=== PATIENT | male | born 1985 | race Caucasian/White ===

== ENCOUNTER 2019-05-27 08:58 | Outpatient (RCR) | payer OTHER, SELFPAY ==
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
--- NOTE | 2019-07-12 10:01 | PCPTNOTE ---
07/12 Patient called and cancelled JF
--- NOTE | 2019-07-19 07:10 | PCPTNOTE ---
07/19/19-pt did not show for appointment yesterday 07/18/19, vm was left for pt to call back and reschedule.-KASHIF.
--- NOTE | 2019-07-23 15:54 | PCPTNOTE ---
07/23/19 - patient called and cancelled his appointment this date. MERCED
--- NOTE | 2019-08-19 11:22 | PCPTNOTE ---
Pt. has not returned to the clinic since 08/02/19. He has failed to contact the clinic regarding his status. Pt. demonstrated poor consistency with attendance through the duration of his rehab. He will be discharged from our care at this time. Refer to last daily note for pt. discharge status. Marc Hernandez, MPT
== END 2019-08-02 09:26 | disposition home or self-care (01) ==
LOC: CHSPT 08:58
PROVIDERS: Visit Provider Family Medicine
DX: M54.2 Cervicalgia (principal); M54.5 Low back pain
CPT/HCPCS: 97014; 97110; 97161; G0283

== ENCOUNTER 2020-11-23 23:24 | Emergency (ER) | payer OTHER, SELFPAY ==
--- NOTE | ~2020-11-23 | XR_ITS ---
EXAMINATION: XR chest 1V portable DATE: 11/23/2020 23:45 INDICATION: Left chest pain. TECHNIQUE: A single frontal view of the chest was obtained. COMPARISON: None. FINDINGS: Sensitivity is decreased by obesity. The chest demonstrates clear lungs without pneumonia, pleural effusion, or pneumothorax. The heart size is normal. IMPRESSION: 1. No acute cardiopulmonary disease. Reviewed, dictated and finalized at location A.
[2020-11-23 23:25] VITALS: BP 170/74; PULSE 95; RESP 20; TEMP 36.3; O2SAT 97
--- NOTE | 2020-11-23 23:35 | ECG_ITS ---
Measurements Intervals [place] Rate: 90 P: 24 TN: 133 QRS: 12 QRSD: 100 T: 54 QT: 357 QTc: 438 Interpretive Statements SINUS RHYTHM LOW QRS VOLTAGE IN PRECORDIAL LEADS BASELINE ARTIFACT- I, II, III, AVR, AVF, V1-V3 BORDERLINE ECG Electronically Signed On 11-24-2020 10:41:02 CDT by Wing Tran D.O.
[2020-11-23 23:45] LABS: Basophils Absolute Auto 0.04 K/mm3 (0.00-0.10); Basophils Percent Auto 0.3 % (0.0-1.0); Eosinophils Absolute Auto 0.18 K/mm3 (0.02-0.50); Eosinophils Percent Auto 1.4 % (1.0-6.0); Hemoglobin 14.6 g/dL (14.0-18.0); Immature Granulocyte Absolute 0.06 K/mm3 (0.00-0.00); Immature Granulocyte Percent A 0.5 % (0.0-0.0); Lymphocytes Absolute Auto 4.77 K/mm3 (1.10-4.50); Lymphocytes Percent Auto 37.5 % (18.0-42.0); Mean Corpuscular HGB Conc 31.7 g/dL (32.0-36.0); Mean Corpuscular Hemoglobin 25.8 pg (27.0-31.0); Mean Corpuscular Volume 81.3 fL (78.0-102.0); Mean Platelet Volume 9.8 fl (8.7-11.0); Monocytes Absolute Auto 0.66 K/mm3 (0.10-0.90); Monocytes Percent Auto 5.2 % (2.0-11.0); Neutrophils Percent Auto 55.1 % (50.0-70.0); Platelet Count Result 346 K/mm3 (150-420); Red Blood Count 5.66 M/mm3 (4.70-6.10); Red Cell Distribution Width 15.4 % (11.6-14.4); White Blood Count 12.7 K/mm3 (4.8-10.8)
[2020-11-23 23:58] LABS: INR 0.9; Partial Thromboplastin Time 23.6 SEC (23.90-30.70); Prothrombin Time 9.8 Seconds (9.50-12.10)
[2020-11-24 00:05] LABS: Alanine Aminotransferase 43 U/L (16-63); Albumin Level 3.3 g/dL (3.4-5.0); Alkaline Phosphatase 136 U/L (46-116); Anion Gap 14 mmol/L (8-16); Aspartate Amino Transferase 11 U/L (15-37); Bilirubin,Total 0.2 mg/dL (0.00-1.00); Blood Urea Nitrogen 19 mg/dL (7-18); Calcium 8.9 mg/dL (8.5-10.1); Carbon Dioxide 25 mmol/L (21-32); Chloride 98 mmol/L (98-108); Estimated CRCL calculation 198 ml/min; Estimated Glomerular Filt Rate > 60; Glucose 237 mg/dL (70-99); Lipase 73 U/L (73-393); NT Pro B Type Natriuretic Pept < 11 pg/mL (0-125); Osmolality Calculated 294 mOsm/kg (285-295); Potassium 4.3 mmol/L (3.5-5.1); Sodium 137 mmol/L (136-145); Total Protein 7.8 g/dL (6.4-8.2)
[2020-11-24 00:06] LABS: Troponin I < 4.0 ng/L (0.00-60.4)
--- NOTE | 2020-11-24 00:18 | ED.CHESTPAIN ---
HPI - Chest Pain General Chief Complaint: Chest Pain Stated Complaint: Chest pain Source: patient Mode of arrival: ambulatory Limitations: no limitations History of Present Illness HPI narrative: this is 35-year-old gentleman morbidly obese with a history of diabetes and hypertension presents with a chief complaint of chest tightness has a history of anxiety there is no family history of heart disease nonsmoker, there is no radiation of his pain, rates his pain at about a 3/10 nonsmoker he has been having this some chest discomfort since Monday and persisted while he was playing video games and presented to the ER. Currently there is no cough no shortness of breath no fever chills no nausea vomiting. patient had a recent injection of of steroid in his lower back. MD complaint: chest pain Onset (ago): day(s) Timing of current episode: episodic Prior episodes: No Onset: during rest Pain location: parasternal Pain radiation: none Severity: mild Pain scale (0-10): 3 Quality: tightness Relieving factors: nothing Exacerbating factors: nothing Related Data Home Medications Medication Instructions Recorded Confirmed amlodipine 5 mg PO DAILY 11/23/20 11/23/20 atorvastatin 40 mg PO DAILY 11/23/20 11/23/20 escitalopram oxalate 20 mg PO DAILY 11/23/20 11/23/20 glimepiride 8 mg PO DAILY 11/23/20 11/23/20 insulin lispro 80 unit SUBCUT BID 11/23/20 11/23/20 omeprazole 20 mg PO DAILY 11/23/20 11/23/20 sitagliptin [Januvia] 100 mg PO DAILY 11/23/20 11/23/20 Allergies Allergy/AdvReac Type Severity Reaction Status Date / Time No Known Allergies Allergy Mild Verified 08/01/11 08:36 Review of Systems Review of Systems: All systems reviewed & are unremarkable except as noted in HPI and below PMFSH Past Medical History Medical History Diabetes mellitus Exam Const: General: cooperative, healthy appearing, comfortable and no acute distress HENMT: Head: normal to inspection Ears: hearing grossly normal bilaterally General nose exam: Normal external nose present Face and sinus: normal facial exam and face symmetric Mouth: Yes Normal oral and palatal mucosa present Eyes: General: appearance normal, both eyes and all related structures Periorbital: periorbital findings normal Eyelids: eyelids normal Conjunctivae: conjunctivae normal EOM: EOMs intact bilaterally Neck: Neck: normal visual inspection, full ROM, no lymphadenopathy and no meningeal signs Chest: Chest palpation & inspection: normal inspection of the chest and normal palpation of entire chest wall Resp: Effort & Inspection: normal respiratory effort Cardio: Jugular venous distension: no JVD Palpation: normal PMI Rate: regular rate Rhythm: regular rhythm Heart sounds: S1 normal heart sound present and S2 normal heart sound present GI: Inspection: normal to inspection Percussion: Yes normal to percussion Back/Spine/Pelvis: Back: no CVA tenderness Skin: General skin exam: normal color and no rashes or lesions noted Course Course Emergency Course: Patient has reproducible chest pain midsternum 1 with palpation has a history of anxiety and received Xanax prior to discharge. Labs and EKG were reviewed with patient a negative troponin and normal sinus rhythm. Vital Signs Vital signs: Vital Signs Temperature 36.3 C L 11/23/20 23:25 Pulse Rate 95 11/23/20 23:25 Respiratory Rate 20 11/23/20 23:25 Blood Pressure 170/74 H 11/23/20 23:25 Pulse Oximetry 97 11/23/20 23:25 Temperature 36.3 C L 11/23/20 23:25 Pulse Rate 95 11/23/20 23:25 Respiratory Rate 20 11/23/20 23:25 Blood Pressure 170/74 H 11/23/20 23:25 Pulse Oximetry 97 11/23/20 23:25 MDM - Chest Pain Lab Data Result diagrams: 11/23/20 23:40 11/23/20 23:40 Labs: Lab Results 11/23/20 11/23/20 11/23/20 Range/Units 23:40 23:40 23:40 WBC 12.7 H (4.8-10.8) K/mm3 RBC 5.66
[2020-11-24] MEDS: ALPRAZolam (*CRX) 0.5 MG TABLET PO (00:24)
[2020-11-24 00:31] VITALS: BP 150/77; PULSE 90; RESP 20; TEMP 36.6; O2SAT 97
== END 2020-11-24 00:32 | disposition home or self-care (01) ==
PROVIDERS: Emergency Provider Emergency Medicine; PCP Family Medicine
DX: R07.89 Other chest pain (principal); M94.0 Chondrocostal junction syndrome [Tietze]; F41.9 Anxiety disorder, unspecified
CPT/HCPCS: 36415; 71045; 80053; 83690; 83880; 84484; 85025; 85610; 85730; 93005; 99283; 99284; A9270

== ENCOUNTER 2021-05-13 08:47 | Outpatient (CLI) | payer OTHER, SELFPAY ==
--- NOTE | ~2021-05-13 | XR_ITS ---
EXAMINATION: XR chest 2V 05/13/2021 09:29 INDICATION: Diabetes PROCEDURE: 2 view chest COMPARISON: 11/23/2020 FINDINGS: The lungs are clear. The cardiomediastinal silhouette is within normal limits. There are no pleural effusions. There is no pneumothorax suspected. IMPRESSION: 1: NO ACUTE CARDIOPULMONARY DISEASE. Reviewed, dictated and finalized at location A. 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
--- NOTE | 2021-05-13 09:15 | ECG_ITS ---
Measurements Intervals [place] Rate: 80 P: [place]: 0 QRS: 64 QRSD: 106 T: 37 QT: 357 QTc: 414 Interpretive Statements SINUS OR ECTOPIC ATRIAL RHYTHM LOW QRS VOLTAGE IN PRECORDIAL LEADS BORDERLINE R WAVE PROGRESSION, ANTERIOR LEADS BASELINE ARTIFACT- I, II, III BORDERLINE ECG Electronically Signed On 05-13-2021 17:04:26 [address] ENGINEER FREIGHT by Wing Tran D.O.
[2021-05-13 09:56] LABS: Hemoglobin A1C 9.3 % (<5.7)
[2021-05-13 11:02] LABS: Thyroid Stimulating Hormone Reflex 1.63 u/IU/mL (0.36-3.74)
[2021-05-17 04:11] LABS: Vitamin D 25 Hydroxy 32 ng/mL (30-100)
[2021-05-17 12:41] LABS: Prealbumin 27 mg/dL (21-43)
[2021-05-17 16:02] LABS: C-Peptide 3.21 ng/mL (0.80-3.85)
== END 2021-05-13 08:48 | disposition home or self-care (01) ==
PROVIDERS: PCP Family Medicine
DX: E11.9 Type 2 diabetes mellitus without complications (principal); K76.0 Fatty (change of) liver, not elsewhere classified; E78.5 Hyperlipidemia, unspecified; E66.01 Morbid (severe) obesity due to excess calories
CPT/HCPCS: 36415; 71046; 82306; 83036; 84134; 84443; 84681; 93005

== ENCOUNTER 2021-11-08 07:12 | Outpatient (CLI) | payer OTHER, SELFPAY ==
[2021-11-08 10:23] LABS: SARS-CoV-2 RNA PCR Negative (Negative)
== END 2021-11-08 07:13 | disposition home or self-care (01) ==
LOC: CHSLAB 07:14
PROVIDERS: PCP Family Medicine; Visit Provider Family Medicine
DX: Z01.818 Encounter for other preprocedural examination (principal); Z20.822 Contact with and (suspected) exposure to COVID-19
CPT/HCPCS: C9803; U0003; U0005

== ENCOUNTER 2022-11-29 07:35 | Outpatient (CLI) | payer OTHER, SELFPAY ==
[2022-11-29 07:49] LABS: Basophils Absolute Auto 0.05 K/mm3 (0.00-0.10); Basophils Percent Auto 0.4 % (0.0-1.0); Eosinophils Absolute Auto 0.26 K/mm3 (0.02-0.50); Eosinophils Percent Auto 2.1 % (1.0-6.0); Hemoglobin 16.8 g/dL (14.0-18.0); Immature Granulocyte Absolute 0.06 K/mm3 (0.00-0.00); Immature Granulocyte Percent A 0.5 % (0.0-0.0); Lymphocytes Absolute Auto 4.28 K/mm3 (1.10-4.50); Lymphocytes Percent Auto 35.2 % (18.0-42.0); Mean Corpuscular HGB Conc 31.7 g/dL (32.0-36.0); Mean Platelet Volume 9.1 fl (8.7-11.0); Monocytes Absolute Auto 0.86 K/mm3 (0.10-0.90); Monocytes Percent Auto 7.1 % (2.0-11.0); Neutrophils Absolute Auto 6.6 K/mm3 (1.7-7.2); Neutrophils Percent Auto 54.7 % (50.0-70.0); Platelet Count Result 322 K/mm3 (150-420); Red Blood Count 6.46 M/mm3 (4.70-6.10); Red Cell Distribution Width 17.1 % (11.6-14.4); White Blood Count 12.2 K/mm3 (4.8-10.8)
== END 2022-11-29 07:36 | disposition home or self-care (01) ==
LOC: CHSLAB 07:39
PROVIDERS: PCP Physician Assistant; Visit Provider Physician Assistant
DX: D72.829 Elevated white blood cell count, unspecified (principal)
CPT/HCPCS: 36415; 85025

== ENCOUNTER 2022-12-06 14:56 | Outpatient (CLI) | payer OTHER, SELFPAY ==
[2022-12-06 16:00] LABS: Ferritin 91 ng/mL (26-388); Iron 49 ug/dL (65-175); Percent Iron Saturation 14 % (12-57)
== END 2022-12-06 14:57 | disposition home or self-care (01) ==
LOC: CHSLAB 14:59
PROVIDERS: PCP Family Medicine; Visit Provider Physician Assistant
DX: E61.1 Iron deficiency (principal)
CPT/HCPCS: 36415; 82728; 83540; 83550

== ENCOUNTER 2023-03-22 08:48 | Outpatient (CLI) | payer OTHER, SELFPAY ==
[2023-03-22 09:11] LABS: Basophils Absolute Auto 0.07 K/mm3 (0.00-0.10); Basophils Percent Auto 0.6 % (0.0-1.0); Eosinophils Absolute Auto 0.36 K/mm3 (0.02-0.50); Eosinophils Percent Auto 3.2 % (1.0-6.0); Hematocrit 54.3 % (40.0-54.0); Hemoglobin 17.3 g/dL (14.0-18.0); Immature Granulocyte Absolute 0.07 K/mm3 (0.00-0.00); Immature Granulocyte Percent A 0.6 % (0.0-0.0); Lymphocytes Absolute Auto 3.27 K/mm3 (1.10-4.50); Lymphocytes Percent Auto 29.5 % (18.0-42.0); Mean Corpuscular HGB Conc 31.9 g/dL (32.0-36.0); Mean Corpuscular Hemoglobin 26.4 pg (27.0-31.0); Mean Corpuscular Volume 82.8 fL (78.0-102.0); Mean Platelet Volume 9.1 fl (8.7-11.0); Monocytes Absolute Auto 0.76 K/mm3 (0.10-0.90); Monocytes Percent Auto 6.9 % (2.0-11.0); Neutrophils Absolute Auto 6.6 K/mm3 (1.7-7.2); Neutrophils Percent Auto 59.2 % (50.0-70.0); Platelet Count Result 336 K/mm3 (150-420); Red Blood Count 6.56 M/mm3 (4.70-6.10); Red Cell Distribution Width 16.3 % (11.6-14.4); White Blood Count 11.1 K/mm3 (4.8-10.8)
[2023-03-22 09:29] LABS: Hemoglobin A1C 7.3 % (<5.7)
[2023-03-22 09:54] LABS: Alanine Aminotransferase 70 U/L (16-63); Albumin Level 3.5 g/dL (3.4-5.0); Alkaline Phosphatase 82 U/L (46-116); Anion Gap 10 mmol/L (8-16); Aspartate Amino Transferase 29 U/L (15-37); Bilirubin,Total 0.5 mg/dL (0.00-1.00); Blood Urea Nitrogen 11 mg/dL (7-18); Calcium 9.7 mg/dL (8.5-10.1); Carbon Dioxide 30 mmol/L (21-32); Chloride 98 mmol/L (98-108); Cholesterol 187 mg/dL (0-200); Estimated Glomerular Filt Rate > 60; Ferritin 134 ng/mL (26-388); Glucose 105 mg/dL (70-99); HDL Direct 39 mg/dL (40-60); Iron 64 ug/dL (65-175); LDL Cholesterol Calculated 123 mg/dL (<130); Osmolality Calculated 285 mOsm/kg (285-295); Percent Iron Saturation 18 % (12-57); Potassium 4.6 mmol/L (3.5-5.1); Sodium 138 mmol/L (136-145); Total Protein 7.7 g/dL (6.4-8.2); Triglycerides 123 mg/dL (0-150)
[2023-03-25 16:51] LABS: Testosterone Free 510.3 pg/mL (35.0-155.0); Testosterone Total 1816 ng/dL (250-1100)
[2023-03-28 23:42] LABS: Estradiol, Ultrasensitive 58 pg/mL (< OR = 29)
== END 2023-03-22 08:49 | disposition home or self-care (01) ==
PROVIDERS: PCP Family Medicine; Visit Provider Physician Assistant
DX: E61.1 Iron deficiency (principal); D72.829 Elevated white blood cell count, unspecified
CPT/HCPCS: 36415; 80053; 80061; 82670; 82728; 83036; 83540; 83550; 84402; 84403; 85025

== ENCOUNTER 2023-09-19 10:36 | Outpatient (CLI) | payer OTHER, SELFPAY ==
--- NOTE | 2023-09-19 10:49 | ECG_ITS ---
SEE SCANNED COPY FOR CONFIRMED REPORT. MTDD
--- NOTE | 2023-09-19 16:29 | WPDPFTINT ---
PFT Procedure Performed PFT Procedure Performed Spirometry with Pre/Post Bronchodilator Plethysmography (Lung Vol) Diffusing Cap (DLCO) PFT Interpretation DOS: 09/19/2023 REQUESTING: Angel Peralta MD REASON FOR TESTING: pre-operative testing PULMONARY FUNCTION TESTS The patient exhibited good effort during testing, used several mouthpieces to complete the maneuvers. Spirometry: The pre-bronchodilator FEV1 is 3.24 L, 84%. The pre-bronchodilator FVC is 3.89 L, 81%. The FEV1/FVC ratio is 83%. After bronchodilator, the FEV1 is 3.29 L, 85%, +1%. After bronchodilator, the FVC is 4.04 L, 84%, +4%. The FEV1/FVC ratio is 81%. Lung volumes: The total lung capacity is 5.06L, 75%, decreased. The residual volume is 1.17 L, 60%. The RV/TLC is 23%. normal airway resistance. Diffusion: DLCO is 33.1, 80%. The DLCO/VA is 6.16, 142%. Flow volume loop: The flow volume loop is difficult to reproduce. There was one normal inspiratory loop, Trial 4. There were several normal expiratory loops. IMPRESSION: Normal spirometry without obstruction, mild restriction, normal diffusion, without response to bronchodilator. No prior studies for comparison. The restriction may be attributable to body mass index. Abbey Mota MD
== END 2023-09-19 10:37 | disposition home or self-care (01) ==
LOC: CHSCARD 10:41
PROVIDERS: PCP Family Medicine
DX: Z01.818 Encounter for other preprocedural examination (principal)
CPT/HCPCS: 93005; 94060; 94726; 94729

== ENCOUNTER 2024-02-01 09:05 | Outpatient (CLI) | payer OTHER, SELFPAY ==
[2024-02-01 09:29] LABS: Basophils Absolute Auto 0.04 K/mm3 (0.00-0.10); Basophils Percent Auto 0.5 % (0.0-1.0); Eosinophils Absolute Auto 0.27 K/mm3 (0.02-0.50); Eosinophils Percent Auto 3.4 % (1.0-6.0); Hematocrit 45.4 % (40.0-54.0); Hemoglobin 14.9 g/dL (14.0-18.0); Immature Granulocyte Absolute 0.02 K/mm3 (0.00-0.00); Immature Granulocyte Percent A 0.2 % (0.0-0.0); Lymphocytes Absolute Auto 1.94 K/mm3 (1.10-4.50); Lymphocytes Percent Auto 24.2 % (18.0-42.0); Mean Corpuscular HGB Conc 32.8 g/dL (32-36); Mean Corpuscular Hemoglobin 26.6 pg (27.0-31.0); Mean Corpuscular Volume 81.1 fL (78.0-102.0); Mean Platelet Volume 10.1 fl (8.7-11.0); Monocytes Absolute Auto 0.54 K/mm3 (0.10-0.90); Monocytes Percent Auto 6.7 % (2.0-11.0); Platelet Count Result 277 K/mm3 (150-420); Red Cell Distribution Width 15.4 % (11.6-14.4)
[2024-02-01 17:27] LABS: Anion Gap 9 mmol/L (4-12); Blood Urea Nitrogen 18 mg/dL (7-18); Calcium 9.1 mg/dL (8.5-10.1); Carbon Dioxide 29 mmol/L (21-32); Chloride 102 mmol/L (98-108); Estimated Glomerular Filt Rate > 60; Ferritin 503 ng/mL (26-388); Glucose 166 mg/dL (70-99); Iron 112 ug/dL (65-175); Osmolality Calculated 295 mOsm/kg (285-295); Percent Iron Saturation 42 % (12-57); Potassium 4.3 mmol/L (3.5-5.1); Sodium 140 mmol/L (136-145)
[2024-02-07 12:13] LABS: Vitamin B1 8 nmol/L (8-30)
== END 2024-02-01 09:06 | disposition home or self-care (01) ==
LOC: CHSLAB 09:09
PROVIDERS: PCP Family Medicine
DX: Z00.00 Encounter for general adult medical examination without abnormal findings (principal); E11.9 Type 2 diabetes mellitus without complications; Z98.84 Bariatric surgery status; E78.5 Hyperlipidemia, unspecified; G47.33 Obstructive sleep apnea (adult) (pediatric)
CPT/HCPCS: 36415; 80048; 82728; 83540; 83550; 84425; 85025

== ENCOUNTER 2024-05-17 03:19 | Emergency (ER) | payer OTHER, SELFPAY ==
[2024-05-17 03:22] VITALS: BP 153/90; PULSE 77; RESP 18; TEMP 36.4; O2SAT 98
[2024-05-17] MEDS: LIDOCAINE, EPINEPHRINE, TETRACAINE VISCOUS SOLN 3 ML TOPICAL (04:37)
[2024-05-17] MEDS: PHENYLEPHRINE 1,000 MCG/10 ML SYRINGE 100 MCG IV PUSH (04:45)
[2024-05-17] MEDS: LIDOCAINE 1% LOCAL INJ 10 ML VIAL INFILTRATE (04:48)
--- NOTE | 2024-05-17 05:14 | ED_ITS ---
HPI - Male Genitourinary General Chief complaint: Urogenital-Male Stated complaint: urogenital male Time Seen by Provider: 05/17/24 03:42 Source: patient Mode of arrival: ambulatory Limitations: no limitations History of Present Illness HPI Narrative: this is a 38-year-old male presents with some penile erection/priapism patient has been taking a daily Cialis and has a sustained erection for the last 10hours. There is some pain elicited at the penile shaft patient has tried cold compress to affected area. MD Complaint: other ( Penile erection) Onset (ago): hour(s) Duration: constant Location: penis Related Data Home Medications ?Medication ?Instructions ?Recorded ?Confirmed ?Last Taken ?Type atorvastatin 40 mg tablet 40 mg PO DAILY 11/23/20 05/17/24 05/16/24 History escitalopram oxalate 20 mg tablet 20 mg PO DAILY 11/23/20 05/17/24 05/16/24 History glimepiride 4 mg tablet 8 mg PO DAILY 11/23/20 05/17/24 05/16/24 History insulin lispro 100 unit/mL 80 unit subcut BID 11/23/20 05/17/24 05/16/24 History subcutaneous pen omeprazole 20 mg capsule,delayed 20 mg PO DAILY 11/23/20 05/17/24 05/16/24 History release sitagliptin phosphate 100 mg 100 mg PO DAILY 11/23/20 05/17/24 05/16/24 History tablet (Januvia) amlodipine 10 mg tablet 10 mg PO DAILY 05/17/24 05/17/24 05/16/24 History anastrozole 1 mg tablet 1 mg PO .COMPLEX 05/17/24 05/17/24 Unknown History blood sugar diagnostic (OneTouch 05/17/24 05/17/24 Unknown History Ultra Test strips) blood-glucose meter (OneTouch 05/17/24 05/17/24 Unknown History Ultra2 Meter) fluticasone propionate 50 2 spray intranasal .PRN 05/17/24 05/17/24 05/16/24 History mcg/actuation nasal spray,suspension lisinopril 2.5 mg tablet 2.5 mg PO .Daily 05/17/24 05/17/24 05/16/24 History pen needle, diabetic 29 gauge x 05/17/24 05/17/24 Unknown History 1/2 (TRUEplus Pen Needle) tadalafil 5 mg tablet (Cialis) 5 mg PO DAILY 05/17/24 05/17/24 05/16/24 History testosterone cypionate 200 mg/mL 100 mg subcut WEEKLY 05/17/24 05/17/24 Unknown History intramuscular oil trazodone 100 mg tablet 100 mg PO HS 05/17/24 05/17/24 05/16/24 History Allergies Allergy/AdvReac Type Severity Reaction Status Date / Time No Known Allergies Allergy Mild Verified 05/17/24 03:21 Review of Systems Review of Systems: All systems reviewed & are unremarkable except as noted in HPI and below [facility] Past Medical History Medical History Diabetes mellitus Exam Const: General: cooperative, healthy appearing, comfortable, no acute distress and well developed Resp: Effort & Inspection: normal respiratory effort and able to speak in complete sentences Auscultation: clear to auscultation bilaterally Cardio: Jugular venous distension: no JVD Palpation: normal PMI Rate: regular rate Rhythm: regular rhythm Heart sounds: S1 normal heart sound present and S2 normal heart sound present : Other: Penile erection Skin: General skin exam: normal color and no rashes or lesions noted Neuro: General: oriented to person, oriented to place, oriented to time and pa tient oriented x3 Course Course Emergency Course: patient with sustained penile erection, had LE T applied to the base of the penis and 1% lidocaine used at the base penis [id number] for nerve block. Subsequently dilute Phenylephrine with normal saline instilled in the corpus cavernosum bilaterally at the 2:00 a.m. and the 10 o'clock position. Subsequently with an 18gauge needle and 30cc syringe drainage of penile blood was performed and drained from bilateral corpus cavernosum approximately 80cc of blood. Procedure was tender and mildly painful, but patient did tolerate procedure well and erection had significantly in improved to a more flaccid penis. Betadine was applied to the penis prior to injection and evacuation blood. Vital Signs Vital signs: Vital Signs Temperature 36.4 C L 05/17/24 03:22 Pulse Rate 77 05/17/24 03:22 Respiratory Rate 18 05/17/24 03:22 Blood Pressure 153/90 H 05/17/24 03:22 Pulse Oximetry 98 05/17/24 03:22 Oxygen Delivery Room Air 05/17/24 03:22 Temperature 36.4 C L 05/17/24 03:22 Pulse Rate 77 05/17/24 03:22 Respiratory Rate 18 05/17/24 03:22 Blood Pressure 153/90 H 05/17/24 03:22 Pulse Oximetry 98 05/17/24 03:22 Oxygen Delivery Room Air 05/17/24 03:22 Critical Care Time Critical Care Time Critical Care Time: No Discharge Plan Discharge Clinical Impression: Priapism Patient Disposition: Home, Self-Care Condition: Stable Instructions: Antibiotic Form, Priapism (ED) Additional Instructions: advised to discontinue Cialis, and follow with primary care physician as soon as possible for possible referral to Urology. Patient Language: [place] Prescriptions: No Action anastrozole 1 mg tablet 1 mg PO .COMPLEX Rx Instructions: 1 mg orally 1/2 tab PO 2 times per week; (DME) blood-glucose meter [OneTouch Ultra2 Meter] Misc MISCELLANEOUS (DME) OneTouch Ultra Test Strip MISCELLANEOUS trazodone 100 mg tablet 100 mg PO HS amlodipine 10 mg tablet 10 mg PO DAILY testosterone cypionate 200 mg/mL oil 100 mg subcut WEEKLY fluticasone propionate 50 mcg/actuation spray,suspension 2 spray INTRANASAL .PRN lisinopril 2.5 mg tablet 2.5 mg PO .Daily (DME) pen needle, diabetic [TRUEplus Pen Needle] 29 gauge x 1/2 needle MISCELLANEOUS tadalafil [Cialis] 5 mg tablet 5 mg PO DAILY atorvastatin 40 mg tablet 40 mg PO DAILY glimepiride 4 mg tablet 8 mg PO DAILY omeprazole 20 mg capsule,delayed release(DR/EC) 20 mg PO DAILY insulin lispro 100 unit/mL insulin pen 80 unit SUBCUT BID escitalopram oxalate 20 mg tablet 20 mg PO DAILY Januvia 100 mg tablet 100 mg PO DAILY Follow-up/Referrals: Kathryn,MD Angel [Primary Care Provider] - Time of Disposition: 05:20
[2024-05-17 05:29] VITALS: BP 134/78; PULSE 78; RESP 18; O2SAT 99
--- OUTSIDE RECORDS SUMMARY | 2024-05-24 06:10 | XMS_ITS | Encounter Summary ---
Author Organization [facility] Address [address] [place] [address]. 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 Name Role Phone Unavailable Primary Care Provider Unavailabl e Encounter Details Date Type Department Care Team (Latest Contact Info) Description 02/06/2012 Abstract [facility] Social History Tobacco Use Types Packs/Day Years Used Date Smoking Tobacco: Never Assessed Sex and Gender Information Value Date Recorded Sex Assigned at Not on file Legal Sex Male 8:30 PM CDT Gender Identity Not on file Sexual Orientation Not on file documented as of this encounter Plan of Treatment Not on file documented as of this encounter Visit Diagnoses Not on filedocumented in this encounter
--- OUTSIDE RECORDS SUMMARY | 2024-05-24 06:10 | XMS_ITS | Patient Health Summary ---
Author Organization [facility] Address [address] [place] [address] Care Team Providers Care Manufacturing Operations Manager Name Role Phone Isra Mahmood MD Primary Care Provider [phone] Note from [facility],non-owned Affiliates and Associated Physician Practices is amultiple site organization consisting of ambulatory clinics and hospital sitesin [place], [place], [place] and [place]. This disclosure is being madepursuant to the Care Everywhere program and may not contain all information available regarding this patient. Last updated 18.[facility] Allergies * Metformin(Other) -High Criticality Medications * Be aware that medications may not be up to date on this document. Alwaysverify current medications with the patient. * atorvastatin (LIPITOR) 40 MG tablet Take 40 mg by mouth at bedtime * SITagliptin (JANUVIA) 100 MG tablet Take 100 mg by mouth once daily * glimepiride (AMARYL) 4 MG tablet Take 4 mg by mouth daily with breakfast * raNITIdine (ZANTAC) 300 MG tablet Take 300 mg by mouth once daily * traMADol (ULTRAM) 50 MG tablet Take 50 mg by mouth every 6 hours as needed for Pain Active Problems No known active problems Social History Tobacco Use Types Packs/Day Years Used Date Smoking Tobacco: Former Smokeless Tobacco: Never Sex and Gender Information Value Date Recorded Sex Assigned at Not on file Gender Identity Not on file Sexual Orientation Not on file Last Filed Vital Signs Vital Sign Reading Time Taken Comments Blood Pressure - - Pulse - - Temperature - - Respiratory Rate - - Oxygen Saturation - - Inhaled Oxygen Concentration - - Weight 150.9 kg (332 lb 11.2 oz) 03/15/2018 8:23 AM CDT Height 175.3 cm (5' 9 ) 03/15/2018 8:23 AM CDT Body Mass Index 49.13 03/15/2018 8:23 AM CDT Procedures * XR LUMBAR SPINE 2 OR 3VW(Performed 03/15/2018) Performed for Low back pain, unspecified back pain laterality, unspecified chronicity, with sciatica presence unspecified Results * XR LUMBAR SPINE 2 OR 3VW (03/15/2018 8:20 AM CDT) Anatomical Region Laterality Modality Spine Radiographic Shellie ging 03/15/2018 8:55 AM CDT Impressions 03/15/2018 8:56 AM CDT IMPRESSION: Normal. This report was electronically signed by OWEN RODRIGUEZ MD ??on 03/15/2018 8:56 AM . Narrative 03/15/2018 8:56 AM CDT Exam: ??XR LUMBAR SPINE 2 view History: ??back pain Comparison: None. Findings: The lumbar lordosis is normal. No fracture or subluxation is seen. The intervertebral disc spaces and facet joints are normal. Right upper quadrant clips are present. Procedure Note Owen Rodriguez MD - 03/15/2018 Exam: XR LUMBAR SPINE 2 view History: back pain Comparison: None. Findings: The lumbar lordosis is normal. No fracture or subluxation is seen. The intervertebral disc spaces and facet joints are normal. Right upper quadrant clips are present. IMPRESSION: Normal. This report was electronically signed by OWEN RODRIGUEZ MD on 03/15/2018 8:56 AM . Kemi Olmos PA-C DIAGNOSTIC IMAG ING ORDERABLES Care Teams Manufacturing Operations Manager Relationship Specialty Start Date End Date Isra Mahmood MD [address] [place] [phone] PCP - General 02/16/18
--- OUTSIDE RECORDS SUMMARY | 2024-05-24 06:10 | XMS_ITS | Encounter Summary ---
Author Organization [facility] Address [address] [place] [address]. [place] [address] [place] [address] Care Team Providers Care Chief Embalmer Name Role Phone Unavailable Primary Care Provider Unavailabl e Encounter Details Date Type Department Care Team (Late st Contact Info) Description 09/14/2023 Transcribe Orders [facility] Pre Access Team [address] [place] [address] Pedro Pablo Garcia MD [address] [place] [address] Social History Tobacco Use Types Packs/Day Years Used Date Smoking Tobacco: Never Assessed Sex and Gender Information Value Date Recorded Sex Assigned at Not on file Legal Sex Male 8:30 PM CDT Gender Identity Not on file Sexual Orientation Not on file documented as of this encounter Plan of Treatment Not on file documented as of this encounter Visit Diagnoses Diagnosis Pre-op evaluation- Primary Preoperative examination, unspecified documented in this encounter
--- OUTSIDE RECORDS SUMMARY | 2024-05-24 06:10 | XMS_ITS | Encounter Summary ---
Author Organization [facility] Address [address] [place] [address]. [place] [address] [place] [address] Care Team Providers Care Appliance Tester Name Role Phone Unavailable Primary Care Provider Unavailabl e Encounter Details Date Type Department Care Team (Late st Contact Info) Description 10/30/2016 Abstract [facility] [address] [place] [address] Ana Duran MD [address] [place] [address] Social History Tobacco Use Types Packs/Day Years Used Date Smoking Tobacco: Never Assessed Sex and Gender Information Value Date Recorded Sex Assigned at Not on file Legal Sex Male 8:30 PM CDT Gender Identity Not on file Sexual Orientation Not on file documented as of this encounter Plan of Treatment Not on file documented as of this encounter Procedures Procedure Name Priority Date/Time Associated Diagnosis Comments COMPREHENSIVE METABOLIC PANEL STAT 10/30/2016 8:00 AM CDT LACTIC ACID STAT 10/30/2016 8:00 AM CDT CBC W/DIFF AUTOMATED STAT 10/30/2016 8:00 AM CDT LIPASE STAT 10/30/2016 8:00 AM CDT URINALYSIS STAT 10/30/2016 6:45 AM CDT POCT GLUCOSE - VARGAS DOCKED DEVICE Routine 10/30/2016 6:41 AM CDT documented in this encounter Results * LIPASE (10/30/2016 8:00 AM CDT) LIPASE 9 8 - 78 UNITS/L 10/30/2016 8:33 AM CDT [facility] SERUM OR PLASMA SPECIMEN / Unknown 10/30/2016 8:00 AM CDT 10/30/2016 8:06 AM CDT us Generic Conversion Md [facility] Final R esult Performing Organization Address [facility] Co de Phone Number [facility] [address] [place] [address], * (ABNORMAL) LACTIC ACID (10/30/2016 8:00 AM CDT) LACTIC ACID VENOUS 3.2(H) 0.5 - 2.2 MMOL/L 10/30/2016 8:26 AM CDT [facility] Comment: AN ORDER FOR A REPEAT LACTIC ACID TEST IS REQUIRED WITHIN 6 HOURS OF DIAGNOSIS ON A PATIENT WITH SEVERE SEPSIS. IN A PATIENT WITHOUT SEPSIS, A LACTIC ACID VALUE UP TO 2.2 MMOL/L MAY BE NORMAL. PLASMA SPECIMEN / Unknown 10/30/2016 8:00 AM CDT 10/30/2016 8:06 AM CDT us Generic Conversion Md [facility] Final R esult Performing Organization Address [facility] Co de Phone Number [facility] [address] [place] [address], [place] [phone] * (ABNORMAL) COMPREHENSIVE METABOLIC PANEL (10/30/2016 8:00 AM CDT) GLUCOSE 192(H) 70 - 99 MG/DL 10/30/2016 8:33 AM CDT [facility] BUN 11 9 - 21 MG/DL 10/30/2016 8:33 AM CDT [facility] CREATININE S/P/B 0.72 0.72 - 1.25 MG/DL 10/30/2016 8:33 AM CDT [facility] SODIUM S/P/B 135(L) 136 - 145 MMOL/L 10/30/2016 8:33 AM T [facility] POTASSIUM S/P/B 4.0 3.5 - 5.1 MMOL/L 10/30/2016 8:33 AM T [facility] CHLORIDE S/P/B 99 98 - 107 MMOL/L 10/30/2016 8:33 AM T [facility] CO2 24.0 22.0 - 29.0 MMOL/L 10/30/2016 8:33 AM T [facility] CALCIUM S/P/B 10.1 8.4 - 10.2 MG/DL 10/30/2016 8:33 AM T [facility] BILIRUBIN TOTAL S/P/B 0.6 0.2 - 1.2 MG/DL 10/30/2016 8:33 AM [facility] TOTAL PROTEIN S/P/B 8.0 6.0 - 8.3 G/DL 10/30/2016 8:33 AM T [facility] ALBUMIN S/P/B 4.5 3.5 - 5.2 G/DL 10/30/2016 8:33 AM [facility] AST 19 5 - 34 U/L 10/30/2016 8:33 AM [facility] ALT 34 0 - 55 U/L 10/30/2016 8:33 AM [facility] ALKALINE PHOSPHATASE S/P/B 84 50 - 136 U/L 10/30/2016 8:33 AM [facility] OSMOLALITY (CALC) 275 275 - 300 MOSM/KG 10/30/2016 8:33 AM [facility] A/G RATIO 1.3 1.0 - 1.6 RATIO 10/30/2016 8:33 AM T [facility] BUN CREATININE RATIO 15.3 12 - 20 10/30/2016 8:33 AM [facility] ANION GAP 12.0 7 - 16 MMOL/L 10/30/2016 8:33 AM [facility] EGFR NON-AFR. AMER. >60 >60 ML/MIN/1.7 3 M2 10/30/2016 8:33 AM CDT [facility] EGFR AFR. AMER. >60 >60 ML/MIN/1.7 3 M2 10/30/2016 8:33 AM CDT [facility] 10/30/2016 8:00 AM CDT 10/30/2016 8:06 AM CDT us Generic Conversion Md [facility] Final R esult [facility] [address] [employer] [place] [id number], * (ABNORMAL) CBC W/DIFF AUTOMATED (10/30/2016 8:00 AM CDT) WBC 11.8(H) 4.5 - 10.8 x10'3/uL 10/30/2016 8:09 AM CDT [facility] RBC 5.53 4.50 - 6.10 x10'6/uL 10/30/2016 8:09 AM CDT [facility] HGB 14.9 13.0 - 18.0 G/DL 10/30/2016 8:09 AM CDT [facility] HCT 44.0 37.0 - 52.0 % 10/30/2016 8:09 AM CDT [facility] MCV 79.6 78.0 - 100.0 FL 10/30/2016 8:09 AM CDT [facility] MCH 26.9(L) 27.0 - 31.0 PG 10/30/2016 8:09 AM CDT [facility] MCHC 33.9 33.0 - 36.0 G/DL 10/30/2016 8:09 AM CDT [facility] RDW 14.0 11.5 - 14.5 % 10/30/2016 8:09 AM CDT [facility] PLT 319 150 - 350 x10'3/uL 10/30/2016 8:09 AM CDT [facility] MPV 9.5 7.4 - 10.4 FL 10/30/2016 8:09 AM CDT [facility] SEG NEUTROPHILS 61.3 % 7 8:09 AM CDT [facility] LYMPHOCYTES 32.0 % 10/30/2016 8:09 AM CDT [facility] MONOCYTES 4.9 % 10/30/2016 8:09 AM CDT [facility] EOSINOPHILS 0.9 % 10/30/2016 8:09 AM CDT [facility] BASOPHILS 0.5 % 10/30/2016 8:09 AM CDT [facility] IMMATURE GRANS % 0.4 % 10/31/19 17 8:09 AM CDT [facility] NRBC 0.0 % 10/30/2016 8:09 AM CDT [facility] ABS. NEUTROPHILS 7.25 1.60 - 8.30 x10'3/uL 10/30/2016 8:09 AM CDT [facility] ABS. LYMPHOCYTES 3.79 0.80 - 4.70 x10'3/uL 10/30/2016 8:09 AM CDT [facility] ABS. MONOCYTES 0.58 0.00 - 1.50 x10'3/uL 10/30/2016 8:09 AM CDT [facility] ABS. EOSINOPHILS 0.11 0.00 - 0.40 x10'3/uL 10/30/2016 8:09 AM CDT [facility] ABS. BASOPHILS 0.06 0.00 - 0.20 x10'3/uL 10/30/2016 8:09 AM CDT [facility] ABS. IMMATURE GRANULOCYTES 0.05(H) 0.00 - 0.03 x10'3/uL 10/30/2016 8:09 AM CDT [facility] ABS. NUCLEATED RBC'S 0.00 0.00 x10'3/uL 10/30/2016 8:09 AM CDT [facility] OTHER (type in comments) 10/30/2016 8:00 AM CDT 10/30/2016 8:06 AM CDT Comment:WHOLE BLOOD SAMPLE us Generic Conversion Md [facility] Final R esult [facility] [address] [place] [address], * (ABNORMAL) URINALYSIS (10/30/2016 6:45 AM CDT) COLOR (U) STRAW 10/30/2016 7:30 AM CDT [facility] TRANSPARENCY CLEAR 10/30/2016 7:30 AM CDT [facility] SPECIFIC GRAVITY (U) 1.005 1.000 - 1.025 10/30/2016 7:30 AM CDT [facility] Comment:LESS THAN OR EQUAL T O U PH 5.5 5.0 - 8.0 10/30/2016 7:30 AM CDT [facility] LEUKOCYTES (U) 1+(A) NEGATIVE 10/30/2016 7:30 AM CDT [facility] NITRITES NEGATIVE NEGATIVE 10/30/2016 7:30 AM CDT [facility] PROTEIN (U) NEGATIVE NEGATIVE 10/30/2016 7:30 AM CDT [facility] URINE GLUCOSE NEGATIVE NEGATIVE 10/30/2016 7:30 AM CDT [facility] KETONES MG/DL (U) NEGATIVE NEGATIVE 10/30/2016 7:30 AM CDT [facility] UROBILINOGEN 0.2 <1.0 EU/DL 10/30/2016 7:30 AM CDT [facility] BILIRUBIN (U) NEGATIVE NEGATIVE 10/30/2016 7:30 AM CDT [facility] BLOOD (U) NEGATIVE NEGATIVE 10/30/2016 7:30 AM CDT [facility] WBC/HPF 0-5 0 - 5 /HPF 10/30/2016 7:30 AM CDT [facility] 10/30/2016 6:45 AM CDT 10/30/2016 7:21 AM CDT us Generic Conversion Md GÓMEZ URINE ORDERABLES Final Result [facility] [address] [place] [address], * (ABNORMAL) POCT glucose (10/30/2016 6:41 AM CDT) [facility] GLUCOSE POC 197(H) 70 - 99 MG/DL 10/30/2016 7:05 AM CDT [facility] INTERFACE Comment:Value Noted, No Shira tment Given 10/30/2016 6:41 AM CDT 10/30/2016 7:05 AM CDT us Generic Conversion Md GÓME[facility] POCT ORDERABLES - DEVIC E Final Result [facility] ORDERS INTERFACE US documented in this encounter Visit Diagnoses Diagnosis Noninfective gastroenteritis and colitis Other and unspecified noninfectious gastroenteritis and colitis documented in this encounter
--- OUTSIDE RECORDS SUMMARY | 2024-05-24 06:10 | XMS_ITS | Encounter Summary ---
Author Organization [facility] Address [address] [place] [address]. [place], [place] [id number] [place] [address] Care Team Providers Care Cartographic Designer Name Role Phone Unavailable Primary Care Provider Unavailabl e Encounter Details Date Type Department Care Team (Late st Contact Info) Description 02/07/[address] [facility] [address] [place] [address] Isra Mahmood MD [address] [place] [phone] Social History Tobacco Use Types Packs/Day Years Used Date Smoking Tobacco: Never Assessed Sex and Gender Information Value Date Recorded Sex Assigned at Not on file Legal Sex Male 8:30 PM CDT Gender Identity Not on file Sexual Orientation Not on file documented as of this encounter Plan of Treatment Not on file documented as of this encounter Visit Diagnoses Diagnosis Abdominal pain Abdominal pain, unspecified site documented in this encounter
--- OUTSIDE RECORDS SUMMARY | 2024-05-24 06:10 | XMS_ITS | Encounter Summary ---
Author Organization [facility] Address [address] [place] [address]. [place], [place] [address] [place] [address] Care Team Providers Care Geosciences Associate Professor Name Role Phone Unavailable Primary Care Provider Unavailabl e Encounter Details Date Type Department Care Team (Latest Contact Info) Description 02/17/2012 Abstract [facility] Social History Tobacco Use [...]
--- OUTSIDE RECORDS SUMMARY | 2024-05-24 06:10 | XMS_ITS | Encounter Summary ---
Author Organization [facility] Address [address] [place] [address]. [place], [place] [address] [place] [address] Care Team Providers Care Automated Logistics Specialist Name Role Phone Unavailable Primary Care Provider Unavailabl e Encounter Details Date Type Department Care Team (Latest Contact Info) Description 02/09/2012 Abstract [facility] Social History Tobacco Use [...]
--- OUTSIDE RECORDS SUMMARY | 2024-05-24 06:10 | XMS_ITS | Encounter Summary ---
Author Organization [facility] Address [address] [place] [address]. [place] [address] [place] [address] Care Team Providers Care Hedis Analyst Name Role Phone Unavailable Primary Care Provider Unavailabl e Encounter Details Date Type Department Care Team (Late st Contact Info) Description 02/09/[address] [facility] [address] [place] [address] Dany Ruiz MD [address] [place] [address] Social History Tobacco Use Types Packs/Day Years Used Date Smoking Tobacco: Never Assessed Sex and Gender Information Value Date Recorded Sex Assigned at Not on file Legal Sex Male 8:30 PM CDT Gender Identity Not on file Sexual Orientation Not on file documented as of this encounter Plan of Treatment Not on file documented as of this encounter Visit Diagnoses Diagnosis Examination Unspecified examination documented in this encounter
--- OUTSIDE RECORDS SUMMARY | 2024-05-24 06:10 | XMS_ITS | Encounter Summary ---
Author Organization [facility] Address [address] [place] [address]. [place] [address] [place] [address] Care Team Providers Care Molder Name Role Phone Unavailable Primary Care Provider Unavailabl e Encounter Details Date Type Department Care Team (Late st Contact Info) Description 12/16/[address] [place] [address] Cam Cohn MD [address] [facility] [address] [place] [address] Social History Tobacco Use Types Packs/Day Years Used Date Smoking Tobacco: Never Assessed Sex and Gender Information Value Date Recorded Sex Assigned at Not on file Legal Sex Male 8:30 PM CDT Gender Identity Not on file Sexual Orientation Not on file documented as of this encounter Plan of Treatment Not on file documented as of this encounter Visit Diagnoses Diagnosis Chronic ethmoidal sinusitis documented in this encounter
--- OUTSIDE RECORDS SUMMARY | 2024-05-24 06:10 | XMS_ITS | Encounter Summary ---
Author Organization [facility] Address [address] [place] [address]. [place], [place] [phone] [place] [address] Care Team Providers Care Design Chief Name Role Phone Unavailable Primary Care Provider Unavailabl e Encounter Details Date Type Department Care Team (Latest Contact Info) Description 02/18/2012 Abstract [facility] Social History Tobacco Use [...]
--- OUTSIDE RECORDS SUMMARY | 2024-05-24 06:10 | XMS_ITS | Encounter Summary ---
Author Organization [facility] Address [address] [place] [address]. [place], [place] [phone] [place] [address] Care Team Providers Care Play Writer Name Role Phone Unavailable Primary Care Provider Unavailabl e Encounter Details Date Type Department Care Team (Latest Contact Info) Description 02/08/2012 Abstract [facility] Social History Tobacco Use [...]
--- OUTSIDE RECORDS SUMMARY | 2024-05-24 06:10 | XMS_ITS | Encounter Summary ---
Author Organization [facility] Address [address] [place] [address]. [place] [address] [place] [address] Care Team Providers Care Water Treatment Specialist Name Role Phone Unavailable Primary Care Provider Unavailabl e Encounter Details Date Type Department Care Team (Late st Contact Info) Description 09/01/2018 Abstract [facility] [address] [place] [place] [address] Isra Mahmood MD [address] [place] [phone] Social History Tobacco Use Types Packs/Day [...] Date/Time Associated Diagnosis Comments COMPREHENSIVE METABOLIC PANEL Routine 09/01/2018 12:03 PM CDT CBC W/DIFF AUTOMATED Routine 09/01/2018 12:03 PM CDT INFLUENZA A & B Routine 09/01/2018 12:00 PM CDT documented in this encounter Results * (ABNORMAL) COMPREHENSIVE METABOLIC PANEL (09/01/2018 12:03 PM CDT) SODIUM S/P/B 135(L) 136 - 145 MMOL/L 09/01/2018 12:28 PM CDT [facility] POTASSIUM S/P/B 3.8 3.5 - 5.1 MMOL/L 09/01/2018 12:28 PM T [facility] CHLORIDE S/P/B 99 98 - 107 MMOL/L 09/01/2018 12:28 PM [facility] CO2 21.9 21.0 - 32.0 MMOL/L 09/01/2018 12:28 PM [facility] GLUCOSE 324(H) 70 - 140 MG/DL 09/01/2018 12:28 PM T [facility] BUN 9 6 - 24 MG/DL 09/01/2018 12:28 PM [facility] CREATININE S/P/B 0.91 0.70 - 1.30 MG/DL 09/01/2018 12:28 PM [facility] CALCIUM S/P/B 8.7 8.4 - 10.5 MG/DL 09/01/2018 12:28 PM [facility] BILIRUBIN TOTAL S/P/B 0.3 0.2 - 1.0 MG/DL 09/01/2018 12:28 PM T [facility] ALKALINE PHOSPHATASE S/P/B 97 45 - 115 U/L 09/01/2018 12:28 PM [facility] AST 75(H) 15 - 37 U/L 09/01/2018 12:28 PM [facility] ALT 104(H) 16 - 63 U/L 09/01/2018 12:28 PM [facility] TOTAL PROTEIN S/P/B 8.0 6.4 - 8.2 G/DL 09/01/2018 12:28 PM [facility] ALBUMIN S/P/B 3.5 3.4 - 5.0 G/DL 09/01/2018 12:28 PM [facility] ANION GAP 14.1 MMOL/L 09/01/2018 12:28 PM [facility] Comment:REFERENCE RANGE NOT ESTABLISHED OSMOLALITY (CALC) 291 MOSM/KG 09/01/2018 12:28 PM T [facility] Comment:REFERENCE RANGE NOT ESTABLISHED EGFR NON-AFR. AMER. >90 >89 ML/MIN/1 .73 M2 09/01/2018 12:28 PM CDT [facility] EGFR AFR. AMER. >90 >89 ML/MIN/1 .73 M2 09/01/2018 12:28 PM CDT [facility] GFR NOTES THE ESTIMATED GFR IS CALCULATED USING THE 2009 CKD-EPI EQUATION. THE FOLLOWING CATEGORIES FOR GRADING RENAL FUNCTION ARE RECOMMENDED BY THE INTERNATIONAL SOCIETY OF NEPHROLOGY (KDIGO 2012 CLINICAL PRACTICE GUIDELINE). 09/01/2018 12:28 PM CDT [facility] Comment: G1,NORMAL OR HIGH: >89 ml/min/1.73 m2G2,MILDLY DECREASED: 60-89 ml/min/1.73 m2G3A,MILDLY TO MODERATELY DECREASED: 45-59 ml/min/1.73 m2G3B,MODERATELY TO SEVERELY DECREASED: 30-44 ml/min/1.73 m2G4,SEVERELY DECREASED: 15-29 ml/min/1.73 m2G5,KIDNEY FAILURE: <15 ml/min/1.73 m2 PLASMA SPECIMEN / Unknown 09/01/2018 12:03 PM CDT 09/01/2018 12:05 PM CDT us Generic Conversion Md [facility] Final R esult [facility] [employer] [place] [id number], * (ABNORMAL) CBC W/DIFF AUTOMATED (09/01/2018 12:03 PM CDT) WBC 6.6 4.5 - 10.8 x10'3/uL 09/01/2018 12:08 PM CDT [facility] RBC 5.39 4.50 - 6.10 x10'6/uL 09/01/2018 12:08 PM CDT [facility] HGB 14.1 13.0 - 18.0 G/DL 09/01/2018 12:08 PM CDT [facility] HCT 44.0 37.0 - 52.0 % 09/01/2018 12:08 PM CDT [facility] MCV 81.6 78.0 - 100.0 FL 09/01/2018 12:08 PM CDT [facility] MCH 26.2(L) 27.0 - 31.0 PG 09/01/2018 12:08 PM CDT [facility] MCHC 32.0(L) 33.0 - 36.0 G/DL 09/01/2018 12:08 PM CDT [facility] RDW 14.6(H) 11.5 - 14.5 % 09/01/2018 12:08 PM CDT [facility] PLT 261 150 - 350 x10'3/uL 09/01/2018 12:08 PM CDT [facility] MPV 9.9 7.4 - 10.4 FL 09/01/2018 12:08 PM CDT [facility] DIFFERENTIAL COMMENT NORMAL REFERENCE RANGE NOT ESTABLISHED FOR THE PROPORTIONAL LEUKOCYTE DIFFERENTIAL. 09/01/2018 12:08 PM CDT [facility] SEG NEUTROPHILS 61.0 % 9 12:08 PM CDT [facility] LYMPHOCYTES 26.1 % 09/01/2018 12:08 PM CDT [facility] MONOCYTES 10.7 % 09/01/2018 12:08 PM CDT [facility] EOSINOPHILS 1.1 % 09/01/2018 12:08 PM CDT [facility] BASOPHILS 0.5 % 09/01/2018 12:08 PM CDT [facility] IMMATURE GRANS % 0.6 % 09/02/19 19 12:08 PM CDT [facility] NRBC 0.0 % 09/01/2018 12:08 PM CDT [facility] ABS. NEUTROPHILS 4.01 1.60 - 8.30 x10'3/uL 09/01/2018 12:08 PM CDT [facility] ABS. LYMPHOCYTES 1.71 0.80 - 4.70 x10'3/uL 09/01/2018 12:08 PM CDT [facility] ABS. MONOCYTES 0.70 0.00 - 1.50 x10'3/uL 09/01/2018 12:08 PM CDT [facility] ABS. EOSINOPHILS 0.07 0.00 - 0.40 x10'3/uL 09/01/2018 12:08 PM CDT [facility] ABS. BASOPHILS 0.03 0.00 - 0.20 x10'3/uL 09/01/2018 12:08 PM CDT [facility] ABS. IMMATURE GRANULOCYTES 0.04(H) 0.00 - 0.03 x10'3/uL 09/01/2018 12:08 PM CDT [facility] ABS. NUCLEATED RBC'S 0.00 0.00 x10'3/uL 09/01/2018 12:08 PM CDT [facility] OTHER (type in comments) 09/01/2018 12:03 PM CDT 09/01/2018 12:05 PM CDT Comment:WHOLE BLOOD SAMPLE us Generic Conversion Md [facility] Final R esult Performing Organization Address City/[facility]/ZIP Co de Phone Number [facility] [address] [place] [address], [place] [phone] * INFLUENZA A & B (09/01/2018 12:00 PM CDT) SPEC DESCRIPTION NASOPHARYNGEAL SWAB 09/01/2018 12:57 PM CDT [facility] SPECIAL REQUESTS NO SPECIAL REQUEST 09/01/2018 12:57 PM CDT [facility] RESULT POSITIVE FOR INFLUENZA A VIRUS ANTIGEN 09/01/2018 1:10 PM CDT [facility] RESULT CALLED TO PEPPER AT 1310 RVER 09/01/2018 1:10 PM CDT [facility] NASOPHARYNGEAL SWAB / Unknown 09/01/2018 12:00 PM CDT 09/01/2018 12:58 PM CDT us Generic Conversion Md GÓMEZ MICROBIOLOGY - GENERAL ORDERABLES Final Result [facility] [address] [place] [address], [place] [phone] documented in this encounter Visit Diagnoses Diagnosis Shortness of breath documented in this encounter
--- OUTSIDE RECORDS SUMMARY | 2024-05-24 06:10 | XMS_ITS | Encounter Summary ---
Author Organization [facility] Address [address] [place] [address]. [place], [place] [address] [place] [address] Care Team Providers Care Drafter Name Role Phone Unavailable Primary Care Provider Unavailabl e Encounter Details Date Type Department Care Team (Late st Contact Info) Description 03/08/[address] [facility] [address] [place] [address] Angel Peralta MD [address] [place] [phone] Social History Tobacco Use Types Packs/Day Years Used Date Smoking Tobacco: Never Assessed Sex and Gender Information Value Date Recorded Sex Assigned at Not on file Legal Sex Male 8:30 PM CDT Gender Identity Not on file Sexual Orientation Not on file documented as of this encounter Plan of Treatment Not on file documented as of this encounter Visit Diagnoses Diagnosis Nonspecific reaction to tuberculin skin test Nonspecific reaction to tuberculin 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
--- OUTSIDE RECORDS SUMMARY | 2024-05-24 06:10 | XMS_ITS | Encounter Summary ---
Author Organization [facility] Address [address] [place] [address]. [place] [address] [place] [address] Care Team Providers Care Oral Communication Instructor Name Role Phone Unavailable Primary Care Provider Unavailabl e Encounter Details Date Type Department Care Team (Late st Contact Info) Description 08/18/2006 Abstract [facility] [address] [place] [address] Zane Castañeda MD Social History Tobacco Use Types Packs/Day Years [...]
--- OUTSIDE RECORDS SUMMARY | 2024-05-24 06:10 | XMS_ITS | Encounter Summary ---
Author Organization [facility] Address [address] [place] [address] Care Team Providers Care Horticulture/Floriculture Teacher Name Role Phone Isra Mahmood MD Primary Care Provider [phone] Encounter Details Date Type Department Care Team (Late st Contact Info) Description 03/14/2018 Orders Only [facility] [address] [place] [address] [place] [address] Paige Aparicio RN Low back pain, unspecified back pain laterality, unspecified chronicity, with sciatica presence unspecified Social History Tobacco Use Types Packs/Day Years Used Date Smoking Tobacco: Never Assessed Sex and Gender Information Value Date Recorded Sex Assigned at Not on file Gender Identity Not on file Sexual Orientation Not on file documented as of this encounter Plan of Treatment Not on file documented as of this encounter Results * XR LUMBAR SPINE 2 OR [...] Kemi Olmos PA-C DIAGNOSTIC IMAG ING ORDERABLES documented in this encounter Visit Diagnoses Diagnosis Low back pain, unspecified back pain laterality, unspecified chronicity, with sciatica presence unspecified- Primary documented in this encounter Care Teams Horticulture/Floriculture Teacher Relationship Specialty Start Date End Date Isra Mahmood MD [address] [place] [phone] PCP - General 02/16/18 documented as of this encounter
--- OUTSIDE RECORDS SUMMARY | 2024-05-24 06:10 | XMS_ITS | Encounter Summary ---
Author Organization [facility] Address [address] [place] [address]. [place], [place] [address] [place] [address] Care Team Providers Care Xray Tech Name Role Phone Unavailable Primary Care Provider Unavailabl e Encounter Details Date Type Department Care Team (Late st Contact Info) Description 04/19/[address] [facility] [address] [address] Isra Mahmood MD [address] [place] [phone] Social History Tobacco Use Types Packs/Day Years Used Date Smoking Tobacco: Never Assessed Sex and Gender Information Value Date Recorded Sex Assigned at Not on file Legal Sex Male 8:30 PM CDT Gender Identity Not on file Sexual Orientation Not on file documented as of this encounter Plan of Treatment Not on file documented as of this encounter Visit Diagnoses Diagnosis Hypersomnia Hypersomnia, unspecified documented in this encounter
--- OUTSIDE RECORDS SUMMARY | 2024-05-24 06:10 | XMS_ITS | Encounter Summary ---
Author Organization [facility] Address [address] [place] [address]. [place], [place] [address] [place] [address] Care Team Providers Care Hole Filler Name Role Phone Unavailable Primary Care Provider Unavailabl e Encounter Details Date Type Department Care Team (Latest Contact Info) Description 02/10/2012 Abstract [facility] Medical Group Social History Tobacco Use Types [...]
--- OUTSIDE RECORDS SUMMARY | 2024-05-24 06:10 | XMS_ITS | Encounter Summary ---
Author Organization [facility] Address [address] [place] [address]. [place] [address] [place] [address] Care Team Providers Care Presser Hand Name Role Phone Unavailable Primary Care Provider Unavailabl e Encounter Details Date Type Department Care Team (Late st Contact Info) Description 05/06/2018 Abstract [facility] [address] [place] [address] Bill Morales MD [address], [place] [phone] Social History Tobacco Use Types Packs/Day Years Used Date Smoking Tobacco: Never Assessed Sex and Gender Information Value Date Recorded Sex Assigned at Not on file Legal Sex Male 8:30 PM CDT Gender Identity Not on file Sexual Orientation Not on file documented as of this encounter Plan of Treatment Not on file documented as of this encounter Visit Diagnoses Diagnosis Left upper quadrant pain Abdominal pain, left upper quadrant documented in this encounter
--- OUTSIDE RECORDS SUMMARY | 2024-05-24 06:10 | XMS_ITS | Clinical Summary ---
Author Organization [facility] Address [address] [place] [address] Care Team Providers Care Child Protective Services Specialist Name Role Phone Isra Mahmood MD Primary Care Provider [phone] Source Comments [facility] [employer],non-owned Affiliates and Associated Physician Practices is amultiple site organization consisting of ambulatory clinics and hospital sitesin [place], [place], [place] and [place]. This disclosure is being madepursuant to the Care Everywhere program and may not contain all information available regarding this patient. Last updated 18.[facility] [employer] Allergies Active Allergy Reactions Criticality Noted Date Comments Metformin Other High 03/15/2018 dehydration Medications * Be aware that medications may not be up to date on this document. Alwaysverify current medications with the patient. Medication Sig Dispensed Refills Start Date End Date Status atorvastatin (LIPITOR) 40 MG tablet Take 40 mg by mouth at bedtime Active SITagliptin (JANUVIA) 100 MG tablet Take 100 mg by mouth once daily Active glimepiride (AMARYL) 4 MG tablet Take 4 mg by mouth daily with breakfast Active raNITIdine (ZANTAC) 300 MG tablet Take 300 mg by mouth once daily Active traMADol (ULTRAM) 50 MG tablet Take 50 mg by mouth every 6 hours as needed for Pain Active Active Problems No known active problems Social [...] Mass Index 49.13 03/15/2018 8:23 AM CDT Plan of Treatment Health Maintenance Due Date Last Done Comments HIV SCREENING 2000 HEPATITIS C SCREENING 09/11/2003 DTAP/TDAP/TD VACCINES (1 - Tdap) 2004 HEPATITIS B VACCINE (1 of 3 - 19+ 3-dose series) 2004 DEPRESSION SCREENING 05/22/2023 COVID-19 VACCINE ( - 2023-2 5 season) 2024 INFLUENZA VACCINE (#1) 2024 ZOSTER VACCINE (1 of 2) 09/16/2035 HIB VACCINE Aged Out No longer eligi ble based on patient's age to complete this topic HPV VACCINE Aged Out No longer eligi ble based on patient's age to complete this topic MENINGOCOCCAL VACCINE Aged Out No kt dmitri eligible based on patient's age to complete this topic PNEUMOCOCCAL VACCINE Aged Out No long er eligible based on patient's age to complete this topic Care Teams Child Protective Services Specialist Relationship Specialty Start Date End Date Isra Mahmood MD [address] [place] [phone] PCP - General 02/16/18
--- OUTSIDE RECORDS SUMMARY | 2024-05-24 06:10 | XMS_ITS | Encounter Summary ---
Author Organization [facility] Address [address] [place] [address]. [place], [place] [address] [place] [address] Care Team Providers Care Precision Thread Grinder Operator Name Role Phone Unavailable Primary Care Provider Unavailabl e Encounter Details Date Type Department Care Team (Late st Contact Info) Description 02/06/2012 [facility] Emergency Room [address] [place] [address] Social History Tobacco Use Types Packs/Day Years Used Date Smoking Tobacco: Never Assessed Sex and Gender Information Value Date Recorded Sex Assigned at Not on file Legal Sex Male 8:30 PM CDT Gender Identity Not on file Sexual Orientation Not on file documented as of this encounter Plan of Treatment Not on file documented as of this encounter Visit Diagnoses Diagnosis Abdominal pain, right upper quadrant documented in this encounter
--- OUTSIDE RECORDS SUMMARY | 2024-05-24 06:10 | XMS_ITS | Referral Summary ---
Author Organization [facility] Address [address] [place] [address] Care Team Providers Care Tube And Rod Straightener Name Role Phone Isra Mahmood MD Primary Care Provider [phone] Source Comments [facility],non-owned Affiliates and Associated Physician Practices is amultiple site organization consisting of ambulatory clinics and hospital sitesin [place], [place], [place] and [place]. This disclosure is being madepursuant to the Care Everywhere program and may not contain all information available regarding this patient. Last updated 18.[facility] Allergies Active Allergy Reactions Criticality Noted Date [...] 03/15/2018 8:23 AM CDT Plan of Treatment Not on file Care Teams Tube And Rod Straightener Relationship Specialty Start Date End Date Isra Mahmood MD [address] [place] [phone] PCP - General 02/16/18
--- OUTSIDE RECORDS SUMMARY | 2024-05-24 06:10 | XMS_ITS | Encounter Summary ---
Author Organization [facility] Address [address] [place] [address]. [place], [place] [address] [place] [address] Care Team Providers Care Client Professional Name Role Phone Unavailable Primary Care Provider Unavailabl e Encounter Details Date Type Department Care Team (Late st Contact Info) Description 09/30/2010 Abstract [facility] [address] [place] [address] Michael Black MD [address] [address] Social History Tobacco Use Types Packs/Day Years Used Date Smoking Tobacco: Never Assessed Sex and Gender Information Value Date Recorded Sex Assigned at Not on file Legal Sex Male 8:30 PM CDT Gender Identity Not on file Sexual Orientation Not on file documented as of this encounter Plan of Treatment Not on file documented as of this encounter Visit Diagnoses Diagnosis Acute pharyngitis documented in this encounter
--- OUTSIDE RECORDS SUMMARY | 2024-05-24 06:10 | XMS_ITS | Encounter Summary ---
Author Organization [facility] Address [facility] [facility] [place] [address] [place] [address] Care Team Providers Care Telegraph Lineman Name Role Phone Unavailable Primary Care Provider Unavailabl e Reason for Referral * Procedure (Routine) - Authorized Specialty Diagnoses / Procedures Referred By Contac t Referred To Contact Diagnoses Pre-op evaluation Procedures Complete PFT (pre/post [place], Lung Vol, Diff Capacity) (85808, 38792, 59492, 00759) Complete PFT (pre/post [place], Lung Vol, Diff Capacity) (798[address], [address], [address]2265, 55141) Pedro Pablo Garcia MD [address] [place] [address] Phone: tel: fax: [address] [address] Phone: tel: Referral ID Status Reason Start Date Expiration Date V isits Requested Visits Authorized [id number] Authorized 09/14/2023 10/14/2024 1 1 Encounter Details Date Type Department Care Team (Late st Contact Info) Description 09/14/2023 Transcribe Orders [facility] Pre Access Team [address] [place] [address] Pedro Pablo Garcia MD [address] [place] [address] Social History Tobacco Use Types Packs/Day Years Used Date Smoking Tobacco: Never Assessed Sex and Gender Information Value Date Recorded Sex Assigned at Not on file Legal Sex Male 8:30 PM CDT Gender Identity Not on file Sexual Orientation Not on file documented as of this encounter Plan of Treatment Scheduled Orders Name Type Priority Associated Diagnoses Orde r Schedule Complete PFT (pre/post [place], Lung Vol, Diff Capacity) (79556, 40494, 92560, 43318) PFT Routine Pre-op evaluation Expected: 09/14/2023, Expires: 09/13/2024 documented as of this encounter Visit Diagnoses Diagnosis Pre-op evaluation Preoperative examination, unspecified documented in this encounter
--- OUTSIDE RECORDS SUMMARY | 2024-05-24 06:10 | XMS_ITS | Encounter Summary ---
Author Organization [facility] Address [address] [place] [address]. [place] [address] [place] [address] Care Team Providers Care Senior Property Accountant Name Role Phone Unavailable Primary Care Provider Unavailabl e Encounter Details Date Type Department Care Team (Late st Contact Info) Description 05/04/2018 Abstract [facility] [address] [place] [address] Rufus Paulson MD [address] [place] [address] Social History Tobacco Use Types Packs/Day Years [...] Associated Diagnosis Comments COMPREHENSIVE METABOLIC PANEL STAT 05/04/2018 3:51 PM DEVELOPMENT REPRESENTATIVE CBC W/DIFF AUTOMATED STAT 05/04/2018 3:51 PM DEVELOPMENT REPRESENTATIVE LIPASE STAT 05/04/2018 3:51 PM DEVELOPMENT REPRESENTATIVE documented in this encounter Results * LIPASE (05/04/2018 3:51 PM DEVELOPMENT REPRESENTATIVE) LIPASE 130 73 - 393 UNITS/L 05/04/2018 5:25 PM DEVELOPMENT REPRESENTATIVE [facility] SERUM OR PLASMA SPECIMEN / Unknown 05/04/2018 3:51 PM DEVELOPMENT REPRESENTATIVE 05/04/2018 4:55 PM DEVELOPMENT REPRESENTATIVE us Generic Conversion Md [facility] Final R esult [facility] [address] [place] [address], * (ABNORMAL) COMPREHENSIVE METABOLIC PANEL (05/04/2018 3:51 PM DEVELOPMENT REPRESENTATIVE) SODIUM S/P/B 137 136 - 145 MMOL/L 05/04/2018 5:25 PM DEVELOPMENT REPRESENTATIVE [facility] POTASSIUM S/P/B 4.2 3.5 - 5.1 MMOL/L 05/04/2018 5:25 PM [facility] Comment:SLIGHT HEMOLYSIS, RE SULT MAY BE AFFECTED. CHLORIDE S/P/B 102 98 - 107 MMOL/L 05/04/2018 5:25 PM [facility] CO2 25.3 21.0 - 32.0 MMOL/L 05/04/2018 5:25 PM [facility] GLUCOSE 212(H) 70 - 140 MG/DL 05/04/2018 5:25 PM [facility] BUN 13 6 - 24 MG/DL 05/04/2018 5:25 PM [facility] CREATININE S/P/B 0.74 0.70 - 1.30 MG/DL 05/04/2018 5:25 PM [facility] CALCIUM S/P/B 9.4 8.4 - 10.5 MG/DL 05/04/2018 5:25 PM [facility] BILIRUBIN TOTAL S/P/B 0.2 0.2 - 1.0 MG/DL 05/04/2018 5:25 PM [facility] ALKALINE PHOSPHATASE S/P/B 120(H) 45 - 115 U/L 05/04/2018 5:25 PM [facility] AST 22 15 - 37 U/L 05/04/2018 5:25 PM [facility] ALT 50 16 - 63 U/L 05/04/2018 5:25 PM [facility] TOTAL PROTEIN S/P/B 8.1 6.4 - 8.2 G/DL 05/04/2018 5:25 PM DEVELOPMENT REPRESENTATIVE [facility] ALBUMIN S/P/B 3.7 3.4 - 5.0 G/DL 05/04/2018 5:25 PM [facility] ANION GAP 9.7 MMOL/L 05/04/2018 5:25 PM DEVELOPMENT REPRESENTATIVE [facility] Comment:REFERENCE RANGE NOT ESTABLISHED OSMOLALITY (CALC) 290 MOSM/KG 05/04/2018 5:25 PM DEVELOPMENT REPRESENTATIVE [facility] Comment:REFERENCE RANGE NOT ESTABLISHED EGFR NON-AFR. AMER. >90 >89 ML/MIN/1 .73 M2 05/04/2018 5:25 PM DEVELOPMENT REPRESENTATIVE [facility] EGFR AFR. AMER. >90 >89 ML/MIN/1 .73 M2 05/04/2018 5:25 PM [facility] GFR NOTES THE ESTIMATED GFR IS CALCULATED USING THE 2009 CKD-EPI EQUATION. THE FOLLOWING CATEGORIES FOR GRADING RENAL FUNCTION ARE RECOMMENDED BY THE INTERNATIONAL SOCIETY OF NEPHROLOGY (KDIGO 2012 CLINICAL PRACTICE GUIDELINE). 05/04/2018 5:25 PM DEVELOPMENT REPRESENTATIVE [facility] Comment: G1,NORMAL OR HIGH: >89 ml/min/1.73 m2G2,MILDLY DECREASED: 60-89 ml/min/1.73 m2G3A,MILDLY TO MODERATELY DECREASED: 45-59 ml/min/1.73 m2G3B,MODERATELY TO SEVERELY DECREASED: 30-44 ml/min/1.73 m2G4,SEVERELY DECREASED: 15-29 ml/min/1.73 m2G5,KIDNEY FAILURE: <15 ml/min/1.73 m2 PLASMA SPECIMEN / Unknown 05/04/2018 3:51 PM DEVELOPMENT REPRESENTATIVE 05/04/2018 4:55 PM DEVELOPMENT REPRESENTATIVE us Generic Conversion Md [facility] Final R esult [facility] [address] [place] [address], * (ABNORMAL) CBC W/DIFF AUTOMATED (05/04/2018 3:51 PM DEVELOPMENT REPRESENTATIVE) WBC 9.3 4.5 - 10.8 x10'3/uL 05/04/2018 4:59 PM [facility] RBC 5.66 4.50 - 6.10 x10'6/uL 05/04/2018 4:59 PM [facility] HGB 14.9 13.0 - 18.0 G/DL 05/04/2018 4:59 PM [facility] HCT 46.5 37.0 - 52.0 % 05/04/2018 4:59 PM [facility] MCV 82.2 78.0 - 100.0 FL 05/04/2018 4:59 PM [facility] MCH 26.3(L) 27.0 - 31.0 PG 05/04/2018 4:59 PM [facility] MCHC 32.0(L) 33.0 - 36.0 G/DL 05/04/2018 4:59 PM [facility] RDW 14.9(H) 11.5 - 14.5 % 05/04/2018 4:59 PM [facility] PLT 327 150 - 350 x10'3/uL 05/04/2018 4:59 PM [facility] MPV 9.8 7.4 - 10.4 FL 05/04/2018 4:59 PM [facility] SEG NEUTROPHILS 57.3 % 8 4:59 PM [facility] LYMPHOCYTES 34.7 % 05/04/2018 4:59 PM [facility] MONOCYTES 5.8 % 05/04/2018 4:59 PM [facility] EOSINOPHILS 1.2 % 05/04/2018 4:59 PM [facility] BASOPHILS 0.4 % 05/04/2018 4:59 PM [facility] IMMATURE GRANS % 0.6 % 05/04/20 18 4:59 PM [facility] NRBC 0.0 % 05/04/2018 4:59 PM [facility] ABS. NEUTROPHILS 5.30 1.60 - 8.30 x10'3/uL 05/04/2018 4:59 PM [facility] ABS. LYMPHOCYTES 3.21 0.80 - 4.70 x10'3/uL 05/04/2018 4:59 PM DEVELOPMENT REPRESENTATIVE [facility] ABS. MONOCYTES 0.54 0.00 - 1.50 x10'3/uL 05/04/2018 4:59 PM DEVELOPMENT REPRESENTATIVE [facility] ABS. EOSINOPHILS 0.11 0.00 - 0.40 x10'3/uL 05/04/2018 4:59 PM DEVELOPMENT REPRESENTATIVE [facility] ABS. BASOPHILS 0.04 0.00 - 0.20 x10'3/uL 05/04/2018 4:59 PM DEVELOPMENT REPRESENTATIVE [facility] ABS. IMMATURE GRANULOCYTES 0.06(H) 0.00 - 0.03 x10'3/uL 05/04/2018 4:59 PM DEVELOPMENT REPRESENTATIVE [facility] ABS. NUCLEATED RBC'S 0.00 0.00 x10'3/uL 05/04/2018 4:59 PM DEVELOPMENT REPRESENTATIVE [facility] OTHER (type in comments) 05/04/2018 3:51 PM DEVELOPMENT REPRESENTATIVE 05/04/2018 4:55 PM DEVELOPMENT REPRESENTATIVE Comment:WHOLE BLOOD SAMPLE us Generic Conversion Md [facility] Final R esult [facility] [address] [place] [address], documented in this encounter Visit Diagnoses Diagnosis Abdominal pain Abdominal pain, unspecified site documented in this encounter
--- OUTSIDE RECORDS SUMMARY | 2024-05-24 06:10 | XMS_ITS | Encounter Summary ---
Author Organization [facility] Address [address] [place] [address]. [place] [address] [place] [address] Care Team Providers Care Supervisor Slate Splitting Name Role Phone Unavailable Primary Care Provider Unavailabl e Encounter Details Date Type Department Care Team (Late st Contact Info) Description 07/25/[address] [facility] [address] [place] [address] Isra Mahmood MD [address] [place] [phone] Social History Tobacco Use Types Packs/Day Years Used Date Smoking Tobacco: Never Assessed Sex and Gender Information Value Date Recorded Sex Assigned at Not on file Legal Sex Male 8:30 PM CDT Gender Identity Not on file Sexual Orientation Not on file documented as of this encounter Plan of Treatment Not on file documented as of this encounter Visit Diagnoses Diagnosis Sprain of calcaneofibular ligament of left ankle Sprain of calcaneofibular (ligament) of ankle documented in this encounter
--- OUTSIDE RECORDS SUMMARY | 2024-05-24 06:10 | XMS_ITS | Encounter Summary ---
Author Organization [facility] Address [address] [place] [address]. [place] [address] [place] [address] Care Team Providers Care Video Coordinator Name Role Phone Unavailable Primary Care Provider Unavailabl e Encounter Details Date Type Department Care Team (Late st Contact Info) Description 07/30/[address] [facility] [address] [place] [address] Isra Mahmood MD [address] [place] [phone] Social History Tobacco Use Types Packs/Day Years Used Date Smoking Tobacco: Never Assessed Sex and Gender Information Value Date Recorded Sex Assigned at Not on file Legal Sex Male 8:30 PM CDT Gender Identity Not on file Sexual Orientation Not on file documented as of this encounter Plan of Treatment Not on file documented as of this encounter Visit Diagnoses Diagnosis Chronic sinusitis Unspecified sinusitis (chronic) documented in this encounter
--- OUTSIDE RECORDS SUMMARY | 2024-05-24 06:10 | XMS_ITS | Encounter Summary ---
Author Organization [facility] Address [address] [place] [address]. [place], [place] [address] [place] [address] Care Team Providers Care Storehouse Clerk Name Role Phone Unavailable Primary Care Provider Unavailabl e Encounter Details Date Type Department Care Team (Latest Contact Info) Description 02/07/2012 Abstract [facility] Social History Tobacco Use Types [...]
--- OUTSIDE RECORDS SUMMARY | 2024-05-24 06:10 | XMS_ITS | Encounter Summary ---
Author Organization [facility] Address [address] [place] [address]. [place] [address] [place] [address] Care Team Providers Care Assessment Coordinator Name Role Phone Unavailable Primary Care Provider Unavailabl e Encounter Details Date Type Department Care Team (Late st Contact Info) Description 02/09/[address] [facility] [place] [place] [address] Dany Ruiz MD [address] [place] [address] Social History Tobacco Use Types Packs/Day Years Used Date Smoking Tobacco: Never Assessed Sex and Gender Information Value Date Recorded Sex Assigned at Not on file Legal Sex Male 8:30 PM CDT Gender Identity Not on file Sexual Orientation Not on file documented as of this encounter Plan of Treatment Not on file documented as of this encounter Visit Diagnoses Diagnosis Calculus of gallbladder with other cholecystitis documented in this encounter
--- OUTSIDE RECORDS SUMMARY | 2024-05-24 06:10 | XMS_ITS | Encounter Summary ---
Author Organization [facility] Address [address] [place] [address]. [place] [address] [place] [address] Care Team Providers Care Medical Insurance Biller Name Role Phone Unavailable Primary Care Provider Unavailabl e Encounter Details Date Type Department Care Team (Late st Contact Info) Description 09/29/2006 Abstract [facility] [address] [place] [address] Zane Castañeda MD Social History Tobacco Use [...]
--- OUTSIDE RECORDS SUMMARY | 2024-05-24 06:10 | XMS_ITS | Encounter Summary ---
Author Organization [facility] Address [address] [facility] [place] [address] Care Team Providers Care Power Tool Repairer Name Role Phone Isra Mahmood MD Primary Care Provider [phone] Reason for Visit * Reason Comments Pain Back Encounter Details Date Type Department Care Team (Late st Contact Info) Description 03/15/2018 8:30 AM CDT Office Visit [facility] - Orthopedics [address] [facility], [place] [address] Kemi Olmos PA-C [address] [place] [address] Chronic midline low back pain with bilateral sciatica (Primary Dx) Social History Tobacco Use Types Packs/Day Years Used Date Smoking Tobacco: Former Smokeless Tobacco: Never Sex and Gender Information Value Date Recorded Sex Assigned at Not on file Gender Identity Not on file Sexual Orientation Not on file documented as of this encounter Last Filed Vital Signs Vital Sign Reading Time Taken Comments Blood Pressure - - Pulse - - Temperature - - Respiratory Rate - - Oxygen Saturation - - Inhaled Oxygen Concentration - - Weight 150.9 kg (332 lb 11.2 oz) 03/15/2018 8:23 AM CDT Height 175.3 cm (5' 9 ) 03/15/2018 8:23 AM CDT Body Mass Index 49.13 03/15/2018 8:23 AM CDT documented in this encounter Patient Instructions * Patient Instructions* Kemi Olmos PA-C - 03/15/2018 9:10 AM CDT [facility] Department of Orthopaedic Surgery Orthopaedic Clinic Discharge Form Bolivar Us 03/15/2018 Thank you for coming in to see us today for your diagnosis of: Chronic midline low back pain with bilateral sciatica - Plan: AMB Ref Physical Therapy - [facility] PT Activity Restrictions: as tolerated Medications Prescribed: none Special Studies/Labs to be completed: none We recommend that you try the following for your injury: physical therapy exercises, anti-inflammatory medications, tylenol, activity modification, weight loss and icing 20 minutes at a time 3 to 5 times daily Recommend 2000 units Vitamin D daily for bone health May try 1500 to 2000 mg Glucosamine/chondriotin/MSM daily for joint pain Medications over the counter: - Acetaminophen (Tylenol) 500mg 1-2 tablets every 6 hours as needed for pain, not exceeding daily total of 3000mg. Please note that narcotic medications can consist of same ingredient. - Ibuprofen (Advil) 200mg 1-3 tablets every 8 hours as needed for pain, not exceeding daily total of 2400mg OR Naproxen (Aleve) 220mg 1-2 tablets every 12 hours as needed for pain. Take with food or milk to prevent stomach upset. Do not take any other NSAIDs while taking this medication. Follow up: 8 weeks Bolivar Us had a clinic appointment on 03/15/2018. Please contact our office to make an appointment if your symptoms are not improving, or if something about your condition significantly changes. [facility] Orthopaedic office contact information: [facility] ; select option 4 to leave voicemail with [place] [address] [place] [address], [address], [place] [address] documented in this encounter Progress Notes * Kemi Olmos PA-C - 03/15/2018 8:51 AM CDT [facility] [address] [facility] [address] Dept: [phone] Dept Today we had the pleasure of seeing Bolivar Us in our [facility] Spine Surgery Clinic for Chief Complaint Patient presents with ??? Pain Back Bolivar Us is a 32 y.o. male who has back pain. Pain is located to the lumbar spine. The patient first noted symptoms several months ago. It was related to NKI. Associated with pain are symptoms of pain in the posterior calves to the soles of the feet. He denies numbness or tingling. Symptoms of back pain are exacerbated by bending or after increased activity. Leg pain is noted rarely after increased activity Factors which relieve the pain include rest. he is taking tramadol for pain.Treatment efforts have included TENs unit. he ambulates with none. he has not done physical therapy. he has not done steroid injection. There are not symptoms of bowel or bladder dysfunction. No past medical history on file. No past surgical history on file. No family history on file. History Smoking Status ??? Former Smoker Smokeless Tobacco ??? Never Used Focused ROS includes: Enodcrine Diabetes Mellitus: Non-Insulin Thyroid disorders: no Pulmonary COPD: no Asthma: no Other: negative Cardiac History of CHF: no History of AK: no Previous PCI / PTCA: no Previous Cardiac Surgery: no Hypertension requires meds: no Vascular Known peripheral vascular disease: no Central Nervous System History of TIA's: no CVA: No History of Cancer of any kind: no Bleeding disorders: no Other significant health issues are: negative Physical Examination Vitals: 03/15/18 0823 Weight: (!) 332 lb 11.2 oz (150.9 kg) Height: 5' 9 (1.753 m) Estimated body mass index is 49.13 kg/(m^2) as calculated from the following: Height as of this encounter: 5' 9 (1.753 m). Weight as of this encounter: 332 lb 11.2 oz (150.9 kg). The patient is able to ambulate with none. The patient stands with increased lordosis. The lumbar spine is not tender to palpation. There is not clonus. Hip rotation is normal. Muscle strength testing for the hip flexors are 5, hip abductors are 5, hip adductors are 5, quadriceps are 5,hamstrings are 5, dorsiflexors are 5, EHL is 5 and gastosoleus is 5. Sensation is Normal.SLR on the right is Negative and on the left is Negative. Patellar reflexes are 1/4, Achilles reflexes are 1/4. Gaspar's is negative . Romberg testing is negative. Gait is Normal, toe walk is normal and heel walk is normal. Tandem gait testing is negative Radiographs were reviewed by me in office: plain films lumbar spine: no fracture or subluxation. Disc heights maintained. Impression: Chronic back pain with bilateral sciatica Plan: The patient was counseled as to his diagnosis and demonstrated understanding. 1. Restrictions: none 2. Begin physical therapy. Discussed importance of developing a home exercise program. 3. Medication prescribed: none. Continue otc NSAIDs or tylenol as needed for pain. 4. Patient was counseled as to the following conservative interventions: - Recommend 2000 units Vitamin D daily for bone health - May try 1500 to 2000 mg Glucosamine/chondriotin/MSM daily for joint pain. - The patient was counseled as to the benefits of weight loss. - he was informed about the use of ambulatory assistive devices. 5. F/U after PT Kemi Olmos PA-C documented in this encounter Plan of Treatment Not on file documented as of this encounter Visit Diagnoses Diagnosis Chronic midline low back pain with bilateral sciatica- Primary documented in this encounter Care Teams Power Tool Repairer Relationship Specialty Start Date End Date Isra Mahmood MD [address] [place] [address] PCP - General 02/16/18 documented as of this encounter
--- OUTSIDE RECORDS SUMMARY | 2024-05-24 06:10 | XMS_ITS | Encounter Summary ---
Author Organization [facility] Address [address] [place] [address]. [place], [place] [address] [place] [address] Care Team Providers Care Bilingual School Psychologist Name Role Phone Unavailable Primary Care Provider Unavailabl e Encounter Details Date Type Department Care Team (Late st Contact Info) Description 02/14/[address] [facility] [address] [facility] [place] [address] Isra Mahmood MD [address] [place] [phone] Social History Tobacco Use Types Packs/Day Years Used Date Smoking Tobacco: Never Assessed Sex and Gender Information Value Date Recorded Sex Assigned at Not on file Legal Sex Male 8:30 PM CDT Gender Identity Not on file Sexual Orientation Not on file documented as of this encounter Plan of Treatment Not on file documented as of this encounter Visit Diagnoses Diagnosis Low back pain Lumbago documented in this encounter
--- OUTSIDE RECORDS SUMMARY | 2024-05-24 06:10 | XMS_ITS | Clinical Summary ---
Author Organization [facility] Address [address] [place] [address]. [place], [place] [address] [place] [address] Care Team Providers Care Center Machine Set Up Operator Name Role Phone Unavailable Primary Care Provider Unavailabl e Social History Tobacco Use Types Packs/Day Years Used Date Smoking Tobacco: Never Assessed Sex and Gender Information Value Date Recorded Sex Assigned at Not on file Legal Sex Male 8:30 PM CDT Gender Identity Not on file Sexual Orientation Not on file Plan of Treatment Health Maintenance Due Date Last Done Comments Annual Physical 1988 Hepatitis C 09/16/2003 DTaP, Tdap and Td Vaccines ( 1 - Tdap) 2004 Hepatitis B Vaccines (1 of 3 - 19+ 3-dose series) 2004 COVID-19 Vaccine (2023-2 5 season) 2024 Influenza Adult (#1) 2024 HPV Vaccines Aged Out No longer eligi ble based on patient's age to complete this topic Meningococcal Vaccine Aged Out No kt dmitri eligible based on patient's age to complete this topic Pneumococcal Vaccine: Pediat rics (0 to 5 Years) and At-Risk Patients (6 to 64 Years) Aged Out No longer eligible b ased on patient's age to complete this topic RSV Immunizations Under 20 Months Aged Out No longer eligible based on patient's age to complete this topic Insurance [place]
--- OUTSIDE RECORDS SUMMARY | 2024-05-24 06:10 | XMS_ITS | Encounter Summary ---
Author Organization [facility] Address [address] [place] [address]. [place] [address] [place] [address] Care Team Providers Care Warranty Clerk Name Role Phone Unavailable Primary Care Provider Unavailabl e Encounter Details Date Type Department Care Team (Late st Contact Info) Description 10/27/2018 Abstract [facility] [address] [place] [address] , Generic Conversion, Social History Tobacco Use Types Packs/Day Years [...]
--- OUTSIDE RECORDS SUMMARY | 2024-05-24 06:10 | XMS_ITS | Encounter Summary ---
Author Organization [facility] Address [address] [place] [address]. [place], [place] [address] [place] [address] Care Team Providers Care Ship Laborer Name Role Phone Unavailable Primary Care Provider Unavailabl e Encounter Details Date Type Department Care Team (Late st Contact Info) Description 08/12/2017 Abstract [facility] [address] [facility] [place] [address] Jc Guallpa MD [address] [place] [address] Social History Tobacco Use Types Packs/Day Years Used Date Smoking Tobacco: Never Assessed Sex and Gender Information Value Date Recorded Sex Assigned at Not on file Legal Sex Male 8:30 PM CDT Gender Identity Not on file Sexual Orientation Not on file documented as of this encounter Plan of Treatment Not on file documented as of this encounter Visit Diagnoses Diagnosis Cutaneous abscess of buttock Cellulitis and abscess of buttock documented in this encounter
--- OUTSIDE RECORDS SUMMARY | 2024-05-24 06:11 | XMS_ITS | Encounter Summary ---
Author Organization [facility] Address [address] [place] [address]. [place], [place] [address] [place] [address] Care Team Providers Care Pug Machine Operator Name Role Phone Unavailable Primary Care Provider Unavailabl e Encounter Details Date Type Department Care Team (Late st Contact Info) Description 09/29/1994 [place] [address] , Generic Conversion, Social History Tobacco Use [...]
--- OUTSIDE RECORDS SUMMARY | 2024-05-24 06:11 | XMS_ITS | Encounter Summary ---
Author Organization [facility] Address [address] [place] [address]. [place], [place] [phone] [place] [address] Care Team Providers Care Nurse Ldr Name Role Phone Unavailable Primary Care Provider Unavailabl e Encounter Details Date Type Department Care Team (Late st Contact Info) Description 04/29/1999 Abstract [facility] CONVERSION [address] [place] [address] , Generic Conversion, Social History Tobacco Use [...]
--- OUTSIDE RECORDS SUMMARY | 2024-05-24 06:11 | XMS_ITS | Encounter Summary ---
Author Organization [facility] Address [address] [place] [address]. [place], [place] [address] [place] [address] Care Team Providers Care Actuarial Consultant Name Role Phone Unavailable Primary Care Provider Unavailabl e Encounter Details Date Type Department Care Team (Late st Contact Info) Description 08/03/[address] [facility] [address] [facility] [place] [address] Isra Mahmood MD [address] [place] [phone] Social History Tobacco Use Types Packs/Day [...]
--- OUTSIDE RECORDS SUMMARY | 2024-05-24 06:11 | XMS_ITS | Encounter Summary ---
Author Organization [facility] Address [address] [place] [address]. [place], [place] [address] [place] [address] Care Team Providers Care Director Of Assessing Name Role Phone Unavailable Primary Care Provider Unavailabl e Encounter Details Date Type Department Care Team (Late st Contact Info) Description 04/14/2006 Abstract [facility] [address] [place] [address] Isra Mahmood MD [address] [place] [phone] Social History Tobacco Use Types Packs/Day [...]
--- OUTSIDE RECORDS SUMMARY | 2024-05-24 06:11 | XMS_ITS | Encounter Summary ---
Author Organization [facility] Address [address] [place] [address]. [place], [place] [address] [place] [address] Care Team Providers Care Director Biomedical Engineering Name Role Phone Unavailable Primary Care Provider Unavailabl e Encounter Details Date Type Department Care Team (Late st Contact Info) Description 11/10/1994 [place] [address] , Generic Conversion, Social History Tobacco Use [...]
--- OUTSIDE RECORDS SUMMARY | 2024-05-24 06:15 | XMS_ITS | Clinical Summary ---
Author Organization [facility] Address [address] [place] [address] Care Team Providers Care Php Magento Developer Name Role Phone Angel Peralta MD Primary Care Provider Allergies Active Allergy Reactions Criticality Noted Date Comments Metformin Other (See comments) Low 03/30/2018 Lactic acidosis Medications SITagliptin (JANUVIA) 25 mg tabletIndication s:type 2 diabetes mellitus Take 100 mg by mouth daily Active ranitidine (ZANTAC) 150 mg capsuleIndicatio ns:gastroesophag eal reflux disease Take 300 mg by mouth every evening Active amLODIPine (NORVASC) 5 mg tabletIndication s:hypertension 5 mg daily 3 9 Active glimepiride (AMARYL) 4 mg tabletIndication s:diabetes Take 8 mg by mouth daily before breakfast 0 9 Active FLUoxetine (PROzac) 40 mg capsuleIndicatio ns:depression Take 40 mg by mouth daily Active atorvastatin (LIPITOR) 40 mg tabletIndication s:arteriosclerot ic vascular disease Take 40 mg by mouth daily Active omeprazole (PriLOSEC) 20 mg capsuleIndicatio ns:Stress Ulcer Prophylaxis Take 20 mg by mouth daily Active famotidine (PEPCID) 20 mg tablet Take 1 tablet (20 mg total) by mouth 2 (two) times a day for 6 days 12 tablet 9 Active insulin glargine (LANTUS,BASAGLAR ) 100 unit/mL (3 mL) insulin penIndications:D iabetes Mellitus Inject 45 Units under the skin 2 (two) times a day 27 mL 1 9 Active insulin glulisine U-100 (APIDRA) 100 unit/mL inj syringe Inject 0.14 mL (14 Units total) under the skin 3 (three) times a day with meals 12.6 mL 11 9 Active predniSONE (DELTASONE) 10 mg tablet Take 4 tabs q daily x 3 days, then 2 tabs q daily 3 days, then 1 tab q daily x 3 days 21 tablet 9 Active ibuprofen (ADVIL,MOTRIN) 600 mg tabletIndication s:Pain Take 1 tablet (600 mg total) by mouth 4 (four) times a day as needed for pain Take with food. 30 tablet 9 Active Active Problems Problem Noted Date Diagnosed Date Ceballos's palsy Mastoiditis of right side H/O influenza Uncontrolled type 1 diabetes mellitus with hyper glycemia Encounters Date Type Department Care Team Description 04/08/2024 8:59 PM SPICE BLENDER - 04/09/2024 12:11 AM [facility] Emergency Department [address] [place], [place] [id number] Jc Ramirez MD Dehydration after exertion (Primary Dx); Diabetes mellitus with ketosis (HCC) Discharge Disposition: Discharge to home or self care from Last 3 Months Surgical History Surgery Date Site/Laterality Comments CHOLECYSTECTOMY 05/22/2010 - 05/21/2011 NASAL SINUS SURGERY 05/22/2016 - 05/21/2017 removed polyps bilaterally Medical History Medical History Date Comments Diabetes (HCC) Hypertension Sleep apnea Social History Tobacco Use Types Packs/Day Years Used Date Smoking Tobacco: Former Cigarettes 0.3 13 0 09/20/2003 - 09/18/2016 Smokeless Tobacco: Never Alcohol Use Standard Drinks/Week Comments No 0 (1 standard drink = 0.6 oz pur e alcohol) PHQ-2 Answer Date Recorded PHQ-2 Score 0 01/10/2019 Personal Safety Answer Date Recorded Have you ever been in or are you currently in a harmful physical or emotional relationship or is someone making you feel afraid or unsafe? Denies 04/08/2024 Sex and Gender Information Value Date Recorded Sex Assigned at Not on file Legal Sex Male 8:57 AM SPICE BLENDER Gender Identity Not on file Sexual Orientation Not on file Obstetrics History Last Filed Vital Signs Vital Sign Reading Time Taken Comments Blood Pressure 120/72 04/08/2024 10:00 PM SPICE BLENDER Pulse 81 04/08/2024 10:00 PM SPICE BLENDER Temperature 36.7 ??C (98.1 ??F) 04/08/2024 9:08 PM CS T Respiratory Rate 20 04/08/2024 10:00 PM SPICE BLENDER Oxygen Saturation 94% 04/08/2024 10:00 PM SPICE BLENDER Inhaled Oxygen Concentration - - Weight 144.2 kg (318 lb) 04/08/2024 9:04 PM SPICE BLENDER Height 174 cm (5' 8.5 ) 04/08/2024 9:04 PM SPICE BLENDER Body Mass Index 47.65 04/08/2024 9:04 PM SPICE BLENDER Plan of Treatment Health Maintenance Due Date Last Done Comments Albumin Creatinine Ratio, Urine 1985 Foot Exam 1985 Hepatitis C Screening 1985 Pneumococcal vaccine <65 (1 of 2 - PCV) 09/16/1991 Dilated Eye Exam 09/16/1995 DTaP/Tdap/Td Vaccine (5 - Tdap) 1996 10/25/1989, 06/05/1987, 04/07/1986, Additional history exists Varicella Vaccines (1 of 2 - 13+ 2-dose series) 1998 Hepatitis B Screening 09/16/2003 Regular Well Visit/Exam 18-64 09/16/2003 Hemoglobin A1C 03/25/2019 09/22/2018 TSH Level 03/30/2019 03/30/2018 Depression Screening 09/23/2019 09/22/2018 Lipid Panel 09/25/2019 09/24/2018 Influenza Vaccine (#1) 2024 04/25/2017, 2012 eGFR 04/08/2025 04/08/2024, 05/0 01/2019, 09/26/2018, Additional history exists HPV Vaccines Aged Out No longer eligi ble based on patient's age to complete this topic Procedures Procedure Name Priority Date/Time Associated Diagnosis Comments URINALYSIS, MICROSCOPIC ONLY Routine 04/08/2024 10:31 PM SPICE BLENDER URINALYSIS AND REFLEX TO MICROSCOPIC AND CULTURE Routine 04/08/2024 10:31 PM SPICE BLENDER XR CHEST 1 VIEW ED 04/08/2024 9:36 PM SPICE BLENDER ECG 12-LEAD Routine 04/08/2024 9:12 PM SPICE BLENDER EGFR STAT 04/08/2024 9:12 PM SPICE BLENDER MAGNESIUM Add-On 04/08/2024 9:12 PM SPICE BLENDER DIFFERENTIAL AUTO STAT 04/08/2024 9:1 2 PM SPICE BLENDER TROPONIN T HIGH-SENSITIVITY SERIES (BASELINE, 2HR, 4HR, 6HR) STAT 04/08/2024 9:12 PM SPICE BLENDER PRO B-TYPE NATRIURETIC PEPTIDE STAT 04/08/2024 9:12 PM SPICE BLENDER COMPREHENSIVE METABOLIC PANEL STAT 04/08/2024 9:12 PM SPICE BLENDER CBC WITH AUTO DIFFERENTIAL STAT 04/08/2024 9:12 PM SPICE BLENDER LIPID PANEL Routine 09/24/2018 3:30 AM CDT HEMOGLOBIN A1C Routine 09/22/2018 6:04 PM CDT TSH STAT 03/30/2018 11:11 PM SPICE BLENDER from Last 3 Months or Most Recently Relevant to Health Maintenance Results * (ABNORMAL) Urinalysis reflex to microscopic and culture Urine, clean voided (04/08/2024 10:31 PM SPICE BLENDER) Color, ur Yellow Yellow Clarity, ur Clear Clear [facility] ([place]) Specific gravity, ur 1.030 1.003 - 1.030 [facility] ([place]) pH, urine 6.0 [facility] ([place]) Comment: Interpretive Data ? Urine pH is affected by diet, medications, systemic acid-base disturbances, and renal tubular function. ??pH may affect urinary stone formation. ??For example, urine pH below 6.0 may help reduce the tendency for calcium phosphate stones and pH greater than 6.0 may reduce the tendency for uric acid stone formation. Source: [place] Current Interpretive Data was last revised on 2017 Protein, ur ql 1+(A) Negative [facility] ([place]) Glucose, ur ql Trace(A) Negative [facility] ([place]) Ketones, ur 2+(A) Negative [facility] ([place]) Bilirubin, ur Negative Negative [facility] ([place]) Blood, ur Negative Negative [facility] ([place]) Urobilinogen, ur <2.0 <2.0 mg/dL [facility] ([place]) Nitrite, ur Negative Negative [facility] ([place]) Leukocyte esterase, ur Negative Negative [facility] ([place]) UA reflex comment Reflex to microscopic UA will be performed. [facility] ([place]) Urine, clean voided 04/08/2024 10:31 PM SPICE BLENDER 04/08/2024 10:35 PM SPICE BLENDER Jc Ramirez MD LAB MICROBIOLOGY - GENERAL ORDERABLES Final Result Performing Organization Address [facility] Co de Phone Number [facility] ([place]) [address] [facility] [id number] [place] [address] * (ABNORMAL) Urinalysis, microscopic only (04/08/2024 10:31 PM SPICE BLENDER) WBC, ur 6-10(A) 0 - 5 /HPF RBC, ur 0-2 0 - 2 /HPF [facility] ([place]) Epithelial cells, squamous, ur 1-5 0 - 5 /HPF [facility] ([place]) Mucous, ur Present(A) [facility] ([place]) Hyaline casts, ur 11-20(A) 0 - 10 /LPF [facility] ([place]) Culture Reflex Comment Reflex conditions for urine culture (WBC >10) not met. [facility] ([place]) Urine, clean voided 04/08/2024 10:31 PM SPICE BLENDER 04/08/2024 10:35 PM SPICE BLENDER Jc Ramirez MD LAB URINE ORDERABLES Final Result Performing Organization Address City/[facility]/ZIP Co de Phone Number [facility] [place] ([place]) 1 [facility] [email or web address] [place] [address] * XR Chest 1 Vw Portable (04/08/2024 9:36 PM SPICE BLENDER) Anatomical Region Laterality Modality Body, Chest N/A Computed Radiogr aphy 04/08/2024 10:1 0 PM SPICE BLENDER Narrative 04/08/2024 10:11 PM SPICE BLENDER EXAM DESCRIPTION: XR CHEST 1 VIEW REASON FOR STUDY: Syncope ?? Near syncope episode tonight. Dizziness and weakness. Hx of HTN. Former smoker ?? TECHNIQUE: Single ??radiographic view(s) of the chest. COMPARISON: 09/23/2018 FINDINGS: LUNGS: ??Allowing for overlying soft tissues, the lungs appear grossly clear. ?? No consolidation or effusion is seen. ?? HEART/MEDIASTINUM: ??Cardiac silhouette normal in size. Mediastinal and hilar contours appear normal. LINES/TUBES: ??None. BONES: ??No acute osseous abnormality. IMPRESSION: No acute cardiopulmonary abnormality. THIS IS AN ELECTRONICALLY VERIFIED FINAL REPORT 04/08/2024 10:11 PM - Electronically signed by ??Christopher BOLANOS: CICI D: ??04/08/2024 10:11 PM T: ??04/08/2024 10:11 PM Report ID: [id number] Reading Location: ??[id number] Procedure Note Christopher Ernandez MD - 04/08/2024 EXAM DESCRIPTION: XR CHEST 1 VIEW REASON FOR STUDY: Syncope Near syncope episode tonight. Dizziness and weakness. Hx of HTN. Formersmoker TECHNIQUE: Single radiographic view(s) of the chest. COMPARISON: 09/23/2018 FINDINGS: LUNGS: Allowing for overlying soft tissues, the lungs appear grosslyclear. No consolidation or effusion is seen. HEART/MEDIASTINUM: Cardiac silhouette normal in size. Mediastinal andhilar contours appear normal. LINES/TUBES: None. BONES: No acute osseous abnormality. IMPRESSION: No acute cardiopulmonary abnormality. THIS IS AN ELECTRONICALLY VERIFIED FINAL REPORT 04/08/2024 10:11 PM - Electronically signed by Christopher BOLANOS: CICI Report ID: [id number] Reading Location: [place] [address] Jc Ramirez MD IMG XR PROCEDURES Final Res ult * ECG 12 lead (04/08/2024 9:12 PM SPICE BLENDER) 04/08/2024 9:12 PM SPICE BLENDER Narrative [facility] - 04/09/2024 9:00 AM SPICE BLENDER Vent Rate: 83 bpm RR Interval: 719 msec VT Interval: 147 msec QRS Duration: 114 msec QT Interval: 354 msec QTC Interval: 394 msec P-R-T [place]: 9 - -19 - 13 degrees IMPRESSION: SINUS RHYTHM POSSIBLE ANTERIOR MYOCARDIAL INFARCTION , OF INDETERMINATE AGE [30 ms Q WAVE IN V3/V4, OR R < 0.2 mV IN V4] ABNORMAL ECG Electronically Signed By: Jerome Johnson MD Jc Ramirez MD ECG ORDERABLES Final Resul t [facility] * Troponin T high-sensitivity series (baseline, 2hr, 4hr, 6hr) (04/08/2024 9:12 PM SPICE BLENDER) Pathologist [facility] Trop T hs <6 <=22 ng/L Comment: Interpretive Data For further hscTnT resources including the diagnostic algorithm and an aid in interpretation, copy and paste this link: [email or web address].testcatalog.org/show/[email or web address] Current Interpretive Data last revised 2020. Blood 04/08/2024 9:12 PM SPICE BLENDER 04/08/2024 9:19 PM SPICE BLENDER Jc Ramirez MD LAB BLOOD ORDERABLES Final Result [facility] ([place]) 1 [facility] Department of Laboratories [place], [place] [id number] * eGFR (04/08/2024 9:12 PM SPICE BLENDER) Pathologist [facility] eGFR >90 >=60 mL/min/1. 73 m2 Comment: Interpretive Data Reference Interval Normal ?>/= 90 mL/min/1.73m2 Mildly decreased* ? 60 - 89 mL/min/1.73m2 Mildly to moderately decreased ?45 - 59 mL/min/1.73m2 Moderately to severely decreased ??30 - 44 mL/min/1.73m2 Severely decreased ?15 - 29 mL/min/1.73m2 Kidney Failure ?< 15 ??mL/min/1.73m2 *Relative to young adult level Estimated glomerular filtration rate is determined by the 2020 CKD-EPI equation recommended by the National Kidney Foundation (A Unifying Approach to GFR Estimation: Recommendations of the NKF-ASK Task Force on Reassessing the Inclusion of Race in Diagnosing Kidney Disease, JASN 2020). The CKD-EPI equation should not be used for patients with unstable renal function and has not been validated in children and those over 70. Current interpretive data was last reviewed 2021. Blood 04/08/2024 9:12 PM SPICE BLENDER 04/08/2024 9:19 PM SPICE BLENDER us Jc Ramirez MD LAB BLOOD ORDERABLES Final Result [facility] ([place]) 1 [facility] Department [place] [address] * Differential, auto (04/08/2024 9:12 PM SPICE BLENDER) Neutrophil abs 5.9 1.5 - 6.5 K/cumm Imm gran abs 0.0 0.0 - 0.1 K/cumm [facility] ([place]) Lymphocyte abs 2.4 0.8 - 3.3 K/cumm [facility] ([place]) Monocyte abs 0.7 0.2 - 0.8 K/cumm [facility] ([place]) Eosinophil abs 0.2 0.0 - 0.5 K/cumm [facility] ([place]) Basophil abs 0.0 0.0 - 0.1 K/cumm [facility] ([place]) Neutrophil pct 64.2 % [facility] ([place]) Comment: Interpretive Data Percent cell count reference ranges are not reported, since discordance with absolute values may lead to misinterpretation of CBC data. Current Interpretive Data was last revised on 2017. Imm gran pct 0.2 % [facility] ([place]) Comment: Interpretive Data Percent cell count reference ranges are not reported, since discordance with absolute values may lead to misinterpretation of CBC data. Current Interpretive Data was last revised on 2017. Lymphocyte pct 26.1 % [facility] ([place]) Comment: Interpretive Data Percent cell count reference ranges are not reported, since discordance with absolute values may lead to misinterpretation of CBC data. Current Interpretive Data was last revised on 2017. Monocyte pct 7.3 % [facility] ([place]) Comment: Interpretive Data Percent cell count reference ranges are not reported, since discordance with absolute values may lead to misinterpretation of CBC data. Current Interpretive Data was last revised on 2017. Eosinophil pct 1.9 % [facility] ([place]) Comment: Interpretive Data Percent cell count reference ranges are not reported, since discordance with absolute values may lead to misinterpretation of CBC data. Current Interpretive Data was last revised on 2017. Basophil pct 0.3 % [facility] ([place]) Comment: Interpretive Data Percent cell count reference ranges are not reported, since discordance with absolute values may lead to misinterpretation of CBC data. Current Interpretive Data was last revised on 2017. Blood 04/08/2024 9:12 PM SPICE BLENDER 04/08/2024 9:19 PM SPICE BLENDER us Jc Ramirez MD LAB BLOOD ORDERABLES Final Result [facility] ([place]) 1 [facility] Department [place] [address] * Pro B-type natriuretic peptide (04/08/2024 9:12 PM SPICE BLENDER) NT-proBNP <36 <=300 pg/mL Comment: Interpretive Comments: A. Dyspnea in Acute Care Setting All Ages: ?< 300 pg/ml, acute heart failure unlikely. < 50 yrs: ?300 - 450 pg/ml, further investigation warranted. ? > 450 pg/ml, acute heart failure likely. 50 - 74 yrs: ? 300 - 900 pg/ml, further investigation warranted. ? > 900 pg/ml, acute heart failure likely . > or = 75 yrs: ? 450 - 1800 pg/ml, further investigation warranted. ? > 1800 pg/ml, acute heart failure likely. B. Non-acute Setting < 75 yrs ? < 125 pg/ml, rules out heart failure. ? > or = 125 pg/ml, further investigation warranted. > or = 75 yrs ?< 450 pg/ml, rules out heart failure. ? > or = 450 pg/ml, further investigation warranted. - Knowledge of each individual patient's NT-proBNP range may be more useful than using similar cut-points for every patient. Please note that marked elevations in NT-proBNP levels may be observed in state other than Left Ventricular Congestive Failure, including: acute coronary syndromes, right heart strain/failure (including pulmonary embolism and cor pulmonale), critical illness, renal failure, as well as advanced age. - References: 1. Kay ROGERS et.al. Eur Heart J. 2006:27:330-337. 2. Simona MILLER, Eusebio DENIS. J. AM Cara Cardiol: Cardiovasc Imag. 2009;2: 216- 225. Interpretive Data Last Revised Date: 2018. Blood 04/08/2024 9:12 PM SPICE BLENDER 04/08/2024 9:19 PM SPICE BLENDER Jc Ramirez MD LAB BLOOD ORDERABLES Final Result [facility] ([place]) 1 [facility] [email or web address] [place] [address] * (ABNORMAL) CBC with auto differential (04/08/2024 9:12 PM SPICE BLENDER) WBC 9.2 3.8 - 9.9 K/cumm Hgb 15.4 13.0 - 17.5 g/dL [facility] ([place]) Hct 48.0 38.9 - 50.3 % [facility] ([place]) Plt 306 150 - 400 K/cumm [facility] ([place]) MPV 9.8 9.1 - 12.3 fL [facility] ([place]) RBC 5.74 4.30 - 5.80 M/cumm [facility] ([place]) MCV 83.6 81.3 - 96.4 fL [facility] ([place]) MCH 26.8(L) 27.1 - 33.3 pg [facility] ([place]) MCHC 32.1(L) 32.3 - 35.7 g/dL [facility] ([place]) RDW CV 17.1(H) 11.1 - 14.9 % [facility] ([place]) RDW SD 51.8(H) 35.7 - 48.1 fL [facility] ([place]) NRBC abs 0.00 0.00 - 0.01 K/cumm [facility] ([place]) Blood 04/08/2024 9:12 PM SPICE BLENDER 04/08/2024 9:19 PM SPICE BLENDER Jc Ramirez MD LAB BLOOD ORDERABLES Final Result [facility] ([place]) 1 [facility] [email or web address] [place] [address] * Magnesium (04/08/2024 9:12 PM SPICE BLENDER) Magnesium 1.9 1.4 - 2.5 mg/dL Blood 04/08/2024 9:12 PM SPICE BLENDER 04/08/2024 9:57 PM SPICE BLENDER us Jc Ramirez MD LAB BLOOD ORDERABLES Final Result [facility] ([place]) 1 [facility] Department [place] [address] * (ABNORMAL) Comprehensive metabolic panel (04/08/2024 9:12 PM SPICE BLENDER) Sodium 136 135 - 145 mmol/L Potassium, pl 3.5 3.3 - 4.9 mmol/L [facility] ([place]) Chloride 99 97 - 110 mmol/L [facility] ([place]) CO2 24 22 - 32 mmol/L [facility] ([place]) Anion gap 13 2 - 15 mmol/L [facility] ([place]) BUN 12 6 - 25 mg/dL [facility] ([place]) Creatinine 0.60(L) 0.80 - 1.30 mg/dL [facility] ([place]) Glucose 186 70 - 199 mg/dL [facility] ([place]) Comment: Interpretive Data Fasting glucose >/= 126 mg/dl is diagnostic for diabetes. ?? Fasting is defined as no caloric intake for at least 8 hours. Fasting glucose between 100 mg/dl to 125 mg/dl is diagnostic of prediabetes. In a patient with classic symptoms of hyperglycemia or hyperglycemic crisis, a random glucose >/= 200 mg/dl is diagnostic for diabetes. In the absence of unequivocal hyperglycemia, results should be confirmed by repeat testing. The classification and Diagnosis of Diabetes Diabetes Care 202; 46: S19-S40. Current interpretive data was last revised 2022. Calcium 9.6 8.5 - 10.3 mg/dL [facility] ([place]) Bilirubin, total 0.7 0.1 - 1.2 mg/dL [facility] ([place]) Protein, pl 7.8 6.5 - 8.5 g/dL [facility] ([place]) Albumin 4.5 3.5 - 5.0 g/dL [facility] ([place]) Alk phos 109 40 - 130 Units/L [facility] ([place]) ALT 24 7 - 55 Units/L [facility] ([place]) AST 21 10 - 50 Units/L [facility] ([place]) Comment:Slightly Hemolyzed S pecimen Blood 04/08/2024 9:12 PM SPICE BLENDER 04/08/2024 9:19 PM SPICE BLENDER us Jc Ramirez MD LAB BLOOD ORDERABLES Final Result [facility] ([place]) 1 [facility] Department [place] [address] * (ABNORMAL) Lipid panel (09/24/2018 3:30 AM CDT) Cholesterol 239(H) 30 - 199 mg/dL [facility] ([place]) Comment: Interpretive Data Ages < or = 19 years ??Acceptable: ? <170 mg/dL ??Borderline high: ??170-199 mg/dL ??High: ? >or= 200 mg/dL Ages > or = 20 years ??Desirable: ?<200 mg/dL ??Borderline high: ??200-239 mg/dL ??High: ? >or= 240 mg/dL Literature References: 1. Expert Panel on Integrated Guidelines for Cardiovascular Health and Risk Reduction in Children and Adolescents. Pediatrics 2011;128:S213 2. NCEP Expert Panel. Circulation 2004;110:227 Current Interpretive Data was last revised on 2018. Triglycerides 186(H) <=149 mg/dL [facility] ([place]) Comment: Interpretive Data Ages < or = 9 years ??Acceptable: ? <75 mg/dL ??Borderline high: ??75-99 mg/dL ??High: ? >or= 100 mg/dL Ages 10 to 20 years ??Acceptable: ? <90 mg/dL ??Borderline high: ??90-129 mg/dL ??High: ? >or= 130 mg/dL Ages > or = 20 years ??Desirable: ?<150 mg/dL ??Borderline high: ??150-199 mg/dL ??High: ? 200-499 mg/dL ?Very high: ?? >or= 499 mg/dL Literature References: 1. Expert Panel on Integrated Guidelines for Cardiovascular Health and Risk Reduction in Children and Adolescents. Pediatrics 2011;128:S213 2. NCEP Expert Panel. Circulation 2004;110:227 Current Interpretive Data was last revised on 2018. HDL 45 >=40 mg/dL [facility] ([place]) Comment: Interpretive Data Ages < or = 19 years ??Acceptable: ? >45 mg/dL ??Borderline low: ?? 40-45 mg/dL ??Low: ? <40 mg/dL Ages > or = 20 years ??Desirable: ?>or= 60 mg/dL ??Low: ? <40 mg/dL Literature References: 1. Expert Panel on Integrated Guidelines for Cardiovascular Health and Risk Reduction in Children and Adolescents. Pediatrics 2011;128:S213 2. NCEP Expert Panel. Circulation 2004;110:227 Current Interpretive Data was last revised on 2018. LDL, calculated 157(H) <=129 mg/dL [facility] ([place]) Comment: Interpretive Data Ages < or = 19 years ??Acceptable: ? <110 mg/dL ??Borderline high: ??110-129 mg/dL ??High: ?>or= 130 mg/dL Ages > or = 20 years ??Optimal: ? <100 mg/dL ??Near optimal: ?100-129 mg/dL ??Borderline high: ?? 130-159 mg/dL ??High: ?>160 mg/dL Literature References: 1. Expert Panel on Integrated Guidelines for Cardiovascular Health and Risk Reduction in Children and Adolescents. Pediatrics 2011;128:S213 2. NCEP Expert Panel. Circulation 2004;110:227 Current Interpretive Data was last revised on 2018. Non-HDL Cholesterol 194 mg/dL [facility] ([place]) Comment: Interpretive Data Ages < or = 19 years ??Acceptable: ?<120 mg/dL ??Borderline high: ??120-144 mg/dL ??High: ?>145 mg/dL Ages > or = 20 years ??When triglycerides are >200 mg/dL, Non-HDL cholesterol is a secondary target of ? therapy with treatment goals that are 30 mg/dL greater than the LDL cholesterol target. ? Literature References: 1. Expert Panel on Integrated Guidelines for Cardiovascular Health and Risk Reduction in Children and Adolescents. Pediatrics 2011;128:S213 2. NCEP Expert Panel. Circulation 2004;110:227 Current Interpretive Data was last revised on 2018. Chol/HDL ratio 5 [facility] ([place]) Blood specimen (specimen) 09/24/2018 3:30 AM CDT 09/24/2018 3:49 AM CDT Narrative [facility] ([place]) - 09/24/2018 4:36 AM CDT us Oly Mir MD LAB BLOOD ORDERABLES Fin al Result [facility] ([place]) 1 [facility] Department [place] [address] * (ABNORMAL) Hemoglobin A1c (09/22/2018 6:04 PM CDT) Hgb A1C 11.1(H) 4.0 - 5.6 % [facility] ([place]) Estimated Average Glucose 272 mg/dL [facility] ([place]) Comment: The ADA recommends reporting an estimated Average Glucose (eAG) with all Hemoglobin A1c results using the equation derived from a study of 507 normal and diabetic adults. ??Minority populations were underrepresented and children were not included. ?? (Diabetes Care 31:7739-0317, 2008). ??The eAG is not equivalent to a fasting glucose. Blood specimen (specimen) 09/22/2018 6:04 PM CDT 09/22/2018 6:07 PM CDT Narrative [facility] ([place]) - 09/22/2018 6:29 PM CDT Jc Ramirez MD LAB BLOOD ORDERABLES Final Result [facility] ([place]) 1 [facility] [place] [address] * TSH (03/30/2018 11:11 PM SPICE BLENDER) Thyroid Stimulating Hormone 1.54 0.30 - 4.20 mcIUnit/mL [facility] ([place]) Blood specimen (specimen) 03/30/2018 11:11 PM SPICE BLENDER 03/30/2018 11:19 PM SPICE BLENDER Narrative [facility] ([place]) - 03/30/2018 11:46 PM SPICE BLENDER Jc Ramirez MD LAB BLOOD ORDERABLES Final Result Performing Organization Address City/[facility] Co de Phone Number [facility] ([place]) [address] [place] [address] from Last 3 Months or Most Recently Relevant to Health Maintenance Insurance [facility] Advance Directives For more information, please contact: [phone] * Full Code (Latest Code Status on File) Date Activated Date Inactivated Comments 09/22/2018 8:53 PM 09/27/2018 3:31 PM Care Teams Php [employer] Developer Relationship Specialty Start Date End Date Angel Peralta MD [address] [place] [id number] PCP - General Family Medicine 04/08/24
--- OUTSIDE RECORDS SUMMARY | 2024-05-24 06:15 | XMS_ITS | Encounter Summary ---
Author Organization [facility] Healthcare Address [address] [place] [address] Care Team Providers Care Industrial Welder Name Role Phone Angel Peralta MD Primary Care Provider Reason for Visit * Reason Comments Weakness - Generalized Dizziness Encounter Details Date Type Department Care Team ([facility] st Contact Info) Description 04/08/2024 8:59 PM MACHINE DESIGNER - 04/09/2024 12:11 AM [facility] Emergency [facility] Emergency Department [address] [place] [id number] Jc Ramirez MD [address] [place] [address] Dehydration after exertion (Primary Dx); Diabetes mellitus with ketosis (HCC) Discharge Disposition: Discharge to home or self care Social History Tobacco Use Types Packs/Day Years [...] on file Legal Sex Male 8:57 AM MACHINE DESIGNER Gender Identity Not on file Sexual Orientation Not on file documented as of this encounter Last Filed Vital Signs Vital Sign Reading Time Taken Comments Blood Pressure 120/72 04/08/2024 10:00 PM MACHINE DESIGNER Pulse 81 04/08/2024 10:00 PM MACHINE DESIGNER Temperature 36.7 ??C (98.1 ??F) 04/08/2024 9:08 PM CS T Respiratory Rate 20 04/08/2024 10:00 PM MACHINE DESIGNER Oxygen Saturation 94% 04/08/2024 10:00 PM MACHINE DESIGNER Inhaled Oxygen Concentration - - Weight 144.2 kg (318 lb) 04/08/2024 9:04 PM MACHINE DESIGNER Height 174 cm (5' 8.5 ) 04/08/2024 9:04 PM MACHINE DESIGNER Body Mass Index 47.65 04/08/2024 9:04 PM MACHINE DESIGNER documented in this encounter Discharge Instructions * Attachments The following attachments cannot be sent through Care Everywhere. * Dehydration (Adult) (Romanian) * Diabetes, General Information (Romanian) documented in this encounter Medications at Time of Discharge amLODIPine (NORVASC) 5 mg tabletIndications :hypertension 5 mg daily 3 08/24/2018 atorvastatin (LIPITOR) 40 mg tabletIndications :arteriosclerotic vascular disease Take 40 mg by mouth daily FLUoxetine (PROzac) 40 mg capsuleIndication s:depression Take 40 mg by mouth daily glimepiride (AMARYL) 4 mg tabletIndications :diabetes Take 8 mg by mouth daily before breakfast 0 08/24/2018 ibuprofen (ADVIL,MOTRIN) 600 mg tabletIndications :Pain Take 1 tablet (600 mg total) by mouth 4 (four) times a day as needed for pain Take with food. 30 tablet 03/12/2019 omeprazole (PriLOSEC) 20 mg capsuleIndication s:Stress Ulcer Prophylaxis Take 20 mg by mouth daily predniSONE (DELTASONE) 10 mg tablet Take 4 tabs q daily x 3 days, then 2 tabs q daily 3 days, then 1 tab q daily x 3 days 21 tablet 09/27/2018 ranitidine (ZANTAC) 150 mg capsuleIndication s:gastroesophagea l reflux disease Take 300 mg by mouth every evening SITagliptin (JANUVIA) 25 mg tabletIndications :type 2 diabetes mellitus Take 100 mg by mouth daily documented as of this encounter Discharge Disposition Disposition Code Departure Means Destination Comment s Discharge to home or self care documented in this encounter ED Notes * Jc Ramirez MD - 04/08/2024 9:05 PM CST Chief Complaint Patient presents with ??? Weakness - Generalized ??? Dizziness HPI 04/08/2024 9:05 PM Bolivar Us is a 38 y.o. male former smoker with a h/o DM and HTN who presents to the ED via EMS with complaint of generalized weakness and dizziness earlier today. 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 The patient began unloading the packages from the truck when he reports suddenly experiencing weakness, light-headedness, dizziness, and blurred vision. He affirms a history of similar symptoms. He states not eating or urinating since this morning. He denies nausea. He also denies any leg problems or cramping. No other complaints at this time. Past Medical History: Diagnosis Date ??? Diabetes (CMS/HCC) ??? Hypertension ??? Sleep apnea Past Surgical History: Procedure Laterality Date ??? CHOLECYSTECTOMY 2010 ??? NASAL SINUS SURGERY 2016 removed polyps bilaterally No family history on file. Social History Tobacco Use ??? Smoking status: Former Current packs/day: 0.00 Average packs/day: 0.3 packs/day for 13.0 years (3.2 ttl pk-yrs) Types: Cigarettes Start date: 09/20/2003 Quit date: 09/18/2016 Years since quittin.5 ??? Smokeless tobacco: Never Substance and Sexual Activity ??? Drug use: Not Currently ??? Sexual activity: Yes Partners: Female control/protection: Other Comment: on pill Alcohol Use: Not on file Review of Systems Review of Systems Constitutional: Negative for chills and fever. HENT: Negative for ear pain and sore throat. Eyes: Negative for pain. Respiratory: Negative for cough and shortness of breath. Cardiovascular: Negative for chest pain and palpitations. Gastrointestinal: Negative for abdominal pain, nausea and vomiting. Genitourinary: Negative for dysuria and hematuria. Musculoskeletal: Negative for arthralgias and back pain. Skin: Negative for color change and rash. Neurological: Positive for dizziness, weakness and light-headedness. Negative for seizures. All other systems reviewed and are negative. Physical Exam ED Triage Vitals Temp Pulse Resp BP SpO2 -- -- -- -- -- Temp src Heart Rate Source Patient Position BP Location FiO2 (%) -- -- -- -- -- Height Height Method Weight Weight Method -- -- -- -- Physical Exam Vitals and nursing note reviewed. HENT: Head: Normocephalic and atraumatic. Comments: Face symmetrical. Mouth/Throat: Mouth: Mucous membranes are moist. Comments: Speech clear and fluent. Eyes: Extraocular Movements: Extraocular movements intact. Conjunctiva/sclera: Conjunctivae normal. Cardiovascular: Rate and Rhythm: Normal rate and regular rhythm. Pulses: Normal pulses. Heart sounds: Normal heart sounds. Pulmonary: Effort: Pulmonary effort is normal. No respiratory distress. Breath sounds: Normal breath sounds. Abdominal: Palpations: Abdomen is soft. Tenderness: There is no abdominal tenderness. There is no guarding or rebound. Musculoskeletal: Cervical back: Normal range of motion and neck supple. Skin: General: Skin is warm and dry. Capillary Refill: Capillary refill takes more than 3 seconds. Comments: Delayed capillary refill of about 5 seconds. Neurological: General: No focal deficit present. Mental Status: He is alert and oriented to person, place, and time. Procedures Labs Reviewed URINALYSIS AND REFLEX TO MICROSCOPIC AND CULTURE CBC WITH AUTO DIFFERENTIAL COMPREHENSIVE METABOLIC PANEL PRO B-TYPE NATRIURETIC PEPTIDE TROPONIN T HIGH-SENSITIVITY SERIES (BASELINE, 2HR, 4HR, 6HR) XR Chest 1 Vw Portable (Results Pending) There were no vitals taken for this visit. Medical Decision Making Final diagnoses: None This note is prepared by Zane Early, acting as a scribe for Jc Ramirez MD. I electronically signed this note at 9:05 PM on 04/08/2024. I, Jc Ramirez MD, have personally performed the services described in the documentation, reviewed and edited the documentation which was dictated to the scribe in my presence, and it accurately records my words and actions. Zane Early 04/08/[id number] Zane Early 04/08/24 0415 Jc Ramirez MD 04/09/24 0007 INE DESIGNER * Eligio Henderson RN - 04/08/2024 9:00 PM CST Pt to ED01 via [facility]. Pt states his delivery truck was stuck, when he was feeling unwell. States he got dizzy and stomach was queasy. Hx DM2, anxiety, gastric sleeve. VSS INE DESIGNER * Tj Benedict. - 04/08/2024 8:59 PM CST Bed: ED01 Expected date: Expected time: Means of arrival: Comments: Survival Flight Tj Benedict. 04/08/242058 INE DESIGNER documented in this encounter Plan of Treatment Not on file documented as of this encounter Procedures Procedure Name Priority Date/Time Associated Diagnosis Comments URINALYSIS AND REFLEX TO MICROSCOPIC AND CULTURE Routine 04/08/2024 10:31 PM MACHINE DESIGNER URINALYSIS, MICROSCOPIC ONLY Routine 04/08/2024 10:31 PM MACHINE DESIGNER XR CHEST 1 VIEW ED 04/08/2024 9:36 PM MACHINE DESIGNER ECG 12-LEAD Routine 04/08/2024 9:12 PM MACHINE DESIGNER TROPONIN T HIGH-SENSITIVITY SERIES (BASELINE, 2HR, 4HR, 6HR) STAT 04/08/2024 9:12 PM MACHINE DESIGNER EGFR STAT 04/08/2024 9:12 PM MACHINE DESIGNER DIFFERENTIAL AUTO STAT 04/08/2024 9:1 2 PM MACHINE DESIGNER PRO B-TYPE NATRIURETIC PEPTIDE STAT 04/08/2024 9:12 PM MACHINE DESIGNER CBC WITH AUTO DIFFERENTIAL STAT 04/08/2024 9:12 PM MACHINE DESIGNER MAGNESIUM Add-On 04/08/2024 9:12 PM MACHINE DESIGNER COMPREHENSIVE METABOLIC PANEL STAT 04/08/2024 9:12 PM MACHINE DESIGNER documented in this encounter Results * (ABNORMAL) Urinalysis, microscopic only (04/08/2024 10:31 PM MACHINE DESIGNER) WBC, ur 6-10(A) 0 - 5 /HPF RBC, ur 0-2 0 - 2 /HPF [facility] ([place]) Epithelial cells, squamous, ur 1-5 0 - 5 /HPF [facility] ([place]) Mucous, ur Present(A) [facility] ([place]) Hyaline casts, ur 11-20(A) 0 - 10 /LPF [facility] ([place]) Culture Reflex Comment Reflex conditions for urine culture (WBC >10) not met. [facility] ([place]) Urine, clean voided 04/08/2024 10:31 PM MACHINE DESIGNER 04/08/2024 10:35 PM MACHINE DESIGNER us Jc Ramirez MD LAB URINE ORDERABLES Final Result [facility] ([place]) 1 [facility] Department [place] [address] * (ABNORMAL) Urinalysis reflex to microscopic and culture Urine, clean voided (04/08/2024 10:31 PM MACHINE DESIGNER) Color, ur Yellow Yellow Clarity, ur Clear Clear [facility] ([place]) Specific gravity, ur 1.030 1.003 - 1.030 [facility] ([place]) pH, urine 6.0 [facility] ([place]) Comment: Interpretive Data ? Urine pH is affected by diet, medications, systemic acid-base disturbances, and renal tubular function. ??pH may affect urinary stone formation. ??For example, urine pH below 6.0 may help reduce the tendency for calcium phosphate stones and pH greater than 6.0 may reduce the tendency for uric acid stone formation. Source: [facility] [place] Current Interpretive Data was last revised on 2017 Protein, ur ql 1+(A) Negative [facility] ([place]) Glucose, ur ql Trace(A) Negative [facility] ([place]) Ketones, ur 2+(A) Negative [facility] ([place]) Bilirubin, ur Negative Negative [facility] ([place]) Blood, ur Negative Negative [facility] ([place]) Urobilinogen, ur <2.0 <2.0 mg/dL [facility] ([place]) Nitrite, ur Negative Negative [facility] ([place]) Leukocyte esterase, ur Negative Negative [facility] ([place]) UA reflex comment Reflex to microscopic UA will be performed. [facility] ([place]) Urine, clean voided 04/08/2024 10:31 PM MACHINE DESIGNER 04/08/2024 10:35 PM MACHINE DESIGNER us Jc Ramirez MD LAB MICROBIOLOGY - GENERAL ORDERABLES Final Result [facility] ([place]) 1 [facility] Department [place] [address] * XR Chest 1 Vw Portable (04/08/2024 9:36 PM MACHINE DESIGNER) Anatomical Region Laterality Modality Body, Chest N/A Computed Radiogr aphy 04/08/2024 10:1 0 PM MACHINE DESIGNER Narrative 04/08/2024 10:11 PM MACHINE DESIGNER EXAM DESCRIPTION: XR CHEST 1 VIEW REASON [...] 10:11 PM - Electronically signed by ??Christopher Ernandez M.D. KH: CICI D: ??04/08/2024 10:11 PM T: ??04/08/2024 10:11 PM Report ID: [id number] Reading Location: ??[id number] Procedure Note Christopher Ernandez MD - 04/08/2024 [...] 10:11 PM - Electronically signed by Christopher Ernandez M.D. KH: CICI Report ID: [id number] Reading Location: [place] [address] [place] Jc Ramirez MD IMG XR PROCEDURES Final Res ult * ECG 12 lead (04/08/2024 9:12 PM MACHINE DESIGNER) 04/08/2024 9:12 PM MACHINE DESIGNER Narrative [facility] - 04/09/2024 9:00 AM MACHINE DESIGNER Vent Rate: 83 bpm RR Interval: 719 msec DE Interval: 147 msec QRS Duration: 114 msec QT Interval: 354 msec QTC Interval: 394 msec P-R-T [place]: 9 - -19 - 13 degrees IMPRESSION: SINUS RHYTHM POSSIBLE ANTERIOR MYOCARDIAL INFARCTION , OF INDETERMINATE AGE [30 ms Q WAVE IN V3/V4, OR R < 0.2 mV IN V4] ABNORMAL ECG Electronically Signed By: Jerome Johnson MD Jc Ramirez MD ECG ORDERABLES Final Resul t [facility] * eGFR (04/08/2024 9:12 PM MACHINE DESIGNER) eGFR >90 >=60 mL/min/1. 73 m2 Comment: [...] last reviewed 2021. Blood 04/08/2024 9:12 PM MACHINE DESIGNER 04/08/2024 9:19 PM MACHINE DESIGNER Jc Ramirez MD LAB BLOOD ORDERABLES Final Result Performing Organization Address City/[facility]/ZIP Co de Phone Number [facility] ([place]) 1 [facility] [place] [place] [address] * Magnesium (04/08/2024 9:12 PM MACHINE DESIGNER) Magnesium 1.9 1.4 - 2.5 mg/dL Blood 04/08/2024 9:12 PM MACHINE DESIGNER 04/08/2024 9:57 PM MACHINE DESIGNER Jc Ramirez MD LAB BLOOD ORDERABLES Final Result [facility] 1 [facility] [place] [address] * Differential, auto (04/08/2024 9:12 PM MACHINE DESIGNER) Neutrophil abs 5.9 1.5 - 6.5 K/cumm Imm gran abs 0.0 0.0 - 0.1 K/cumm [facility] ([place]) Lymphocyte abs 2.4 0.8 - 3.3 K/cumm [facility] ([place]) Monocyte abs 0.7 0.2 - 0.8 K/cumm [facility] ([place]) Eosinophil abs 0.2 0.0 - 0.5 K/cumm [...] revised on 2017. Blood 04/08/2024 9:12 PM MACHINE DESIGNER 04/08/2024 9:19 PM MACHINE DESIGNER Jc Ramirez MD LAB BLOOD ORDERABLES Final Result Performing Organization Address [facility] Co de Phone Number [facility] 1 [facility] [place] [address] * Troponin T high-sensitivity series (baseline, 2hr, 4hr, 6hr) (04/08/2024 9:12 PM MACHINE DESIGNER) Trop T hs <6 <=22 ng/L Comment: Interpretive Data For further hscTnT resources including the diagnostic algorithm and an aid in interpretation, copy and paste this link: https://nrl.testcatalog.org/show/hsTrop Current Interpretive Data last revised 2020. Blood 04/08/2024 9:12 PM MACHINE DESIGNER 04/08/2024 9:19 PM MACHINE DESIGNER Jc Ramirez MD LAB BLOOD ORDERABLES Final Result Performing Organization Address [facility] de Phone Number [facility] [place] [address] * Pro B-type natriuretic peptide (04/08/2024 9:12 PM MACHINE DESIGNER) NT-proBNP <36 <=300 pg/mL Comment: Interpretive Comments: [...] et.al. Eur Heart J. 2006:27:330-337. 2. Simona RW, Eusebio AM. J. AM Cara Cardiol: Cardiovasc Imag. 2009;2: 216- 225. Interpretive Data Last Revised Date: 2018. Blood 04/08/2024 9:1 2 PM MACHINE DESIGNER 04/08/2024 9:19 PM MACHINE DESIGNER us Jc Ramirez MD LAB BLOOD ORDERABLES Final Result [facility] 1 [facility] Department of Laboratories [place], [place] [id number] * (ABNORMAL) Comprehensive metabolic panel (04/08/2024 9:12 PM MACHINE DESIGNER) Sodium 136 135 - 145 mmol/L Potassium, pl 3.5 3.3 - 4.9 mmol/L [facility] ([place]) Chloride 99 97 - 110 mmol/L [facility] ([place]) CO2 24 22 - 32 [...] classification and Diagnosis of Diabetes Diabetes Care 2021; 46: S19-S40. Current interpretive data was last [...] ([place]) AST 21 10 - 50 Units/L [facility] ([place]) Comment:Slightly Hemolyzed S pecimen Blood 04/08/2024 9:12 PM MACHINE DESIGNER 04/08/2024 9:19 PM MACHINE DESIGNER us Jc Ramirez MD LAB BLOOD ORDERABLES Final Result [facility] ([place]) 1 [facility] Department [place] [address] * (ABNORMAL) CBC with auto differential (04/08/2024 9:12 PM MACHINE DESIGNER) WBC 9.2 3.8 - 9.9 K/cumm Hgb 15.4 13.0 - 17.5 g/dL [facility] ([place]) Hct 48.0 38.9 - 50.3 [...] RDW SD 51.8(H) 35.7 - 48.1 fL [facility] ([place]) NRBC abs 0.00 0.00 - 0.01 K/cumm [facility] ([place]) Blood 04/08/2024 9:12 PM MACHINE DESIGNER 04/08/2024 9:19 PM MACHINE DESIGNER Jc Ramirez MD LAB BLOOD ORDERABLES Final Result [facility] ([place]) 1 [facility] Department [place] [address] documented in this encounter Visit Diagnoses Diagnosis Dehydration after exertion- Primary Diabetes mellitus with ketosis (HCC) documented in this encounter Administered Medications Inactive Administered Medications - up to 3 most recent administrations Medication Order MAR Action Action Date Dose Rate Site dextrose 5% and sodium chloride 0.9% infusion (premix) 1,000 mL/hr, intravenous, Continuous, Starting on Mon04/08/24 at 2254 New Bag 04/08/2024 10:59 PM MACHINE DESIGNER 1,000 mL/hr 1000 mL/hr sodium chloride 0.9% bolus 1,000 mL 1,000 mL, intravenous, Once, On Mon04/08/24 at 2105, For 1 dose New Bag 04/08/2024 9:13 PM MACHINE DESIGNER 1,000 mL documented in this encounter Active and Recently Administered Medications Times are shown in MACHINE DESIGNER. Scheduled Medication Order 04/07/2024 04/08/2024 04/09/2024 sodium chloride 0.9% bolus 1,000 mL (COMPLETED) 1,000 mL, intravenous, Once, On Mon04/08/24 at 2105, For 1 dose 2113 (New Bag - Provider: Sa delores Panda, JANAK)2250 (Stopped - Provider: Citlali Panda, RN) Continuous Medication Order 04/07/2024 04/08/2024 04/09/2024 dextrose 5% and sodium chloride 0.9% infusion (premix) 1,000 mL/hr, intravenous, Continuous, Starting on Mon04/08/24 at 2254 2259 (New Bag - Provider: Citlali Panda, JANAK) 0010 (Stopped - Provider: Citlali Panda, JANAK) documented in this encounter Orders Medications Ordered That Joe ht Not Have Been Administered Count Last Ordered Date First Ordered Date sodium chloride 0.9% bolus 1,000 mL 1 04/08 sodium chloride 0.9% infusion 1 04/08/2024 documented in this encounter Care Teams Industrial Welder Relationship Specialty Start Date End Date Angel Peralta MD [address] [place] [id number] PCP - General Family Medicine 04/08/24 documented as of this encounter
--- OUTSIDE RECORDS SUMMARY | 2024-05-24 06:15 | XMS_ITS | Data Portability ---
Author Organization [facility], [address] [place] [address] ([place]) Address [address] [place] [address] Care Team Providers Care Still Operator Gin Name Role Phone WATSON FUNMILAYO Primary Care Provider [phone] [facility] Referring Provider Assessment Encounter Date Assessment Date Assessment LastModified by Organization Details LastModified Time 12/06/2023 12/06/2023 Assessment and plan: 38-year-old male patient with significant comorbidities and a bariatric risk score of a 4 who presents for bariatric surgery evaluation. Patient has been team approved to undergo a laparoscopic sleeve gastrectomy as part of a stage procedure in order to reduce his overall risk. The patient is here today to undergo a discussion concerning their upcoming surgery that is planned on December 25. A laparoscopic sleeve gastrectomy and upper GI endoscopy will be performed. The patient has been extensively evaluated by the multidisciplinary bariatric surgery team and has been deemed an acceptable operative candidate for a laparoscopic sleeve gastrectomy. Today, we have engaged in a prolonged discussion for approximately 90 minutes of which 60 minutes were spent face to face coordinating care for upcoming surgery. A full explanation of the surgical procedure was undertaken including diagrams and drawings on the white board. I have explained every step of the operative intervention as well as potential risks and complications of this procedure. The patient was given the opportunity to ask any further questions about the procedure. Discussion of the typical hospital course and postoperative experience was also undertaken. This patient seems to be well educated and fully understands this process. A written examination was administered in the office today. The patient has taken the test and successfully answered the questions. The patient seems to be fully understanding of the surgical procedure, risks, benefits, alternatives and the expectations of care. The patient understands the expected weight loss average is 50-60% excess weight loss at 3-5 years or 20-30% total weight loss. BMI reduction is on average 12. The patient recognizes the risks of the surgery include, but are not limited to, bleeding, surgical site infection, suture line leaks, suture line bleeding, strictures or narrowing along the lesser curvature of the stomach, gastroparesis, deep venous thrombosis with pulmonary embolic events, cardiac and pulmonary complications. The patient understands there is a potential for the development of new onset GERD (22% potentially) or worsening of GERD. If the GERD is persistent despite maximal medical treatment, there is a risk of needing revisional operative intervention to help resolve the GERD. She recognizes that the sleeve gastrectomy can be revised or converted to multiple other operations including Tosha-en-Y gastric bypass, traditional Tosha-en-Y duodenal switch, TOSHA-EN-Y DUODENALJEJUNALBYPA SS-SLEEVE, and KAL. In other words he can be performed as a stand-alone operation or as a staged operation in order to improve comorbidities, decrease weight, improve safety and outcomes in the treatment of obesity as a chronic disease. Short-term risk of the operation as well as long-term risk of the operation were discussed with the patient. Long-term risk of gastroesophageal reflux disease and weight regain were discussed with the patient. Importance of lifestyle interventions including diet exercise and weight loss medication were also discussed with the patient. Patient was very well educated in the process of choosing this operation prior to undergoing bariatric surgery. Today, during the office visit, I re-emphasized the major potential risks and complications that occur with this operative intervention in the first 30 days. These include but are not limited to, suture line breakdown leading to a leak, bleeding, deep venous thrombosis, pulmonary embolus, and obstruction of the stomach. The patient recognizes that if any of these complications should occur, the patient may need a prolonged hospital stay. Complication rates related to this operation include a leak rate of 0.2%,Obstruction rate of 0.2%, Bleeding/transfusio n 1.2%, DVT PE rate of 0.4%, mortality rate of 0.1%, C. diff 0%* ED visit 3.9% Readmission 2-4% Reoperation 1-2% Intervention 0.4%* *7 year data The patient understands that they may be involved in a research program. The patient will get additional specific information to be able to reasonably decide to participate. This information would describe the goal of the program and clearly discuss the risks and benefits of participation. Most of the projects involve using a small portion of the tissues that are normally removed at the time of the bariatric operation. This patient appears to have realistic expectations. They appear to be compliant and understand the severity of the potential nutritional deficiencies if they do not follow appropriate instructions. At the end of the visit, I believe this patient has a full understanding. The patient has given informed consent to proceed with operative intervention. If the patient has any further questions or concerns, I will be happy to answer those questions the day of surgery. requiring potentially multiple re-interventions including either upper GI endoscopy, surgery, placement of drain, and antibiotic therapy. In rare instances, these complications can be fatal. Patient has given verbal consent to proceed. Patient recognizes that due to the fact that he is a male patient with a BMI over 60 on insulin due to his type 2 diabetes and significant metabolic disease and comorbidities he is at extremely high risk for surgery including risk of bleeding, blood clots, leaks and respiratory problems. Due to that patient will be kept overnight for observation. Patient has been in the program for over 2 years and is ready to proceed and has given verbal consent to proceed. Not available 12/06/2023 15:58:32 01/18/2024 01/18/2024 Assessment and plan: 38-year-old male patient status post laparoscopic sleeve gastrectomy. Patient has lost 48 pounds since his preoperative visit. He is drinking 64 to 80 ounces of fluid per day. I told the patient that once he is able to consistently get 800 missael/day or more he can increase his level of physical activity to walking 30 minutes/day. He will continue taking his multivitamins. He will continue to be on a PPI for 90 days. He will follow-up with the weight loss and wellness center team for his 3-month postoperative appointment. If he has any problems questions or concerns I will be happy to see the patient anytime in the future. Not available 01/18/2024 12:37:27 Plan of Treatment Reminders Order Date Submit Date Provider Last Modified By Organization Details Last Modified Time Details Appointments None record ed. Lab None record ed. Referral None record ed. Procedures None record ed. Surgeries None record ed. Imaging None record ed. Medication Orders None record ed. Patient TargetsNo targets recorded. Patient InstructionsNo instructions recorded. Reason for Referral None Reported. Results Created Date Observation Date Name Description Value Unit Range Abnormal Flag Note LastModifiedBy Organization Detail LastModifiedTime 12/12/19 24 12/17/2023 COTIN RIO nicotine, serum <5 NG/mL INTER PRETI VE INFOR MATIO N: Nicot ine and Metab olite s, Serum or Plasm a, Quant itati ve Metho dolog y: Quant itati ve Liqui d Chrom atogr aphy- Tande m Mass Spect romet ry Posit delilah cutof f: 5 ng/mL For medic al purpo ses only; not valid for foren sic use. This test is desig jackie to evalu ate recen t use of nicot ine-c ontai milton produ cts. Passi ve and activ e expos ure canno t be discr imina jacqueline defin itive ly, altho ugh a cutof f of 10 ng/mL cotin ine is frequ ently used for surge ry quali ficat ion purpo ses. For smoki ng cessa tion progr ams or compl iance testi ng, the absen ce of expec jacqueline drug( s) and/o r drug metab olite (s) may indic ate non-c ompli ance, inapp ropri ate timin g of speci men colle ction relat delilah to drug admin istra tion, poor drug absor ption , or limit ation s of testi ng. This test canno t disti nguis h betwe en use of tobac co and purif ied nicot ine produ cts. The corby ntrat ion value must be great er than or equal to the cutof f to be repor jacqueline as posit delilah. This test was devel oped and its perfo rmanc e valente cteri stics deter mined by Zocerereyna pina. It has not been clear ed or appro roxanne by the [place] Food and Drug Admin istra tion. This test was perfo rmed in a CLIA certi fied labor atory and is inten ded for clini missael purpo ses. Perfo rmed By: SATINDER pina [address] [place] [address] Labor atory Direc tor: Julio torre MD, PhD MARCELA Bermudez r: [id number] Not Available [facility] - [address], [address], 12/17/2023 02:23:26 12/12/19 24 12/17/2023 COTIN RIO cotinine, serum <5 NG/mL Not Available [facility] - [address], [address], 12/17/2023 02:23:26 12/12/19 24 12/12/2023 RTUA color Yellow Not Available [facility] - [address], [address], 12/12/2023 21:18:40 12/12/19 24 12/12/2023 RTUA appearance Clear Not Avail able [facility] - [address], [address], 12/12/2023 21:18:40 12/12/19 24 12/12/2023 RTUA specific gravity 1.014 1.003- 1.030 Not Available [facility] - [address], [address], 12/12/2023 21:18:40 12/12/19 24 12/12/2023 RTUA pH urine 6.0 4.5-7. 5 Not Available [facility] - [address], [address], 12/12/2023 21:18:40 12/12/19 24 12/12/2023 RTUA protein 30 abnormal Not Availa ble [facility] Only - [address], [address], 12/12/2023 21:18:40 12/12/19 24 12/12/2023 RTUA urine glucose Negati ve Not Available [facility] - [address], [address], 12/12/2023 21:18:40 12/12/19 24 12/12/2023 RTUA ketones Negati ve Not Available [facility] - [facility] [address] [place] [address], [address], 12/12/2023 21:18:40 12/12/19 24 12/12/2023 RTUA urine bilirubin Negati ve Not Available [facility] - [facility] [address] [place] [address], [address], 12/12/2023 21:18:40 12/12/19 24 12/12/2023 RTUA urine HGB Negati ve Not Available [facility] - [facility] [address] [place] [address], [address], 12/12/2023 21:18:40 12/12/19 24 12/12/2023 RTUA nitrite Negati ve Not Available [facility] - [facility] [address] [place] [address], [address], 12/12/2023 21:18:40 12/12/19 24 12/12/2023 RTUA leukocyte esterase Trace abnormal Not Available [facility] [address] [place] [address], [address], 12/12/2023 21:18:40 12/12/19 24 12/12/2023 RTUA urobilinogen Normal Not Stacie ilable [facility] - [facility] [address] [place] [address], [address], 12/12/2023 21:18:40 12/12/19 24 12/12/2023 RTUA urine WBCs 0 /hpf 0-4 Not Avail able [facility] - [facility] [address] [place] [address], [address], 12/12/2023 21:18:40 12/12/19 24 12/12/2023 RTUA urine RBCs <1 /hpf 0-2 Not Avail able [facility] - [facility] [address] [place] [address], [address], 12/12/2023 21:18:40 12/12/19 24 12/12/2023 RTUA squamous epithelial cells <1 /hpf 0-5 Not Available [facility] - [facility] [address] [place] [address], [address], 12/12/2023 21:18:40 12/12/19 24 12/12/2023 RTUA color Yellow Not Available [facility] - [facility] [address] [place] [address], [address], 12/12/2023 21:18:38 12/12/19 24 12/12/2023 RTUA appearance Clear Not Avail able [facility] - [facility] [address] [place] [address], [address], 12/12/2023 21:18:38 12/12/19 24 12/12/2023 RTUA specific gravity 1.014 1.003- 1.030 Not Available [facility] - [facility] [address] [place] [address], [address], 12/12/2023 21:18:38 12/12/19 24 12/12/2023 RTUA pH urine 6.0 4.5-7. 5 Not Available [facility] [address] [place] [address], [address], 12/12/2023 21:18:38 12/12/19 24 12/12/2023 RTUA protein 30 abnormal Not Availa ble [facility] - [facility] [address] [place] [address], [address], 12/12/2023 21:18:38 12/12/19 24 12/12/2023 RTUA urine glucose Negati ve Not Available [facility] - [facility] [address] [place] [address], [address], 12/12/2023 21:18:38 12/12/19 24 12/12/2023 RTUA ketones Negati ve Not Available [facility] - [facility] [address] [place] [address], [address], 12/12/2023 21:18:38 12/12/19 24 12/12/2023 RTUA urine bilirubin Negati ve Not Available [facility] - [facility] [address] [place] [address], [address], 12/12/2023 21:18:38 12/12/19 24 12/12/2023 RTUA urine HGB Negati ve Not Available [facility] [address] [place] [address], [address], 12/12/2023 21:18:38 12/12/19 24 12/12/2023 RTUA nitrite Negati ve Not Available [facility] [address] [place] [address], [address], 12/12/2023 21:18:38 12/12/19 24 12/12/2023 RTUA leukocyte esterase Trace abnormal Not Available [facility] [address] [place] [address], [address], 12/12/2023 21:18:38 12/12/19 24 12/12/2023 RTUA urobilinogen Normal Not Stacie ilable [facility] [address] [place] [address], [address], 12/12/2023 21:18:38 12/12/19 24 12/12/2023 RTUA urine RBCs <1 /hpf 0-2 Not Avail able [facility] [address] [place] [address], [address], 12/12/2023 21:18:38 12/12/19 24 12/12/2023 RTUA squamous epithelial cells <1 /hpf 0-5 Not Available [facility] [address] [place] [address], 95[address], 12/12/2023 21:18:38 12/12/19 24 12/12/2023 HBA1C hemoglobin A1C 8.1 %A1C 4.2-5. 6 high Refer ence range for HbA1c is as daphnie ws: Manjinder stanley Diagn osis HbA1c resul t(%) ----- ----- ----- ----- ----- ----- ----- ----- --- Diabe tic > or equal to 6.5 Predi abete s 5.7 - 6.4 Marcela l <5.7 Refer ence: Rosalina can [facility]. Class ifica tion and Diagn osis of [facility]. [facility] 2017; 40 (Supp lemen t 1): S11-S 24. Not Available [facility] - [facility] [address] [place] [address], [address], 12/12/2023 20:03:15 12/12/19 24 12/12/2023 HBA1C estimated average glucose 186 mg/dL Not Available [facility] [address] [place] [address], [address], 12/12/2023 20:03:15 12/12/19 24 12/12/2023 EGFR eGFR 121 mL/mi n/1.7 3m? This eGFR is calcu lated using the 2020 CKD-E PI Creat inine equat ion witho ut race modif ier. In most healt hy peopl e, the marcela l GFR is 90 mL/mi n/1.7 3 m2 or highe r. A resul t of 60 - 89 mL/mi n/1.7 3 m2 witho ut kidne y damag e may be marcela l in some peopl e (such as the elder ly, infan ts). A resul t of 60 - 89 mL/mi n/1.7 3 m2 for three month s or more, along with kidne y damag e (such as persi stent prote in in the urine ), means the perso n has early kidne y disea se. When GFR is <60 for three month s or more, chron ic kidne y disea se(CK D) is prese nt. Not Available [facility] [address] [place] [address], [address], 12/12/2023 19:53:50 12/12/19 24 12/12/2023 CMP sodium 135 mmol/ L 136-14 5 low Not Available [facility] [address] [place] [address], [address], 12/12/2023 19:53:49 12/12/19 24 12/12/2023 CMP potassium 4.4 mmol/ L 3.5-5. 1 Not Available [facility] [address] [place] [address], [address], 12/12/2023 19:53:49 12/12/19 24 12/12/2023 CMP chloride 104 mmol/ L 98-107 Not Available [facility] [address] [place] [address], [address], 12/12/2023 19:53:49 12/12/19 24 12/12/2023 CMP CO2 27 mmol/ L 21-31 Not Available [facility] [address] [place] [address], [address], 12/12/2023 19:53:49 12/12/19 24 12/12/2023 CMP BUN 9 mg/dL 7-25 Not Available [facility] [address] [place] [address], [address], 12/12/2023 19:53:49 12/12/19 24 12/12/2023 CMP creatinine 0.7 mg/dL 0.6-1. 3 Not Available [facility] [address] [place] [address], [address], 12/12/2023 19:53:49 12/12/19 24 12/12/2023 CMP glucose 93 mg/dL 70-105 Not Availabl e [facility] - [facility] [address] [place] [address], 80[address], 12/12/2023 19:53:49 12/12/19 24 12/12/2023 CMP calcium 9.8 mg/dL 8.6-10 .3 Not Available [facility] [address] [place] [address], [address], 12/12/2023 19:53:49 12/12/19 24 12/12/2023 CMP total protein 7.8 gm/dL 6.0-8. 3 Not Available [facility] - [facility] [address], [address], 12/12/2023 19:53:49 12/12/19 24 12/12/2023 CMP albumin 4.5 gm/dL 3.5-5. 7 Not Available [facility] - [facility] [address] [place] [address], [address], 12/12/2023 19:53:49 12/12/19 24 12/12/2023 CMP bilirubin (total) 0.6 mg/dL 0.3-1. 0 Not Available [facility] [address] [place] [address], [address], 12/12/2023 19:53:49 12/12/19 24 12/12/2023 CMP AST 22 IU/L 13-39 Not Available [facility] - [facility] [address] [place] [address], [address], 12/12/2023 19:53:49 12/12/19 24 12/12/2023 CMP alk phos 78 IU/L 34-104 Not Availab le [facility] - [facility] [address] [place] [address], [address], 12/12/2023 19:53:49 12/12/19 24 12/12/2023 CMP ALT 35 IU/L 7-52 Not Available [facility] [address] [place] [address], [address], 12/12/2023 19:53:49 12/12/19 24 12/12/2023 CMP anion gap 4 8-16 low Anion gap calcu lated using formu la: Na - (Cl + CO2) Measu red total CO2 is used in place of HCO3 Not Available [facility] [address] [place] [address], [address], 12/12/2023 19:53:49 12/12/19 24 12/12/2023 DIFF neutrophils 63 % 47-67 Not Avai lable [facility] - [facility] [address] [place] [address], [address], 12/12/2023 19:38:15 12/12/19 24 12/12/2023 DIFF lymphocytes 26 % 25-45 Not Avai lable [facility] - [facility] [address] [place] [address], [address], 12/12/2023 19:38:15 12/12/19 24 12/12/2023 DIFF monocytes 7 % 1-9 Not Availa ble [facility] - [facility] [address] [place] [address], 15[address], 12/12/2023 19:38:15 12/12/19 24 12/12/2023 DIFF eosinophils 3 % 0-6 Not Avai lable [facility] - [facility] [address] [place] [address], [address], 12/12/2023 19:38:15 12/12/19 24 12/12/2023 DIFF basophils 1 % 0-2 Not Availa ble [facility] - [facility] [address] [place] [address], [address], 12/12/2023 19:38:15 12/12/19 24 12/12/2023 DIFF absolute neutrophils 6.6 K/cum m 1.8-6. 5 high Not Available [facility] - [facility] [address] [place] [address], [address], 12/12/2023 19:38:15 12/12/19 24 12/12/2023 DIFF absolute lymphocytes 2.7 K/cum m 0.9-3. 0 Not Available [facility] - [facility] [address] [place] [address], [address], 12/12/2023 19:38:15 12/12/19 24 12/12/2023 DIFF absolute monocytes 0.8 K/cum m 0.2-0. 8 Not Available [facility] - [facility] [address] [place] [address], [address], 12/12/2023 19:38:15 12/12/19 24 12/12/2023 DIFF absolute eosinophils 0.3 K/cum m 0.0-0. 4 Not Available [facility] - [facility] [address] [place] [address], [address]47, 12/12/2023 19:38:15 12/12/19 24 12/12/2023 DIFF absolute basophils 0.1 K/cum m 0.0-0. 2 Not Available [facility] - [address], [address], 12/12/2023 19:38:15 12/12/19 24 12/12/2023 CBC W/ AUTO DIFF WBC 10.4 K/cum m 3.4-9. 4 high Not Available [facility] - [address], [address], 12/12/2023 19:38:13 12/12/19 24 12/12/2023 CBC W/ AUTO DIFF RBC 5.72 M/cum m 4.70-6 .10 Not Available [facility] - [address], [address], 12/12/2023 19:38:13 12/12/19 24 12/12/2023 CBC W/ AUTO DIFF hemoglobin 15.3 gm/dL 14.0-1 8.0 Not Available [facility] - [address], [address], 12/12/2023 19:38:13 12/12/19 24 12/12/2023 CBC W/ AUTO DIFF hematocrit 48 % 42-52 Not Available [facility] [address] [place] [address], [address]61, 12/12/2023 19:38:13 12/12/19 24 12/12/2023 CBC W/ AUTO DIFF MCV 83 81-94 Not Available [facility] [address] [place] [address], [address], 12/12/2023 19:38:13 12/12/19 24 12/12/2023 CBC W/ AUTO DIFF MCH 26.8 pg 27.5-3 3.2 low Not Available [facility] [address] [place] [address], [address], 12/12/2023 19:38:13 12/12/19 24 12/12/2023 CBC W/ AUTO DIFF MCHC 32.3 g/dL 31.0-3 6.0 Not Available [facility] [address] [place] [address], [address], 12/12/2023 19:38:13 12/12/19 24 12/12/2023 CBC W/ AUTO DIFF RDW 16.8 % 11.7-1 5.5 high Not Available [facility] [address] [place] [address], 59[address], 12/12/2023 19:38:13 12/12/19 24 12/12/2023 CBC W/ AUTO DIFF platelets 332 K/cum m 140-41 0 Not Available [facility] [address] [place] [address], 14970, 12/12/2023 19:38:13 12/12/19 24 12/12/2023 CBC W/ AUTO DIFF MPV 7.9 mL Not Available [facility] [address] [place] [address], 80250, 12/12/2023 19:38:13 12/26/19 24 12/26/2023 SURGI MISSAEL PATHO LOGY spf Perfo rmed at[facility] Order ing Provi philip: Icaza , Gurpreet do Patie nt Name: DANIS ZAMORA #: [id number] /A ge/Ge nder: 1985 (Age: 38) / M Santo dure Date: 024 SP ECIME N(S) RECEI ROXANNE * A:Sto mach, porti on, sleev e gastr ectom y FI NAL PATHO LOGIC DIAGN OSIS* A. Stoma ch, porti on, sleev e gastr ectom y: - Gastr ic tissu e with no signi fican t patho logic mcnair es EL ECTRO NICAL LY VERIF IED BY LUCILLE LOPEZ MD 2023 16:42 CL INICA L HISTO RY Morbi d obesi ty GR OSS DESCR IPTIO N The speci men conta iner( s) and requi sitio n have the same patie nt name. Recei roxanne fresh label ed A, porti on of stoma ch is a 25.5 x 6.0 x 2.4 cm wedge -shap ed porti on of stoma ch with a stapl e line along the long edge. The seros a is unifo rmly pearl-g ray and glist ening and upon openi ng, the mucos a is pearl and glist ening with a marcela l foldi ng patte rn and at least 15 dark brown pigme nted spots that are 0.2 cm in great est dimen ramos. Other ring, the mucos a is gross ly unrem arkab le and the wall is of marcela l thick ness. Repre senta tive secti ons are submi tted in A1-A2 inclu ding pigme nted spots . The tissu e is proce ssed as forma ivania-f ixed paraf fin-e mbedd ed secti ons. mr/ 4 END OF REPOR T Not Available [facility] [address] [place] [address], [address], 12/30/2023 17:42:28 12/12/19 24 12/12/2023 XR, chest , [address] [facility] [address] [place] [address] [phone] Name: PANDA TESHA Monzon 5 Age: 38 : 1985 Exam Date: 2023 ACCESS ION: [id number] ORDERReyna LOYA MD: KAASH GUTIERREZ EXAMIN ATION: Chest radiog raph, 2 views. INDICA TION: Patien t states this is preop exam for bariat nel surger y. He denies any chest sympto ms and is exsmok er for 8 years. COMPAR LES: None availa ble. TECHNI QUE: PA and latera l views of the chest. FINDIN GS: The cardio medias tinal silhou ette and pulmon alexa vascul ature are within normal limits . No pulmon alexa consol idatio n, pleura l effusi on, or pneumo thorax . No acute osseou s abnorm ality. IMPRES RAMOS: No radiog raphic eviden ce of acute chest diseas e. The unders igned radiol ogist has review ed the images and agrees with the reside nt's interp retati on. Final Report Dictat ed: 14:09 Laury barron MD RES, Dayne Signed : 14:09 Dallas monae DO, Rm pena INTERFACE [facility] - [facility] [address] [place] [address], [address], 01/25/2024 22:05:09 03/19/20 24 09/19/2023 imagi ng/di agnos tic resul t No observ ation record ed. [email or web address] Not Available 04:32:57 Result Notes None recorded. Problems Name Problem SNOMED Code Status Onset Date Resolution Date Notes Provider Name and Address Organization Details Recorded Time Postoperati ve pain 131750268 Active [address] [facility] 4 15:14:47 Body mass index 40+ - severely obese [id number] Active 2023 Cirilo Gutierrez MD [address] [place] [address], [phone], [facility] 4 15:51:48 Diabetes mellitus 37609638 Active 2023 Cirilo Gutierrez MD [address] [place] [address], [phone], [facility] 4 15:52:07 Essential hypertensio n 97107467 Active 2023 Cirilo Gutierrez MD [address] [place] [address], [phone], [facility] 4 15:52:44 Obstructive sleep apnea of adult 7561731602749 Active 2023 Cirilo Gutierrez MD [address] [place] [address], [phone], [facility] 4 15:53:01 Hypercholes terolemia 28041083 Active 2023 Cirilo Gutierrez MD [address] [place] [address], [phone], [facility] 4 15:53:11 Problem Notes None recorded. Procedures Surgical History Date Name Laterality Status Provider Name and Address Organization Details Recorded Time 12/26/19 24 bariatric operative procedure completed Citlali Gorge [facility] 01/17/2024 11:52:44 Removal of gallbladder completed Not Available Health Note 11/29/2023 16:35:53 Imaging Results Imaging Date Name Status LastModified by Organiz ation Details LastModified Time 12/12/2023 XR, chest, 2 view completed INTERFACE [facility] [address] [place] [address], [id number], 01/25/2024 22:05:09 09/19/2023 imaging/diag nostic result completed [email or web address] Information not available 03/19/2024 04:32:57 Procedure Notes None recorded. Medical Equipment None Reported. Allergies Allergen ID Allergen Name Allergen Category Reaction Reaction Severity Criticality Documentation Date Start Date Code Code System Note Provider Name and Address Organization Details Recorded Time [id number] metformin medicatio n Not available Not available Not available 06/19/20232019 6809 RxNorm Not Available Not Available Not Available Medications Name Sig Start Date Stop Date Status Note LastModified by Organization Details LastModified Time celecoxib 200 mg capsule TAKE 1 CAPSULE BY MOUTH TWICE DAILY 01/17 completed Not Available Not Available Not Available cyclobenzap rine 10 mg tablet TAKE 1 TABLET BY MOUTH THREE TIMES DAILY NEEDED FOR MODERATE PAIN 01/17 completed Not Available Not Available Not Available atorvastati n 40 mg tablet TAKE 1 TABLET BY MOUTH DAILY active Not Available Not Available No t Available anastrozole 1 mg tablet TAKE 1/2 TABLET BY MOUTH 2 TIMES A WEEK active Not Available Not Available No t Available azithromyci n 250 mg tablet TAKE 2 TABLETS BY MOUTH FOR 1 DAY THEN TAKE 1 TABLET BY MOUTH DAILY FOR 4 DAYS DIRECTED 11/28 completed Not Available Not Available Not Available meloxicam 15 mg tablet TAKE 1 TABLET BY MOUTH DAILY NEEDED 11/28 completed Not Available Not Available Not Available ondansetron HCl 4 mg tablet TAKE 1 TABLET BY MOUTH EVERY 6 HOURS NEEDED FOR NAUSEA OR VOMITING 01/17 completed Not Available Not Available Not Available famotidine 40 mg tablet TAKE 1 TABLET BY MOUTH DAILY 01/17 completed Not Available Not Available Not Available phentermine 37.5 mg tablet 01/17 completed Not Available Not Available Not Available trazodone 100 mg tablet TAKE 1 TABLET BY MOUTH AT BEDTIME NEEDED active Not Available Not Available No t Available amlodipine 10 mg tablet active Not Available Not Available Not Available Humulin R Regular U-100 Insulin 100 unit/mL injection solution INJECT EVERY 6 HOURS DIRECTED PER INSULIN SLIDING SCALE active Not Available Not Available No t Available erythromyci n 5 mg/gram (0.5 %) eye ointment APPLY SMALL AMOUNT TO THE EYELID THREE TIMES DAILY AFTER SURGERY FOR 10 DAYS 11/28 completed Not Available Not Available Not Available glimepiride 4 mg tablet TAKE 2 TABLETS BY MOUTH DAILY 01/17 completed Not Available Not Available Not Available testosteron e cypionate 200 mg/mL intramuscul ar oil INJECT 1 ML IN THE MUSCLE ONCE A WEEK active Not Available Not Available No t Available fluticasone propionate 50 mcg/actuati on nasal spray,suspe nsion SHAKE LIQUID AND USE 1 TO 2 SPRAYS IN EACH NOSTRIL EVERY DAY 11/28 completed Not Available Not Available Not Available lisinopril 2.5 mg tablet TAKE 1 TABLET BY MOUTH DAILY active Not Available Not Available No t Available enoxaparin 40 mg/0.4 mL subcutaneou s syringe INJECT 0.4ML UNDER THE SKIN EVERY 12 HOURS FOR 30 DAYS DIRECTED active Not Available Not Available No t Available iron active Not Available Not Availa ble Not Available tadalafil 5 mg daily active Not Available Not Available No t Available Januvia 100 mg tablet TAKE 1 TABLET BY MOUTH DAILY 01/17 completed Not Available Not Available Not Available FeroSul 325 mg (65 mg iron) tablet TAKE 1 TABLET BY MOUTH DAILY 11/28 completed Not Available Not Available Not Available omeprazole 20 mg tablet,hayde yed release TAKE 1 TABLET BY MOUTH EVERY DAY active Not Available Not Available No t Available OneTouch Verio test strips TEST ONCE DAILY active Not Available Not Available No t Available TRUEplus Insulin 0.3 mL 31 gauge x 5/16 syringe USE FOR INSULIN INJECTION S EVERY 6 HOURS active Not Available Not Available No t Available Trulicity 0.75 mg/0.5 mL subcutaneou s pen injector 11/28 completed Not Available Not Available Not Available Basaglar KwikPen U-100 Insulin 100 unit/mL (3 mL) subcutaneou s INJECT 80 UNITS SUBCUTANE OUSLY TWICE DAILY 01/17 completed Not Available Not Available Not Available TRUEplus Pen Needle 29 gauge x 1/2 01/17 completed Not Available Not Available Not Available Admelog SoloStar U-100 Insulin lispro 100 unit/mL subcutaneou s pen INJECT 45 UNITS UNDER THE SKIN BEFORE EVERY MEAL. MAX DAILY DOSE OF 150 UNITS 01/17 completed Not Available Not Available Not Available OneTouch Ultra2 Meter USE DIRECTED active Not Available Not Available No t Available Trulicity 3 mg/0.5 mL subcutaneou s pen injector ADMINISTE R 3 MG UNDER THE SKIN WEEKLY 12/05 completed Not Available Not Available Not Available Vitals Date Recorded Body height Body mass index (BMI) Body weight Systolic blood pressure Diastolic blood pressure Provider Name and Address Organization Details Last Updated DateTime 12/06/2023 175.26 cm 60 kg/m2 549179.6 6 g 142 mm[Hg] 72 mm[Hg] Citlali Penning[place] [facility] 4 15:23:47 Date Recorded Body height Body mass index (BMI) Body weight Systolic blood pressure Diastolic blood pressure Provider Name and Address Organization Details Last Updated DateTime 01/18/2024 175.26 cm 53 kg/m2 956466.3 8 g 152 mm[Hg] 68 mm[Hg] Alejandra Rees [facility] 12:24:51 Social History Question Answer Notes LastModified by Organizat ion Details LastModified Time Do You Have An Advance Directive? No [email or web address] Information not available 11/29/2023 What Is Your Level Of Alcohol Consumption? None [email or web address] Information not available 11/29/2023 What Is Your Level Of Caffeine Consumption? Moderate [email or web address] Information not available 11/29/2023 Are You Currently Employed? No [email or web address] Information not available 11/29/2023 What Is Your Occupation? N/a [email or web address] Information not available 11/29/2023 How Many Times Per Week Do You Exercise? 1-2 Times Per Week [email or web address] Information not available 11/29/2023 When Did You Quit Smoking? 2017 [email or web address] Information not available 11/29/2023 Do You Have A Medical Power Of Cell Builder? No [email or web address] Information not available 11/29/2023 What Was The Date Of Your Most Recent Tobacco Screening? 12/06/2023 [email or web address] Information not available 11/29/2023 What Is Your Relationship Status? [email or web address] Information not available 11/29/2023 Do You Use Any Illicit Or Recreational Drugs? No [email or web address] Information not available 11/29/2023 Sex: Unknown Functional Status Question Answer Note LastModified by Organization D etails LastModified Time What is your exercise level? None [email or web address] Information not available 11/29/2023 Mental Status None recorded. Family History Relationship Description Onset Age of this Age Resolved Age Notes LastModified by Organization Details LastModified Time Unspecified Relation Attention deficit hyperactivit y disorder [email or web address] Not available 11/28 16:35:52 Mother Hypertensive disorder [email or web address] Not available 2023 16:35:52 Paternal Grandfather Hypertensive disorder [email or web address] Not available 2023 16:35:52 Father Hypercholest erolemia [email or web address] Not available 2023 16:35:52 Medical History Condition Response Diabetes Y Anxiety Disorder N Bleeding Disorder N Attention-deficit Hyperactivity Disorder Y High Blood Pressure Y Arthritis N Hyperlipidemia N Cancer N Stroke N Thyroid Problems N Asthma N Depression N COPD N Anemia N Seizures N Heart Disease N Fibromyalgia N Osteoporosis N Kidney Disease N Past Encounters Encounter ID Performer Location Encounter Start Date Encounter Closed Date Diagnosis/Indication Diagnosis SNOMED-CT Code Diagnosis ICD10 Code Diagnosis Note [id number] Cirilo Gutierrez MD [facility] [facility] [place] [address] [place] [phone] 12/06/2023 15:16:35 12/06/2023 15:49:41 Diabetes mellitus 39204186 E11.9 Body mass index 40+ - severely obese 593721434 Z68.44 Essential hypertension 26194741 I10 Obstructiv e sleep apnea of adult 0897568967 103 G47.33 Hypercholesterolemia 136 61978 E78.00 [id number] Cirilo Gutierrez MD [facility] [place] [facility] [place] [place] [address] [place] [phone] 01/18/2024 12:14:38 01/18/2024 12:42:54 Obstructive sleep apnea of adult 2721844736 103 G47.33 Diabetes mellitus 044716 09 E11.9 Body mass index 40+ - severely obese 460137022 Z68.44 Postoperative visit 1836 70721 Z48.89 Health Concerns Section Related Observation LastModified by Organization Detai ls LastModified Time None Recorded Concern Status LastModified by Organization Details LastModified Time None Recorded Advance Directives Directive N: Payers Encounter Date Sequence Insurance Name Policy Number Policy Ayers Covered Member ID Ayers Member ID Guarantor Name 12/06/2023 1 [facility] ON OR AFTER 11/19/20 (MEDICAID REPLACEMENT - HMO) [employer] [employer] [id number] [employer] 01/18/2024 1 [facility] ON OR AFTER 11/19/20 (MEDICAID REPLACEMENT - HMO) [employer] [id number] [employer] Notes Date Note Type Note Provider Name and Address Organization Details Recorded Time 12/06/2023 text/html Patient is here for a presurgical evaluation. Patient is scheduled to undergo a sleeve gastrectomy at [facility] on December 25. This is part of a two-stage procedure as is risk reduction strategy. Patient has a BMI of 60. Currently he is 406 pounds. Patient has significant comorbidities including insulin-dependent type 2 diabetes, hypertension, hypercholesterolemia, obstructive sleep apnea. Patient currently takes insulin for his type 2 diabetes. Patient also has history of fatty liver and gastroesophageal reflux disease. Patient takes testosterone and anastrozole for hypogonadism. Patient underwent an EGD which essentially did not show any evidence of hiatal hernias. He has had a previous laparoscopic cholecystectomy as he is only surgery. His initial weight was 428 pounds and he is down to 406 pounds. Today patient denies any significant GI symptoms or complaints. Patient denies any drug use or alcohol use. He is a former smoker. Cirilo Gutierrez MD [address] [place] [address], [phone], [facility] 12/06/2023 15:58:56 01/18/2024 text/html Patient is here for a 1 month postop check. Patient underwent a laparoscopic sleeve gastrectomy. His preoperative weight was 407 pounds and he is down to 359 pounds. He was on a lot of insulin prior to surgery and he is only needed insulin a few times. He is walking okay denies nausea vomiting fever or chills. He is currently getting 600 to 800 missael/day. Cirilo Gutierrez MD [address] [place] [address], [phone], [facility] 01/18/2024 12:37:59
--- OUTSIDE RECORDS SUMMARY | 2024-05-24 06:15 | XMS_ITS | Encounter Summary ---
Author Organization [facility] Facility Care Team Providers Care Contract Management Specialist Name Role Phone Isra Mahmood MD Primary Care Provider [phone] Encounter Details Date Type Department Care Team (Latest Contact Info) Description 03/12/2019 Travel Social History Tobacco Use Types Packs/Day Years Used Date Smoking Tobacco: Former Cigarettes 0.3 13 0 09/20/2003 - 09/18/2016 Smokeless Tobacco: Never Alcohol Use Standard Drinks/Week Comments No 0 (1 standard drink = 0.6 oz pur e alcohol) PHQ-2 Answer Date Recorded PHQ-2 Score 0 01/10/2019 Sex and Gender Information Value Date Recorded Sex Assigned at Not on file Legal Sex Male 8:57 AM [employer]PER Gender Identity Not on file Sexual Orientation Not on file documented as of this encounter Plan of Treatment Not on file documented as of this encounter Visit Diagnoses Not on filedocumented in this encounter Care Teams Contract Management Specialist Relationship Specialty Start Date End Date Isra Mahmood MD [address] [place] [address] PCP - General 03/30/18 04/07/24 documented as of this encounter
--- OUTSIDE RECORDS SUMMARY | 2024-05-24 06:15 | XMS_ITS | Referral Summary ---
Author Organization [facility] Address [address] [place] [address] Care Team Providers Care Family Life Counselor Name Role Phone Angel Peralta MD Primary Care Provider Encounters Date Type Department Care Team Description 04/08/2024 8:59 PM SIGNAL OPERATOR - 04/09/2024 12:11 AM SIGNAL OPERATOR Emergency [facility] Emergency Department [address] [place] [address] Jc Ramirez MD Dehydration after exertion (Primary Dx); Diabetes mellitus with ketosis (HCC) Discharge Disposition: Discharge to home or self care from Last 3 Months Allergies Active Allergy Reactions Criticality Noted Date [...] type 1 diabetes mellitus with hyper glycemia Social History Tobacco Use Types Packs/Day Years [...] on file Legal Sex Male 8:57 AM SIGNAL OPERATOR Gender Identity Not on file Sexual Orientation Not on file Last Filed Vital Signs Vital Sign Reading Time Taken Comments Blood Pressure 120/72 04/08/2024 10:00 PM SIGNAL OPERATOR Pulse 81 04/08/2024 10:00 PM SIGNAL OPERATOR Temperature 36.7 ??C (98.1 ??F) 04/08/2024 9:08 PM CS T Respiratory Rate 20 04/08/2024 10:00 PM SIGNAL OPERATOR Oxygen Saturation 94% 04/08/2024 10:00 PM SIGNAL OPERATOR Inhaled Oxygen Concentration - - Weight 144.2 kg (318 lb) 04/08/2024 9:04 PM SIGNAL OPERATOR Height 174 cm (5' 8.5 ) 04/08/2024 9:04 PM SIGNAL OPERATOR Body Mass Index 47.65 04/08/2024 9:04 PM SIGNAL OPERATOR Plan of Treatment Not on file Procedures Procedure Name Priority Date/Time Associated Diagnosis Comments URINALYSIS, MICROSCOPIC ONLY Routine 04/08/2024 10:31 PM SIGNAL OPERATOR URINALYSIS AND REFLEX TO MICROSCOPIC AND CULTURE Routine 04/08/2024 10:31 PM SIGNAL OPERATOR XR CHEST 1 VIEW ED 04/08/2024 9:36 PM SIGNAL OPERATOR ECG 12-LEAD Routine 04/08/2024 9:12 PM SIGNAL OPERATOR EGFR STAT 04/08/2024 9:12 PM SIGNAL OPERATOR MAGNESIUM Add-On 04/08/2024 9:12 PM SIGNAL OPERATOR DIFFERENTIAL AUTO STAT 04/08/2024 9:1 2 PM SIGNAL OPERATOR TROPONIN T HIGH-SENSITIVITY SERIES (BASELINE, 2HR, 4HR, 6HR) STAT 04/08/2024 9:12 PM SIGNAL OPERATOR PRO B-TYPE NATRIURETIC PEPTIDE STAT 04/08/2024 9:12 PM SIGNAL OPERATOR COMPREHENSIVE METABOLIC PANEL STAT 04/08/2024 9:12 PM SIGNAL OPERATOR CBC WITH AUTO DIFFERENTIAL STAT 04/08/2024 9:12 PM SIGNAL OPERATOR LIPID PANEL Routine 09/24/2018 3:30 AM CDT HEMOGLOBIN A1C Routine 09/22/2018 6:04 PM CDT TSH STAT 03/30/2018 11:11 PM SIGNAL OPERATOR from Last 3 Months or Most Recently Relevant to Health Maintenance Results * (ABNORMAL) Urinalysis reflex to microscopic and culture Urine, clean voided (04/08/2024 10:31 PM SIGNAL OPERATOR) Color, ur Yellow Yellow Clarity, ur Clear Clear [facility] ([place]) Specific gravity, ur 1.030 1.003 - 1.030 [facility] ([place]) pH, urine 6.0 [facility] ([place]) Comment: Interpretive Data ? Urine pH is affected by diet, medications, systemic acid-base disturbances, and renal tubular function. ??pH may affect urinary stone formation. ??For example, urine pH below 6.0 may help reduce the tendency for calcium phosphate stones and pH greater than 6.0 may reduce the tendency for uric acid stone formation. Source: [facility] Current Interpretive Data was last revised on [...] Reflex to microscopic UA will be performed. [facility] ([place]) Urine, clean voided 04/08/2024 10:31 PM SIGNAL OPERATOR 04/08/2024 10:35 PM SIGNAL OPERATOR us Jc Ramirez MD LAB MICROBIOLOGY - GENERAL ORDERABLES Final Result [facility] ([place]) 1 [facility] [place] [address] * (ABNORMAL) Urinalysis, microscopic only (04/08/2024 10:31 PM SIGNAL OPERATOR) WBC, ur 6-10(A) 0 - 5 /HPF RBC, ur 0-2 0 - 2 /HPF [facility] ([place]) Epithelial cells, squamous, ur 1-5 0 - 5 /HPF [facility] ([place]) Mucous, ur Present(A) [facility] ([place]) Hyaline casts, ur 11-20(A) 0 - 10 /LPF [facility] ([place]) Culture Reflex Comment Reflex conditions for urine culture (WBC >10) not met. [facility] ([place]) Urine, clean voided 04/08/2024 10:31 PM SIGNAL OPERATOR 04/08/2024 10:35 PM SIGNAL OPERATOR us Jc Ramirez MD LAB URINE ORDERABLES Final Result [facility] ([place]) 1 [facility] [place] [address] * XR Chest 1 Vw Portable (04/08/2024 9:36 PM SIGNAL OPERATOR) Anatomical Region Laterality Modality Body, Chest N/A Computed Radiogr aphy 04/08/2024 10:1 0 PM SIGNAL OPERATOR Narrative 04/08/2024 10:11 PM SIGNAL OPERATOR EXAM DESCRIPTION: XR CHEST 1 VIEW REASON [...] 04/08/2024 10:11 PM - Electronically signed by ??Chirstopher Ernandez M.D. KH: CICI D: ??04/08/2024 10:11 PM T: ??04/08/2024 10:11 PM Report ID: [id number] Reading Location: ??[id number] Procedure Note Christopher Ernandez MD - 04/08/2024 [...] Christopher Ernandez M.D. KH: CICI Report ID: [id number] Reading Location: [place] [address] Jc Ramirez MD IMG XR PROCEDURES Final Res ult * ECG 12 lead (04/08/2024 9:12 PM SIGNAL OPERATOR) 04/08/2024 9:12 PM SIGNAL OPERATOR Narrative [facility] - 04/09/2024 9:00 AM SIGNAL OPERATOR Vent Rate: 83 bpm RR Interval: 719 msec FL Interval: 147 msec QRS Duration: 114 msec QT Interval: 354 msec QTC Interval: 394 msec P-R-T [place]: 9 - -19 - 13 degrees IMPRESSION: SINUS RHYTHM POSSIBLE ANTERIOR MYOCARDIAL INFARCTION , OF INDETERMINATE AGE [30 ms Q WAVE IN V3/V4, OR R < 0.2 mV IN V4] ABNORMAL ECG Electronically Signed By: Jerome Johnson MD Jc Ramirez MD ECG ORDERABLES Final Resul t [facility] * Troponin T high-sensitivity series (baseline, 2hr, 4hr, 6hr) (04/08/2024 9:12 PM SIGNAL OPERATOR) Trop T hs <6 <=22 ng/L Comment: Interpretive Data For further hscTnT resources including the diagnostic algorithm and an aid in interpretation, copy and paste this link: https://nrl.testcatalog.org/show/hsTrop Current Interpretive Data last revised 2020. Blood 04/08/2024 9:12 PM SIGNAL OPERATOR 04/08/2024 9:19 PM SIGNAL OPERATOR us Jc Ramirez MD LAB BLOOD ORDERABLES Final Result [facility] ([place]) 1 [facility] [place] [address] * eGFR (04/08/2024 9:12 PM SIGNAL OPERATOR) eGFR >90 >=60 mL/min/1. 73 m2 Comment: [...] of Race in Diagnosing Kidney Disease, JASN 202). The CKD-EPI equation should not be used for patients with unstable renal function and has not been validated in children and those over 70. Current interpretive data was last reviewed 2021. Blood 04/08/2024 9:12 PM SIGNAL OPERATOR 04/08/2024 9:19 PM SIGNAL OPERATOR us Jc Ramirez MD LAB BLOOD ORDERABLES Final Result [facility] ([place]) 1 [facility] [place] [address] * Differential, auto (04/08/2024 9:12 PM SIGNAL OPERATOR) Neutrophil abs 5.9 1.5 - 6.5 K/cumm Imm gran abs 0.0 0.0 - 0.1 K/cumm [facility] ([place]) Lymphocyte abs 2.4 0.8 - 3.3 K/cumm [facility] ([place]) Monocyte abs 0.7 0.2 - 0.8 K/cumm [facility] ([place]) Eosinophil abs 0.2 0.0 - 0.5 K/cumm [facility] ([place]) Basophil abs 0.0 0.0 - 0.1 K/cumm [facility] ([place]) Neutrophil pct 64.2 % [facility] ([place]) Comment: Interpretive Data Percent cell count reference [...] revised on 2017. Basophil pct 0.3 % [facility] ([place]) Comment: Interpretive Data Percent cell count reference ranges are not reported, since discordance with absolute values may lead to misinterpretation of CBC data. Current Interpretive Data was last revised on 2017. Blood 04/08/2024 9:12 PM SIGNAL OPERATOR 04/08/2024 9:19 PM SIGNAL OPERATOR us Jc Ramirez MD LAB BLOOD ORDERABLES Final Result [facility] ([place]) 1 [facility] Department of Laboratories [place], [place] [id number] * Pro B-type natriuretic peptide (04/08/2024 9:12 PM SIGNAL OPERATOR) NT-proBNP <36 <=300 pg/mL Comment: Interpretive Comments: [...] Revised Date: 2018. Blood 04/08/2024 9:12 PM SIGNAL OPERATOR 04/08/2024 9:19 PM SIGNAL OPERATOR us Jc Ramirez MD LAB BLOOD ORDERABLES Final Result [facility] ([place]) 1 [facility] [place] [address] * (ABNORMAL) CBC with auto differential (04/08/2024 9:12 PM SIGNAL OPERATOR) WBC 9.2 3.8 - 9.9 K/cumm Hgb [...] RDW SD 51.8(H) 35.7 - 48.1 fL [facility] ([place]) NRBC abs 0.00 0.00 - 0.01 K/cumm [facility] ([place]) Blood 04/08/2024 9:12 PM SIGNAL OPERATOR 04/08/2024 9:19 PM SIGNAL OPERATOR Jc Ramirez MD LAB BLOOD ORDERABLES Final Result Performing Organization Address City/[facility]/ZIP Co de Phone Number [facility] ([place] 1 [facility] [place] [address] * Magnesium (04/08/2024 9:12 PM SIGNAL OPERATOR) Pathologist [facility] Magnesium 1.9 1.4 - 2.5 mg/dL Blood 04/08/2024 9:12 PM SIGNAL OPERATOR 04/08/2024 9:57 PM SIGNAL OPERATOR Jc Ramirez MD LAB BLOOD ORDERABLES Final Result Performing Organization Address [facility] de Phone Number [facility] ([place]) 1 [facility] [place] [address] * (ABNORMAL) Comprehensive metabolic panel (04/08/2024 9:12 PM SIGNAL OPERATOR) Sodium 136 135 - 145 mmol/L Potassium, pl 3.5 3.3 - 4.9 mmol/L [facility] ([place]) Chloride 99 97 - 110 mmol/L [facility] ([place]) CO2 24 22 - 32 mmol/L [facility] ([place]) Anion gap 13 2 - 15 mmol/L [facility] ([place]) BUN 12 6 - 25 mg/dL [facility] ([place]) Creatinine 0.60(L) 0.80 - 1.30 mg/dL [facility] ([place]) Glucose 186 70 - 199 mg/dL [facility] ([place]) Comment: Interpretive Data Fasting glucose >/= [...] Hemolyzed S pecimen Blood 04/08/2024 9:12 PM SIGNAL OPERATOR 04/08/2024 9:19 PM SIGNAL OPERATOR us Jc Ramirez MD LAB BLOOD ORDERABLES Final Result [facility] 1 [facility] [place] [address] * (ABNORMAL) Lipid panel (09/24/2018 3:30 AM CDT) Cholesterol 239(H) 30 - 199 mg/dL [facility] ([place]) Comment: Interpretive Data Ages < or [...] on 2018. Triglycerides 186(H) <=149 mg/dL [facility] ([place]) Comment: Interpretive Data Ages < or [...] on 2018. HDL 45 >=40 mg/dL [facility] ([place]) Comment: Interpretive Data Ages < or [...] 2018. Non-HDL Cholesterol 194 mg/dL [facility] ([place]) Comment: Interpretive Data [...] on 2018. Chol/HDL ratio 5 [facility] ([place]) Blood specimen (specimen) 09/24/2018 3:30 AM CDT 09/24/2018 3:49 AM CDT Narrative [facility] ([place]) - 09/24/2018 4:36 AM CDT us Oly Mir MD LAB BLOOD ORDERABLES Fin al Result [facility] ([place]) [address] [place] [address] * (ABNORMAL) Hemoglobin A1c (09/22/2018 6:04 PM CDT) Hgb A1C 11.1(H) 4.0 - 5.6 % [facility] ([place]) Estimated Average Glucose 272 mg/dL [facility] ([place]) Comment: The ADA recommends reporting an estimated Average Glucose (eAG) with all Hemoglobin A1c results using the equation derived from a study of 507 normal and diabetic adults. ??Minority populations were underrepresented and children were not included. ?? (Diabetes Care 31:3423-2024, 2008). ??The eAG is not equivalent to a fasting glucose. Blood specimen (specimen) 09/22/2018 6:04 PM CDT 09/22/2018 6:07 PM CDT Narrative [facility] ([place]) - 09/22/2018 6:29 PM CDT Jc Ramirez MD LAB BLOOD ORDERABLES Final Result [facility] ([place]) [address] [place] [address] * TSH (03/30/2018 11:11 PM SIGNAL OPERATOR) Pathologist [facility] Thyroid Stimulating Hormone 1.54 0.30 - 4.20 mcIUnit/mL [facility] ([place]) Blood specimen (specimen) 03/30/2018 11:11 PM SIGNAL OPERATOR 03/30/2018 11:19 PM SIGNAL OPERATOR Narrative [facility] ([place]) - 03/30/2018 11:46 PM SIGNAL OPERATOR Jc Ramirez MD LAB BLOOD ORDERABLES Final Result [facility] ([place]) [address] [place] [address] from Last 3 Months or Most Recently Relevant to Health Maintenance Insurance [facility] Advance Directives For more information, please contact: [phone] * Full Code (Latest Code Status on File) Date Activated Date Inactivated Comments 09/22/2018 8:53 PM 09/27/2018 3:31 PM Care Teams Family Life Counselor Relationship Specialty Start Date End Date Angel Peralta MD [address] [place] [id number] PCP - General Family Medicine 04/08/24
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
--- OUTSIDE RECORDS SUMMARY | 2024-05-24 06:16 | XMS_ITS | Encounter Summary ---
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 - 07/14/2018 8:09 AM SECOND GRADE TEACHER Emergency [facility] Emergency Department [address] [place] [address] Dao Nguyen MD [address] [place] [address] # [place] [address] Sprain of left ankle, unspecified ligament, initial encounter (Primary Dx) Discharge Disposition: Discharge to home or self care Social History Tobacco Use Types Packs/Day Years Used Date Smoking Tobacco: Never Smokeless Tobacco: Never Alcohol Use Standard Drinks/Week Comments No 0 (1 standard drink = 0.6 oz pur e alcohol) Sex and Gender Information Value Date Recorded Sex Assigned at Not on file 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 Gender Identity Not on file Sexual Orientation Not on file documented as of this encounter Last Filed Vital Signs Vital Sign Reading Time Taken Comments Blood Pressure 169/79 07/14/2018 7:30 AM SECOND GRADE TEACHER Pulse 98 07/14/2018 8:00 AM SECOND GRADE TEACHER Temperature 36.5 ??C (97.7 ??F) 07/14/2018 6:50 AM CS T Respiratory Rate 18 07/14/2018 6:50 AM SECOND GRADE TEACHER Oxygen Saturation 97% 07/14/2018 8:00 AM SECOND GRADE TEACHER Inhaled Oxygen Concentration - - Weight - - Height - - Body Mass Index - - documented in this encounter Discharge Instructions * Attachments The following attachments cannot be sent through Care Everywhere. * Sprain, Ankle (Adult) (Scottish) * DERRICK Wrap (Scottish) documented in this encounter Medications at Time of Discharge ranitidine (ZANTAC) 150 mg capsuleIndication s:gastroesophagea l reflux disease Take 300 mg by mouth every evening SITagliptin (JANUVIA) 25 mg tabletIndications :type 2 diabetes mellitus Take 100 mg by mouth daily atorvastatin (LIPITOR) 10 mg tablet Take 10 mg by mouth daily. 09/22/2018 ibuprofen (ADVIL,MOTRIN) 600 mg tablet Take 1 tablet (600 mg total) by mouth 3 (three) times a day. Take with food. 30 tablet 03/31/2018 03/12/2019 documented as of this encounter Discharge Disposition Disposition Code Departure Means Destination Discharge to home or self care documented in this encounter ED Notes * Earlene Subramanian RN - 07/14/2018 6:45 AM CST Pt was at work last night when he was walking out of a room and tripped over a pair of slippers around 0500 am. Pt states he stumbled and landed on his ankle with his ankle against the floor and his body falling on it. Pt rates pain as a 7 out of 10. Ice applied and leg elevated at this time. Pt has sensation mobility and circulation where the foot is pink and blanches. Ankle appears swollen and tender to touch. ND GRADE TEACHER * Dao Nguyen MD - 07/14/2018 6:40 AM CST HPI Chief Complaint Patient presents with ??? Ankle Injury Patient is a 32-year-old male who presents emergency room after he slipped and fell, twisting his left ankle. Patient complains of pain and swelling to the lateral aspect of his left ankle. Patient denies any other injury. No head injury or loss of consciousness. Pain is worse with ambulation. No numbness or tingling. There is no previous ankle injuries. There is no other aggravating or alleviating factors. There is no other complaints of further review of symptoms negative Patient History There are no active problems to display for this patient. Past Medical History: Diagnosis Date ??? Diabetes (CMS/HCC) No past surgical history on file. No family history on file. Social History Substance Use Topics ??? Smoking status: Never Smoker ??? Smokeless tobacco: Never Used ??? Alcohol use No Social History Social History Narrative ??? No narrative on file Review of Systems Review of Systems All other systems reviewed and are negative. Physical Exam ED Triage Vitals [07/14/18 0650] Temp Pulse Resp BP SpO2 36.5 ??C (97.7 ??F) 103 18 150/87 98 % Temp src Heart Rate Source Patient Position BP Location FiO2 (%) Temporal -- -- -- -- Physical Exam Constitutional: He appears well-developed and well-nourished. No distress. HENT: Head: Normocephalic and atraumatic. Eyes: Conjunctivae are normal. Neck: Normal range of motion. Cardiovascular: Normal rate, regular rhythm, normal heart sounds and intact distal pulses. Pulmonary/Chest: Effort normal and breath sounds normal. No respiratory distress. Musculoskeletal: Left ankle-minimal edema and tenderness laterally with no obvious deformity, no bruising, distally neurovascularly intact Neurological: He is alert. Skin: Skin is warm and dry. Capillary refill takes less than 2 seconds. Psychiatric: He has a normal mood and affect. Nursing note and vitals reviewed. [facility] ED Course as of Jul 14 753 Time: 07/14 752 Comment: Patient lying examination room in no acute distress, requesting time off work By: Dao Nguyen MD No diagnosis found. Dao Nguyen MD 07/14/18753 ND GRADE TEACHER documented in this encounter Plan of Treatment Not on file documented as of this encounter Procedures Procedure Name Priority Date/Time Associated Diagnosis Comments XR ANKLE LEFT 3 OR MORE VIEWS ED 07/14/2018 7:12 AM SECOND GRADE TEACHER documented in this encounter Results * XR Ankle Left 3+ views (07/14/2018 7:12 AM SECOND GRADE TEACHER) Anatomical Region Laterality Modality Lower Extremities, Ankle Left Compute d Radiography 07/14/2018 7:20 AM SECOND GRADE TEACHER Impressions 07/14/2018 7:20 AM SECOND GRADE TEACHER 1. No acute fractures or dislocation. Electronically signed by: Cameron Bahena M.D. Narrative 07/14/2018 7:20 AM SECOND GRADE TEACHER EXAM: XR ANKLE LEFT 3 OR MORE VIEWS AP, lateral, and oblique HISTORY: Pain after fall. COMPARISON: None FINDINGS: No fracture, dislocation, or other osseous abnormalities are present. The bone texture and density are normal. The articular surfaces are smooth. ??The ankle mortise is maintained. ??No lytic or blastic lesions are demonstrated. ??Mild lateral soft tissue swelling is noted. Procedure Note Cameron Bahena MD - 07/14/2018 EXAM: XR ANKLE LEFT 3 OR MORE VIEWS AP, lateral, and oblique HISTORY: Pain after fall. COMPARISON: None FINDINGS: No fracture, dislocation, or other osseous abnormalities are present. The bone texture and density are normal. The articular surfaces are smooth. The ankle mortise is maintained. No lytic or blastic lesions are demonstrated. Mild lateral soft tissue swelling is noted. IMPRESSION: 1. No acute fractures or dislocation. Electronically signed by: Cameron Bahena M.D. Dao Nguyen MD IMG XR PROCEDURES Final Resul t documented in this encounter Visit Diagnoses Diagnosis Sprain of left ankle, unspecified ligament, initial encounter- Primary documented in this encounter Administered Medications Inactive Administered Medications - up to 3 most recent administrations Medication Order MAR Action Action Date Dose Rate Site ibuprofen (ADVIL,MOTRIN) tablet 600 mg 600 mg, oral, Once, On 07/14/18 at 0753, For 1 dose Given 07/14/2018 7:58 AM SECOND GRADE TEACHER 600 mg documented in this encounter Active and Recently Administered Medications Times are shown in SECOND GRADE TEACHER. Scheduled Medication Order 07/12/2018 07/13/2018 07/14/2018 ibuprofen (ADVIL,MOTRIN) tablet 600 mg (COMPLETED) 600 mg, oral, Once, On 07/14/18 at 0753, For 1 dose 0758 (Given - Provid er: Earlene Subramanian RN) documented in this encounter Orders Medications Ordered That Joe ht Not Have Been Administered Count Last Ordered Date First Ordered Date ibuprofen (ADVIL,MOTRIN) tablet 600 mg 1 documented in this encounter Care Teams Medical Office Professional Instructor Relationship Specialty Start Date End Date Isra Mahmood MD [address] [place] [id number] PCP - General 03/30/18 04/07/24 documented as of this encounter
--- OUTSIDE RECORDS SUMMARY | 2024-05-24 06:16 | XMS_ITS | Encounter Summary ---
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 Role Phone Isra Mahmood MD Primary Care Provider [phone] Reason for Visit * Reason Comments Facial Droop Encounter Details Date Type Department Care Team (Late st Contact Info) Description 09/22/2018 5:33 PM CDT - 09/27/2018 11:15 AM CDT Hospital Encounter [facility] [address] [place] [address] Jc Ramirez MD [address] [address] Clarisse Alex MD [address] [place] [address] [place] [address] Oly Mir MD [address] [place] [address] [place] [address] Khoi Vang MD [address] [place] [address] [place] [id number] [address] Ceballos's palsy (Primary Dx); Mastoiditis of right side; Uncontrolled type 1 diabetes mellitus with hyperglycemia ([facility]/HCC); H/O influenza Discharge Disposition: Discharge to home or self [...] on file 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 Gender Identity Not on file Sexual Orientation Not on file documented as of this encounter Last Filed Vital Signs Vital Sign Reading Time Taken Comments Blood Pressure 127/78 09/27/2018 7:42 AM CDT Pulse 75 09/27/2018 7:42 AM CDT Temperature 36.3 ??C (97.4 ??F) 09/27/2018 7:42 AM CD T Respiratory Rate 20 09/27/2018 7:42 AM CDT Oxygen Saturation 98% 09/27/2018 7:42 AM CDT Inhaled Oxygen Concentration - - Weight 156.2 kg (344 lb 5.7 oz) 09/22/2018 9:00 PM CDT Height 175.3 cm (5' 9.02 ) 09/23/2018 1 1:39 AM CDT Body Mass Index 50.83 09/22/2018 9:00 PM CDT documented in this encounter Discharge Summaries * Filiberto Urbano MD - 09/27/2018 9:58 AM CDT Inpatient Discharge Summary BRIEF OVERVIEW Admitting Provider: Clarisse Alex MD Discharge Provider: Filiberto Urbano MD Primary Care Physician at Discharge: Isra Mahmood MD [phone] Admission Date: 09/22/2018 Discharge Date: 09/27/2018 Primary Discharge Diagnosis: Active Problems: Ceballos's palsy Mastoiditis of right side Secondary Discharge Diagnosis: Ceballos's palsy Mastoiditis of right side * No resolved hospital problems. * DETAILS OF HOSPITAL STAY Presenting Problem/History of Present Illness: No Principal Problem: There is no principal problem currently on the Problem List. Please update the Problem List and refresh. 33-year-old male with past medical history as mentioned came into emergency room for right-sided facial droop that he noticed 2-3 days ago prior to presentation. Patient also reports right facial numbness and right lower jaw pain. Patient states he is not able to completely close his right eye. Patient states he had flu about 1 month ago for that he took Tamiflu. Patient reports about 2 weeksago he developed right ear infection so his PCP prescribed him amoxicillin for 10 days. Patient finished amoxicillin therapy few days ago. Patient denies any other weakness, numbness, tingling. Hospital Course: This is a 33-year-old male who came to the hospital with complaint of right facial nerve paralysis.Patient reported right facial nerve weakness which developed over the past several days prior to come the hospital. Patient states that he was unable to close his right eye. This is associated with right cheek pain and right ear and facial fullness. ENT was consulted. CT of the head was negative. MRI of the brain shows bilateral maxillary and right mastoid sinus disease. Ultrasound of the soft tissue of the head and neck showed mildly enlarged right parotid gland with no evidence of mass or cystic structure. Both Neurology an ENT have been following. Patient's symptoms are consistent with right-sided facial nerve paresis secondary to right parotitis. Patient has been on oral prednisone and acyclovir for Ceballos's palsy. Patient has also been on IV Unasyn. At this time patient will be discharged to home on a prednisone taper and complete acyclovir for additional 4 more days. Patient was also this which O2 Augmentin for additional 10 more days. Patient will follow up with ENT on outpatientbasis. Test Results Pending at Discharge: Order Current Status Blood culture Blood Antecubital, left Preliminary result Blood culture Blood Antecubital, right Preliminary result Operative Procedures Performed: Other Procedures: none Pertinent Test Results: none Discharge Details Physical Exam at Discharge: Discharge Condition: good Pulse: 75 Resp: 20 BP: 127/78 Temp: 36.3 ??C (97.4 ??F) Weight: (!) 156.2 kg (344 lb 5.7 oz) BP 127/78 (BP Location: Right arm, Patient Position: Lying) Pulse 75 Temp 36.3 ??C (97.4 ??F) (Temporal) Resp 20 Ht 175.3 cm (5' 9.02 ) Wt (!) 156.2 kg (344 lb 5.7 oz) SpO2 98% BMI 50.83 kg/m?? Pertinent Exam Findings at Discharge: GEN: Alert. NAD HENT: Normocephalic. Atraumatic. CVS: RRR CHEST: Clear bilaterally ABD: soft. ND EXT: no edema Labs at discharge: Recent Results (from the past 24 hour(s)) POCT glucose Collection Time: 09/26/18 11:49 AM Result Value Ref Range Glucose, POC, bld 213 (H) 71 - 98 mg/dL POCT glucose Collection Time: 09/26/18 4:58 PM Result Value Ref Range Glucose, POC, bld 240 (H) 71 - 98 mg/dL POCT glucose Collection Time: 09/26/18 9:20 PM Result Value Ref Range Glucose, POC, bld 205 (H) 71 - 98 mg/dL POCT glucose Collection Time: 09/27/18 2:34 AM Result Value Ref Range Glucose, POC, bld 208 (H) 71 - 98 mg/dL CBC with auto differential Collection Time: 09/27/18 3:36 AM Result Value Ref Range WBC 15.5 (H) 3.8 - 9.9 K/cumm Hgb 13.9 13.0 - 17.5 g/dL Hct 43.2 38.9 - 50.3 % Plt 322 150 - 400 K/cumm MPV 9.9 9.1 - 12.3 fL RBC 5.28 4.30 - 5.80 M/cumm MCV 81.8 81.3 - 96.4 fL MCH 26.3 (L) 27.1 - 33.3 pg MCHC 32.2 (L) 32.3 - 35.7 g/dL RDW CV 14.7 11.1 - 14.9 % RDW SD 43.8 35.7 - 48.1 fL NRBC Abs 0.00 0.00 - 0.01 K/cumm Renal function panel Collection Time: 09/27/18 3:36 AM Result Value Ref Range Sodium 138 135 - 145 mmol/L Potassium, pl 3.7 3.3 - 4.9 mmol/L Chloride 101 97 - 110 mmol/L CO2 22 22 - 32 mmol/L Anion Gap 15 2 - 15 mmol/L BUN 18 8 - 25 mg/dL Creatinine 0.54 (L) 0.80 - 1.30 mg/dL Glucose 227 (H) 70 - 199 mg/dL Calcium 9.3 8.5 - 10.3 mg/dL Phosphorus, pl 4.1 2.3 - 4.5 mg/dL Albumin 3.8 3.5 - 5.0 g/dL Magnesium Collection Time: 09/27/18 3:36 AM Result Value Ref Range Magnesium 2.0 1.6 - 2.4 mg/dL Differential, auto Collection Time: 09/27/18 3:36 AM Result Value Ref Range Neutrophil absolute 7.7 (H) 1.7 - 6.5 K/cumm Immature granulocyte absolute 0.2 (H) 0.0 - 0.1 K/cumm Lymphocytes absolute 6.4 (H) 0.8 - 3.3 K/cumm Monocyte absolute 1.1 (H) 0.2 - 0.8 K/cumm Eosinophils absolute 0.1 0.0 - 0.5 K/cumm Basophils, abs 0.0 0.0 - 0.1 K/cumm Neutrophils 49.5 % Immature granulocytes 1.0 % Lymphocytes 41.3 % Monocytes 7.3 % Eosinophils 0.6 % Basophils 0.3 % eGFR Collection Time: 09/27/18 3:36 AM Result Value Ref Range GFR 138 mL/min/1.73 m2 POCT glucose Collection Time: 09/27/18 7:44 AM Result Value Ref Range Glucose, POC, bld 196 (H) 71 - 98 mg/dL Discharge Disposition: Discharge to home or self care Full Code Discharge Instructions: Discharge Medications: Your medication list START taking these medications acyclovir 400 mg tablet Commonly known as: ZOVIRAX Take 1 tablet (400 mg total) by mouth 5 (five) times a day for 4 days amoxicillin-clavulanate 875-125 mg per tablet Commonly known as: AUGMENTIN Take 1 tablet by mouth 2 (two) times a day for 10 days Bifidobacterium infantis 4 mg capsule Commonly known as: ALIGN Take 1 capsule (4 mg total) by mouth nightly famotidine 20 mg tablet Commonly known as: PEPCID Take 1 tablet (20 mg total) by mouth 2 (two) times a day for 6 days insulin glargine 100 unit/mL (3 mL) insulin pen Commonly known as: LANTUS,BASAGLAR Inject 45 Units under the skin 2 (two) times a day insulin glulisine U-100 100 unit/mL inj syringe Commonly known as: APIDRA Inject 0.14 mL (14 Units total) under the skin 3 (three) times a day with meals loratadine 10 mg tablet Commonly known as: CLARITIN Take 1 tablet (10 mg total) by mouth daily Start taking on: 09/28/2018 predniSONE 20 mg tablet Commonly known as: DELTASONE Take 3 tablets (60 mg) by mouth daily for 4 days Start taking on: 09/28/2018 CHANGE how you take these medications ibuprofen 600 mg tablet Commonly known as: ADVIL,MOTRIN Take 1 tablet (600 mg total) by mouth 3 (three) times a day. Take with food. What changed: when to take this reasons to take this additional instructions CONTINUE taking these medications amLODIPine 5 mg tablet Commonly known as: NORVASC atorvastatin 40 mg tablet Commonly known as: LIPITOR FLUoxetine 40 mg capsule Commonly known as: PROzac glimepiride 4 mg tablet Commonly known as: AMARYL omeprazole 20 mg capsule Commonly known as: PriLOSEC ranitidine 150 mg capsule Commonly known as: ZANTAC SITagliptin 25 mg tablet Commonly known as: JANUVIA Outpatient Follow-Up: No future appointments. Susana Camarena DO [address] [place] [facility] [address] Schedule an appointment as soon as possible for a visit in 1 week(s) Time Spent on Discharge: Greater than 35 minutes Code status. Full code. Voice recognition software [employer] was used dictate and transcribe this document. Educational Technology Coordinator variances may occur. Despite proofreading, typographical errors may occur. Filiberto Urbano MD 09/27/2018 9:58 AM documented in this encounter Discharge Instructions * Discharge Instr - Other Orders* Devorah Edmondson RN - 09/27/2018 10:07 AM CDT If you have any questions or concerns following discharge, please call [facility] at [phone]. documented in this encounter Medications at Time of Discharge amLODIPine (NORVASC) 5 mg tabletIndications :hypertension 5 mg daily 3 08/24/2018 atorvastatin (LIPITOR) 40 mg tabletIndications :arteriosclerotic vascular disease Take 40 mg by mouth daily famotidine (PEPCID) 20 mg tablet Take 1 tablet (20 mg total) by mouth 2 (two) times a day for 6 days 12 tablet 09/27/2018 FLUoxetine (PROzac) 40 mg capsuleIndication s:depression Take 40 mg by mouth daily glimepiride (AMARYL) 4 mg tabletIndications :diabetes Take 8 mg by mouth daily before breakfast 0 08/24/2018 insulin glargine (LANTUS,BASAGLAR) 100 unit/mL (3 mL) insulin penIndications:Di abetes Mellitus Inject 45 Units under the skin 2 (two) times a day 27 mL 1 09/27/2018 insulin glulisine U-100 (APIDRA) 100 unit/mL inj [...] mellitus Take 100 mg by mouth daily acyclovir (ZOVIRAX) 400 mg tabletIndications :Ceballos's Palsy Take 1 tablet (400 mg total) by mouth 5 (five) times a day for 4 days 20 tablet 09/27/2018 9 amoxicillin-clavu lanate (AUGMENTIN) 875-125 mg per tablet Take 1 tablet by mouth 2 (two) times a day for 10 days 20 tablet 09/27/2018 9 Bifidobacterium infantis (ALIGN) 4 mg capsule Take 1 capsule (4 mg total) by mouth nightly 30 capsule 09/27/2018 0 loratadine (CLARITIN) 10 mg tablet Take 1 tablet (10 mg total) by mouth daily 30 tablet 11 09/28/2018 0 ibuprofen (ADVIL,MOTRIN) 600 mg tablet Take 1 tablet (600 mg total) by mouth 3 (three) times a day. Take with food. 30 tablet 03/31/2018 9 documented as of this encounter Ordered Prescriptions Prescription Sig Dispense Quantity Refills Last Filled Start Date End Date predniSONE (DELTASONE) 10 mg tablet Take 4 tabs q daily x 3 days, then 2 tabs q daily 3 days, then 1 tab q daily x 3 days 21 tablet 09/27/2018 insulin glulisine U-100 (APIDRA) 100 unit/mL inj syringe Inject 0.14 mL (14 Units total) under the skin 3 (three) times a day with meals 12.6 mL 11 09/27/2018 insulin glargine (LANTUS,BASAGLAR) 100 unit/mL (3 mL) insulin penIndications:Jeanette betes Mellitus Inject 45 Units under the skin 2 (two) times a day 27 mL 1 09/27/2018 famotidine (PEPCID) 20 mg tablet Take 1 tablet (20 mg total) by mouth 2 (two) times a day for 6 days 12 tablet 09/27/2018 loratadine (CLARITIN) 10 mg tablet Take 1 tablet (10 mg total) by mouth daily 30 tablet 11 09/28/2018 0 insulin lispro (HumaLOG) 100 unit/mL insulin penIndications:Jeanette betes Mellitus Inject 14 Units under the skin 3 (three) times a day with meals 12.6 mL 11 09/27/2018 9 amoxicillin-clavul anate (AUGMENTIN) 875-125 mg per tablet Take 1 tablet by mouth 2 (two) times a day for 10 days 20 tablet 09/27/2018 9 Bifidobacterium infantis (ALIGN) 4 mg capsule Take 1 capsule (4 mg total) by mouth nightly 30 capsule 11 09/27/2018 0 acyclovir (ZOVIRAX) 400 mg tabletIndications: Ceballos's Palsy Take 1 tablet (400 mg total) by mouth 5 (five) times a day for 4 days 20 tablet 09/27/2018 9 predniSONE (DELTASONE) 20 mg tablet Take 3 tablets (60 mg) by mouth daily for 4 days 12 tablet 09/28/2018 9 documented in this encounter Discharge Disposition Disposition Code Departure Means Destination Discharge to home or self [facility] documented in this encounter Progress Notes * Susana Camarena, DO - 09/26/2018 5:15 PM CDT ENT Daily Progress SUBJECTIVE: Interval History: Sandeep Us reported some irritation and pressure intermittently to rightside of face. Current Facility-Administered Medications: ??? acetaminophen (TYLENOL) tablet 650 mg, 650 mg, oral, Q6H PRN, Oly Mir MD, 650 mg at 09/23/18 1632 ??? acyclovir (ZOVIRAX) capsule 400 mg, 400 mg, oral, 5x Daily, Oly Mir MD, 400 mg at09/26/18 1420 ??? amLODIPine (NORVASC) tablet 5 mg, 5 mg, oral, Nightly, Oly Mir MD, 5 mg at 09/25/182040 ??? ampicillin-sulbactam (UNASYN) 3 g in sodium chloride 0.9% 100 mL IVPB, 3 g, intravenous, Q6H ZENOBIA, Susana Camarena, DO, Last Rate: 240 mL/hr at 09/26/18 1201, 3 g at 09/26/18 1201 ??? atorvastatin (LIPITOR) tablet 80 mg, 80 mg, oral, Nightly, Oly Mir MD, 80 mg at 09/25/182039 ??? Bifidobacterium infantis (ALIGN) capsule 4 mg, 4 mg, oral, Nightly, Oly Mir MD, 4mg at 09/25/182039 ??? bisacodyl EC (DULCOLAX EC) tablet 10 mg, 10 mg, oral, Daily PRN, Oly Mir MD ??? dextrose gel in packet 15 g, 15 g, oral, Q15 Min PRN OR dextrose (D10W) 10% bolus 250 mL, 250 mL, intravenous, Q15 Min PRN, Oly Mir MD ??? enoxaparin (LOVENOX) syringe 40 mg, 40 mg, subcutaneous, Q12H ZENOBIA, Oly Mir MD ??? famotidine (PEPCID) tablet 20 mg, 20 mg, oral, BID, Oly Mir MD, 20 mg at ??? FLUoxetine (PROzac) capsule 40 mg, 40 mg, oral, Nightly, Oly Mir MD, 40 mg at 09/25/18 204 ??? fluticasone propionate (FLONASE) 50 mcg/actuation nasal spray 2 spray, 2 spray, each nostril, BID, Oly Mir MD, 2 spray at 09/26/18 0816 ??? glucagon injection 1 mg, 1 mg, intramuscular, Q30 Min PRN, Oly Mir MD ??? insulin glargine (LANTUS,BASAGLAR) pen injection 45 Units, 45 Units, subcutaneous, BID, MD Yamini ??? insulin lispro (HumaLOG) pen injection 1-4 Units, 1-4 Units, subcutaneous, Nightly, DigantkumarJ. Clarke MD, 1 Units at 09/25/18 2203 ??? insulin lispro (HumaLOG) pen injection 1-4 Units, 1-4 Units, subcutaneous, Q24H, Oly Mar MD, 2 Units at 09/25/18 0249 ??? insulin lispro (HumaLOG) pen injection 1-7 Units, 1-7 Units, subcutaneous, TID with meals, Oly Mir MD, 5 Units at 09/26/18 1203 ??? insulin lispro (HumaLOG) pen injection 14 Units, 14 Units, subcutaneous, TID with meals, Oly Mir MD, 14 Units at 09/26/18 1657 ??? insulin NPH (HumuLIN N, NovoLIN N) injection 37 Units, 37 Units, subcutaneous, Daily, Oly Mir MD, 37 Units at 09/26/18 0817 ??? loratadine (CLARITIN) tablet 10 mg, 10 mg, oral, Daily, Oly Mir MD, 10 mg at 09/26/18 0816 ??? magnesium hydroxide (MILK OF MAGNESIA) 80 mg/mL (33.3 mg/mL as elemental magnesium) oral suspension 30 mL, 30 mL, oral, Daily PRN, Oly Mir MD ??? mineral oil (FLEET MINERAL OIL) enema 1 enema, 1 enema, rectal, Daily PRN, Oly Mir MD ??? ondansetron (ZOFRAN) injection 4 mg, 4 mg, intravenous, Q4H PRN, Oly Mir MD ??? predniSONE (DELTASONE) tablet 60 mg, 60 mg, oral, Daily, Oly Mir MD, 60 mg at 09/26/18 0816 ??? sodium chloride 0.9% flush 0.5-20 mL, 0.5-20 mL, intra-catheter, Q8H, Oly Mir MD,10 mL at 09/26/18 1420 ??? sodium chloride 0.9% flush 0.5-20 mL, 0.5-20 mL, intra-catheter, PRN, Oly Mir MD OBJECTIVE: Vitals: Temp (24hrs), Av.6 ??C (97.8 ??F), Min:36.5 ??C (97.7 ??F), Max:36.6 ??C (97.8 ??F) Vitals: 09/25/18 2041 09/25/18 2343 09/26/18 0744 09/26/18 1540 BP: 140/82 150/65 150/87 152/91 BP Location: Right arm Right arm Left arm Patient Position: Sitting Lying;Sitting Pulse: 80 96 79 87 Resp: 16 20 16 Temp: 36.6 ??C (97.8 ??F) 36.6 ??C (97.8 ??F) 36.5 ??C (97.7 ??F) TempSrc: Temporal Temporal Temporal SpO2: 95% 98% 96% Weight: Height: I/O last 2 completed shifts: In: 930 [P.O.:810; I.V.:20; IV Piggyback:100] Out: - I/O this shift: In: 680 [P.O.:680] Out: - Physical Exam: Physical Exam HENT: Head: Normocephalic and atraumatic. Right Ear: Hearing normal. Left Ear: Hearing normal. Nose: Nose normal. Mouth/Throat: Oropharynx is clear and moist. Right Parotid less induration some tenderness along anterior margin, thick secretions from parotid duct Neurological: Slight improvement in right facial nerve motion Lab/Radiology/Diagnostic Review: Recent Results (from the past 24 hour(s)) POCT glucose Collection Time: 09/25/18 9:20 PM Result Value Ref Range Glucose, POC, bld 171 (H) 71 - 98 mg/dL POCT glucose Collection Time: 09/26/18 2:15 AM Result Value Ref Range Glucose, POC, bld 366 (Critical) 71 - 98 mg/dL CBC with auto differential Collection Time: 09/26/18 4:02 AM Result Value Ref Range WBC 14.8 (H) 3.8 - 9.9 K/cumm Hgb 13.7 13.0 - 17.5 g/dL Hct 42.4 38.9 - 50.3 % Plt 293 150 - 400 K/cumm MPV 9.9 9.1 - 12.3 fL RBC 5.20 4.30 - 5.80 M/cumm MCV 81.5 81.3 - 96.4 fL MCH 26.3 (L) 27.1 - 33.3 pg MCHC 32.3 32.3 - 35.7 g/dL RDW CV 14.6 11.1 - 14.9 % RDW SD 43.2 35.7 - 48.1 fL NRBC Abs 0.00 0.00 - 0.01 K/cumm Renal function panel Collection Time: 09/26/18 4:02 AM Result Value Ref Range Sodium 136 135 - 145 mmol/L Potassium, pl 3.6 3.3 - 4.9 mmol/L Chloride 99 97 - 110 mmol/L CO2 22 22 - 32 mmol/L Anion Gap 15 2 - 15 mmol/L BUN 19 8 - 25 mg/dL Creatinine 0.59 (L) 0.80 - 1.30 mg/dL Glucose 225 (H) 70 - 199 mg/dL Calcium 9.3 8.5 - 10.3 mg/dL Phosphorus, pl 4.3 2.3 - 4.5 mg/dL Albumin 3.8 3.5 - 5.0 g/dL Magnesium Collection Time: 09/26/18 4:02 AM Result Value Ref Range Magnesium 2.1 1.6 - 2.4 mg/dL Differential, auto Collection Time: 09/26/18 4:02 AM Result Value Ref Range Neutrophil absolute 7.5 (H) 1.7 - 6.5 K/cumm Immature granulocyte absolute 0.1 0.0 - 0.1 K/cumm Lymphocytes absolute 5.9 (H) 0.8 - 3.3 K/cumm Monocyte absolute 1.2 (H) 0.2 - 0.8 K/cumm Eosinophils absolute 0.1 0.0 - 0.5 K/cumm Basophils, abs 0.0 0.0 - 0.1 K/cumm Neutrophils 50.3 % Immature granulocytes 0.9 % Lymphocytes 39.9 % Monocytes 7.7 % Eosinophils 0.9 % Basophils 0.3 % eGFR Collection Time: 09/26/18 4:02 AM Result Value Ref Range GFR 133 mL/min/1.73 m2 POCT glucose Collection Time: 09/26/18 7:45 AM Result Value Ref Range Glucose, POC, bld 195 (H) 71 - 98 mg/dL POCT glucose Collection Time: 09/26/18 11:49 AM Result Value Ref Range Glucose, POC, bld 213 (H) 71 - 98 mg/dL POCT glucose Collection Time: 09/26/18 4:58 PM Result Value Ref Range Glucose, POC, bld 240 (H) 71 - 98 mg/dL Xr Chest Pa Lateral 2 Views Result Date: 09/23/2018 Narrative: XR CHEST PA LATERAL 2 VIEWS HISTORY: r/o pneumonia. Congestion. TECHNIQUE: PA and lateral projections. COMPARISON: None available. FINDINGS: Heart size is normal. No infiltrate or effusionidentified. Mild elevation/eventration right hemidiaphragm. Impression: NO ACUTE PULMONARY DISEASE. Electronically signed by: Benny Reyes M.D Ct Head Wo Contrast Result Date: 09/22/2018 Narrative: PROCEDURE: CT HEAD WO CONTRAST HISTORY: Headache,, normal neuro exam. Right-sided facialdroop. Jaw pain. COMPARISON: 04/21/2018. TECHNIQUE: Helical CT scan of the head obtained noncontrast. FINDINGS: No acute intracranial hemorrhage identified. No midline shift is noted. Brainstem cisterns are intact. Ventricles are normal in size. Nodular focus subcutaneous soft tissue the scalp leftoccipital region, present on the prior study of 04/21/2018 at 03/30/2018. Focal opacities in the right and left maxillary sinuses have a nodular appearance suggesting mucous retention cysts or polyps. Minimal opacity right mastoids. Impression: 1. NO ACUTE INTRACRANIAL FINDING. 2. EVIDENCE OF SOME RIGHT MASTOIDITIS. 3. PARANASAL SINUS DISEASE DESCRIBED. Electronically signed by: Benny Reyes M.D Mri Brain W Wo Contrast Result Date: 09/25/2018 Narrative: MRI BRAIN W WO CONTRAST HISTORY: facial weakness, right. Right facial droop and numbness. TECHNIQUE: Axial and sagittal FLAIR, axial T2 and diffusion-weighted, pre and postcontrast axial T1 inversion recovery, postcontrast triplanar 3-D T1 uelp-ce-ypkiso sequences. 20 milliliters Dotarem administered intravenously. COMPARISON: CT 09/22/2018 FINDINGS: The argueta and white matter demonstrate normal morphology and signal characteristics. There is no evidence of acute intracranial hemorrhage, mass or infarction. Diffusion- weighted signal is normal throughout the cortical structures. There is no evidence of abnormal contrast enhancement. The ventricles, gyri and sulci demonstrate normalsize and configuration. Midline is normal. Mild fluid is present within the inferior right mastoid air cells. Mild dependent fluid is present within the maxillary sinuses bilaterally. The extra-axialstructures are otherwise unremarkable. Impression: 1. BILATERAL MAXILLARY AND RIGHT MASTOID SINUS DISEASE. 2. NO EVIDENCE OF ACUTE INTRACRANIAL EVENT. Electronically signed by: Kwabena Hagen M.D. Us Head Neck Soft Tissue Result Date: 09/25/2018 Narrative: US SOFT TISSUE HEAD NECK HISTORY: parotitis Right Parotitis. Right facial tenderness. COMPARISON: None available. FINDINGS: The right parotid gland is mildly enlarged measuring 3.5 x 2.5 x1.0 cm. An adjacent subcentimeter lymph node is present. There is no evidence of mass or cyst. Impression: MILDLY ENLARGED RIGHT PAROTID GLAND WITH NO EVIDENCE OF SONOGRAPHICALLY VISIBLE MASS ORCYSTIC STRUCTURE. Electronically signed by: Kwabena Hagen M.D. ASSESSMENT/PLAN: 1. Right sided facial nerve paresis secondary to Right Parotitis - Discharge per Hospitalist on Augmentin for 10 days and follow up in one week in the office with ENT, consider decreasing steroids 2. Chronic Maxillary sinusitis - continue Flonase 3. Mastoid fluid - minimal continue on oral antibiotics upon discharge Susana Camarena DO * Filiberto Urbano MD - 09/26/2018 5:03 PM CDT General Medicine Progress Note Interval Events: No new issues noted overnight Subjective: Chief complaint: Right facial palsy Patient reports that he still feels weak on the right side of his face Objective: Vitals: 24hr Min/Max: Temp Min: 36.3 ??C (97.3 ??F) Max: 36.6 ??C (97.8 ??F) Pulse Min: 79 Max: 96 BP Min: 140/82 Max: 150/87 Resp Min: 16 Max: 20 SpO2 Min: 95 % Max: 98 % Most Recent: Vitals: 09/25/18 1520 09/25/18 2041 09/25/18 2343 09/26/18 0744 BP: 144/78 140/82 150/65 150/87 BP Location: Right arm Right arm Right arm Patient Position: Sitting Sitting Lying;Sitting Pulse: 84 80 96 79 Resp: 20 16 20 Temp: 36.3 ??C (97.3 ??F) 36.6 ??C (97.8 ??F) 36.6 ??C (97.8 ??F) TempSrc: Temporal Temporal Temporal SpO2: 95% 95% 98% Weight: Height: Intake/Output Summary (Last 24 hours) at 09/26/2018 1226 Last data filed at 09/26/2018 0955 Gross per 24 hour Intake 1210 ml Output -- Net 1210 ml Physical Exam: Physical Exam GEN: Alert. NAD HENT: Normocephalic. Atraumatic. Right facial asymmetry noted. CVS: RRR CHEST: Clear bilaterally ABD: soft. ND EXT: no edema Lab/Radiology/Diagnostic Review: Reviewed. Recent Results (from the past 24 hour(s)) POCT glucose Collection Time: 09/25/18 4:45 PM Result Value Ref Range Glucose, POC, bld 242 (H) 71 - 98 mg/dL POCT glucose Collection Time: 09/25/18 9:20 PM Result Value Ref Range Glucose, POC, bld 171 (H) 71 - 98 mg/dL POCT glucose Collection Time: 09/26/18 2:15 AM Result Value Ref Range Glucose, POC, bld 366 (Critical) 71 - 98 mg/dL CBC with auto differential Collection Time: 09/26/18 4:02 AM Result Value Ref Range WBC 14.8 (H) 3.8 - 9.9 K/cumm Hgb 13.7 13.0 - 17.5 g/dL Hct 42.4 38.9 - 50.3 % Plt 293 150 - 400 K/cumm MPV 9.9 9.1 - 12.3 fL RBC 5.20 4.30 - 5.80 M/cumm MCV 81.5 81.3 - 96.4 fL MCH 26.3 (L) 27.1 - 33.3 pg MCHC 32.3 32.3 - 35.7 g/dL RDW CV 14.6 11.1 - 14.9 % RDW SD 43.2 35.7 - 48.1 fL NRBC Abs 0.00 0.00 - 0.01 K/cumm Renal function panel Collection Time: 09/26/18 4:02 AM Result Value Ref Range Sodium 136 135 - 145 mmol/L Potassium, pl 3.6 3.3 - 4.9 mmol/L Chloride 99 97 - 110 mmol/L CO2 22 22 - 32 mmol/L Anion Gap 15 2 - 15 mmol/L BUN 19 8 - 25 mg/dL Creatinine 0.59 (L) 0.80 - 1.30 mg/dL Glucose 225 (H) 70 - 199 mg/dL Calcium 9.3 8.5 - 10.3 mg/dL Phosphorus, pl 4.3 2.3 - 4.5 mg/dL Albumin 3.8 3.5 - 5.0 g/dL Magnesium Collection Time: 09/26/18 4:02 AM Result Value Ref Range Magnesium 2.1 1.6 - 2.4 mg/dL Differential, auto Collection Time: 09/26/18 4:02 AM Result Value Ref Range Neutrophil absolute 7.5 (H) 1.7 - 6.5 K/cumm Immature granulocyte absolute 0.1 0.0 - 0.1 K/cumm Lymphocytes absolute 5.9 (H) 0.8 - 3.3 K/cumm Monocyte absolute 1.2 (H) 0.2 - 0.8 K/cumm Eosinophils absolute 0.1 0.0 - 0.5 K/cumm Basophils, abs 0.0 0.0 - 0.1 K/cumm Neutrophils 50.3 % Immature granulocytes 0.9 % Lymphocytes 39.9 % Monocytes 7.7 % Eosinophils 0.9 % Basophils 0.3 % eGFR Collection Time: 09/26/18 4:02 AM Result Value Ref Range GFR 133 mL/min/1.73 m2 POCT glucose Collection Time: 09/26/18 7:45 AM Result Value Ref Range Glucose, POC, bld 195 (H) 71 - 98 mg/dL POCT glucose Collection Time: 09/26/18 11:49 AM Result Value Ref Range Glucose, POC, bld 213 (H) 71 - 98 mg/dL Assessment and Plan: Active Problems: Ceballos's palsy Mastoiditis of right side 1. 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 Ultrasound shows mildly enlarged right parotid gland. No evidence of mass or cystic structure. MRI of the brain shows no acute findings. 2. Right-sided parotitis/mastoiditis/paranasal sinusitis. ENT is following and recommends continue IV Unasyn. Patient is also noted to be on oral prednisone. 3. Pyuria. Urine cultures negative. 4. Uncontrolled type 2 diabetes. Blood glucose is uncontrolled. Hemoglobin A1c is elevated. Will increase Lantus to 45 units b.i.d.. Will add his prandial insulin with Humalog 14 units t.i.d.. 5. Hyperlipidemia. Continue Lipitor 80 mg q.h.s.. 6. Essential hypertension. Continue amlodipine 5 mg q.h.s.. Filiberto Urbano MD Hospitalist [phone] 09/26/201812:26 PM * Rona Pierda, [facility] - 09/26/2018 11:36 AM CDT Continue 37 units of NPH insulin every 24 hours per insulin with steroid dosing protocol based on patient weight of 156 kg and steroid dose of prednisone 60 mg daily. Results for SANDEEP US ( ) as of 09/26/2018 11:36 Ref. Range 09/25/2018 16:45 09/25/2018 21:20 09/26/2018 02:15 09/26/2018 04:02 09/26/2018 07:45 Glucose, POC, bld Latest Ref Range: 71 - 98 mg/dL 242 (H) 171 (H) 366 (Critical) 195 (H) * Swati Mcnair, [place] - 09/26/2018 9:48 AM CDT [facility] Nutrition Assessment NAME:Sandeep Us :1985 AGE:33 y.o. SEX: male ADMISSION DATE:09/22/2018, CURRENT LOS is 4 days. ENCOUNTER DATE: 09/26/18 9:48 AM REASON for ASSESSMENT: Follow Up and Diet Education DX: CEBALLOS'S PALSY (PRIMARY ENCOUNTER DIAGNOSIS) MASTOIDITIS OF RIGHT SIDE UNCONTROLLED TYPE 1 DIABETES MELLITUS WITH HYPERGLYCEMIA ([facility]) H/O INFLUENZA Nutrition Screen Have You Recently Lost Weight Without Trying?: No Poor Oral Intake for Four or More Days Prior to Admission: No Current diet order: Adult Diet Restricted; Consistent Carbohydrate Pt intake is adequate. PO intakes: 100% of meals ALLERGIES: Metformin ASPEN Malnutrition Assessment: Nutrition Focused Physical Exam Notes: Nutrition Needs Calculations: Calculated Energy Needs Using Equations Weight Used for Equation Calculations (RD Determined): 156.2 kg (344 lb 5.7 oz) Weight: (!) 156.2 kg (344 lb 5.7 oz) Height: 175.3 cm (5' 9.02 ) Billy Butt Equation (Overweight or Obese Patients): 2498 Equation Chosen to Use by RD: Kushal Armenta Activity Factor: 1.1 Total Energy Needs: 2747.8 kcal Temp: 36.6 ??C (97.8 ??F) Total Energy Needs + Fever Factor: 2747.8 Estimated Protein Needs Type of Weight Used for Estimated Protein : Current Protein Needs Based on g/k.8 Total Protein Estimated Needs (gm): 124.96 Kcal/kg Type of Weight Used for Estimated Kcals: Current Kcal/k Total Kcal/kg Estimated Needs : 2811.6 Estimated Fluid Needs Type of Weight Used for Estimated Fluid Needs: Current Fluid Needs Based on : 25 ml/kg Total Fluid Estimated Needs: 3905 Estimated Carbohydrate Needs Type of Weight Used for Estimated Carbohydrate Needs: Current Recommended Carbohydrates for Breakfast (gm) : 75 Recommended Carbohydrates for Lunch (gm) : 75 Recommended Carbohydrates for Dinner (gm) : 75 Recommended Carbohydrates for HS Snack (gm) : 45 Total Daily Carbohydrates Recommended (gm): 270 Estimated needs: ?? Total Kcal/kg Estimated Needs : 2811.6 based on Kcal/k. Type of Weight Used for Estimated Kcals: Current ?? MSJ Total Energy Needs: 2747.8 kcal using ?? [place] Total Energy Needs + Fever Factor: 2747.8 ?? Total Protein Estimated Needs (gm): 124.96 Protein Needs Based on g/k.8 Type of Weight Used for Estimated Protein : Current. ?? Total Fluid Estimated Needs: 3905 Fluid Needs Based on : 25 ml/kg. Objective Anthropometrics Weight: (!) 156.2 kg (344 lb 5.7 oz) Admission Weight : 156.2 kg Weight Change: 6.51 kg (14.35 lbs) IBW/kg (Calculated) : 72.6 kg Height: 175.3 cm (5' 9.02 ) Weight in (lb) to have BMI = 25: 169 BMI (Calculated): 50.8 3 Day I/O Summary 09/24 1899 - 09/26 0659 In: 1430 [P.O.:1310; I.V.:20] Out: - Temp: 36.6 ??C (97.8 ??F) [place] body weight: 70.7 kg (155 lb 15.1 oz) Adjusted ideal body weight: 104.9 kg (231 lb 5 oz) Past Medical History: Diagnosis Date ??? Diabetes (CMS/HCC) ??? Hypertension ??? Sleep apnea Medications and Lab Review: Scheduled Meds: acyclovir 400 mg oral 5x Daily amLODIPine 5 mg oral Nightly ampicillin-sulbactam 3 g intravenous Q6H ZENOBIA atorvastatin 80 mg oral Nightly Bifidobacterium infantis 4 mg oral Nightly enoxaparin 40 mg subcutaneous Q12H ZENOBIA famotidine 20 mg oral BID FLUoxetine 40 mg oral Nightly fluticasone propionate 2 spray each nostril BID insulin glargine 40 Units subcutaneous BID insulin lispro 1-4 Units subcutaneous Nightly insulin lispro 1-4 Units subcutaneous Q24H insulin lispro 1-7 Units subcutaneous TID with meals insulin lispro 14 Units subcutaneous TID with meals insulin NPH 37 Units subcutaneous Daily loratadine 10 mg oral Daily predniSONE 60 mg oral Daily sodium chloride 0.9% 0.5-20 mL intra-catheter Q8H Continuous Infusions: Sodium Date Value Ref Range Status 09/26/2018 136 135 - 145 mmol/L Final Potassium, pl Date Value Ref Range Status 09/26/2018 3.6 3.3 - 4.9 mmol/L Final BUN Date Value Ref Range Status 09/26/2018 19 8 - 25 mg/dL Final Creatinine Date Value Ref Range Status 09/26/2018 0.59 (L) 0.80 - 1.30 mg/dL Final Phosphorus, pl Date Value Ref Range Status 09/26/2018 4.3 2.3 - 4.5 mg/dL Final Albumin Date Value Ref Range Status 09/26/2018 3.8 3.5 - 5.0 g/dL Final Magnesium Date Value Ref Range Status 09/26/2018 2.1 1.6 - 2.4 mg/dL Final Calcium Date Value Ref Range Status 09/26/2018 9.3 8.5 - 10.3 mg/dL Final HDL Date Value Ref Range Status 09/24/2018 45 >=40 mg/dL Final Comment: Interpretive Data Ages < or = 19 years Acceptable: >45 mg/dL Borderline low: 40-45 mg/dL Low: <40 mg/dL Ages > or = 20 years Desirable: >or= 60 mg/dL Low: <40 mg/dL Literature References: 1. Expert Panel on Integrated Guidelines for Cardiovascular Health and Risk Reduction in Children and Adolescents. Pediatrics 2011;128:S213 2. NCEP Expert Panel. Circulation 2004;110:227 Current Interpretive Data was last revised on 2018. Lab Results Component Value Date HGBA1C 11.1 (H) 09/22/2018 POC Glucose: 195(5/8) Nursing Assessment: Last BM Date: 09/24/18 Cal Scale Score: 21 Nutrition Follow-Up : 10/02/18 Nutrition Diagnosis 1: Overweight/Obesity Related to: Food choices, Lack of activity Evidenced by: BMI 40 or more, Lab abnormality ?? Interventions: Education, nutrition ?? Monitoring and Evaluation: Labs, PO intake ?? Goals: Patient/caregiver able to teach back understanding of role of diet in disease process prior to discharge, Adequate nutrition to meet estimated needs by next assessment ? Nutritional Risk: medium Follow up date: 10/02/18 Spoke with patient and about basic ada diet. Reviewed and left information on Plate Method of Meal Planning. 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 Encouraged 3 meals/awake hours. Encouraged spacing Meals out while patient is awake. Left name and number for ? Swati Mcnair RD,MANNY * Khoi Vang MD - 09/25/2018 7:16 PM CDT General Medicine Daily Progress SUBJECTIVE Originally presented with Chief complaint of right facial droop Interval History: BS still volatile. Right facial droop is improving. OBJECTIVE Vitals: 24hr Min/Max: Temp Min: 36.1 ??C (97 ??F) Max: 36.3 ??C (97.3 ??F) Pulse Min: 74 Max: 90 BP Min: 123/70 Max: 144/78 Resp Min: 20 Max: 20 SpO2 Min: 95 % Max: 97 % Most Recent : Vitals: 09/25/18 1520 BP: 144/78 Pulse: 84 Resp: 20 Temp: 36.3 ??C (97.3 ??F) SpO2: 95% I/O last 2 completed shifts: In: 1100 [P.O.:1100] Out: - No intake/output data recorded. Physical Exam: Patient seen and examined Not in acute distress HEENT: AT/NC, Neck supple, positive tenderness in right parotid region Heart: S1, S2, RRR Lung: CTA bilateral Abdomen: S, NT, obese, BS+ Neuro: Positive for right facial droop. Positive for right facial numbness. Patient is not able to completely close his right eye Ext: No gross lower extremity edema. No calf tenderness Lab/Radiology/Diagnostic Review: Recent Results (from the past 24 hour(s)) POCT glucose Collection Time: 09/24/18 9:29 PM Result Value Ref Range Glucose, POC, bld 202 (H) 71 - 98 mg/dL POCT glucose Collection Time: 09/25/18 2:40 AM Result Value Ref Range Glucose, POC, bld 191 (H) 71 - 98 mg/dL CBC with auto differential Collection Time: 09/25/18 3:40 AM Result Value Ref Range WBC 15.8 (H) 3.8 - 9.9 K/cumm Hgb 14.3 13.0 - 17.5 g/dL Hct 43.9 38.9 - 50.3 % Plt 326 150 - 400 K/cumm MPV 10.1 9.1 - 12.3 fL RBC 5.43 4.30 - 5.80 M/cumm MCV 80.8 (L) 81.3 - 96.4 fL MCH 26.3 (L) 27.1 - 33.3 pg MCHC 32.6 32.3 - 35.7 g/dL RDW CV 14.7 11.1 - 14.9 % RDW SD 42.6 35.7 - 48.1 fL NRBC Abs 0.00 0.00 - 0.01 K/cumm Renal function panel Collection Time: 09/25/18 3:40 AM Result Value Ref Range Sodium 137 135 - 145 mmol/L Potassium, pl 4.0 3.3 - 4.9 mmol/L Chloride 99 97 - 110 mmol/L CO2 22 22 - 32 mmol/L Anion Gap 16 (H) 2 - 15 mmol/L BUN 21 8 - 25 mg/dL Creatinine 0.58 (L) 0.80 - 1.30 mg/dL Glucose 235 (H) 70 - 199 mg/dL Calcium 9.4 8.5 - 10.3 mg/dL Phosphorus, pl 3.9 2.3 - 4.5 mg/dL Albumin 3.9 3.5 - 5.0 g/dL Magnesium Collection Time: 09/25/18 3:40 AM Result Value Ref Range Magnesium 2.0 1.6 - 2.4 mg/dL Differential, auto Collection Time: 09/25/18 3:40 AM Result Value Ref Range Neutrophil absolute 8.3 (H) 1.7 - 6.5 K/cumm Immature granulocyte absolute 0.1 0.0 - 0.1 K/cumm Lymphocytes absolute 6.1 (H) 0.8 - 3.3 K/cumm Monocyte absolute 1.2 (H) 0.2 - 0.8 K/cumm Eosinophils absolute 0.1 0.0 - 0.5 K/cumm Basophils, abs 0.0 0.0 - 0.1 K/cumm Neutrophils 52.6 % Immature granulocytes 0.6 % Lymphocytes 38.3 % Monocytes 7.4 % Eosinophils 0.8 % Basophils 0.3 % eGFR Collection Time: 09/25/18 3:40 AM Result Value Ref Range GFR 134 mL/min/1.73 m2 POCT glucose Collection Time: 09/25/18 7:42 AM Result Value Ref Range Glucose, POC, bld 204 (H) 71 - 98 mg/dL POCT glucose Collection Time: 09/25/18 11:49 AM Result Value Ref Range Glucose, POC, bld 283 (H) 71 - 98 mg/dL POCT glucose Collection Time: 09/25/18 4:45 PM Result Value Ref Range Glucose, POC, bld 242 (H) 71 - 98 mg/dL Xr Chest Pa Lateral 2 Views Result Date: 09/23/2018 Narrative: XR CHEST PA LATERAL 2 VIEWS HISTORY: r/o pneumonia. Congestion. TECHNIQUE: PA and lateral projections. COMPARISON: None available. FINDINGS: Heart size is normal. No infiltrate or effusionidentified. Mild elevation/eventration right hemidiaphragm. Impression: NO ACUTE PULMONARY DISEASE. Electronically signed by: Benny Reyes M.D Ct Head Wo Contrast Result Date: 09/22/2018 Narrative: PROCEDURE: CT HEAD WO CONTRAST HISTORY: Headache,, normal neuro exam. Right-sided facialdroop. Jaw pain. COMPARISON: 04/21/2018. TECHNIQUE: Helical CT scan of the head obtained noncontrast. FINDINGS: No acute intracranial hemorrhage identified. No midline shift is noted. Brainstem cisterns are intact. Ventricles are normal in size. Nodular focus subcutaneous soft tissue the scalp leftoccipital region, present on the prior study of 04/21/2018 at 03/30/2018. Focal opacities in the right and left maxillary sinuses have a nodular appearance suggesting mucous retention cysts or polyps. Minimal opacity right mastoids. Impression: 1. NO ACUTE INTRACRANIAL FINDING. 2. EVIDENCE OF SOME RIGHT MASTOIDITIS. 3. PARANASAL SINUS DISEASE DESCRIBED. Electronically signed by: Benny Reyes M.D ASSESSMENT/PLAN 1. Right-sided Ceballos's palsy Continue with prednisone, acyclovir Patient evaluated by Neurology-recommends MRI brain Patient evaluated by ENT 2. Right parotitis/right mastoiditis/paranasal sinusitis Patient evaluated by ENT-recommends Unasyn Continue with Flonase, Claritin, Unasyn, upon discharge continue on oral Augmentin Patient is afebrile 3. Abnormal urinalysis UA positive. Urine culture showed clinically insignificant growth. Patient denies any urinary symptoms. 4. Uncontrolled diabetes type 2 Hemoglobin A1c 11.1 Blood sugars are uncontrolled. Adjust insulin. Monitor blood sugar closely. Lipid panel showed total cholesterol 239, triglyceride 186, HDL 45, LDL 157. Increase Lipitor to 80 mg p.o. Daily 5. History of MONE on CPAP Continue with nocturnal CPAP 6. Morbid obesity with BMI 50.83 Patient is educated about diet modification, exercise and weight loss. Patient voiced understanding. Patient may get benefit of bariatric surgery. Patient is advised to follow up with bariatric surgeon as an outpatient. 7. DVT/GI prophylaxis Full code Goal: Control DM Voice recognition software [employer] Fluency Direct was used dictate and transcribe this document. Educational Technology Coordinator variances may occur. Despite proofreading, typographical errors may occur. * Susana Camarena, - 09/25/2018 1:09 PM CDT ENT Daily Progress SUBJECTIVE: Interval History: Sandeep Us reported symptoms are unchanged, right sided facial weakness continues and right side of face still under pressure. Right eye seems blurry. Current Facility-Administered Medications: ??? acetaminophen (TYLENOL) tablet 650 mg, 650 mg, oral, Q6H PRN, Oly Mir MD, 650 mg at 09/23/18 1632 ??? acyclovir (ZOVIRAX) capsule 400 mg, 400 mg, oral, 5x Daily, Oly Mir MD, 400 mg at09/25/18 1155 ??? amLODIPine (NORVASC) tablet 5 mg, 5 mg, oral, Nightly, Oly Mir MD, 5 mg at 09/24/18 2218 ??? ampicillin-sulbactam (UNASYN) 3 g in sodium chloride 0.9% 100 mL IVPB, 3 g, intravenous, Q6H ZENOBIA, Susana HernandezLev Camarena, DO, Last Rate: 240 mL/hr at 09/25/18 1217, 3 g at 09/25/181216 ??? atorvastatin (LIPITOR) tablet 80 mg, 80 mg, oral, Nightly, Oly Mir MD, 80 mg at 09/24/182226 ??? Bifidobacterium infantis (ALIGN) capsule 4 mg, 4 mg, oral, Nightly, Oly Mir MD, 4mg at 09/24/182218 ??? bisacodyl EC (DULCOLAX EC) tablet 10 mg, 10 mg, oral, Daily PRN, Oly Mir MD ??? dextrose gel in packet 15 g, 15 g, oral, Q15 Min PRN OR dextrose (D10W) 10% bolus 250 mL, 250 mL, intravenous, Q15 Min PRN, Oly Mir MD ??? enoxaparin (LOVENOX) syringe 40 mg, 40 mg, subcutaneous, Q12H ZENOBIA, Oly Mir MD ??? famotidine (PEPCID) tablet 20 mg, 20 mg, oral, BID, Oly Mir MD, 20 mg at ??? FLUoxetine (PROzac) capsule 40 mg, 40 mg, oral, Nightly, Oly Mir MD, 40 mg at 09/24/182217 ??? fluticasone propionate (FLONASE) 50 mcg/actuation nasal spray 2 spray, 2 spray, each nostril, BID, Oly Mir MD, 2 spray at 09/25/18819 ??? glucagon injection 1 mg, 1 mg, intramuscular, Q30 Min PRN, Oly Mir MD ??? insulin glargine (LANTUS,BASAGLAR) pen injection 40 Units, 40 Units, subcutaneous, BID, Oly Mir MD, 40 Units at 05/07/19 0820 ??? insulin lispro (HumaLOG) pen injection 1-4 Units, 1-4 Units, subcutaneous, Nightly, DigantkumarJ. Clarke MD, 3 Units at 09/24/18 2219 ??? insulin lispro (HumaLOG) pen injection 1-4 Units, 1-4 Units, subcutaneous, Q24H, Oly Mar MD, 2 Units at 09/25/18 0249 ??? insulin lispro (HumaLOG) pen injection 1-7 Units, 1-7 Units, subcutaneous, TID with meals, Oly Mir MD, 7 Units at 09/25/18 1155 ??? insulin lispro (HumaLOG) pen injection 14 Units, 14 Units, subcutaneous, TID with meals, Oly Mir MD, 14 Units at 09/25/18 1155 ??? insulin NPH (HumuLIN N, NovoLIN N) injection 37 Units, 37 Units, subcutaneous, Daily, Oly Mir MD, 37 Units at 09/25/18 0841 ??? loratadine (CLARITIN) tablet 10 mg, 10 mg, oral, Daily, Oly Mir MD, 10 mg at 09/25/18818 ??? magnesium hydroxide (MILK OF MAGNESIA) 80 mg/mL (33.3 mg/mL as elemental magnesium) oral suspension 30 mL, 30 mL, oral, Daily PRN, Oly Mir MD ??? mineral oil (FLEET MINERAL OIL) enema 1 enema, 1 enema, rectal, Daily PRN, Oly Mir MD ??? ondansetron (ZOFRAN) injection 4 mg, 4 mg, intravenous, Q4H PRN, Oly Mir MD ??? ondansetron (ZOFRAN) injection 4 mg, 4 mg, intravenous, Q4H PRN, Oly Mir MD ??? predniSONE (DELTASONE) tablet 60 mg, 60 mg, oral, Daily, Oly Mir MD, 60 mg at 09/25/1819 ??? sodium chloride 0.9% flush 0.5-20 mL, 0.5-20 mL, intra-catheter, Q8H, Oly Mir MD,10 mL at 09/25/18 0608 ??? sodium chloride 0.9% flush 0.5-20 mL, 0.5-20 mL, intra-catheter, PRN, Oly Mir MD OBJECTIVE: Vitals: Temp (24hrs), Av.1 ??C (96.9 ??F), Min:36 ??C (96.8 ??F), Max:36.1 ??C (97 ??F) Vitals: 09/24/18 0806 09/24/18 1603 09/24/18 2209 09/25/18 0739 BP: 132/64 135/65 142/74 123/70 BP Location: Right arm Right arm Right arm Right arm Patient Position: Sitting Sitting Sitting Pulse: 77 86 90 74 Resp: 18 18 20 Temp: (!) 35.8 ??C (96.5 ??F) 36 ??C (96.8 ??F) 36.1 ??C (97 ??F) TempSrc: Temporal Temporal Temporal SpO2: 97% 95% 97% Weight: Height: I/O last 2 completed shifts: In: 1520 [P.O.:1420; IV Piggyback:100] Out: - I/O this shift: In: 400 [P.O.:400] Out: - Physical Exam: Physical Exam Constitutional: Vital signs are normal. He appears well-developed and well-nourished. HENT: Head: Normocephalic and atraumatic. Right Ear: External ear normal. Left Ear: External ear normal. Nose: Mucosal edema present. Thick secretions from right parotid duct Right parotid diffuse induration some erythema House-Brackmann II/ Neck: Thick neck Lab/Radiology/Diagnostic Review: Recent Results (from the past 24 hour(s)) POCT glucose Collection Time: 09/24/18 4:48 PM Result Value Ref Range Glucose, POC, bld 248 (H) 71 - 98 mg/dL POCT glucose Collection Time: 09/24/18 9:29 PM Result Value Ref Range Glucose, POC, bld 202 (H) 71 - 98 mg/dL POCT glucose Collection Time: 09/25/18 2:40 AM Result Value Ref Range Glucose, POC, bld 191 (H) 71 - 98 mg/dL CBC with auto differential Collection Time: 09/25/18 3:40 AM Result Value Ref Range WBC 15.8 (H) 3.8 - 9.9 K/cumm Hgb 14.3 13.0 - 17.5 g/dL Hct 43.9 38.9 - 50.3 % Plt 326 150 - 400 K/cumm MPV 10.1 9.1 - 12.3 fL RBC 5.43 4.30 - 5.80 M/cumm MCV 80.8 (L) 81.3 - 96.4 fL MCH 26.3 (L) 27.1 - 33.3 pg MCHC 32.6 32.3 - 35.7 g/dL RDW CV 14.7 11.1 - 14.9 % RDW SD 42.6 35.7 - 48.1 fL NRBC Abs 0.00 0.00 - 0.01 K/cumm Renal function panel Collection Time: 09/25/18 3:40 AM Result Value Ref Range Sodium 137 135 - 145 mmol/L Potassium, pl 4.0 3.3 - 4.9 mmol/L Chloride 99 97 - 110 mmol/L CO2 22 22 - 32 mmol/L Anion Gap 16 (H) 2 - 15 mmol/L BUN 21 8 - 25 mg/dL Creatinine 0.58 (L) 0.80 - 1.30 mg/dL Glucose 235 (H) 70 - 199 mg/dL Calcium 9.4 8.5 - 10.3 mg/dL Phosphorus, pl 3.9 2.3 - 4.5 mg/dL Albumin 3.9 3.5 - 5.0 g/dL Magnesium Collection Time: 09/25/18 3:40 AM Result Value Ref Range Magnesium 2.0 1.6 - 2.4 mg/dL Differential, auto Collection Time: 09/25/18 3:40 AM Result Value Ref Range Neutrophil absolute 8.3 (H) 1.7 - 6.5 K/cumm Immature granulocyte absolute 0.1 0.0 - 0.1 K/cumm Lymphocytes absolute 6.1 (H) 0.8 - 3.3 K/cumm Monocyte absolute 1.2 (H) 0.2 - 0.8 K/cumm Eosinophils absolute 0.1 0.0 - 0.5 K/cumm Basophils, abs 0.0 0.0 - 0.1 K/cumm Neutrophils 52.6 % Immature granulocytes 0.6 % Lymphocytes 38.3 % Monocytes 7.4 % Eosinophils 0.8 % Basophils 0.3 % eGFR Collection Time: 09/25/18 3:40 AM Result Value Ref Range GFR 134 mL/min/1.73 m2 POCT glucose Collection Time: 09/25/18 7:42 AM Result Value Ref Range Glucose, POC, bld 204 (H) 71 - 98 mg/dL POCT glucose Collection Time: 09/25/18 11:49 AM Result Value Ref Range Glucose, POC, bld 283 (H) 71 - 98 mg/dL Xr Chest Pa Lateral 2 Views Result Date: 09/23/2018 Narrative: XR CHEST PA LATERAL 2 VIEWS HISTORY: r/o pneumonia. Congestion. TECHNIQUE: PA and lateral projections. COMPARISON: None available. FINDINGS: Heart size is normal. No infiltrate or effusionidentified. Mild elevation/eventration right hemidiaphragm. Impression: NO ACUTE PULMONARY DISEASE. Electronically signed by: Benny Reyes M.D Ct Head Wo Contrast Result Date: 09/22/2018 Narrative: PROCEDURE: CT HEAD WO CONTRAST HISTORY: Headache,, normal neuro exam. Right-sided facialdroop. Jaw pain. COMPARISON: 04/21/2018. TECHNIQUE: Helical CT scan of the head obtained noncontrast. FINDINGS: No acute intracranial hemorrhage identified. No midline shift is noted. Brainstem cisterns are intact. Ventricles are normal in size. Nodular focus subcutaneous soft tissue the scalp leftoccipital region, present on the prior study of 04/21/2018 at 03/30/2018. Focal opacities in the right and left maxillary sinuses have a nodular appearance suggesting mucous retention cysts or polyps. Minimal opacity right mastoids. Impression: 1. NO ACUTE INTRACRANIAL FINDING. 2. EVIDENCE OF SOME RIGHT MASTOIDITIS. 3. PARANASAL SINUS DISEASE DESCRIBED. Electronically signed by: eBnny Reyes M.D Mri Brain W Wo Contrast Result Date: 09/25/2018 Narrative: MRI BRAIN W WO CONTRAST HISTORY: facial weakness, right. Right facial droop and numbness. TECHNIQUE: Axial and sagittal FLAIR, axial T2 and diffusion-weighted, pre and postcontrast axial T1 inversion recovery, postcontrast triplanar 3-D T1 [id number] sequences. 20 milliliters Dotarem administered intravenously. COMPARISON: CT 09/22/2018 FINDINGS: The argueta and white matter demonstrate normal morphology and signal characteristics. There is no evidence of acute intracranial hemorrhage, mass or infarction. Diffusion- weighted signal is normal throughout the cortical structures. There is no evidence of abnormal contrast enhancement. The ventricles, gyri and sulci demonstrate normalsize and configuration. Midline is normal. Mild fluid is present within the inferior right mastoid air cells. Mild dependent fluid is present within the maxillary sinuses bilaterally. The extra-axialstructures are otherwise unremarkable. Impression: 1. BILATERAL MAXILLARY AND RIGHT MASTOID SINUS DISEASE. 2. NO EVIDENCE OF ACUTE INTRACRANIAL EVENT. Electronically signed by: Kwabena Hagen M.D. ASSESSMENT/PLAN: 1. Parotitis - Right Facial Nerve paralysis - will obtain Ultrasound of Parotid - continue Unasyn, upon discharge continue on oral Augmentin 2. Chronic maxillary sinusitis - continue Flonase Susana Camarena DO * Oly Mir MD - 09/24/2018 8:30 PM CDT General Medicine Daily Progress SUBJECTIVE Originally presented with Chief complaint of right facial droop Interval History: Patient is lying in the bed. Right facial droop is improving. Patient is still not able to close his right eye completely. Still complaining of right facial numbness. OBJECTIVE Vitals: 24hr Min/Max: Temp Min: 35.8 ??C (96.5 ??F) Max: 36.1 ??C (97 ??F) Pulse Min: 77 Max: 90 BP Min: 132/64 Max: 151/85 Resp Min: 18 Max: 20 SpO2 Min: 95 % Max: 97 % Most Recent : Vitals: 09/24/18 1603 BP: 135/65 Pulse: 86 Resp: 18 Temp: 36 ??C (96.8 ??F) SpO2: 95% I/O last 2 completed shifts: In: 1020 [P.O.:920; IV Piggyback:100] Out: - No intake/output data recorded. Physical Exam: Patient seen and examined Not in acute distress HEENT: AT/NC, Neck supple, positive tenderness in right parotid region Heart: S1, S2, RRR Lung: CTA bilateral Abdomen: S, NT, obese, BS+ Neuro: Positive for right facial droop. Positive for right facial numbness. Patient is not able to completely close his right eye Ext: No gross lower extremity edema. No calf tenderness Lab/Radiology/Diagnostic Review: Recent Results (from the past 24 hour(s)) POCT glucose Collection Time: 09/23/18 9:08 PM Result Value Ref Range Glucose, POC, bld 250 (H) 71 - 98 mg/dL POCT glucose Collection Time: 09/24/18 2:49 AM Result Value Ref Range Glucose, POC, bld 217 (H) 71 - 98 mg/dL CBC with auto differential Collection Time: 09/24/18 3:30 AM Result Value Ref Range WBC 14.0 (H) 3.8 - 9.9 K/cumm Hgb 14.2 13.0 - 17.5 g/dL Hct 43.1 38.9 - 50.3 % Plt 322 150 - 400 K/cumm MPV 9.8 9.1 - 12.3 fL RBC 5.36 4.30 - 5.80 M/cumm MCV 80.4 (L) 81.3 - 96.4 fL MCH 26.5 (L) 27.1 - 33.3 pg MCHC 32.9 32.3 - 35.7 g/dL RDW CV 14.5 11.1 - 14.9 % RDW SD 42.2 35.7 - 48.1 fL NRBC Abs 0.00 0.00 - 0.01 K/cumm Renal function panel Collection Time: 09/24/18 3:30 AM Result Value Ref Range Sodium 133 (L) 135 - 145 mmol/L Potassium, pl 3.8 3.3 - 4.9 mmol/L Chloride 96 (L) 97 - 110 mmol/L CO2 24 22 - 32 mmol/L Anion Gap 13 2 - 15 mmol/L BUN 20 8 - 25 mg/dL Creatinine 0.58 (L) 0.80 - 1.30 mg/dL Glucose 262 (H) 70 - 199 mg/dL Calcium 9.6 8.5 - 10.3 mg/dL Phosphorus, pl 3.7 2.3 - 4.5 mg/dL Albumin 4.0 3.5 - 5.0 g/dL Magnesium Collection Time: 09/24/18 3:30 AM Result Value Ref Range Magnesium 2.0 1.6 - 2.4 mg/dL Lipid panel Collection Time: 09/24/18 3:30 AM Result Value Ref Range Cholesterol 239 (H) 30 - 199 mg/dL Triglycerides 186 (H) <=149 mg/dL HDL 45 >=40 mg/dL LDL, calculated 157 (H) <=129 mg/dL Non-HDL Cholesterol 194 mg/dL Chol/HDL ratio 5 Differential, auto Collection Time: 09/24/18 3:30 AM Result Value Ref Range Neutrophil absolute 6.9 (H) 1.7 - 6.5 K/cumm Immature granulocyte absolute 0.1 0.0 - 0.1 K/cumm Lymphocytes absolute 5.7 (H) 0.8 - 3.3 K/cumm Monocyte absolute 1.1 (H) 0.2 - 0.8 K/cumm Eosinophils absolute 0.2 0.0 - 0.5 K/cumm Basophils, abs 0.0 0.0 - 0.1 K/cumm Neutrophils 49.3 % Immature granulocytes 0.9 % Lymphocytes 40.9 % Monocytes 7.5 % Eosinophils 1.1 % Basophils 0.3 % eGFR Collection Time: 09/24/18 3:30 AM Result Value Ref Range GFR 134 mL/min/1.73 m2 POCT glucose Collection Time: 09/24/18 8:07 AM Result Value Ref Range Glucose, POC, bld 216 (H) 71 - 98 mg/dL POCT glucose Collection Time: 09/24/18 11:48 AM Result Value Ref Range Glucose, POC, bld 202 (H) 71 - 98 mg/dL POCT glucose Collection Time: 09/24/18 4:48 PM Result Value Ref Range Glucose, POC, bld 248 (H) 71 - 98 mg/dL Xr Chest Pa Lateral 2 Views Result Date: 09/23/2018 Narrative: XR CHEST PA LATERAL 2 VIEWS HISTORY: r/o pneumonia. Congestion. TECHNIQUE: PA and lateral projections. COMPARISON: None available. FINDINGS: Heart size is normal. No infiltrate or effusionidentified. Mild elevation/eventration right hemidiaphragm. Impression: NO ACUTE PULMONARY DISEASE. Electronically signed by: Benny Reyes M.D Ct Head Wo Contrast Result Date: 09/22/2018 Narrative: PROCEDURE: CT HEAD WO CONTRAST HISTORY: Headache,, normal neuro exam. Right-sided facialdroop. Jaw pain. COMPARISON: 04/21/2018. TECHNIQUE: Helical CT scan of the head obtained noncontrast. FINDINGS: No acute intracranial hemorrhage identified. No midline shift is noted. Brainstem cisterns are intact. Ventricles are normal in size. Nodular focus subcutaneous soft tissue the scalp leftoccipital region, present on the prior study of 04/21/2018 at 03/30/2018. Focal opacities in the right and left maxillary sinuses have a nodular appearance suggesting mucous retention cysts or polyps. Minimal opacity right mastoids. Impression: 1. NO ACUTE INTRACRANIAL FINDING. 2. EVIDENCE OF SOME RIGHT MASTOIDITIS. 3. PARANASAL SINUS DISEASE DESCRIBED. Electronically signed by: Benny Reyes M.D ASSESSMENT/PLAN 1. Right-sided Ceballos's palsy Continue with prednisone, acyclovir Patient evaluated by Neurology-recommends MRI brain Patient evaluated by ENT 2. Right parotitis/right mastoiditis/paranasal sinusitis Patient evaluated by ENT-recommends Unasyn Continue with Flonase, Claritin WBC is trending up likely reactive due to steroids. Patient is afebrile 3. Abnormal urinalysis UA positive. Urine culture showed clinically insignificant growth. Patient denies any urinary symptoms. 4. Uncontrolled diabetes type 2 Hemoglobin A1c 11.1 Blood sugars are uncontrolled. Adjust insulin. Monitor blood sugar closely. Lipid panel showed total cholesterol 239, triglyceride 186, HDL 45, LDL 157. Increase Lipitor to 80 mg p.o. Daily 5. History of MONE on CPAP Continue with nocturnal CPAP 6. Morbid obesity with BMI 50.83 Patient is educated about diet modification, exercise and weight loss. Patient voiced understanding. Patient may get benefit of bariatric surgery. Patient is advised to follow up with bariatric surgeon as an outpatient. 7. DVT/GI prophylaxis Full code Voice recognition software MModal Fluency Direct was used dictate and transcribe this document. Educational Technology Coordinator variances may occur. Despite proofreading, typographical errors may occur. * Carlene Wiley RN - 09/24/2018 4:03 PM CDT Sandeep Us [id number] Clarisse Alex MD Pre-Education Assessment Visit Type: Initial Introduction: ID verified, Alert/ oriented x 4, Education provided with patient approval, Patient present for education, Patient present and able to participate Provider: Medical/Manager Supplier/PCP Treatment Prior To Admission: Oral medications, Blood glucose monitoring Knowledge Base: Beginner Hemaglobin A1c: Knows value(A1c= 11.1 ) Home Testing: Hardly ever Adherence To: Oral medication regimen Exercise Habits: Sedentary Hypoglycemia: Hardly ever Diabetes Management Education Provided: Please see the Patient Education Activity Inpatient Recommendations RN to practice with patient: Injections RN to reinforce with patient: Consistent carb diet, Carb counting, Insulin injection site rotation Discharge Recommendations Insulin Vial: (insurance requires Basiglar and Apidra insulin pens. ) Insulin Pen: (insurance requires Basiglar and Apidra insulin pens. ) Non-Insulin Pen: Victoza Pen(this is the preferred GLP 1 for insurance) Pen [place]: Ultra fine 4 mm Glucometer: (has glucometer at home) Diabetes/Education Follow Up: Primary Care Provider, [facility], Outpatient Diabetes Education A1c= 11.1. States he is not very good at his diet and exercise. Plans to adjust snacks. 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 Return demonstrated giving an insulin injection with a syringe. Discussed importance of rotating sites. 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 Encouraged to follow up for outpatient educations. Carlene Wiley RN, Chucking Machine Set Up Operator 09/24/2018 4:03 PM * Jazmin Woods NP - 09/24/2018 1:53 PM CDT Neurology Progress Note SUBJECTIVE Sandeep Us is a 33 y.o. male with chief complaint of right eyelid and facial drooping Interval History: No acute events overnight. Patient continued to have right facial drooping. Awaiting on MRI of the brain supposed to be done today Review of Systems Constitutional: Denies fever, chills, or fatigue HEENT: Denies vision change, hearing, or sore throat Respiratory: Denies SOB, wheezing, or cough Cardiovascular: Denies chest pain, palpitation, or cyanosis GI: Denies abdominal pain, constipation, or diarrhea : Denies dysuria, polyuria, or hematuria Integumentary: Denies ulcer, rash, or wound Psych: Denies depression, anxiety, or suicidal thought Hemo/Lymph: Denies bleeding, bruising, or petechiae Metabolic/Endocrine: Denies cold intolerance, heat intolerance, or generalized weakness Allergies Allergen Reactions ??? Metformin Unknown Current Facility-Administered Medications Medication Dose Route Frequency Provider Last Rate Last Dose ??? acetaminophen (TYLENOL) tablet 650 mg 650 mg oral Q6H PRN Oly Mir MD 650 mg at 09/23/18 1632 ??? acyclovir (ZOVIRAX) capsule 400 mg 400 mg oral 5x Daily Oly Mir MD 400 mg at 09/24/18 1113 ??? amLODIPine (NORVASC) tablet 5 mg 5 mg oral Nightly Oly Mir MD 5 mg at 09/23/182028 ??? ampicillin-sulbactam (UNASYN) 3 g in sodium chloride 0.9% 100 mL IVPB 3 g intravenous Q6H ZENOBIA Camarena, DO 240 mL/hr at 09/24/18 1106 3 g at 09/24/18 1106 ??? atorvastatin (LIPITOR) tablet 40 mg 40 mg oral Nightly Oly Mir MD 40 mg at 09/23/182028 ??? Bifidobacterium infantis (ALIGN) capsule 4 mg 4 mg oral Nightly Oly Mir MD 4 mg at 09/23/182028 ??? bisacodyl EC (DULCOLAX EC) tablet 10 mg 10 mg oral Daily PRN Oly Mir MD ??? dextrose gel in packet 15 g 15 g oral Q15 Min PRN Oly Mir MD Or ??? dextrose (D10W) 10% bolus 250 mL 250 mL intravenous Q15 Min PRN Oly Mir MD ??? doxycycline (VIBRAMYCIN) tablet/capsule 100 mg 100 mg oral BID - special Oly Mir MD 100 mg at 09/24/18 0559 ??? enoxaparin (LOVENOX) syringe 40 mg 40 mg subcutaneous Q12H ZENOBIA Oly Mir MD ??? famotidine (PEPCID) tablet 20 mg 20 mg oral BID Oly Mir MD 20 mg at 09/24/18 0841 ??? FLUoxetine (PROzac) capsule 40 mg 40 mg oral Nightly Oly Mir MD 40 mg at 8 ??? fluticasone propionate (FLONASE) 50 mcg/actuation nasal spray 2 spray 2 spray each nostril BID Oly Mir MD 2 spray at 09/24/18 0840 ??? glucagon injection 1 mg 1 mg intramuscular Q30 Min PRN Oly Mir MD ??? insulin glargine (LANTUS,BASAGLAR) pen injection 35 Units 35 Units subcutaneous BID DigantkumarJ. Clarke MD ??? insulin lispro (HumaLOG) pen injection 1-4 Units 1-4 Units subcutaneous Nightly Oly Mir MD 3 Units at 09/23/18 2135 ??? insulin lispro (HumaLOG) pen injection 1-4 Units 1-4 Units subcutaneous Q24H Oly Mir MD 3 Units at 09/24/18 0237 ??? insulin lispro (HumaLOG) pen injection 1-7 Units 1-7 Units subcutaneous TID with meals Oly Mir MD 5 Units at 09/24/18 1235 ??? insulin lispro (HumaLOG) pen injection 14 Units 14 Units subcutaneous TID with meals Oly Mir MD 14 Units at 09/24/18 1234 ??? insulin NPH (HumuLIN N, NovoLIN N) injection 37 Units 37 Units subcutaneous Daily Oly Mir MD 37 Units at 09/24/18 0841 ??? loratadine (CLARITIN) tablet 10 mg 10 mg oral Daily Oly Mir MD 10 mg at 09/24/18 0841 ??? magnesium hydroxide (MILK OF MAGNESIA) 80 mg/mL (33.3 mg/mL as elemental magnesium) oral suspension 30 mL 30 mL oral Daily PRN Oly Mir MD ??? mineral oil (FLEET MINERAL OIL) enema 1 enema 1 enema rectal Daily PRN Oly Mir MD ??? ondansetron (ZOFRAN) injection 4 mg 4 mg intravenous Q4H PRN Oly Mir MD ??? ondansetron (ZOFRAN) injection 4 mg 4 mg intravenous Q4H PRN Oly Mir MD ??? predniSONE (DELTASONE) tablet 60 mg 60 mg oral Daily Oly Mir MD 60 mg at ??? sodium chloride 0.9% flush 0.5-20 mL 0.5-20 mL intra-catheter Q8H Oly Mir MD 10 mL at 09/24/18 0600 ??? sodium chloride 0.9% flush 0.5-20 mL 0.5-20 mL intra-catheter PRN Oly Mir MD OBJECTIVE Vitals BP 132/64 (BP Location: Right arm, Patient Position: Sitting) Pulse 77 Temp (!) 35.8 ??C (96.5 ??F) (Temporal) Resp 18 Ht 175.3 cm (5' 9.02 ) Wt (!) 156.2 kg (344 lb 5.7 oz) SpO2 97% BMI 50.83 kg/m?? Intake/Output Summary (Last 24 hours) at 09/24/2018 1353 Last data filed at 09/24/2018 1106 Gross per 24 hour Intake 1520 ml Output -- Net 1520 ml Physical Exam Constitutional/General: well-developed, well-nourished, NAD HEENT: atraumatic, normocephalic, no discharge from mouth/ears Neck: atraumatic, no deformity. supple. Cardiovascular: regular S1S2 rhythm, no rubs/gallops, no murmurs Respiratory: regular, unlabored, CTA bilaterally. Abdominal: soft, nontender, normoactive BS Musculoskeletal: no atrophy, tenderness, abnormal movement Extremities: no edema, cyanosis or deformities Skin: warm, no rashes, no wound Psychiatric: Normal mood and affect. Neurological: 1) MS: alert, oriented x3, clear/fluent speech, comprehension intact, follow commands 2) CN: PERRLA, EOMI w/o nystagmus, visual field normal, facial sensation symmetrical No facial drooping, tongue at midline 3) Motor: muscle bulk/tone normal, strength 5/5 in BUE and BLE equally No pronator drift, DTRs 2-3 + symmetrically equal , no abnormal movement 4) Sensory: Intact to light touch symmetrically 5) Coordination: finger to nose normal 6) Gait: not assessed Lab/Radiology/Diagnostic Review: Recent Labs Lab Units 09/24/18 0330 WBC K/cumm 14.0* HEMOGLOBIN g/dL 14.2 HEMATOCRIT % 43.1 PLATELETS K/cumm 322 Recent Labs Lab Units 09/24/18 1148 09/24/18 0330 09/22/18 1804 SODIUM mmol/L -- -- 133* -- 139 POTASSIUM PLASMA mmol/L -- -- 3.8 -- 4.5 CHLORIDE mmol/L -- -- 96* -- 100 CO2 mmol/L -- -- 24 -- 22 ANIONGAP mmol/L -- -- 13 -- 17* GLUCOSE mg/dL -- -- 262* -- 340* POC GLUCOSE MONITOR mg/dL 202* < > -- < > -- BUN SERUM mg/dL -- -- 20 -- 16 CREATININE mg/dL -- -- 0.58* -- 0.57* CALCIUM mg/dL -- -- 9.6 -- 9.8 ALBUMIN g/dL -- -- 4.0 -- 4.5 ALK PHOS Units/L -- -- -- -- 127 ALT Units/L -- -- -- -- 38 AST Units/L -- -- -- -- 22 BILIRUBIN TOTAL mg/dL -- -- -- -- <0.2 < > = values in this interval not displayed. -glucose level 202, white blood cell count 14 I personally reviewed the above labs, images, and tests. ASSESSMENT/ PLAN 1. Right facial drooping. His symptoms are most likely due to Ceballos's palsy from recent infection. MRI of the brain with without contrast is still pending. Continue empirical treatment with acyclovir 400 mg 5 times daily. If MRI of the brain comes back unremarkable, please add Medrol Dosepak or daily dose of prednisone.. Patient may benefit from speech therapy. 2. Hypertension. On Norvasc 3. Dyslipidemia. On atorvastatin 40 mg q.day 4. Upper respiratory and ENT infection. On Unasyn, doxycycline. Also on acyclovir. Plan of care discussed with the nurse. Will follow up once MRI is completed. Please call if there is any question. Addendum: MRI of the brain was unremarkable. No further testing necessary from neurology standpoint. Will sign off. * Danitza Velez RN - 09/24/2018 11:24 AM CDT 09/24/18 112 Discharge Planning Assistance Needed Home with spouse and children. Stated that this was the 1st time he had a flair of his [place] Palsy. Unable to move right side of his face - more towards his mouth and just now starting to be able to close his right eye. Otherwise patient has a CPAP at home already. 6 clicks performed and score 24 points - totally independent. No barriers to discharge. Home Care Services No Patient expects to be discharged to: Private residence Does the patient need discharge transport arranged? No * Danitza Velez RN - 09/24/2018 11:22 AM CDT 09/24/18 1122 Basic Mobility - 6 Click How much difficulty does the patient have: Turning over in bed 4 How much difficulty does the patient currently have: Sitting down and standing up from a chair witharms? 4 How much difficulty does the patient have: Moving from lying on back to sitting on the side of the bed? 4 How much difficulty does the patient have: Moving to and from a bed to a chair including wheelchair? 4 How much help does the patient currently need: Walk in hospital room? 4 How much help from another person does the patient currently need: Climbing 3-5 steps with a railing? 4 Total Score (range 6-24) 24 * Milagros Alaniz, [facility] - 09/23/2018 2:44 PM CDT Images from the original note were not included. Give 37 units of NPH insulin every 24 hours per insulin with steroid dosing protocol based on patient weight of 156.2 kg and steroid dose of prednisone 60 mg PO daily. * Rona Piedra, [facility] - 09/23/2018 2:32 PM CDT An order to initiate electrolyte repletion by pharmacy has been received from Dr. Mir IV or PO repletion will be ordered by the pharmacist when levels fall below the desired range basedon NPO status as follows: If potassium level is greater than 2.8 and less than 3.3, give 40mEq potassium chloride IVPB, or oral (per NG tube, when applicable). If potassium level is 2.8 or less, or greater than 6, call physician for orders If magnesium level is 1.0 - 1.5 and patient can take oral medications, administer magnesium oxide 400 mg TID x 3 doses. If magnesium level is <1.0, or 1.0 -1.5 and patient is NPO, administer 2 grams magnesium sulfateIVPB over 2 hours. If phosphorus level is 1.9 - 2.5 administer sodium/potassium phosphate 1 tab orally or 1 powder packet orally/per tube TID x 3 doses. [Tab contains 1.1 mEq K, 13 mEq Na, 8 mmol phos, Packet contains 7.1 mEq K, 6.9 mEq Na, 8 mmol phos] If potassium is < 3.5 use powder packet. If potassium is < 3.3 use powder packet and also replace with potassium chloride 20 mEq. If phosphorous level is 1.1 - 1.8 administer sodium/potassium phosphate 2 tabs orally or 2 powder packets orally/per tube TID x 3 doses. If potassium is < 3.5 use powder packet. If phosphorous level is 1 or less, , (or 2.5 or less in a TPN patient) and potassium is < 4.5, administer potassium phosphate 0.4 mmol/kg IVPB over 6 hours. Decrease dose by 50% for CrCl < 50. If potassium is 4.5 or greater, administer sodium phosphate (if available) at the same dose as potassium phosphate above Monitoring Guidelines: TPN Patients: Renal panel daily x3 days, then every other day. All other patients: Electrolyte levels will be ordered by providers as needed. * Swati Mcnair, [place] - 09/23/2018 11:42 AM CDT [facility] Nutrition Assessment NAME:Sandeep Us :1985 AGE:33 y.o. SEX: male ADMISSION DATE:09/22/2018, CURRENT LOS is 1 days. ENCOUNTER DATE: 09/23/18 11:42 AM REASON for ASSESSMENT: Screened at Nutrition Risk and Initial Nutrition Assessment DX: CEBALLOS'S PALSY (PRIMARY ENCOUNTER DIAGNOSIS) MASTOIDITIS OF RIGHT SIDE UNCONTROLLED TYPE 1 DIABETES MELLITUS WITH HYPERGLYCEMIA ([facility]) H/O INFLUENZA Nutrition Screen Have You Recently Lost Weight Without Trying?: No Poor Oral Intake for Four or More Days Prior to Admission: No Current diet order: Adult Diet Restricted; Consistent Carbohydrate Pt intake is adequate. PO intakes: 100% x 1 meal ALLERGIES: Metformin ASPEN Malnutrition Assessment: Nutrition Focused Physical Exam Notes: Nutrition Needs Calculations: Calculated Energy Needs Using Equations Weight Used for Equation Calculations (RD Determined): 156.2 kg (344 lb 5.7 oz) Weight: (!) 156.2 kg (344 lb 5.7 oz) Height: 175.3 cm (5' 9.02 ) [employer] Equation (Overweight or Obese Patients): 2498 Equation Chosen to Use by RD: [place] Activity Factor: 1.1 Total Energy Needs: 2747.8 kcal Temp: 36.4 ??C (97.6 ??F) Total Energy Needs + Fever Factor: 2747.8 Estimated Protein Needs Type of Weight Used for Estimated Protein : Current Protein Needs Based on g/k.8 Total Protein Estimated Needs (gm): 124.96 Kcal/kg Type of Weight Used for Estimated Kcals: Current Kcal/k Total Kcal/kg Estimated Needs : 2811.6 Estimated Fluid Needs Type of Weight Used for Estimated Fluid Needs: Current Fluid Needs Based on : 25 ml/kg Total Fluid Estimated Needs: 3905 Estimated Carbohydrate Needs Type of Weight Used for Estimated Carbohydrate Needs: Current Recommended Carbohydrates for Breakfast (gm) : 75 Recommended Carbohydrates for Lunch (gm) : 75 Recommended Carbohydrates for Dinner (gm) : 75 Recommended Carbohydrates for HS Snack (gm) : 45 Total Daily Carbohydrates Recommended (gm): 270 Estimated needs: ?? Total Kcal/kg Estimated Needs : 2811.6 based on Kcal/k. Type of Weight Used for Estimated Kcals: Current ?? MSJ Total Energy Needs: 2747.8 kcal using ?? NISHANT State Total Energy Needs + Fever Factor: 2747.8 ?? Total Protein Estimated Needs (gm): 124.96 Protein Needs Based on g/k.8 Type of Weight Used for Estimated Protein : Current. ?? Total Fluid Estimated Needs: 3905 Fluid Needs Based on : 25 ml/kg. Objective Anthropometrics Weight: (!) 156.2 kg (344 lb 5.7 oz) Admission Weight : 156.2 kg Weight Change: 6.51 kg (14.35 lbs) IBW/kg (Calculated) : 72.6 kg Height: 175.3 cm (5' 9.02 ) Weight in (lb) to have BMI = 25: 169 BMI (Calculated): 50.8 3 Day I/O Summary 09/21 1899 - 09/23 0659 In: 320 [P.O.:300] Out: - Temp: 36.4 ??C (97.6 ??F) [place] body weight: 70.7 kg (155 lb 15.1 oz) Adjusted ideal body weight: 104.9 kg (231 lb 5 oz) Past Medical History: Diagnosis Date ??? Diabetes (CMS/HCC) ??? Hypertension ??? Sleep apnea Medications and Lab Review: Scheduled Meds: acyclovir 400 mg oral 5x Daily cefTRIAXone 2,000 mg intravenous Q24H ZENOBIA doxycycline 100 mg oral BID - special enoxaparin 40 mg subcutaneous Q12H ZENOBIA famotidine 20 mg oral BID insulin glargine 20 Units subcutaneous BID insulin lispro 1-4 Units subcutaneous Nightly insulin lispro 1-4 Units subcutaneous Q24H insulin lispro 1-7 Units subcutaneous TID with meals insulin lispro 6 Units subcutaneous TID PC insulin NPH 18 Units subcutaneous BID predniSONE 60 mg oral Daily sodium chloride 0.9% 0.5-20 mL intra-catheter Q8H Continuous Infusions: Sodium Date Value Ref Range Status 09/22/2018 139 135 - 145 mmol/L Final Potassium, pl Date Value Ref Range Status 09/22/2018 4.5 3.3 - 4.9 mmol/L Final BUN Date Value Ref Range Status 09/22/2018 16 8 - 25 mg/dL Final Creatinine Date Value Ref Range Status 09/22/2018 0.57 (L) 0.80 - 1.30 mg/dL Final Albumin Date Value Ref Range Status 09/22/2018 4.5 3.5 - 5.0 g/dL Final Calcium Date Value Ref Range Status 09/22/2018 9.8 8.5 - 10.3 mg/dL Final Lab Results Component Value Date HGBA1C 11.1 (H) 09/22/2018 POC Glucose: 251(5/5) Nursing Assessment: Last BM Date: 09/22/18 Cal Scale Score: 22 Nutrition Follow-Up : 09/25/18 Nutrition Diagnosis 1: Overweight/Obesity Related to: Food choices, Lack of activity Evidenced by: BMI 40 or more, Lab abnormality ?? Interventions: Education, nutrition ?? Monitoring and Evaluation: Labs, PO intake ?? Goals: Patient/caregiver able to teach back understanding of role of diet in disease process prior to discharge, Adequate nutrition to meet estimated needs by next assessment ? Nutritional Risk: high Follow up date: 09/25/[address],LDN * Rona Piedra, [facility] - 09/22/2018 8:59 PM CDT Images from the original note were not included. An order for Insulin with Steroid Pharmacy Protocol has been initiated automatically per pharmacy protocol for patient on a prednisone equivalent dose of 20 mg/day or more and a diagnosis of diabetesmellitus. Pharmacy will follow the below guidelines, monitor for steroid dose changes,and adjust doses accordingly. Guidelines: 1. Calculate Prednisone equivalent dose: Glucocorticoid Approx. Equivalent Dose Factor to multiply dose by to achieve prednisone equivalent Hydrocortisone 20 mg 0.25 Methylprednisolone 4 mg 1.25 Prednisone 5 mg 1 Dexamethasone 0.75 mg 6.67 2. NPH dose for prednisone equivalent dose, or prednisone total daily dose, greater than 40 mg daily (example prednisone 20 mg PO TID): NPH Dose: Maximum NPH initial dose = 20 units in insulin na??ve patients = 40 units in insulin experienced patients Enter NPH to be administered SQ at the same interval as the steroid. 3. Insulin dose for prednisone equivalent dose 40 mg daily or less (example prednisone 10 mg PO TID): a. If steroid is dosed once daily administer NPH 10 units SQ once daily. b. If steroid is dosed multiple times daily administer insulin lispro (Humalog) 3 units SQ with meals, in addition to any bolus dosing already ordered. 4. Pharmacists will monitor patients daily, adjusting NPH doses as steroid doses Change, entering all NPH orders to coincide with steroid administration. NPH/steroid dosed BID should be entered at [id number] only so fingerstick blood sugars are available. NPH orders should include ?Hold if FBS <110.? Initiate 18 units of NPH insulin every 12 hours per insulin with steroid dosing protocol based on patient weight of 149.7 kg and steroid dose of prednisone 40 mg BID. documented in this encounter H&P Notes * Oly Mir MD - 09/23/2018 12:32 PM CDT General Medicine History and Physical Date Of Service: 09/23/2018 Primary Care Physician: Isra Mahmood [phone] SUBJECTIVE Patient is a 33 y.o. male with chief complaint of right facial droop for 2-3 days. HPI: 33-year-old male with past medical history as mentioned came into emergency room for right-sided facial droop that he noticed 2-3 days ago prior to presentation. Patient also reports right facial numbness and right lower jaw pain. Patient states he is not able to completely close his right eye. Patient states he had flu about 1 month ago for that he took Tamiflu. Patient reports about 2 weeksago he developed right ear infection so his PCP prescribed him amoxicillin for 10 days. Patient finished amoxicillin therapy few days ago. Patient denies any other weakness, numbness, tingling. PMH Diabetes type 2, anxiety/depression, hypertension, MONE on CPAP, morbid obesity with BMI 50.83. PSH Sinus surgery, cholecystectomy SH Patient quit smoking about 2 years ago. Denies any alcohol or recreational drug use. Medications Prior to Admission Medication Sig Dispense Refill Last Dose ??? atorvastatin (LIPITOR) 40 mg tablet Take 40 mg by mouth daily ??? FLUoxetine (PROzac) 40 mg capsule Take 40 mg by mouth daily ??? omeprazole (PriLOSEC) 20 mg capsule Take 20 mg by mouth daily ??? amLODIPine (NORVASC) 5 mg tablet 5 mg daily 3 ??? glimepiride (AMARYL) 4 mg tablet Take 8 mg by mouth daily before breakfast 0 ??? ibuprofen (ADVIL,MOTRIN) 600 mg tablet Take 1 tablet (600 mg total) by mouth 3 (three) times a day. Take with food. (Patient taking differently: Take 600 mg by mouth every 8 (eight) hours as needed for pain Take with food.) 30 tablet 0 ??? ranitidine (ZANTAC) 150 mg capsule Take 300 mg by mouth every evening ??? SITagliptin (JANUVIA) 25 mg tablet Take 100 mg by mouth daily Allergies Allergen Reactions ??? Metformin Unknown History reviewed. No pertinent family history. Review of Systems Positive for right facial droop. Positive for right facial numbness. Positive for right jaw pain Patient denies Chest pain, Shortness of breath, palpitation, Headache, Blurry vision, Fever, Abdominal Pain, Nausea, Vomiting, Diarrhea, Urinary Symptoms, Dizziness, Loss of conciousness OBJECTIVE Vitals: Arrival Vitals Temp 09/22/18 1751 36.1 ??C (96.9 ??F) Pulse 09/22/18 1751 93 Resp 09/22/18 1751 18 BP 09/22/18 1751 140/85 SpO2 09/22/18 1751 96 % Temp src 09/22/181750 Temporal Heart Rate Source 09/22/181918 Monitor Patient Position 09/22/181918 Sitting BP Location 09/22/181918 Left arm FiO2 (%) -- 24hr Min/Max: Temp Min: 36.1 ??C (96.9 ??F) Max: 36.4 ??C (97.6 ??F) Pulse Min: 88 Max: 93 BP Min: 128/85 Max: 145/80 Resp Min: 18 Max: 20 SpO2 Min: 95 % Max: 98 % Most Recent : Vitals: 09/23/18 0736 BP: 145/80 Pulse: 89 Resp: 20 Temp: 36.4 ??C (97.6 ??F) SpO2: 95% I/O last 2 completed shifts: In: 320 [P.O.:300; IV Piggyback:20] Out: - I/O this shift: In: 250 [P.O.:240; I.V.:10] Out: - Physical exam: Patient seen and examined Not in acute distress HEENT: AT/NC, Neck supple, positive tenderness in right parotid region Heart: S1, S2, RRR Lung: CTA bilateral Abdomen: S, NT, obese, BS+ Neuro: Right facial droop. Right facial numbness. Patient is not able to completely close his righteye. No other focal neurological deficit appreciated on exam Ext: No gross lower extremity edema. No calf tenderness Lab/Radiology/Diagnostic Review: Recent Results (from the past 24 hour(s)) Urinalysis reflex to microscopic and culture Urine, clean voided Collection Time: 09/22/18 6:00 PM Result Value Ref Range Color, ur Red (A) Yellow Clarity, ur Clear Clear Specific gravity, ur >1.030 (H) 1.010 - 1.025 pH, urine 6.5 Protein, ur ql 4+ (A) Negative Glucose, ur ql 3+ (A) Negative Ketones, ur 4+ (A) Negative Bilirubin, ur 3+ (A) Negative Blood, ur 3+ (A) Negative Urobilinogen, ur 1.0 mg/dL Nitrite, ur Positive (A) Negative Leukocyte esterase, ur 3+ (A) Negative Urinalysis, microscopic only Collection Time: 09/22/18 6:00 PM Result Value Ref Range WBC, ur 6-10 (A) 0 - 5 /HPF RBC, ur 0-5 0 - 2 /HPF Epithelial cells, squamous, ur 1-5 0 - 5 /HPF Bacteria, ur Negative Hyaline casts, ur 1-5 0 - 10 /LPF CBC with auto differential Collection Time: 09/22/18 6:04 PM Result Value Ref Range WBC 12.7 (H) 3.8 - 9.9 K/cumm Hgb 15.0 13.0 - 17.5 g/dL Hct 46.3 38.9 - 50.3 % Plt 326 150 - 400 K/cumm MPV 9.7 9.1 - 12.3 fL RBC 5.65 4.30 - 5.80 M/cumm MCV 81.9 81.3 - 96.4 fL MCH 26.5 (L) 27.1 - 33.3 pg MCHC 32.4 32.3 - 35.7 g/dL RDW CV 14.5 11.1 - 14.9 % RDW SD 42.9 35.7 - 48.1 fL NRBC Abs 0.00 0.00 - 0.01 K/cumm Comprehensive metabolic panel Collection Time: 09/22/18 6:04 PM Result Value Ref Range Sodium 139 135 - 145 mmol/L Potassium, pl 4.5 3.3 - 4.9 mmol/L Chloride 100 97 - 110 mmol/L CO2 22 22 - 32 mmol/L Anion Gap 17 (H) 2 - 15 mmol/L BUN 16 8 - 25 mg/dL Creatinine 0.57 (L) 0.80 - 1.30 mg/dL Glucose 340 (H) 70 - 199 mg/dL Calcium 9.8 8.5 - 10.3 mg/dL Bilirubin, total <0.2 0.1 - 1.2 mg/dL Protein, pl 8.1 6.5 - 8.5 g/dL Albumin 4.5 3.5 - 5.0 g/dL Alk phos 127 40 - 130 Units/L ALT 38 7 - 55 Units/L AST 22 10 - 50 Units/L Hemoglobin A1c Collection Time: 09/22/18 6:04 PM Result Value Ref Range Hgb A1C 11.1 (H) 4.0 - 5.6 % Estimated Average Glucose 272 mg/dL CRP (acute phase) Collection Time: 09/22/18 6:04 PM Result Value Ref Range C-RP 5.8 <=10.0 mg/L Differential, auto Collection Time: 09/22/18 6:04 PM Result Value Ref Range Neutrophil absolute 7.6 (H) 1.7 - 6.5 K/cumm Immature granulocyte absolute 0.1 0.0 - 0.1 K/cumm Lymphocytes absolute 4.1 (H) 0.8 - 3.3 K/cumm Monocyte absolute 0.8 0.2 - 0.8 K/cumm Eosinophils absolute 0.2 0.0 - 0.5 K/cumm Basophils, abs 0.0 0.0 - 0.1 K/cumm Neutrophils 59.9 % Immature granulocytes 0.6 % Lymphocytes 32.1 % Monocytes 5.9 % Eosinophils 1.2 % Basophils 0.3 % eGFR Collection Time: 09/22/18 6:04 PM Result Value Ref Range GFR 135 mL/min/1.73 m2 POCT glucose Collection Time: 09/22/18 10:00 PM Result Value Ref Range Glucose, POC, bld 219 (H) 71 - 98 mg/dL POCT glucose Collection Time: 09/23/18 2:24 AM Result Value Ref Range Glucose, POC, bld 339 (Critical) 71 - 98 mg/dL POCT glucose Collection Time: 09/23/18 7:40 AM Result Value Ref Range Glucose, POC, bld 251 (H) 71 - 98 mg/dL POCT glucose Collection Time: 09/23/18 11:57 AM Result Value Ref Range Glucose, POC, bld 258 (H) 71 - 98 mg/dL Ct Head Wo Contrast Result Date: 09/22/2018 Narrative: PROCEDURE: CT HEAD WO CONTRAST HISTORY: Headache,, normal neuro exam. Right-sided facialdroop. Jaw pain. COMPARISON: 04/21/2018. TECHNIQUE: Helical CT scan of the head obtained noncontrast. FINDINGS: No acute intracranial hemorrhage identified. No midline shift is noted. Brainstem cisterns are intact. Ventricles are normal in size. Nodular focus subcutaneous soft tissue the scalp leftoccipital region, present on the prior study of 04/21/2018 at 03/30/2018. Focal opacities in the right and left maxillary sinuses have a nodular appearance suggesting mucous retention cysts or polyps. Minimal opacity right mastoids. Impression: 1. NO ACUTE INTRACRANIAL FINDING. 2. EVIDENCE OF SOME RIGHT MASTOIDITIS. 3. PARANASAL SINUS DISEASE DESCRIBED. Electronically signed by: Benny Reyes M.D ASSESSMENT/PLAN 1. Right-sided Ceballos's palsy Continue with prednisone, acyclovir Patient evaluated by Neurology-recommends MRI brain 2. Right mastoiditis IV Rocephin and doxycycline ENT evaluation 3. Acute sinusitis Patient is complaining of sinus fullness. There is some tenderness on right maxillary sinus area. IV Rocephin and doxycycline. Start Flonase and Claritin ENT evaluation 4. Acute cystitis UA positive. Urine culture in progress Continue with IV Rocephin 5. Uncontrolled diabetes type 2 Hemoglobin A1c 11.1. Blood sugars are uncontrolled. Adjust insulin. medical educator consult 6. History of MONE on CPAP Continue with nocturnal CPAP 7. Morbid obesity with BMI 50.83 Patient is educated about diet modification, exercise, weight loss. Patient voiced understanding. Patient may get benefit of bariatric surgery. Patient is advised to follow up with bariatric surgeon as an outpatient. 8. DVT/GI prophylaxis Full code Estimated Length Of Stay: More than 2 midnight Voice recognition software [employer] was used dictate and transcribe this document. Educational Technology Coordinator variances may occur. Despite proofreading, typographical errors may occur. documented in this encounter Consult Notes * Susana Camarena, DO - 09/24/2018 1:08 PM CDTAssociated Order(s): IP CONSULT TO ENT ENT Consult Reason for Consult: Sinusitis Requesting Provider: Oly Mir MD SUBJECTIVE: Patient is a 33 y.o. male with chief complaint of Sinusitis and Facial nerve paralysis. HPI: Sandeep reported right facial nerve weakness which developed over the last 3 days until he was able to close his right eye. He was admitted yesterday for facial nerve paralysis workup. He reported feeling a little bit better today than yesterday. He reported some right cheek pain, and right ear felt muffled and right facial fullness. Past Medical History: Diagnosis Date ??? Diabetes (CMS/HCC) ??? Hypertension ??? Sleep apnea Past Surgical History: Procedure Laterality Date ??? CHOLECYSTECTOMY 2010 ??? NASAL SINUS SURGERY 2017 removed polyps bilaterally HOME MEDICATIONS : atorvastatin (LIPITOR) 40 mg tablet FLUoxetine (PROzac) 40 mg capsule omeprazole (PriLOSEC) 20 mg capsule amLODIPine (NORVASC) 5 mg tablet glimepiride (AMARYL) 4 mg tablet ibuprofen (ADVIL,MOTRIN) 600 mg tablet ranitidine (ZANTAC) 150 mg capsule SITagliptin (JANUVIA) 25 mg tablet Allergies Allergen Reactions ??? Metformin Unknown Social History Tobacco Use ??? Smoking status: Former Smoker Packs/day: 0.25 Start date: 09/20/2003 Last attempt to quit: 09/18/2016 Years since quittin.0 ??? Smokeless tobacco: Never Used Substance Use Topics ??? Alcohol use: No History reviewed. No pertinent family history. Review of Systems Constitutional: Negative. Negative for chills, fatigue and fever. HENT: Positive for ear pain, facial swelling and hearing loss. Negative for congestion, ear discharge, nosebleeds, sinus pressure, sore throat, tinnitus, trouble swallowing and voice change. Eyes: Negative. Negative for pain and discharge. Respiratory: Negative for apnea, cough, choking, shortness of breath, wheezing and stridor. Cardiovascular: Negative for chest pain, palpitations and leg swelling. Gastrointestinal: Negative for abdominal pain, constipation, nausea and vomiting. Negative for Heartburn, trouble swallowing foods or liquids Endocrine: Negative. Negative for cold intolerance and heat intolerance. Musculoskeletal: Negative. Negative for arthralgias, joint swelling, myalgias, neck pain and neck stiffness. Skin: Negative. Negative for color change, rash and wound. Negative for new skin lesions Allergic/Immunologic: Negative. Negative for environmental allergies and food allergies. Neurological: Positive for facial asymmetry and weakness. Negative for dizziness, syncope, speech difficulty, light-headedness and headaches. Hematological: Negative. Negative for adenopathy. Does not bruise/bleed easily. Psychiatric/Behavioral: Negative for agitation, behavioral problems and dysphoric mood. The patientis not nervous/anxious. Temp (24hrs), Av.1 ??C (97 ??F), Min:35.8 ??C (96.5 ??F), Max:36.4 ??C (97.5 ??F) Vitals: 09/23/18 1139 09/23/18 1508 09/23/18 2300 09/24/18 0806 BP: 153/91 151/85 132/64 BP Location: Right arm Right arm Right arm Patient Position: Sitting Sitting Pulse: 98 90 77 Resp: 20 20 18 Temp: 36.4 ??C (97.5 ??F) 36.1 ??C (97 ??F) (!) 35.8 ??C (96.5 ??F) TempSrc: Temporal Temporal Temporal SpO2: 97% 96% 97% Weight: Height: 175.3 cm (5' 9.02 ) I/O last 2 completed shifts: In: 1470 [P.O.:1460; I.V.:10] Out: - I/O this shift: In: 300 [P.O.:200; IV Piggyback:100] Out: - OBJECTIVE: Physical Exam Constitutional: He is oriented to person, place, and time. He appears well- developed and well-nourished. He is cooperative. HENT: Head: Normocephalic and atraumatic. Right Ear: Hearing, tympanic membrane, external ear and ear canal normal. Left Ear: Hearing, tympanic membrane, external ear and ear canal normal. Nose: Nose normal. No mucosal edema, rhinorrhea, sinus tenderness or nasal deformity. Mouth/Throat: Uvula is midline, oropharynx is clear and moist and mucous membranes are normal. Eyes: Pupils are equal, round, and reactive to light. Conjunctivae, EOM and lids are normal. Neck: Trachea normal and full passive range of motion without pain. No JVD present. Right parotid fullness and tenderness to palpation diffusely, no purulence expressed from parotid duct. Thick neck Cardiovascular: Intact distal pulses. Pulmonary/Chest: Effort normal. Musculoskeletal: Normal range of motion. Lymphadenopathy: He has no cervical adenopathy. Neurological: He is alert and oriented to person, place, and time. A cranial nerve deficit is present. Facial nerve Right House Brackman II/ today, able to blink and close eye well. Skin: Skin is warm, dry and intact. Psychiatric: He has a normal mood and affect. His speech is normal and behavior is normal. Judgmentand thought content normal. Cognition and memory are normal. Lab/Radiology/Diagnostic Review: Recent Results (from the past 24 hour(s)) Blood culture Blood Antecubital, left Collection Time: 09/23/18 2:20 PM Result Value Ref Range Report Preliminary Report: No growth to date. Blood culture Blood Antecubital, right Collection Time: 09/23/18 2:27 PM Result Value Ref Range Report Preliminary Report: No growth to date. POCT glucose Collection Time: 09/23/18 4:44 PM Result Value Ref Range Glucose, POC, bld 272 (H) 71 - 98 mg/dL POCT glucose Collection Time: 09/23/18 9:08 PM Result Value Ref Range Glucose, POC, bld 250 (H) 71 - 98 mg/dL POCT glucose Collection Time: 09/24/18 2:49 AM Result Value Ref Range Glucose, POC, bld 217 (H) 71 - 98 mg/dL CBC with auto differential Collection Time: 09/24/18 3:30 AM Result Value Ref Range WBC 14.0 (H) 3.8 - 9.9 K/cumm Hgb 14.2 13.0 - 17.5 g/dL Hct 43.1 38.9 - 50.3 % Plt 322 150 - 400 K/cumm MPV 9.8 9.1 - 12.3 fL RBC 5.36 4.30 - 5.80 M/cumm MCV 80.4 (L) 81.3 - 96.4 fL MCH 26.5 (L) 27.1 - 33.3 pg MCHC 32.9 32.3 - 35.7 g/dL RDW CV 14.5 11.1 - 14.9 % RDW SD 42.2 35.7 - 48.1 fL NRBC Abs 0.00 0.00 - 0.01 K/cumm Renal function panel Collection Time: 09/24/18 3:30 AM Result Value Ref Range Sodium 133 (L) 135 - 145 mmol/L Potassium, pl 3.8 3.3 - 4.9 mmol/L Chloride 96 (L) 97 - 110 mmol/L CO2 24 22 - 32 mmol/L Anion Gap 13 2 - 15 mmol/L BUN 20 8 - 25 mg/dL Creatinine 0.58 (L) 0.80 - 1.30 mg/dL Glucose 262 (H) 70 - 199 mg/dL Calcium 9.6 8.5 - 10.3 mg/dL Phosphorus, pl 3.7 2.3 - 4.5 mg/dL Albumin 4.0 3.5 - 5.0 g/dL Magnesium Collection Time: 09/24/18 3:30 AM Result Value Ref Range Magnesium 2.0 1.6 - 2.4 mg/dL Lipid panel Collection Time: 09/24/18 3:30 AM Result Value Ref Range Cholesterol 239 (H) 30 - 199 mg/dL Triglycerides 186 (H) <=149 mg/dL HDL 45 >=40 mg/dL LDL, calculated 157 (H) <=129 mg/dL Non-HDL Cholesterol 194 mg/dL Chol/HDL ratio 5 Differential, auto Collection Time: 09/24/18 3:30 AM Result Value Ref Range Neutrophil absolute 6.9 (H) 1.7 - 6.5 K/cumm Immature granulocyte absolute 0.1 0.0 - 0.1 K/cumm Lymphocytes absolute 5.7 (H) 0.8 - 3.3 K/cumm Monocyte absolute 1.1 (H) 0.2 - 0.8 K/cumm Eosinophils absolute 0.2 0.0 - 0.5 K/cumm Basophils, abs 0.0 0.0 - 0.1 K/cumm Neutrophils 49.3 % Immature granulocytes 0.9 % Lymphocytes 40.9 % Monocytes 7.5 % Eosinophils 1.1 % Basophils 0.3 % eGFR Collection Time: 09/24/18 3:30 AM Result Value Ref Range GFR 134 mL/min/1.73 m2 POCT glucose Collection Time: 09/24/18 8:07 AM Result Value Ref Range Glucose, POC, bld 216 (H) 71 - 98 mg/dL POCT glucose Collection Time: 09/24/18 11:48 AM Result Value Ref Range Glucose, POC, bld 202 (H) 71 - 98 mg/dL Xr Chest Pa Lateral 2 Views Result Date: 09/23/2018 Narrative: XR CHEST PA LATERAL 2 VIEWS HISTORY: r/o pneumonia. Congestion. TECHNIQUE: PA and lateral projections. COMPARISON: None available. FINDINGS: Heart size is normal. No infiltrate or effusionidentified. Mild elevation/eventration right hemidiaphragm. Impression: NO ACUTE PULMONARY DISEASE. Electronically signed by: Benny Reyes M.D Ct Head Wo Contrast Result Date: 09/22/2018 Narrative: PROCEDURE: CT HEAD WO CONTRAST HISTORY: Headache,, normal neuro exam. Right-sided facialdroop. Jaw pain. COMPARISON: 04/21/2018. TECHNIQUE: Helical CT scan of the head obtained noncontrast. FINDINGS: No acute intracranial hemorrhage identified. No midline shift is noted. Brainstem cisterns are intact. Ventricles are normal in size. Nodular focus subcutaneous soft tissue the scalp leftoccipital region, present on the prior study of 04/21/2018 at 03/30/2018. Focal opacities in the right and left maxillary sinuses have a nodular appearance suggesting mucous retention cysts or polyps. Minimal opacity right mastoids. Impression: 1. NO ACUTE INTRACRANIAL FINDING. 2. EVIDENCE OF SOME RIGHT MASTOIDITIS. 3. PARANASAL SINUS DISEASE DESCRIBED. Electronically signed by: Benny Reyes M.D CT reviewed: minimal mastoid fluid noted, mild maxillary sinus mucosal thickening. ASSESSMENT/PLAN: Right facial nerve paresis - Improving Right parotitis - changed from Rocephin to Unasyn - Convert to Oral Augmentin for 10 days upon discharge and follow up in one week as outpatient with ENT office. Call with worsening facial paralysis.Continue oral steroids and acyclovir. If hearing has not returned to normal will obtain hearing test. I appreciate this consultation and allowing my participation in the care of Sandeep Susana Camarena DO 09/24/2018 * Dahiana Cope, - 09/23/2018 2:47 PM CDTAssociated Order(s): IP CONSULT TO NEUROLOGY NEUROLOGY CONSULTATION Patient ID: Sandeep Us is a 33 y.o. male This consultation is requested by Oly Mir MD for facial weakness on the right The primary care physician is Isra Mahmood MD History of Present Illness: Per ED notes... Pt presents to ED with C/O 2 day hx of right facial droop and numbness. Pt said he does not have tingling but feels his right lip is numb and he had bitten it and been drooling out that side when eating. Pt said he has been having sinus congestion and recently finished Amoxicillin and steroid. The patient has seen some improvement, it is incomplete facial nerve weakness on the right side. Past Medical History: Diagnosis Date ??? Diabetes (CMS/HCC) ??? Hypertension ??? Sleep apnea Past Surgical History: Procedure Laterality Date ??? CHOLECYSTECTOMY 2010 ??? NASAL SINUS SURGERY 2017 removed polyps bilaterally Social History Socioeconomic History ??? Marital status: Single Spouse name: Not on file ??? Number of children: Not on file ??? Years of education: Not on file ??? Highest education level: Not on file Occupational History ??? Not on file Social Needs ??? Financial resource strain: Not on file ??? Food insecurity: Worry: Not on file Inability: Not on file ??? Transportation needs: Medical: Not on file Non-medical: Not on file Tobacco Use ??? Smoking status: Former Smoker Packs/day: 0.25 Start date: 09/20/2003 Last attempt to quit: 09/18/2016 Years since quittin.0 ??? Smokeless tobacco: Never Used Substance and Sexual Activity ??? Alcohol use: No ??? Drug use: Not Currently ??? Sexual activity: Yes Partners: Female control/protection: Other Comment: on pill Lifestyle ??? Physical activity: Days per week: Not on file Minutes per session: Not on file ??? Stress: Not on file Relationships ??? Social connections: Talks on phone: Not on file Gets together: Not on file Attends samaritan service: Not on file Active member of club or organization: Not on file Attends meetings of clubs or organizations: Not on file Relationship status: Not on file ??? Intimate partner violence: Fear of current or ex partner: Not on file Emotionally abused: Not on file Physically abused: Not on file Forced sexual activity: Not on file Other Topics Concern ??? Not on file Social History Narrative ??? Not on file History reviewed. No pertinent family history. No current facility-administered medications on file prior to encounter. Current Outpatient Medications on File Prior to Encounter Medication Sig Dispense Refill ??? atorvastatin (LIPITOR) 40 mg tablet Take 40 mg by mouth daily ??? FLUoxetine (PROzac) 40 mg capsule Take 40 mg by mouth daily ??? omeprazole (PriLOSEC) 20 mg capsule Take 20 mg by mouth daily ??? amLODIPine (NORVASC) 5 mg tablet 5 mg daily 3 ??? glimepiride (AMARYL) 4 mg tablet Take 8 mg by mouth daily before breakfast 0 ??? ibuprofen (ADVIL,MOTRIN) 600 mg tablet Take 1 tablet (600 mg total) by mouth 3 (three) times a day. Take with food. (Patient taking differently: Take 600 mg by mouth every 8 (eight) hours as needed for pain Take with food.) 30 tablet 0 ??? ranitidine (ZANTAC) 150 mg capsule Take 300 mg by mouth every evening ??? SITagliptin (JANUVIA) 25 mg tablet Take 100 mg by mouth daily Current Facility-Administered Medications: ??? acetaminophen (TYLENOL) tablet 650 mg, 650 mg, oral, Q6H PRN, Oly Mir MD ??? acyclovir (ZOVIRAX) capsule 400 mg, 400 mg, oral, 5x Daily, Oly Mir MD, 400 mg at09/23/18 1314 ??? amLODIPine (NORVASC) tablet 5 mg, 5 mg, oral, Nightly, Oly Mir MD ??? atorvastatin (LIPITOR) tablet 40 mg, 40 mg, oral, Nightly, Oly Mir MD ??? Bifidobacterium infantis (ALIGN) capsule 4 mg, 4 mg, oral, Nightly, Oly Mir MD ??? bisacodyl EC (DULCOLAX EC) tablet 10 mg, 10 mg, oral, Daily PRN, Oly Mir MD ??? cefTRIAXone (ROCEPHIN) 2000 mg/20 mL in sterile water (premix) 2,000 mg, 2,000 mg, intravenous,Q24H ZENOBIA, Oly Mir MD, Last Rate: 240 mL/hr at 09/23/18 0822, 2,000 mg at 09/23/18 0822 ??? dextrose gel in packet 15 g, 15 g, oral, Q15 Min PRN OR dextrose (D10W) 10% bolus 250 mL, 250 mL, intravenous, Q15 Min PRN, Oly Mir MD ??? diphenhydrAMINE (BENADRYL) tab/cap 25 mg, 25 mg, oral, Nightly PRN, Oly Mir MD, 25 mg at 09/22/18 2342 ??? doxycycline (VIBRAMYCIN) tablet/capsule 100 mg, 100 mg, oral, BID - special, Oly Mir MD, 100 mg at 09/23/18 0621 ??? enoxaparin (LOVENOX) syringe 40 mg, 40 mg, subcutaneous, Q12H ZENOBIA, Oly Mir MD ??? famotidine (PEPCID) tablet 20 mg, 20 mg, oral, BID, Oly Mir MD, 20 mg at 810 ??? FLUoxetine (PROzac) capsule 40 mg, 40 mg, oral, Nightly, Oly Mir MD ??? fluticasone propionate (FLONASE) 50 mcg/actuation nasal spray 2 spray, 2 spray, each nostril, BID, Oly Mir MD, 2 spray at 09/23/18 1443 ??? glucagon injection 1 mg, 1 mg, intramuscular, Q30 Min PRN, Oly Mir MD ??? insulin glargine (LANTUS,BASAGLAR) pen injection 30 Units, 30 Units, subcutaneous, BID, Oly Mir MD ??? insulin lispro (HumaLOG) pen injection 1-4 Units, 1-4 Units, subcutaneous, Nightly, DigantkumarJ. Clarke MD, 3 Units at 09/22/18 2201 ??? insulin lispro (HumaLOG) pen injection 1-4 Units, 1-4 Units, subcutaneous, Q24H, Oly Mar MD, 4 Units at 09/23/18 0308 ??? insulin lispro (HumaLOG) pen injection 1-7 Units, 1-7 Units, subcutaneous, TID with meals, Oly Mir MD, 7 Units at 09/23/18 1213 ??? insulin lispro (HumaLOG) pen injection 11 Units, 11 Units, subcutaneous, TID with meals, Oly Mir MD, 5 Units at 09/23/18 1313 ??? [START ON 09/24/2018] insulin NPH (HumuLIN N, NovoLIN N) injection 37 Units, 37 Units, subcutaneous, Daily, Oly Mir MD ??? loratadine (CLARITIN) tablet 10 mg, 10 mg, oral, Daily, Oly Mir MD, 10 mg at 09/23/18 1442 ??? magnesium hydroxide (MILK OF MAGNESIA) 80 mg/mL (33.3 mg/mL as elemental magnesium) oral suspension 30 mL, 30 mL, oral, Daily PRN, Oly Mir MD ??? mineral oil (FLEET MINERAL OIL) enema 1 enema, 1 enema, rectal, Daily PRN, Oly Mir MD ??? ondansetron (ZOFRAN) injection 4 mg, 4 mg, intravenous, Q4H PRN, Oly Mir MD ??? ondansetron (ZOFRAN) injection 4 mg, 4 mg, intravenous, Q4H PRN, Oly Mir MD ??? predniSONE (DELTASONE) tablet 60 mg, 60 mg, oral, Daily, Oly Mir MD, 60 mg at 09/23/18 0810 ??? sodium chloride 0.9% flush 0.5-20 mL, 0.5-20 mL, intra-catheter, Q8H, Oly Mir MD,10 mL at 09/23/18 1214 ??? sodium chloride 0.9% flush 0.5-20 mL, 0.5-20 mL, intra-catheter, PRN, Oly Mir MD Allergies Allergen Reactions ??? Metformin Unknown Review of Systems Constitutional: Negative for fever, fatigue and unexpected weight change. HENT: Negative for ear discharge, ear pain and hearing loss. Eyes: Negative for pain, itching and visual disturbance. Respiratory: Negative for apnea, cough, chest tightness and shortness of breath. Cardiovascular: Negative for chest pain, palpitations and leg swelling. Gastrointestinal: Negative for diarrhea, nausea and vomiting. Genitourinary: Negative for dysuria, flank pain and hematuria. Musculoskeletal: Negative for myalgias, arthralgias and back pain. Neurological: Negative for weakness, numbness and headaches. Psychiatric/Behavioral: Negative for agitation, confusion and hallucinations. Physical Exam Constitutional: The patient appears well-developed and well-nourished. Vitals reviewed. Head/Neck: Normocephalic and atraumatic, normal ROM. ENT: Sclera clear, no drainage of nose, ears, oral cavity normal mucosa Cardiovascular: Normal rate and regular rhythm. Respiratory: Effort normal. No respiratory distress. GI: Abdomen is soft, there is no rebound. Musculoskeletal: Normal range of motion, gait and station steady. Skin: Skin is warm and dry without obvious lesions. Psychiatric: Lucid, calm, no agitation or delusional behavior Neurological exam: Mental Status: Alert and oriented times three, speech is fluent and insight is good, memory is decent, good attention and concentration, normal fund of knowledge Sensory: A sensory exam is non focal for temperature and vibration bilaterally Cranial Nerves: PERRL, EOMI, VF's full, vessels normal, face weakness on the right, sensation intact, hearing is intact, tongue and oropharynx are symmetric and in the midline, shoulder shrug is intact Motor: 5/5 MRC strength upper & lower extremities, tone is equal, no pronator drift Reflexes: Symmetric in the upper and lower extremities, toes are downgoing Cerebellar: No ataxia with finger to nose or rapid alternating movements Laboratory Data: Recent Results (from the past 24 hour(s)) Urinalysis reflex to microscopic and culture Urine, clean voided Collection Time: 09/22/18 6:00 PM Result Value Ref Range Color, ur Red (A) Yellow Clarity, ur Clear Clear Specific gravity, ur >1.030 (H) 1.010 - 1.025 pH, urine 6.5 Protein, ur ql 4+ (A) Negative Glucose, ur ql 3+ (A) Negative Ketones, ur 4+ (A) Negative Bilirubin, ur 3+ (A) Negative Blood, ur 3+ (A) Negative Urobilinogen, ur 1.0 mg/dL Nitrite, ur Positive (A) Negative Leukocyte esterase, ur 3+ (A) Negative Urinalysis, microscopic only Collection Time: 09/22/18 6:00 PM Result Value Ref Range WBC, ur 6-10 (A) 0 - 5 /HPF RBC, ur 0-5 0 - 2 /HPF Epithelial cells, squamous, ur 1-5 0 - 5 /HPF Bacteria, ur Negative Hyaline casts, ur 1-5 0 - 10 /LPF CBC with auto differential Collection Time: 09/22/18 6:04 PM Result Value Ref Range WBC 12.7 (H) 3.8 - 9.9 K/cumm Hgb 15.0 13.0 - 17.5 g/dL Hct 46.3 38.9 - 50.3 % Plt 326 150 - 400 K/cumm MPV 9.7 9.1 - 12.3 fL RBC 5.65 4.30 - 5.80 M/cumm MCV 81.9 81.3 - 96.4 fL MCH 26.5 (L) 27.1 - 33.3 pg MCHC 32.4 32.3 - 35.7 g/dL RDW CV 14.5 11.1 - 14.9 % RDW SD 42.9 35.7 - 48.1 fL NRBC Abs 0.00 0.00 - 0.01 K/cumm Comprehensive metabolic panel Collection Time: 09/22/18 6:04 PM Result Value Ref Range Sodium 139 135 - 145 mmol/L Potassium, pl 4.5 3.3 - 4.9 mmol/L Chloride 100 97 - 110 mmol/L CO2 22 22 - 32 mmol/L Anion Gap 17 (H) 2 - 15 mmol/L BUN 16 8 - 25 mg/dL Creatinine 0.57 (L) 0.80 - 1.30 mg/dL Glucose 340 (H) 70 - 199 mg/dL Calcium 9.8 8.5 - 10.3 mg/dL Bilirubin, total <0.2 0.1 - 1.2 mg/dL Protein, pl 8.1 6.5 - 8.5 g/dL Albumin 4.5 3.5 - 5.0 g/dL Alk phos 127 40 - 130 Units/L ALT 38 7 - 55 Units/L AST 22 10 - 50 Units/L Hemoglobin A1c Collection Time: 09/22/18 6:04 PM Result Value Ref Range Hgb A1C 11.1 (H) 4.0 - 5.6 % Estimated Average Glucose 272 mg/dL CRP (acute phase) Collection Time: 09/22/18 6:04 PM Result Value Ref Range C-RP 5.8 <=10.0 mg/L Differential, auto Collection Time: 09/22/18 6:04 PM Result Value Ref Range Neutrophil absolute 7.6 (H) 1.7 - 6.5 K/cumm Immature granulocyte absolute 0.1 0.0 - 0.1 K/cumm Lymphocytes absolute 4.1 (H) 0.8 - 3.3 K/cumm Monocyte absolute 0.8 0.2 - 0.8 K/cumm Eosinophils absolute 0.2 0.0 - 0.5 K/cumm Basophils, abs 0.0 0.0 - 0.1 K/cumm Neutrophils 59.9 % Immature granulocytes 0.6 % Lymphocytes 32.1 % Monocytes 5.9 % Eosinophils 1.2 % Basophils 0.3 % eGFR Collection Time: 09/22/18 6:04 PM Result Value Ref Range GFR 135 mL/min/1.73 m2 POCT glucose Collection Time: 09/22/18 10:00 PM Result Value Ref Range Glucose, POC, bld 219 (H) 71 - 98 mg/dL POCT glucose Collection Time: 09/23/18 2:24 AM Result Value Ref Range Glucose, POC, bld 339 (Critical) 71 - 98 mg/dL POCT glucose Collection Time: 09/23/18 7:40 AM Result Value Ref Range Glucose, POC, bld 251 (H) 71 - 98 mg/dL POCT glucose Collection Time: 09/23/18 11:57 AM Result Value Ref Range Glucose, POC, bld 258 (H) 71 - 98 mg/dL Data Review: CT head images reviewed, nothing acute IMPRESSIONS & RECOMMENDATIONS: Consider MRI of the brain due to the recent infection, will order with and without contrast Ceballos's palsy Mastoiditis of right side Uncontrolled type 1 diabetes mellitus with hyperglycemia ([facility]) H/O cristina Cope D.O. , Neurology & Neurophysiology Office: documented in this encounter Nursing Notes * Caitlyn Sandoval RN - 09/27/2018 11:17 AM CDT Patient is alert and oriented. Patient and were given verbal and written discharge instructions. Patient and stated they understood discharge and would follow up with PCP. Patient was escorted to ER parking by RN. Signed discharge instructions are in medical records. documented in this encounter ED Notes * Jc Ramirez MD - 09/22/2018 5:57 PM CDT HPI Chief Complaint Patient presents with ??? Facial Droop 5:47 PM 09/22/2018 Patient is a 33 y/o male with a h/o morbid obesity and diabetes, presenting to the ED complaining of right-sided facial droop that he first noticed 2-3 days ago. Patient also reports facial numbness,along with R lower jaw pain. Denies speech changes. No weakness or confusion noted. There are no additional complaints or concerns at this time. PCP: Dr. Mahmood Patient History There are no active problems to display for this patient. Past Medical History: Diagnosis Date ??? Diabetes (CMS/HCC) History reviewed. No pertinent surgical history. History reviewed. No pertinent family history. Social History Tobacco Use ??? Smoking status: Never Smoker ??? Smokeless tobacco: Never Used Substance Use Topics ??? Alcohol use: No ??? Drug use: Not on file Social History Social History Narrative ??? Not on file Review of Systems Review of Systems Constitutional: Negative for chills, fatigue and fever. HENT: Negative for congestion, ear pain, rhinorrhea, sneezing and sore throat. + jaw pain Respiratory: Negative for cough, shortness of breath and wheezing. Cardiovascular: Negative for chest pain and palpitations. Gastrointestinal: Negative for abdominal pain, constipation, diarrhea, nausea and vomiting. Musculoskeletal: Negative for arthralgias, back pain and neck pain. Skin: Negative for rash and wound. Neurological: Positive for facial asymmetry and numbness (facial ). Negative for dizziness, syncope, weakness, light-headedness and headaches. All other systems reviewed and are negative. Physical Exam ED Triage Vitals Temp Pulse Resp BP SpO2 09/22/18 17509/22/18 17509/22/18 17509/22/18 17509/22/181750 36.1 ??C (96.9 ??F) 93 18 140/85 96 % Temp src Heart Rate Source Patient Position BP Location FiO2 (%) 09/22/18175009/22/18191809/22/18191809/22/181918 -- Temporal Monitor Sitting Left arm Physical Exam Constitutional: He is oriented to person, place, and time. He appears well- developed. No distress. Very obese, pleasant male in no acute distress. HENT: Head: Normocephalic and atraumatic. Mild right-sided facial droop. R forehead muscles decreased. Eye doesn't totally close all the way.There is some drooling. R TM is bulging and slightly red. Tenderness on the mastoid. No erythema. No swelling appreciated. Eyes: Conjunctivae and EOM are normal. Neck: Normal range of motion. Neck supple. Cardiovascular: Normal rate, regular rhythm, normal heart sounds and intact distal pulses. Exam reveals no gallop and no friction rub. No murmur heard. Pulmonary/Chest: Effort normal and breath sounds normal. No respiratory distress. He has no wheezes. He has no rales. Abdominal: Soft. He exhibits no distension. There is no tenderness. Musculoskeletal: Normal range of motion. He exhibits no edema, tenderness or deformity. Neurological: He is alert and oriented to person, place, and time. Skin: Skin is warm and dry. Capillary refill takes less than 2 seconds. No rash noted. No erythema.No pallor. Psychiatric: He has a normal mood and affect. His behavior is normal. Nursing note and vitals reviewed. [facility] Labs Reviewed URINALYSIS AND REFLEX TO MICROSCOPIC AND CULTURE - Abnormal Result Value Color, ur Red (*) Clarity, ur Clear Specific gravity, ur >1.030 (*) pH, urine 6.5 Protein, ur ql 4+ (*) Glucose, ur ql 3+ (*) Ketones, ur 4+ (*) Bilirubin, ur 3+ (*) Blood, ur 3+ (*) Urobilinogen, ur 1.0 Nitrite, ur Positive (*) Leukocyte esterase, ur 3+ (*) Narrative: Urine pH is affected by diet, medications, systemic acid-base disturbances, and renal tubular function. pH may affect urinary stone formation. For example, urine pH below 6.0 may help reduce the tendency for calcium phosphate stones and pH greater than 6.0 may reduce the tendency for uric acid stone formation. Source: [facility] Interactive TKO.Last revised 06-01-2017 CBC WITH AUTO DIFFERENTIAL - Abnormal WBC 12.7 (*) Hgb 15.0 Hct 46.3 Plt 326 MPV 9.7 RBC 5.65 MCV 81.9 MCH 26.5 (*) MCHC 32.4 RDW CV 14.5 RDW SD 42.9 NRBC Abs 0.00 Narrative: COMPREHENSIVE METABOLIC PANEL - Abnormal Sodium 139 Potassium, pl 4.5 Chloride 100 CO2 22 Anion Gap 17 (*) BUN 16 Creatinine 0.57 (*) Glucose 340 (*) Calcium 9.8 Bilirubin, total <0.2 Protein, pl 8.1 Albumin 4.5 Alk phos 127 ALT 38 AST 22 Narrative: HEMOGLOBIN A1C - Abnormal Hgb A1C 11.1 (*) Estimated Average Glucose 272 Narrative: URINALYSIS, MICROSCOPIC ONLY - Abnormal WBC, ur 6-10 (*) RBC, ur 0-5 Epithelial cells, squamous, ur 1-5 Bacteria, ur Negative Hyaline casts, ur 1-5 Narrative: DIFFERENTIAL AUTO - Abnormal Neutrophil absolute 7.6 (*) Immature granulocyte absolute 0.1 Lymphocytes absolute 4.1 (*) Monocyte absolute 0.8 Eosinophils absolute 0.2 Basophils, abs 0.0 Neutrophils 59.9 Immature granulocytes 0.6 Lymphocytes 32.1 Monocytes 5.9 Eosinophils 1.2 Basophils 0.3 Narrative: CRP (ACUTE PHASE) C-RP 5.8 Narrative: EGFR GFR 135 Narrative: CT Head WO Contrast Final Result 1. NO ACUTE INTRACRANIAL FINDING. 2. EVIDENCE OF SOME RIGHT MASTOIDITIS. 3. PARANASAL SINUS DISEASE DESCRIBED. Electronically signed by: Benny Reyes M.D BP 144/78 (BP Location: Left arm, Patient Position: Sitting) Pulse 88 Temp 36.1 ??C (96.9 ??F) (Temporal) Resp 20 Ht 175.3 cm (5' 9 ) Wt (!) 149.7 kg (330 lb) SpO2 96% BMI 48.73 kg/m?? MDM ED Course as of Sep 23 1923 Time: 09/23 1907 Comment: Patient noted that he had Influenza A two weeks, proven by DNA swab. He also had a R otitis media, for which he was treated with Ampicillin for 10 days. By: Jorje Sahu Time: 09/22 1917 Comment: Discussed patient's case with Dr. Alex, Hospitalist, who accepts the patient for admission. By: Jorje Sahu Ceballos's palsy Mastoiditis of right side Uncontrolled type 1 diabetes mellitus with hyperglycemia ([facility]) H/O influenza Jorje Sahu scribed for Jc Ramirez MD in the doctor's presence. I electronically signed this note at 6:04 PM on 09/22/2018. I, Jc Ramirez MD, have personally performed the services described in the documentation , reviewed the documentation, as recorded by the scribe in my presence, and it accurately and completely records my words and actions. Jc Ramirez MD 09/23/181641 * Brittney Chen RN - 09/22/2018 5:46 PM CDT Pt presents to ED with C/O 2 day hx of right facial droop and numbness. Pt said he does not have tingling but feels his right lip is numb and he had bitten it and been drooling out that side when eating. Pt said he has been having sinus congestion and recently finished Amoxicillin and steroid. Pt denies any other complaints at this time and is A+O x4 and VSS. documented in this encounter Miscellaneous Notes * Plan of Care - Caitlyn Sandoval RN - 09/27/2018 10:05 AM CDT Problem: Health Behavior: Goal: Understanding of discharge needs will improve Outcome: Adequate for Discharge Problem: Neurosensory Goal: Achieves stable or improved neurological status Description INTERVENTIONS 1. Assess for and report changes in neurological status 2. Initiate measures to prevent increased intracranial pressure 3. Maintain blood pressure and fluid volume within ordered parameters to optimize cerebral perfusion and minimize risk of hemorrhage 4. Monitor temperature, glucose, and sodium. Initiate appropriate interventions as ordered Outcome: Adequate for Discharge Goal: Achieves maximal functionality and self care Description INTERVENTIONS 1. Monitor swallowing and airway patency with patient fatigue and changes in neurological status 2. Encourage and assist patient to increase activity and self care with guidance from therapies 3. Encourage visually impaired, hearing impaired and aphasic patients to use assistive/communication devices Outcome: Adequate for Discharge Problem: Communication Impairment Goal: Ability to express needs and understand communication Description Assess patient's communication skills and ability to understand information. Patient will demonstrate use of effective communication techniques, alternative methods of communication and understandingeven if not able to speak. Outcome: Adequate for Discharge Goals: Clinical Goals for the Shift: possible discharge Summary: Patient is alert and oriented. Patient plans to discharge home. Discharge pending. * Plan of Care - Christiana Chaparro RN - 09/27/2018 3:45 AM CDT Goals: Clinical Goals for the Shift: Improved facial paralysis. Stable VS/labs. No falls/injury. Summary: Pt continues with right side face pressure . Vitals stable. Continue medications as ordered. Blood glucose 205 and 208 for shift. Pt up independently with cane. No falls or injuries noted. * Plan of Care - Dianna John RN - 09/26/2018 3:22 PM CDT Goals: Clinical Goals for the Shift: Improved facial paralysis. Stable VS/labs. No falls/injury. Summary: Still some facial numbness on the rt. Side. No c/o any pain. Up and about in room. Eating well. Demonstrates giving himself insulin well with the insulin pen. VSS. ABX given as scheduled. * Plan of Care - Christiana Chaparro RN - 09/26/2018 5:09 AM CDT Goals: Clinical Goals for the Shift: Improved facial paralysis. Stable VS/labs. No falls/injury. Summary: Pt reports some pressure to right side of face. Vitals stable. Blood glucose 366 at 0200, pt asymptomatic. No injuries noted for shift. * Plan of Care - Dianna John RN - 09/25/2018 4:19 PM CDT Goals: Clinical Goals for the Shift: Improved facial paralysis. Stable VS/labs. No falls/injury. Summary: No c/o any pain or discomfort, still some numbness on the rt. Side of face,slight droop noted. Up and about in room and hallway. ABX given as scheduled. * Plan of Care - Mita Antonio RN - 09/25/2018 5:58 AM CDT Problem: Health Behavior: Goal: Understanding of discharge needs will improve Outcome: Progressing Problem: Neurosensory Goal: Achieves stable or improved neurological status Description INTERVENTIONS 1. Assess for and report changes in neurological status 2. Initiate measures to prevent increased intracranial pressure 3. Maintain blood pressure and fluid volume within ordered parameters to optimize cerebral perfusion and minimize risk of hemorrhage 4. Monitor temperature, glucose, and sodium. Initiate appropriate interventions as ordered Outcome: Progressing Goal: Achieves maximal functionality and self care Description INTERVENTIONS 1. Monitor swallowing and airway patency with patient fatigue and changes in neurological status 2. Encourage and assist patient to increase activity and self care with guidance from therapies 3. Encourage visually impaired, hearing impaired and aphasic patients to use assistive/communication devices Outcome: Progressing Problem: Communication Impairment Goal: Ability to express needs and understand communication Description Assess patient's communication skills and ability to understand information. Patient will demonstrate use of effective communication techniques, alternative methods of communication and understandingeven if not able to speak. Outcome: Progressing Goals: Clinical Goals for the Shift: Improved facial paralysis. Stable VS/labs. No falls/injury. Summary: A/Ox4. Reports improving right sided facial drooping. States he still feels some pressure and pain in the ride side of the jaw. He also reports slightly improving hearing in the right ear. He is resting well. Will continue to monitor and medicate as needed and as ordered. * Plan of Care - Katarzyna Morales RN - 09/24/2018 4:17 PM CDT Problem: Health Behavior: Goal: Understanding of discharge needs will improve Outcome: Progressing Problem: Neurosensory Goal: Achieves stable or improved neurological status Description INTERVENTIONS 1. Assess for and report changes in neurological status 2. Initiate measures to prevent increased intracranial pressure 3. Maintain blood pressure and fluid volume within ordered parameters to optimize cerebral perfusion and minimize risk of hemorrhage 4. Monitor temperature, glucose, and sodium. Initiate appropriate interventions as ordered Outcome: Progressing Goal: Achieves maximal functionality and self care Description INTERVENTIONS 1. Monitor swallowing and airway patency with patient fatigue and changes in neurological status 2. Encourage and assist patient to increase activity and self care with guidance from therapies 3. Encourage visually impaired, hearing impaired and aphasic patients to use assistive/communication devices Outcome: Progressing Problem: Communication Impairment Goal: Ability to express needs and understand communication Description Assess patient's communication skills and ability to understand information. Patient will demonstrate use of effective communication techniques, alternative methods of communication and understandingeven if not able to speak. Outcome: Progressing Goals: Clinical Goals for the Shift: Free from falls and injury, vitlas and labs stable, improve neuro symptoms, Summary: Pt is alert, oriented and independent in the room. Pt had no complaints this shift. Self administration of insulin was instructed, teach back was preformed. Pt had no questions regarding care. Will continue to monitor and medicate as ordered and as appropriate. * Plan of Care - Nilda Clark RN - 09/24/2018 4:45 AM CDT Goals: Clinical Goals for the Shift: Improvement in neuro symptoms. VSS. Blood sugar stable. Summary: Right side facial droop remains. Ambien given at hs for c/o insomnia. Blood sugar in 200'sthis shift. VSS. * Plan of Care - Lyly Park RN - 09/23/2018 9:20 AM CDT Goals: Clinical Goals for the Shift: Pt will improved symptoms, vitals stable and remain pain free. Summary: continue to monitor blood sugars. Continues on antibiotics. * Plan of Care - Alma Delia Adam RN - 09/23/2018 3:35 AM CDT Goals: Clinical Goals for the Shift: Pt will improved symptoms, vitals stable and remain pain free. Summary: Pt is a&o up ad inocencia with cane due to left ankle sprain 2 months ago. Pt c/o drooping to right side of mouth worsening over last 1-2 days. Pt states he is unable to fully close right eye.No weakness noted to extremities. No c/o pain. Hyperglycemic x1 medicated as ordered per Dr. Alex, tolerated well. Home cpap worn at night. documented in this encounter Plan of Treatment Not on file documented as of this encounter Procedures Procedure Name Priority Date/Time Associated Diagnosis Comments POCT GLUCOSE DEVICE Routine 09/27/2018 7 :44 AM CDT EGFR Routine 09/27/2018 3:36 AM CDT DIFFERENTIAL AUTO Routine 09/27/2018 3:3 6 AM CDT CBC WITH AUTO DIFFERENTIAL Routine 09/27/2018 3:36 AM CDT MAGNESIUM Routine 09/27/2018 3:36 AM CDT RENAL FUNCTION PANEL Routine 09/27/2018 3:36 AM CDT POCT GLUCOSE DEVICE Routine 09/27/2018 2 :34 AM CDT POCT GLUCOSE DEVICE Routine 09/26/2018 9 :20 PM CDT POCT GLUCOSE DEVICE Routine 09/26/2018 4 :58 PM CDT POCT GLUCOSE DEVICE Routine 09/26/2018 1 1:49 AM CDT POCT GLUCOSE DEVICE Routine 09/26/2018 7 :45 AM CDT EGFR Routine 09/26/2018 4:02 AM CDT DIFFERENTIAL AUTO Routine 09/26/2018 4:0 2 AM CDT CBC WITH AUTO DIFFERENTIAL Routine 09/26/2018 4:02 AM CDT MAGNESIUM Routine 09/26/2018 4:02 AM CDT RENAL FUNCTION PANEL Routine 09/26/2018 4:02 AM CDT POCT GLUCOSE DEVICE Routine 09/26/2018 2 :15 AM CDT POCT GLUCOSE DEVICE Routine 09/25/2018 9 :20 PM CDT POCT GLUCOSE DEVICE Routine 09/25/2018 4 :45 PM CDT US SOFT TISSUE HEAD NECK IP Routine 09/25/2018 1:48 PM CDT POCT GLUCOSE DEVICE Routine 09/25/2018 1 1:49 AM CDT POCT GLUCOSE DEVICE Routine 09/25/2018 7 :42 AM CDT EGFR Routine 09/25/2018 3:40 AM CDT DIFFERENTIAL AUTO Routine 09/25/2018 3:4 0 AM CDT CBC WITH AUTO DIFFERENTIAL Routine 09/25/2018 3:40 AM CDT MAGNESIUM Routine 09/25/2018 3:40 AM CDT RENAL FUNCTION PANEL Routine 09/25/2018 3:40 AM CDT POCT GLUCOSE DEVICE Routine 09/25/2018 2 :40 AM CDT POCT GLUCOSE DEVICE Routine 09/24/2018 9 :29 PM CDT MRI BRAIN W WO CONTRAST IP Routine 09/24/2018 5:40 PM CDT POCT GLUCOSE DEVICE Routine 09/24/2018 4 :48 PM CDT POCT GLUCOSE DEVICE Routine 09/24/2018 1 1:48 AM CDT POCT GLUCOSE DEVICE Routine 09/24/2018 8 :07 AM CDT EGFR Routine 09/24/2018 3:30 AM CDT DIFFERENTIAL AUTO Routine 09/24/2018 3:3 0 AM CDT CBC WITH AUTO DIFFERENTIAL Routine 09/24/2018 3:30 AM CDT MAGNESIUM Routine 09/24/2018 3:30 AM CDT RENAL FUNCTION PANEL Routine 09/24/2018 3:30 AM CDT LIPID PANEL Routine 09/24/2018 3:30 AM CDT POCT GLUCOSE DEVICE Routine 09/24/2018 2 :49 AM CDT POCT GLUCOSE DEVICE Routine 09/23/2018 9 :08 PM CDT XR CHEST PA LATERAL 2 VIEWS IP Routine 09/23/2018 6:33 PM CDT POCT GLUCOSE DEVICE Routine 09/23/2018 4 :44 PM CDT BLOOD CULTURE Routine 09/23/2018 2:27 PM CDT BLOOD CULTURE Routine 09/23/2018 2:20 PM CDT POCT GLUCOSE DEVICE Routine 09/23/2018 1 1:57 AM CDT POCT GLUCOSE DEVICE Routine 09/23/2018 7 :40 AM CDT POCT GLUCOSE DEVICE Routine 09/23/2018 2 :24 AM CDT POCT GLUCOSE DEVICE Routine 09/22/2018 1 0:[address] HEAD WO CONTRAST ED 09/22/2018 6 :10 PM CDT EGFR STAT 09/22/2018 6:04 PM CDT DIFFERENTIAL AUTO STAT 09/22/2018 6:0 4 PM CDT CBC WITH AUTO DIFFERENTIAL STAT 09/22/2018 6:04 PM CDT CRP (ACUTE PHASE) STAT 09/22/2018 6:0 4 PM CDT HEMOGLOBIN A1C Routine 09/22/2018 6:04 PM CDT COMPREHENSIVE METABOLIC PANEL STAT 09/22/2018 6:04 PM CDT URINALYSIS AND REFLEX TO MICROSCOPIC AND CULTURE STAT 09/22/2018 6:00 PM CDT URINALYSIS, MICROSCOPIC ONLY STAT 09/22/2018 6:00 PM CDT URINE CULTURE STAT 09/22/2018 6:00 PM CDT documented in this encounter Results * (ABNORMAL) POCT glucose (09/27/2018 7:44 AM CDT) [facility] Signature Glucose, POC 196(H) 71 - 98 mg/dL [facility] ([facility]) Blood specimen (specimen) 09/27/2018 7:44 AM CDT 09/27/2018 7:44 AM CDT Narrative [facility] ([facility]) - 09/27/2018 8:05 AM CDT Filiberto Urbano MD LAB POCT ORDERABLES - DEVICE Final Result [facility] ([facility]) 1 [facility] Department [place] [address] * eGFR (09/27/2018 3:36 AM CDT) eGFR 138 mL/min/1.7 3 m2 [facility] ([facility]) Comment: Interpretive Data Reference Interval Normal ?>/= 90 mL/min/1.73m2 Mildly decreased* ? 60 - 89 mL/min/1.73m2 Mildly to moderately decreased ?45 - 59 mL/min/1.73m2 Moderately to severely decreased ??30 - 44 mL/min/1.73m2 Severely decreased ?15 - 29 mL/min/1.73m2 Kidney Failure ?< 15 ??mL/min/1.73m2 *Relative to young adult level If -Cymro multiply value by 1.16. Estimated glomerular filtration rate is determined by the CKD-EPI equation recommended by the National Kidney Foundation (KDIGO 2012 Clinical Practice Guideline for the Evaluation and Management of Chronic Kidney Disease. Kidney Intnl Suppl May 2012;3:1). The CKD-EPI equation should not be used for patients with unstable renal function and has not been validated in children and those over 70. Current interpretive data was last reviewed 2015. Blood specimen (specimen) 09/27/2018 3:36 AM CDT 09/27/2018 4:19 AM CDT Narrative [facility] ([facility]) - 09/27/2018 4:56 AM CDT Oly Mir MD LAB BLOOD ORDERABLES Fin al Result [facility] ([facility]) 1 [facility] Department [place] [address] * (ABNORMAL) Differential, auto (09/27/2018 3:36 AM CDT) Neutrophil abs 7.7(H) 1.7 - 6.5 K/cumm [facility] ([facility]) Imm gran abs 0.2(H) 0.0 - 0.1 K/cumm [facility] ([facility]) Lymphocyte abs 6.4(H) 0.8 - 3.3 K/cumm [facility] ([facility]) Monocyte abs 1.1(H) 0.2 - 0.8 K/cumm [facility] ([facility]) Eosinophil abs 0.1 0.0 - 0.5 K/cumm [facility] ([facility]) Basophil abs 0.0 0.0 - 0.1 K/cumm [facility] ([facility]) Neutrophil pct 49.5 % [facility] ([facility]) Comment: Interpretive Data Percent cell count reference ranges are not reported, since discordance with absolute values may lead to misinterpretation of CBC data. Current Interpretive Data was last revised on 2017. Imm gran pct 1.0 % [facility] ([facility]) Comment: Interpretive Data Percent cell count reference ranges are not reported, since discordance with absolute values may lead to misinterpretation of CBC data. Current Interpretive Data was last revised on 2017. Lymphocyte pct 41.3 % [facility] ([facility]) Comment: Interpretive [...] was last revised on 2017. Eosinophil pct 0.6 % [facility] ([facility]) Comment: Interpretive Data Percent cell count reference [...] Data was last revised on 2017. Blood specimen (specimen) 09/27/2018 3:36 AM CDT 09/27/2018 4:19 AM CDT Narrative [facility] ([facility]) - 09/27/2018 4:39 AM CDT Oly Mir MD LAB BLOOD ORDERABLES Fin al Result Performing Organization Address City/[facility]/ZIP Co de Phone Number WINSOME [facility] (F[facility] PO[facility]TS) 1 [facility] [place] [address] * Magnesium (09/27/2018 3:36 AM CDT) Magnesium 2.0 1.6 - 2.4 mg/dL [facility] (F[facility] PO[facility]) Blood specimen (specimen) 09/27/2018 3:36 AM CDT 09/27/2018 4:19 AM CDT Narrative [facility]OME [facility] (F[facility] PO[facility]) - 09/27/2018 4:56 AM CDT Oly Mir MD LAB BLOOD ORDERABLES Fin al Result Performing Organization Address City/[facility]/ZIP Co de Phone Number WINSOME [facility] (F[facility] POINTS) 1 [facility] [place] [address] * (ABNORMAL) Renal function panel (09/27/2018 3:36 AM CDT) Sodium 138 135 - 145 mmol/L [facility] (F[facility] PO[facility]TS) Potassium, pl 3.7 3.3 - 4.9 mmol/L [facility] ([facility]) Chloride 101 97 - 110 mmol/L [facility] CO2 22 22 - 32 mmol/L [facility] ([facility]) Anion gap 15 2 - 15 mmol/L [facility] BUN 18 8 - 25 mg/dL [facility] ([facility]) Creatinine 0.54(L) 0.80 - 1.30 mg/dL [facility] ([facility]) Glucose 227(H) 70 - 199 mg/dL [facility] Comment: Interpretive Data Fasting glucose [...] classification and Diagnosis of Diabetes Diabetes Care 2017;40 (Suppl. 1):S11. Current interpretive data was last revised 2017. Calcium 9.3 8.5 - 10.3 mg/dL [facility] ([facility]) Phosphorus, pl 4.1 2.3 - 4.5 mg/dL [facility] Albumin 3.8 3.5 - 5.0 g/dL [facility] ([facility]) Blood specimen (specimen) 09/27/2018 3:36 AM CDT 09/27/2018 4:19 AM CDT [facility]ative [facility] - 09/27/2018 4:56 AM CDT us Oly Mir MD LAB BLOOD ORDERABLES Fin al Result WINSOME [facility] (EFREN) 1 [facility] Department [place] [address] * (ABNORMAL) CBC with auto differential (09/27/2018 3:36 AM CDT) WBC 15.5(H) 3.8 - 9.9 K/cumm [facility] ([facility]) Hgb 13.9 13.0 - 17.5 g/dL [facility] ([facility]) Hct 43.2 38.9 - 50.3 % [facility] ([facility]) Plt 322 150 - 400 K/cumm [facility] ([facility]) MPV 9.9 9.1 - 12.3 fL [facility] ([facility]) RBC 5.28 4.30 - 5.80 M/cumm [facility] ([facility]) MCV 81.8 81.3 - 96.4 fL [facility] ([facility]) MCH 26.3(L) 27.1 - 33.3 pg [facility] ([facility]) MCHC 32.2(L) 32.3 - 35.7 g/dL [facility] ([facility]) RDW CV 14.7 11.1 - 14.9 % [facility] ([facility]) RDW SD 43.8 35.7 - 48.1 fL [facility] ([facility]) NRBC abs 0.00 0.00 - 0.01 K/cumm [facility] ([facility]) Blood specimen (specimen) 09/27/2018 3:36 AM CDT 09/27/2018 4:19 AM CDT Narrative [facility] ([facility]) - 09/27/2018 4:26 AM CDT us Oly Mir MD LAB BLOOD ORDERABLES Fin al Result WINSOME [facility] (EFREN) 1 [facility] Department [place] [address] * (ABNORMAL) POCT glucose (09/27/2018 2:34 AM CDT) [facility] Signature Glucose, POC 208(H) 71 - 98 mg/dL [facility] ([facility]) Blood specimen (specimen) 09/27/2018 2:34 AM CDT 09/27/2018 2:34 AM CDT Narrative [facility] ([facility]) - 09/27/2018 2:35 AM CDT us Filiberto Urbano MD LAB POCT ORDERABLES - DEVICE Final Result Performing Organization Address City/[facility]/ZIP Co de Phone Number WINSOME [facility] ([facility]IVE [facility]TS) 1 [facility] [place] [address] * (ABNORMAL) POCT glucose (09/26/2018 9:20 PM CDT) Glucose, POC 205(H) 71 - 98 mg/dL [facility] (FIVE POINTS) Comment:Glu2: JANAK/ Notified Blood specimen (specimen) 09/26/2018 9:20 PM CDT 09/26/2018 9:20 PM CDT Narrative WINSOME [facility] (FIVE POINTS) - 09/26/2018 9:21 PM CDT Filiberto Urbano MD LAB POCT ORDERABLES - DEVICE Final Result Performing Organization Address [facility] Co de Phone Number WINSOME [facility] (FIVE POINTS) 1 [place] [address] * (ABNORMAL) POCT glucose (09/26/2018 4:58 PM CDT) Glucose, POC 240(H) 71 - 98 mg/dL [facility] (FIVE POINTS) Comment:Glu2: JANAK/ Notified Blood specimen (specimen) 09/26/2018 4:58 PM CDT 09/26/2018 4:58 PM CDT Narrative WINSOME [facility] (FIVE POINTS) - 09/26/2018 5:05 PM CDT Filiberto Urbano MD LAB POCT ORDERABLES - DEVICE Final Result Performing Organization Address City/[facility]/ZIP Co de Phone Number WINSOME [facility] ([facility]IVE [facility]TS) 1 [place] [address] * (ABNORMAL) POCT glucose (09/26/2018 11:49 AM CDT) Glucose, POC 213(H) 71 - 98 mg/dL W[facility] (FIVE POINTS) Comment:Glu2: RN/ Notified Blood specimen (specimen) 09/26/2018 11:49 AM CDT 09/26/2018 11:49 AM CDT Narrative WINSOME [facility] (FIVE POINTS) - 09/26/2018 11:50 AM CDT Filiberto Urbano MD LAB POCT ORDERABLES - DEVICE Final Result Performing Organization Address [facility] Co de Phone Number WINSOME [facility] (FIVE POINTS) 1 [facility] [place] [address] * (ABNORMAL) POCT glucose (09/26/2018 7:45 AM CDT) Glucose, POC 195(H) 71 - 98 mg/dL [facility] (FIVE PO[facility]) Blood specimen (specimen) 09/26/2018 7:45 AM CDT 09/26/2018 7:45 AM CDT Narrative WINSOME [facility] (FIVE POINTS) - 09/26/2018 8:02 AM CDT Filiberto Urbano MD LAB POCT ORDERABLES - DEVICE Final Result Performing Organization Address [facility] de Phone Number WINSOME [facility] (FIVE POINTS) [address] [place] [address] [place] [address] * eGFR (09/26/2018 4:02 AM CDT) eGFR 133 mL/min/1.7 3 m2 [facility] (FIVE POINTS) Comment: Interpretive Data Reference Interval Normal ?>/= 90 mL/min/1.73m2 Mildly decreased* ? 60 - 89 mL/min/1.73m2 Mildly to moderately decreased ?45 - 59 mL/min/1.73m2 Moderately to severely decreased ??30 - 44 mL/min/1.73m2 Severely decreased ?15 - 29 mL/min/1.73m2 Kidney Failure ?< 15 ??mL/min/1.73m2 *Relative to young adult level If -Cymro multiply value by 1.16. Estimated glomerular filtration rate is determined by the CKD-EPI equation recommended by the National Kidney Foundation (KDIGO 2012 Clinical Practice Guideline for the Evaluation and Management of Chronic Kidney Disease. Kidney Intnl Suppl May 2012;3:1). The CKD-EPI equation should not be used for patients with unstable renal function and has not been validated in children and those over 70. Current interpretive data was last reviewed 2015. Blood specimen (specimen) 09/26/2018 4:02 AM CDT 09/26/2018 4:25 AM CDT Narrative [facility] ([facility]) - 09/26/2018 4:54 AM CDT Oly Mir MD LAB BLOOD ORDERABLES Fin al Result [facility] ([facility]) 1 [facility] Department of Laboratories [place], [place] [id number] * (ABNORMAL) Differential, auto (09/26/2018 4:02 AM CDT) Neutrophil abs 7.5(H) 1.7 - 6.5 K/cumm [facility] ([facility]) Imm gran abs 0.1 0.0 - 0.1 K/cumm [facility] ([facility]) Lymphocyte abs 5.9(H) 0.8 - 3.3 K/cumm [facility] ([facility]) Monocyte abs 1.2(H) 0.2 - 0.8 K/cumm [facility] ([facility]) Eosinophil abs 0.1 0.0 - 0.5 K/cumm [facility] ([facility]) Basophil abs 0.0 0.0 - 0.1 K/cumm [facility] ([facility]) Neutrophil pct 50.3 % [facility] ([facility]) Comment: Consistent with previous result Interpretive Data Percent cell count reference ranges are not reported, since discordance with absolute values may lead to misinterpretation of CBC data. Current Interpretive Data was last revised on 2017. Imm gran pct 0.9 % WINSOME [facility] (EFREN) Comment: Interpretive Data Percent cell count reference ranges are not reported, since discordance with absolute values may lead to misinterpretation of CBC data. Current Interpretive Data was last revised on 2017. Lymphocyte pct 39.9 % [facility] ([facility]) Comment: Interpretive Data Percent cell count reference ranges are not reported, since discordance with absolute values may lead to misinterpretation of CBC data. Current Interpretive Data was last revised on 2017. Monocyte pct 7.7 % [facility]OME [facility] (EFREN) Comment: Interpretive Data Percent cell count reference ranges are not reported, since discordance with absolute values may lead to misinterpretation of CBC data. Current Interpretive Data was last revised on 2017. Eosinophil pct 0.9 % [facility] ([facility]) Comment: Interpretive Data Percent cell count reference ranges are not reported, since discordance with absolute values may lead to misinterpretation of CBC data. Current Interpretive Data was last revised on 2017. Basophil pct 0.3 % WINSOME [facility] (FIVE POINTS) Comment: Interpretive Data Percent cell count reference ranges are not reported, since discordance with absolute values may lead to misinterpretation of CBC data. Current Interpretive Data was last revised on 2017. Blood specimen (specimen) 09/26/2018 4:02 AM CDT 09/26/2018 4:25 AM CDT Narrative [facility] (EFREN) - 09/26/2018 4:29 AM CDT us Oly Mir MD LAB BLOOD ORDERABLES Fin al Result [facility] (EFREN) 1 [facility] Department [place] [address] * Magnesium (09/26/2018 4:02 AM CDT) Magnesium 2.1 1.6 - 2.4 mg/dL WINSOME [facility] (FIVE POINTS) Blood specimen (specimen) 09/26/2018 4:02 AM CDT 09/26/2018 4:25 AM CDT Narrative WINSOME [facility] (EFREN) - 09/26/2018 4:54 AM CDT us Oly Mir MD LAB BLOOD ORDERABLES Fin al Result WINSOME [facility] (EFREN) 1 [facility] Department [place] [address] * (ABNORMAL) Renal function panel (09/26/2018 4:02 AM CDT) Sodium 136 135 - 145 mmol/L [facility] ([facility]) Potassium, pl 3.6 3.3 - 4.9 mmol/L [facility] ([facility]) Chloride 99 97 - 110 mmol/L [facility] ([facility]) CO2 22 22 - 32 mmol/L [facility] ([facility]) Anion gap 15 2 - 15 mmol/L [facility] ([facility]) BUN 19 8 - 25 mg/dL [facility] Creatinine 0.59(L) 0.80 - 1.30 mg/dL [facility] ([facility]) Glucose 225(H) 70 - 199 mg/dL [facility] ([facility]) [...] classification and Diagnosis of Diabetes Diabetes Care 2017;40 (Suppl. 1):S11. Current interpretive data was last revised 2017. Calcium 9.3 8.5 - 10.3 mg/dL [facility] ([facility]) Phosphorus, pl 4.3 2.3 - 4.5 mg/dL [facility] ([facility]) Albumin 3.8 3.5 - 5.0 g/dL [facility] ([facility]) Blood specimen (specimen) 09/26/2018 4:02 AM CDT 09/26/2018 4:25 AM CDT Narrative [facility] ([facility]) - 09/26/2018 4:54 AM CDT Oly Mir MD LAB BLOOD ORDERABLES Fin al Result [facility] ([facility]) 1 [facility] Department [place] [address] * (ABNORMAL) CBC with auto differential (09/26/2018 4:02 AM CDT) WBC 14.8(H) 3.8 - 9.9 K/cumm [facility] ([facility]) Hgb 13.7 13.0 - 17.5 g/dL [facility] ([facility]) Hct 42.4 38.9 - 50.3 % [facility] ([facility]) Plt 293 150 - 400 K/cumm [facility] ([facility]) MPV 9.9 9.1 - 12.3 fL [facility] ([facility]) RBC 5.20 4.30 - 5.80 M/cumm [facility] ([facility]) MCV 81.5 81.3 - 96.4 fL [facility] ([facility]) MCH 26.3(L) 27.1 - 33.3 pg [facility] ([facility]) MCHC 32.3 32.3 - 35.7 g/dL [facility] ([facility]) RDW CV 14.6 11.1 - 14.9 % [facility] ([facility]) RDW SD 43.2 35.7 - 48.1 fL [facility] ([facility]) NRBC abs 0.00 0.00 - 0.01 K/cumm [facility] ([facility]) Blood specimen (specimen) 09/26/2018 4:02 AM CDT 09/26/2018 4:25 AM CDT Narrative [facility] ([facility]) - 09/26/2018 4:29 AM CDT Oly Mir MD LAB BLOOD ORDERABLES Fin al Result Performing Organization Address City/[facility]/ZIP Co de Phone Number WINSOME [facility] (EFREN) 1 [facility] [place] [address] * (ABNORMAL) POCT glucose (09/26/2018 2:15 AM CDT) Glucose, POC 366(C) 71 - 98 mg/dL [facility] ([facility]) Blood specimen (specimen) 09/26/2018 2:15 AM CDT 09/26/2018 2:15 AM CDT Narrative WINSOME [facility] (EFREN) - 09/26/2018 2:16 AM CDT Khoi Vang MD LAB POCT ORDERABLES - DEVICE Fin al Result Performing Organization Address [facility] Co de Phone Number WINSOME [facility] (EFREN) 1 [facility] [place] [address] * (ABNORMAL) POCT glucose (09/25/2018 9:20 PM CDT) Glucose, POC 171(H) 71 - 98 mg/dL WINSOME [facility] (EFREN) Blood specimen (specimen) 09/25/2018 9:20 PM CDT 09/25/2018 9:20 PM CDT Narrative WINSOME [facility] (EFREN) - 09/25/2018 9:21 PM CDT us Khoi Vang MD LAB POCT ORDERABLES - DEVICE Fin al Result Performing Organization Address City/[facility]/ZIP Co de Phone Number WINSOME [facility] (EFREN) 1 [facility] [place] [address] * (ABNORMAL) POCT glucose (09/25/2018 4:45 PM CDT) Glucose, POC 242(H) 71 - 98 mg/dL WINSOME [facility] (EFREN) Blood specimen (specimen) 09/25/2018 4:45 PM CDT 09/25/2018 4:45 PM CDT Narrative WINSOME [facility] (EFREN) - 09/25/2018 4:46 PM CDT Khoi Vang MD LAB POCT ORDERABLES - DEVICE Fin al Result WINSOME [facility] (FIVE POINTS) 1 [facility] Department [place] [address] * US Head Neck Soft Tissue (09/25/2018 1:48 PM CDT) Anatomical Region Laterality Modality Head and Neck N/A Ultrasound 09/25/2018 4:29 PM CDT Impressions 09/25/2018 4:30 PM CDT MILDLY ENLARGED RIGHT PAROTID GLAND WITH NO EVIDENCE OF SONOGRAPHICALLY VISIBLE MASS OR CYSTIC STRUCTURE. Electronically signed by: Kwabena Hagen M.D. Narrative 09/25/2018 4:30 PM CDT US SOFT TISSUE HEAD NECK HISTORY: parotitis Right Parotitis. ??Right facial tenderness. COMPARISON: None available. FINDINGS: The right parotid gland is mildly enlarged measuring 3.5 x 2.5 x 1.0 cm. ??An adjacent subcentimeter lymph node is present. There is no evidence of mass or cyst. Procedure Note Kwabena Hagen MD - 09/25/2018 US SOFT TISSUE HEAD NECK HISTORY: parotitis Right Parotitis. Right facial tenderness. COMPARISON: None available. FINDINGS: The right parotid gland is mildly enlarged measuring 3.5 x 2.5 x 1.0 cm. An adjacent subcentimeter lymph node is present. There is no evidence of mass or cyst. IMPRESSION: MILDLY ENLARGED RIGHT PAROTID GLAND WITH NO EVIDENCE OF SONOGRAPHICALLY VISIBLE MASS OR CYSTIC STRUCTURE. Electronically signed by: Kwabena Hagen M.D. Susana Camarena DO IMG US PROCEDURES Final Resu lt * (ABNORMAL) POCT glucose (09/25/2018 11:49 AM CDT) Glucose, POC 283(H) 71 - 98 mg/dL W[facility] (EFREN) Blood specimen (specimen) 09/25/2018 11:49 AM CDT 09/25/2018 11:49 AM CDT Narrative WINSOME [facility] (EFREN) - 09/25/2018 11:52 AM CDT Khoi Vang MD LAB POCT ORDERABLES - DEVICE Fin al Result Performing Organization Address City/[facility]/ZIP Co de Phone Number WINSOME MILLAN (FIVE POINTS) 1 [facility] [place] [address] * (ABNORMAL) POCT glucose (09/25/2018 7:42 AM CDT) Glucose, POC 204(H) 71 - 98 mg/dL WINSOME [facility] (FIVE POINTS) Blood specimen (specimen) 09/25/2018 7:42 AM CDT 09/25/2018 7:42 AM CDT Narrative [facility] (EFREN) - 09/25/2018 7:43 AM CDT Khoi Vang MD LAB POCT ORDERABLES - DEVICE Fin al Result Performing Organization Address [facility] Co de Phone Number WINSOME [facility] (FIVE POINTS) [address] [place] [address] [place] [address] * eGFR (09/25/2018 3:40 AM CDT) eGFR 134 mL/min/1.7 3 m2 WINSOME [facility] (FIVE POINTS) Comment: Interpretive Data Reference Interval Normal ?>/= 90 mL/min/1.73m2 Mildly decreased* ? 60 - 89 mL/min/1.73m2 Mildly to moderately decreased ?45 - 59 mL/min/1.73m2 Moderately to severely decreased ??30 - 44 mL/min/1.73m2 Severely decreased ?15 - 29 mL/min/1.73m2 Kidney Failure ?< 15 ??mL/min/1.73m2 *Relative to young adult level If -Cymro multiply value by 1.16. Estimated glomerular filtration rate is determined by the CKD-EPI equation recommended by the National Kidney Foundation (KDIGO 2012 Clinical Practice Guideline for the Evaluation and Management of Chronic Kidney Disease. Kidney Intnl Suppl May 2012;3:1). The CKD-EPI equation should not be used for patients with unstable renal function and has not been validated in children and those over 70. Current interpretive data was last reviewed 2015. Blood specimen (specimen) 09/25/2018 3:40 AM CDT 09/25/2018 4:39 AM CDT Narrative [facility] ([facility]) - 09/25/2018 5:19 AM CDT us Oly Mir MD LAB BLOOD ORDERABLES Fin al Result [facility] ([facility]) 1 [facility] Department [place] [address] * (ABNORMAL) Differential, auto (09/25/2018 3:40 AM CDT) Neutrophil abs 8.3(H) 1.7 - 6.5 K/cumm [facility] ([facility]) Imm gran abs 0.1 0.0 - 0.1 K/cumm [facility] ([facility]) Lymphocyte abs 6.1(H) 0.8 - 3.3 K/cumm [facility] ([facility]) Monocyte abs 1.2(H) 0.2 - 0.8 K/cumm [facility] ([facility]) Eosinophil abs 0.1 0.0 - 0.5 K/cumm [facility] ([facility]) Basophil abs 0.0 0.0 - 0.1 K/cumm [facility] ([facility]) Neutrophil pct 52.6 % [facility] ([facility]) Comment: Consistent with previous result Interpretive Data Percent cell count reference ranges are not reported, since discordance with absolute values may lead to misinterpretation of CBC data. Current Interpretive Data was last revised on 2017. Imm gran pct 0.6 % [facility] ([facility]) Comment: Interpretive Data Percent cell count reference ranges are not reported, since discordance with absolute values may lead to misinterpretation of CBC data. Current Interpretive Data was last revised on 2017. Lymphocyte pct 38.3 % [facility] ([facility]) Comment: Interpretive Data Percent cell count reference ranges are not reported, since discordance with absolute values may lead to misinterpretation of CBC data. Current Interpretive Data was last revised on 2017. Monocyte pct 7.4 % [facility] ([facility]) Comment: Interpretive Data Percent cell count reference ranges are not reported, since discordance with absolute values may lead to misinterpretation of CBC data. Current Interpretive Data was last revised on 2017. Eosinophil pct 0.8 % [facility] ([facility]) Comment: Interpretive Data Percent cell count reference ranges are not reported, since discordance with absolute values may lead to misinterpretation of CBC data. Current Interpretive Data was last revised on 2017. Basophil pct 0.3 % [facility] ([facility]) Comment: Interpretive Data Percent cell count reference ranges are not reported, since discordance with absolute values may lead to misinterpretation of CBC data. Current Interpretive Data was last revised on 2017. Blood specimen (specimen) 09/25/2018 3:40 AM CDT 09/25/2018 4:39 AM CDT Narrative WINSOME [facility] (EFREN) - 09/25/2018 4:45 AM CDT us Oly Mir MD LAB BLOOD ORDERABLES Fin al Result [facility] (FIVE POINTS) 1 [facility] Department [place] [address] * Magnesium (09/25/2018 3:40 AM CDT) Magnesium 2.0 1.6 - 2.4 mg/dL WINSOME [facility] (FIVE POINTS) Blood specimen (specimen) 09/25/2018 3:40 AM CDT 09/25/2018 4:39 AM CDT Narrative [facility] ([facility]) - 09/25/2018 5:19 AM CDT us Oly Mir MD LAB BLOOD ORDERABLES Fin al Result WINSOME [facility] (EFREN) 1 [facility] Department [place] [address] * (ABNORMAL) Renal function panel (09/25/2018 3:40 AM CDT) Sodium 137 135 - 145 mmol/L [facility] ([facility]) Potassium, pl 4.0 3.3 - 4.9 mmol/L [facility] ([facility]) Chloride 99 97 - 110 mmol/L [facility] ([facility]) CO2 22 22 - 32 mmol/L [facility] ([facility]) Anion gap 16(H) 2 - 15 mmol/L [facility] ([facility]) BUN 21 8 - 25 mg/dL [facility] ([facility]) Creatinine 0.58(L) 0.80 - 1.30 mg/dL [facility] ([facility]) Glucose 235(H) 70 - 199 mg/dL [facility] (EFRNE) Comment: Interpretive Data Fasting glucose >/= 126 [...] classification and Diagnosis of Diabetes Diabetes Care 2017;40 (Suppl. 1):S11. Current interpretive data was last revised 2017. Calcium 9.4 8.5 - 10.3 mg/dL [facility] ([facility]) Phosphorus, pl 3.9 2.3 - 4.5 mg/dL [facility] ([facility]) Albumin 3.9 3.5 - 5.0 g/dL [facility] ([facility]) Blood specimen (specimen) 09/25/2018 3:40 AM CDT 09/25/2018 4:39 AM CDT Narrative [facility] ([facility]) - 09/25/2018 5:19 AM CDT us Oly Mir MD LAB BLOOD ORDERABLES Fin al Result [facility] ([facility]) 1 [facility] [place] [address] * (ABNORMAL) CBC with auto differential (09/25/2018 3:40 AM CDT) WBC 15.8(H) 3.8 - 9.9 K/cumm [facility] ([facility]) Hgb 14.3 13.0 - 17.5 g/dL [facility] ([facility]) Hct 43.9 38.9 - 50.3 % [facility] ([facility]) Plt 326 150 - 400 K/cumm [facility] ([facility]) MPV 10.1 9.1 - 12.3 fL [facility] ([facility]) RBC 5.43 4.30 - 5.80 M/cumm [facility] ([facility]) MCV 80.8(L) 81.3 - 96.4 fL [facility] ([facility]) MCH 26.3(L) 27.1 - 33.3 pg [facility] ([facility]) MCHC 32.6 32.3 - 35.7 g/dL [facility] ([facility]) RDW CV 14.7 11.1 - 14.9 % [facility] ([facility]) RDW SD 42.6 35.7 - 48.1 fL [facility] ([facility]) NRBC abs 0.00 0.00 - 0.01 K/cumm [facility] ([facility]) Blood specimen (specimen) 09/25/2018 3:40 AM CDT 09/25/2018 4:39 AM CDT Narrative [facility] ([facility]) - 09/25/2018 4:45 AM CDT us Oly Mir MD LAB BLOOD ORDERABLES Fin al Result [facility] ([facility]) 1 [facility] [place] [address] * (ABNORMAL) POCT glucose (09/25/2018 2:40 AM CDT) Glucose, POC 191(H) 71 - 98 mg/dL W[facility] (FIVE POINTS) Blood specimen (specimen) 09/25/2018 2:40 AM CDT 09/25/2018 2:40 AM CDT Narrative WINSOME [facility] (FIVE POINTS) - 09/25/2018 2:45 AM CDT us Oly Mir MD LAB POCT ORDERABLES - DE VICE Final Result WINSOME [facility] (FIVE POINTS) 1 [facility] [place] [address] * (ABNORMAL) POCT glucose (09/24/2018 9:29 PM CDT) Glucose, POC 202(H) 71 - 98 mg/dL [facility] (FIVE POINTS) Blood specimen (specimen) 09/24/2018 9:29 PM CDT 09/24/2018 9:29 PM CDT Narrative WINSOME [facility] (FIVE POINTS) - 09/24/2018 9:30 PM CDT us Oly Mir MD LAB POCT ORDERABLES - DE VICE Final Result WINSOME [facility] (FIVE POINTS) 1 [facility] [place] [address] * MRI Brain W WO Contrast (09/24/2018 5:40 PM CDT) Anatomical Region Laterality Modality Head and Neck N/A Magnetic Resonan ce 09/25/2018 7:37 AM CDT Impressions 09/25/2018 7:39 AM CDT 1. ??BILATERAL MAXILLARY AND RIGHT MASTOID SINUS DISEASE. 2. ??NO EVIDENCE OF ACUTE INTRACRANIAL EVENT. Electronically signed by: Kwabena Hagen M.D. Narrative 09/25/2018 7:39 AM CDT MRI BRAIN W WO CONTRAST HISTORY: facial weakness, right. ??Right facial droop and numbness. TECHNIQUE: Axial and sagittal FLAIR, axial T2 and diffusion-weighted, pre and postcontrast axial T1 inversion recovery, postcontrast triplanar 3-D T1 [id number] sequences. ??20 milliliters Dotarem administered intravenously. COMPARISON: CT 09/22/2018 FINDINGS: The argueta and white matter demonstrate normal morphology and signal characteristics. There is no evidence of acute intracranial hemorrhage, mass or infarction. Diffusion-weighted signal is normal throughout the cortical structures. ??There is no evidence of abnormal contrast enhancement. ??The ventricles, gyri and sulci demonstrate normal size and configuration. ??Midline is normal. ??Mild fluid is present within the inferior right mastoid air cells. ??Mild dependent fluid is present within the maxillary sinuses bilaterally. ??The extra-axial structures are otherwise unremarkable. Procedure Note Kwabena Hagen MD - 09/25/2018 MRI BRAIN W WO CONTRAST HISTORY: facial weakness, right. Right facial droop and numbness. TECHNIQUE: Axial and sagittal FLAIR, axial T2 and diffusion-weighted, pre and postcontrast axial T1 inversion recovery, postcontrast triplanar 3-D T1 [id number] sequences. 20 milliliters Dotarem administered intravenously. COMPARISON: CT 09/22/2018 FINDINGS: The argueta and white matter demonstrate normal morphology and signal characteristics. There is no evidence of acute intracranial hemorrhage, mass or infarction. Diffusion-weighted signal is normal throughout the cortical structures. There is no evidence of abnormal contrast enhancement. The ventricles, gyri and sulci demonstrate normal size and configuration. Midline is normal. Mild fluid is present within the inferior right mastoid air cells. Mild dependent fluid is present within the maxillary sinuses bilaterally. The extra-axial structures are otherwise unremarkable. IMPRESSION: 1. BILATERAL MAXILLARY AND RIGHT MASTOID SINUS DISEASE. 2. NO EVIDENCE OF ACUTE INTRACRANIAL EVENT. Electronically signed by: Kwabena Hagen M.D. F Juventino Cope DO [facility] [place] PROCEDURES Final Resul t * (ABNORMAL) POCT glucose (09/24/2018 4:48 PM CDT) Glucose, POC 248(H) 71 - 98 mg/dL BENJYNISREEN MILLAN (FIVE POINTS) Comment:Glu2: RN/ Notified Blood specimen (specimen) 09/24/2018 4:48 PM CDT 09/24/2018 4:48 PM CDT Narrative WINSOME MILLAN (FIVE POINTS) - 09/24/2018 4:50 PM CDT Oly Mir MD LAB POCT ORDERABLES - DE VICE Final Result WINSOME MILLAN (FIVE POINTS) [address] [place] [address] [place] [address] * (ABNORMAL) POCT glucose (09/24/2018 11:48 AM CDT) Glucose, POC 202(H) 71 - 98 mg/dL WINSOME MILLAN (FIVE POINTS) Blood specimen (specimen) 09/24/2018 11:48 AM CDT 09/24/2018 11:48 AM CDT Narrative BENJYNISREEN MONTY (FIVE POINTS) - 09/24/2018 11:51 AM CDT us Oly Mir MD LAB POCT ORDERABLES - DE VICE Final Result WINSOME MILLAN (FIVE POINTS) [address] [place] [address] [place] [address] * (ABNORMAL) POCT glucose (09/24/2018 8:07 AM CDT) Glucose, POC 216(H) 71 - 98 mg/dL WINSOME MILLAN (FIVE POINTS) Comment:Glu2: RN/ Notified Blood specimen (specimen) 09/24/2018 8:07 AM CDT 09/24/2018 8:07 AM CDT Narrative WINSOME MILLAN (FIVE POINTS) - 09/24/2018 8:09 AM CDT us Oly Mir MD LAB POCT ORDERABLES - DE VICE Final Result Performing Organization Address [facility] Co de Phone Number WINSOME WALDEN) 1 [facility] Department [place] [address] * eGFR (09/24/2018 3:30 AM CDT) eGFR 134 mL/min/1.7 3 m2 WINSOME MILLAN (FIVE POINTS) Comment: Interpretive Data Reference Interval Normal ?>/= 90 mL/min/1.73m2 Mildly decreased* ? 60 - 89 mL/min/1.73m2 Mildly to moderately decreased ?45 - 59 mL/min/1.73m2 Moderately to severely decreased ??30 - 44 mL/min/1.73m2 Severely decreased ?15 - 29 mL/min/1.73m2 Kidney Failure ?< 15 ??mL/min/1.73m2 *Relative to young adult level If -Cymro multiply value by 1.16. Estimated glomerular filtration rate is determined by the CKD-EPI equation recommended by the National Kidney Foundation (KDIGO 2012 Clinical Practice Guideline for the Evaluation and Management of Chronic Kidney Disease. Kidney Intnl Suppl May 2012;3:1). The CKD-EPI equation should not be used for patients with unstable renal function and has not been validated in children and those over 70. Current interpretive data was last reviewed 2015. Blood specimen (specimen) 09/24/2018 3:30 AM CDT 09/24/2018 3:49 AM CDT Narrative WINSOME WALDEN) - 09/24/2018 4:36 AM CDT us Oly Mir MD LAB BLOOD ORDERABLES Fin al Result Performing Organization Address [facility]/State/ZIP Co de Phone Number [facility] (EFREN) 1 [facility] Department [place] [address] * (ABNORMAL) Differential, auto (09/24/2018 3:30 AM CDT) Neutrophil abs 6.9(H) 1.7 - 6.5 K/cumm [facility] (E[facility]) Imm gran abs 0.1 0.0 - 0.1 K/cumm [facility] ([facility]) Lymphocyte abs 5.7(H) 0.8 - 3.3 K/cumm [facility] ([facility]) Monocyte abs 1.1(H) 0.2 - 0.8 K/cumm [facility] ([facility]) Eosinophil abs 0.2 0.0 - 0.5 K/cumm [facility] ([facility]) Basophil abs 0.0 0.0 - 0.1 K/cumm [facility] ([facility]) Neutrophil pct 49.3 % [facility] (EFR[facility]) Comment: Interpretive Data Percent cell count reference ranges are not reported, since discordance with absolute values may lead to misinterpretation of CBC data. Current Interpretive Data was last revised on 2017. Imm gran pct 0.9 % [facility] (E[facility]) Comment: Interpretive Data Percent cell count reference ranges are not reported, since discordance with absolute values may lead to misinterpretation of CBC data. Current Interpretive Data was last revised on 2017. Lymphocyte pct 40.9 % [facility] (E[facility]) Comment: Interpretive Data Percent cell count reference ranges are not reported, since discordance with absolute values may lead to misinterpretation of CBC data. Current Interpretive Data was last revised on 2017. Monocyte pct 7.5 % [facility] (EFREN) Comment: Interpretive Data Percent cell count reference ranges are not reported, since discordance with absolute values may lead to misinterpretation of CBC data. Current Interpretive Data was last revised on 2017. Eosinophil pct 1.1 % [facility] (E[facility]) Comment: Interpretive [...] Data was last revised on 2017. Blood specimen (specimen) 09/24/2018 3:30 AM CDT 09/24/2018 3:49 AM CDT Narrative [facility] (E[facility]) - 09/24/2018 4:07 AM CDT Oly Mir MD LAB BLOOD ORDERABLES Fin al Result Performing Organization Address City/[facility] Co de Phone Number [facility] (E[facility]) 1 [facility] [place] [address] * Magnesium (09/24/2018 3:30 AM CDT) Magnesium 2.0 1.6 - 2.4 mg/dL [facility] (E[facility]) Blood specimen (specimen) 09/24/2018 3:30 AM CDT 09/24/2018 3:49 AM CDT Narrative [facility] (E[facility]) - 09/24/2018 4:36 AM CDT Oly Mir MD LAB BLOOD ORDERABLES Fin al Result Performing Organization Address [facility] Co de Phone Number WINSOME MILLAN (EFREN) 1 [facility] [place] [address] * (ABNORMAL) Renal function panel (09/24/2018 3:30 AM CDT) Sodium 133(L) 135 - 145 mmol/L [facility] (E[facility]) Potassium, pl 3.8 3.3 - 4.9 mmol/L [facility] ([facility]) Chloride 96(L) 97 - 110 mmol/L [facility] (E[facility]) CO2 24 22 - 32 mmol/L [facility] ([facility]) Anion gap 13 2 - 15 mmol/L [facility] ([facility]) BUN 20 8 - 25 mg/dL [facility] Creatinine 0.58(L) 0.80 - 1.30 mg/dL [facility] ([facility]) Glucose 262(H) 70 - 199 mg/dL [facility] (EFREN) [...] classification and Diagnosis of Diabetes Diabetes Care 2017;40 (Suppl. 1):S11. Current interpretive data was last revised 2017. Calcium 9.6 8.5 - 10.3 mg/dL [facility] (E[facility]) Phosphorus, pl 3.7 2.3 - 4.5 mg/dL [facility] (EFREN) Albumin 4.0 3.5 - 5.0 g/dL [facility] Blood specimen (specimen) 09/24/2018 3:30 AM CDT 09/24/2018 3:49 AM CDT N[facility]ative [facility] - 09/24/2018 4:36 AM CDT us Oly Mir MD LAB BLOOD ORDERABLES Fin al Result [facility] 1 [facility] Department [place] [address] * (ABNORMAL) CBC with auto differential (09/24/2018 3:30 AM CDT) WBC 14.0(H) 3.8 - 9.9 K/cumm [facility] ([facility]) Hgb 14.2 13.0 - 17.5 g/dL [facility] ([facility]) Hct 43.1 38.9 - 50.3 % [facility] ([facility]) Plt 322 150 - 400 K/cumm [facility] ([facility]) MPV 9.8 9.1 - 12.3 fL [facility] ([facility]) RBC 5.36 4.30 - 5.80 M/cumm WINSOME MILLAN (EFREN) MCV 80.4(L) 81.3 - 96.4 fL WINSOME MILLAN (EFREN) MCH 26.5(L) 27.1 - 33.3 pg WINSOME MILLAN (EFREN) MCHC 32.9 32.3 - 35.7 g/dL [facility] ([facility]) RDW CV 14.5 11.1 - 14.9 % WINSOME MILLAN (EFREN) RDW SD 42.2 35.7 - 48.1 fL [facility] (E[facility]) NRBC abs 0.00 0.00 - 0.01 K/cumm WINSOME MILLAN (EFREN) Blood specimen (specimen) 09/24/2018 3:30 AM CDT 09/24/2018 3:49 AM CDT Narrative WINSOME MILLAN (EFREN) - 09/24/2018 4:00 AM CDT Oly Mir MD LAB BLOOD ORDERABLES Fin al Result WINSOME MILLAN (EFREN) 1 [facility] Department of Laboratories [place], [place] [id number] * (ABNORMAL) Lipid panel (09/24/2018 3:30 AM [...] on 2018. Chol/HDL ratio 5 IVET MILLAN (FIVE POINTS) Blood specimen (specimen) 09/24/2018 3:30 AM CDT 09/24/2018 3:49 AM CDT Narrative WINSOME MILLAN (EFREN) - 09/24/2018 4:36 AM CDT us Oly Mir MD LAB BLOOD ORDERABLES Fin al Result WINSOME MILLAN (FIVE POINTS) 1 [facility] Department [place] [address] * (ABNORMAL) POCT glucose (09/24/2018 2:49 AM CDT) Glucose, POC 217(H) 71 - 98 mg/dL WINSOME MILLAN (FIVE POINTS) Blood specimen (specimen) 09/24/2018 2:49 AM CDT 09/24/2018 2:49 AM CDT Narrative WINSOME MILLAN (EFREN) - 09/24/2018 3:15 AM CDT Oly Mir MD LAB POCT ORDERABLES - DE VICE Final Result Performing Organization Address [facility] Co de Phone Number WINSOME MILLAN (FIVE POINTS) [address] [place] [address] [place] [address] * (ABNORMAL) POCT glucose (09/23/2018 9:08 PM CDT) Glucose, POC 250(H) 71 - 98 mg/dL WINSOME MILLAN (FIVE POINTS) Blood specimen (specimen) 09/23/2018 9:08 PM CDT 09/23/2018 9:08 PM CDT Narrative WINSOME MILLAN (FIVE POINTS) - 09/23/2018 9:18 PM CDT Oly Mir MD LAB POCT ORDERABLES - DE VICE Final Result Performing Organization Address [facility] Co de Phone Number WINSOME MILLAN (FIVE POINTS) [address] [place] [address] [place] [address] * XR Chest Pa Lateral 2 Views (09/23/2018 6:33 PM CDT) Anatomical Region Laterality Modality Body, Chest N/A Computed Radiogr aphy 09/23/2018 7:06 PM CDT Impressions 09/23/2018 7:07 PM CDT NO ACUTE PULMONARY DISEASE. Electronically signed by: Crystal Roberts 09/23/2018 7:07 PM CDT XR CHEST PA LATERAL 2 VIEWS HISTORY: r/o pneumonia. ??Congestion. TECHNIQUE: PA and lateral projections. COMPARISON: None available. FINDINGS: Heart size is normal. ??No infiltrate or effusion identified. ??Mild elevation/eventration right hemidiaphragm. Procedure Note Benny Reyes MD - 09/23/2018 XR CHEST PA LATERAL 2 VIEWS HISTORY: r/o pneumonia. Congestion. TECHNIQUE: PA and lateral projections. COMPARISON: None available. FINDINGS: Heart size is normal. No infiltrate or effusion identified. Mild elevation/eventration right hemidiaphragm. IMPRESSION: NO ACUTE PULMONARY DISEASE. Electronically signed by: Benny Reyes M.D Oly Mir MD IMG XR PROCEDURES Final Result * (ABNORMAL) POCT glucose (09/23/2018 4:44 PM CDT) [facility] Glucose, POC 272(H) 71 - 98 mg/dL WINSOME MILLAN (EFREN) Blood specimen (specimen) 09/23/2018 4:44 PM CDT 09/23/2018 4:44 PM CDT Narrative WINSOME MILLAN (EFREN) - 09/23/2018 4:45 PM CDT Oly Mir MD LAB POCT ORDERABLES - DE VICE Final Result WINSOME MILLAN (EFREN) 1 [facility] Department [place] [address] * Blood culture Blood Antecubital, right (09/23/2018 2:27 PM CDT) Pathologist [facility] Report Final Report: No growth WINSOME MILLAN (EFREN) Comment:Testing performed by : [facility], [address] [facility], [place]., [address] Blood specimen (specimen) (Antecubital, right) 09/23/2018 2:27 PM CDT 09/23/2018 4:59 PM CDT Narrative WINSOME MILLAN (EFREN) - 09/29/2018 7:00 AM CDT From a different site than #1. 1. Blood cultures are incubated for 5 days on a continuously monitored blood culture system. The first report of a negative culture is issued within 24 hours of receipt of the specimen in the laboratory. 2. Positive culture results are reported as soon as they are detected. 3. The most important factor for detection of microbes in the setting of bloodstream infection is the volume of blood submitted for culture. Failure to collect an optimal blood volume can result in false negative blood cultures. For pediatric patients, the recommended blood volume to collect is 1 mL of blood per year of patient age (up to 20 mL) per blood culture set. For adult patients, 20 mL of blood, divided equally between aerobic and anaerobic blood culture bottles, is recommended for each blood culture set. 4. For blood cultures with Gram-positive cocci, a rapid molecular test for organism identification may be performed using the Learndotigene Gram-Positive Blood Culture Assay. This assay detects microbial DNA in positive blood culture broth via hybridization of target DNA to capture oligonucleotides on a microarray. This assay has been cleared by the [place] Food and Drug Administration and its performance characteristics have been verified by the [facility] Microbiology Laboratory. 5. For questions about this culture, contact the Microbiology Laboratory at [phone]. Interpretive data was last revised on 2018. us Oly Mir MD LAB MICROBIOLOGY - [facility] AL ORDERABLES Final Result WINSOME MILLAN (EFREN) 1 [facility] Department [place] [address] * Blood culture Blood Antecubital, left (09/23/2018 2:20 PM CDT) Report Final Report: No growth WINSOME MILLAN (EFREN) Comment:Testing performed by : [facility], [address] [facility], [place]., [address] Blood specimen (specimen) (Antecubital, left) 09/23/2018 2:20 PM CDT 09/23/2018 4:59 PM CDT Narrative WINSOME MILLAN (EFREN) - 09/29/2018 7:00 AM CDT 1. Blood cultures are incubated for 5 days on a continuously monitored blood culture system. The first report of a negative culture is issued within 24 hours of receipt of the specimen in the laboratory. 2. Positive culture results are reported as soon as they are detected. 3. The most important factor for detection of microbes in the setting of bloodstream infection is the volume of blood submitted for culture. Failure to collect an optimal blood volume can result in false negative blood cultures. For pediatric patients, the recommended blood volume to collect is 1 mL of blood per year of patient age (up to 20 mL) per blood culture set. For adult patients, 20 mL of blood, divided equally between aerobic and anaerobic blood culture bottles, is recommended for each blood culture set. 4. For blood cultures with Gram-positive cocci, a rapid molecular test for organism identification may be performed using the Learndotigene Gram-Positive Blood Culture Assay. This assay detects microbial DNA in positive blood culture broth via hybridization of target DNA to capture oligonucleotides on a microarray. This assay has been cleared by the [place] Food and Drug Administration and its performance characteristics have been verified by the [facility]biology Laboratory. 5. For questions about this culture, contact the Microbiology Laboratory at [phone]. Interpretive data was last revised on 2018. us Oly Mir MD LAB MICROBIOLOGY - GENER AL ORDERABLES Final Result Performing Organization Address City/[facility]/ZIP Co de Phone Number WINSOME MILLAN (FIVE POINTS) [address] [place] [address] [place] [address] * (ABNORMAL) POCT glucose (09/23/2018 11:57 AM CDT) [facility] Signature Glucose, POC 258(H) 71 - 98 mg/dL WINSOME MILLAN (FIVE POINTS) Blood specimen (specimen) 09/23/2018 11:57 AM CDT 09/23/2018 11:57 AM CDT Narrative WINSOME MILLAN (FIVE POINTS) - 09/23/2018 11:58 AM CDT Oly Mir MD LAB POCT ORDERABLES - DE VICE Final Result Performing Organization Address City/[facility]/ZIP Co de Phone Number WINSOME WangFIVE POINTS) 1 [facility] [place] [address] * (ABNORMAL) POCT glucose (09/23/2018 7:40 AM CDT) Glucose, POC 251(H) 71 - 98 mg/dL WINSOME MILLAN (FIVE POINTS) Blood specimen (specimen) 09/23/2018 7:40 AM CDT 09/23/2018 7:40 AM CDT Narrative WINSOME MILLAN (FIVE POINTS) - 09/23/2018 7:41 AM CDT us Oly Mir MD LAB POCT ORDERABLES - DE VICE Final Result Performing Organization Address City/[facility]/ZIP Co de Phone Number WINSOME MILLAN (FIVE POINTS) 1 [facility] [place] [address] * (ABNORMAL) POCT glucose (09/23/2018 2:24 AM CDT) Glucose, POC 339(C) 71 - 98 mg/dL WINSOME MILLAN (FIVE POINTS) Blood specimen (specimen) 09/23/2018 2:24 AM CDT 09/23/2018 2:24 AM CDT Narrative WINSOME MILLAN (FIVE POINTS) - 09/23/2018 2:26 AM CDT us Clarisse Alex MD LAB POCT ORDERABLES - DEVICE Fin al Result WINSOME MILLAN (FIVE POINTS) 1 [facility] [place] [address] * (ABNORMAL) POCT glucose (09/22/2018 10:00 PM CDT) Glucose, POC 219(H) 71 - 98 mg/dL WINSOME MILLAN (FIVE POINTS) Blood specimen (specimen) 09/22/2018 10:00 PM CDT 09/22/2018 10:00 PM CDT Narrative WINSOME MILLAN (FIVE POINTS) - 09/22/2018 10:01 PM CDT us Clarisse Alex MD LAB POCT ORDERABLES - DEVICE Fin al Result WINSOME MILLAN FIVE POINTS) 3 [facility] Department [place] [address] * CT Head WO Contrast (09/22/2018 6:10 PM CDT) Anatomical Region Laterality Modality Head and Neck N/A Computed Tomogra phy 09/22/2018 6:28 PM CDT Impressions 09/22/2018 6:32 PM CDT 1. ??NO ACUTE INTRACRANIAL FINDING. 2. ??EVIDENCE OF SOME RIGHT MASTOIDITIS. 3. ??PARANASAL SINUS DISEASE DESCRIBED. Electronically signed by: Crystal Roberts 09/22/2018 6:32 PM CDT PROCEDURE: CT HEAD WO CONTRAST HISTORY: Headache,, normal neuro exam. ??Right-sided facial droop. ??Jaw pain. COMPARISON: 04/21/2018. TECHNIQUE: Helical CT scan of the head obtained noncontrast. FINDINGS: No acute intracranial hemorrhage identified. ??No midline shift is noted. ??Brainstem cisterns are intact. ??Ventricles are normal in size. ??Nodular focus subcutaneous soft tissue the scalp left occipital region, present on the prior study of 04/21/2018 at 03/30/2018. ??Focal opacities in the right and left maxillary sinuses have a nodular appearance suggesting mucous retention cysts or polyps. ??Minimal opacity right mastoids. Procedure Note Benny Reyes MD - 09/22/2018 PROCEDURE: CT HEAD WO CONTRAST HISTORY: Headache,, normal neuro exam. Right-sided facial droop. Jaw pain. COMPARISON: 04/21/2018. TECHNIQUE: Helical CT scan of the head obtained noncontrast. FINDINGS: No acute intracranial hemorrhage identified. No midline shift is noted. Brainstem cisterns are intact. Ventricles are normal in size. Nodular focus subcutaneous soft tissue the scalp left occipital region, present on the prior study of 04/21/2018 at 03/30/2018. Focal opacities in the right and left maxillary sinuses have a nodular appearance suggesting mucous retention cysts or polyps. Minimal opacity right mastoids. IMPRESSION: 1. NO ACUTE INTRACRANIAL FINDING. 2. EVIDENCE OF SOME RIGHT MASTOIDITIS. 3. PARANASAL SINUS DISEASE DESCRIBED. Electronically signed by: Benny Reyes M.D us Jc Ramirez MD IMG CT PROCEDURES Final Res ult * eGFR (09/22/2018 6:04 PM CDT) eGFR 135 mL/min/1.7 3 m2 WINSOME MILLAN (EFREN) Comment: Interpretive Data Reference Interval Normal ?>/= 90 mL/min/1.73m2 Mildly decreased* ? 60 - 89 mL/min/1.73m2 Mildly to moderately decreased ?45 - 59 mL/min/1.73m2 Moderately to severely decreased ??30 - 44 mL/min/1.73m2 Severely decreased ?15 - 29 mL/min/1.73m2 Kidney Failure ?< 15 ??mL/min/1.73m2 *Relative to young adult level If -Cymro multiply value by 1.16. Estimated glomerular filtration rate is determined by the CKD-EPI equation recommended by the National Kidney Foundation (KDIGO 2012 Clinical Practice Guideline for the Evaluation and Management of Chronic Kidney Disease. Kidney Intnl Suppl May 2012;3:1). The CKD-EPI equation should not be used for patients with unstable renal function and has not been validated in children and those over 70. Current interpretive data was last reviewed 2015. Blood specimen (specimen) 09/22/2018 6:04 PM CDT 09/22/2018 6:07 PM CDT Narrative WINSOME MILLAN (EFREN) - 09/22/2018 6:34 PM CDT us Jc Ramirez MD LAB BLOOD ORDERABLES Final Result [facility] (E[facility]) 1 [facility] Department [place] [address] * (ABNORMAL) Differential, auto (09/22/2018 6:04 PM CDT) Neutrophil abs 7.6(H) 1.7 - 6.5 K/cumm [facility] (EFR[facility]) Imm gran abs 0.1 0.0 - 0.1 K/cumm [facility] (E[facility]) Lymphocyte abs 4.1(H) 0.8 - 3.3 K/cumm [facility] (E[place]) Monocyte abs 0.8 0.2 - 0.8 K/cumm [facility] (E[place]) Eosinophil abs 0.2 0.0 - 0.5 K/cumm [facility] (EFR[facility]) Basophil abs 0.0 0.0 - 0.1 K/cumm [facility] (EFREN) Neutrophil pct 59.9 % [facility] (EFREN) Comment: Interpretive Data Percent cell count reference ranges are not reported, since discordance with absolute values may lead to misinterpretation of CBC data. Current Interpretive Data was last revised on 2017. Imm gran pct 0.6 % [facility] (EFREN) Comment: Interpretive Data Percent cell count reference ranges are not reported, since discordance with absolute values may lead to misinterpretation of CBC data. Current Interpretive Data was last revised on 2017. Lymphocyte pct 32.1 % [facility] (EFREN) Comment: Interpretive Data Percent cell count reference ranges are not reported, since discordance with absolute values may lead to misinterpretation of CBC data. Current Interpretive Data was last revised on 2017. Monocyte pct 5.9 % [facility] (EFREN) Comment: Interpretive Data Percent cell count reference ranges are not reported, since discordance with absolute values may lead to misinterpretation of CBC data. Current Interpretive Data was last revised on 2017. Eosinophil pct 1.2 % [facility] (EFREN) Comment: Interpretive [...] Data was last revised on 2017. Blood specimen (specimen) 09/22/2018 6:04 PM CDT 09/22/2018 6:07 PM CDT Narrative WINSOME [facility] (EFRNE) - 09/22/2018 6:09 PM CDT Jc Ramirez MD LAB BLOOD ORDERABLES Final Result Performing Organization Address [facility] Co de Phone Number WINSOME [facility] (EFREN) 1 [facility] [place] [address] * CRP (acute phase) (09/22/2018 6:04 PM CDT) CRP 5.8 <=10.0 mg/L WINSOME FAYE (FIVE POINTS) Blood specimen (specimen) 09/22/2018 6:04 PM CDT 09/22/2018 6:07 PM CDT Narrative WINSOME [facility] (EFREN) - 09/22/2018 6:34 PM CDT Jc Ramirez MD LAB BLOOD ORDERABLES Final Result Performing Organization Address [facility] Co de Phone Number [facility] (E[facility] 1 [place] [address] * (ABNORMAL) Hemoglobin A1c (09/22/2018 6:04 PM CDT) Hgb A1C 11.1(H) 4.0 - 5.6 % WINSOME MILLAN (EFREN) Estimated Average Glucose 272 mg/dL WINSOME MILLAN (EFREN) Comment: The ADA recommends reporting an estimated Average Glucose (eAG) with all Hemoglobin A1c results using the equation derived from a study of 507 normal and diabetic adults. ??Minority populations were underrepresented and children were not included. ?? (Diabetes Care 31:7007-3190, 2008). ??The eAG is not equivalent to a fasting glucose. Blood specimen (specimen) 09/22/2018 6:04 PM CDT 09/22/2018 6:07 PM CDT Narrative WINSOME MILLAN (EFREN) - 09/22/2018 6:29 PM CDT Jc Ramirez MD LAB BLOOD ORDERABLES Final Result WINSOME MILLAN (EFREN) 1 [facility] Department [place] [address] * (ABNORMAL) Comprehensive metabolic panel (09/22/2018 6:04 PM CDT) Sodium 139 135 - 145 mmol/L [facility] (E[facility]) Potassium, pl 4.5 3.3 - 4.9 mmol/L [facility] (EFREN) Chloride 100 97 - 110 mmol/L [facility] (E[facility]) CO2 22 22 - 32 mmol/L [facility] (E[place]) Anion gap 17(H) 2 - 15 mmol/L [facility] (EFREN) BUN 16 8 - 25 mg/[facility] Creatinine 0.57(L) 0.80 - 1.30 mg/dL [facility] Glucose 340(H) 70 - 199 mg/dL [facility] Comment: Interpretive Data Fasting glucose [...] classification and Diagnosis of Diabetes Diabetes Care 2017;40 (Suppl. 1):S11. Current interpretive data was last revised 2017. Calcium 9.8 8.5 - 10.3 mg/dL [facility] (E[facility]) Bilirubin, total <0.2 0.1 - 1.2 mg/dL [facility] (E[place]) Protein, pl 8.1 6.5 - 8.5 g/dL [facility] (E[place]) Albumin 4.5 3.5 - 5.0 g/dL [facility] (E[place]) Alk phos 127 40 - 130 Units/L [facility] (E[facility]) ALT 38 7 - 55 Units/L [facility] (E[facility]) AST 22 10 - 50 Units/L [facility] (EFREN) Comment: Hemolysis present. ??Results may be affected. Slightly Hemolyzed Specimen Blood specimen (specimen) 09/22/2018 6:04 PM CDT 09/22/2018 6:07 PM CDT Narrative [facility] ([facility]) - 09/22/2018 6:34 PM CDT us Jc Ramirez MD LAB BLOOD ORDERABLES Final Result [facility] ([facility]) 1 [facility] Department [place] [address] * (ABNORMAL) CBC with auto differential (09/22/2018 6:04 PM CDT) WBC 12.7(H) 3.8 - 9.9 K/cumm [facility] ([facility]) Hgb 15.0 13.0 - 17.5 g/dL [facility] ([facility]) Hct 46.3 38.9 - 50.3 % [facility] ([facility]) Plt 326 150 - 400 K/cumm [facility] ([facility]) MPV 9.7 9.1 - 12.3 fL [facility] ([facility]) RBC 5.65 4.30 - 5.80 M/cumm [facility] ([facility]) MCV 81.9 81.3 - 96.4 fL [facility] ([facility]) MCH 26.5(L) 27.1 - 33.3 pg [facility] ([facility]) MCHC 32.4 32.3 - 35.7 g/dL [facility] ([facility]) RDW CV 14.5 11.1 - 14.9 % [facility] ([facility]) RDW SD 42.9 35.7 - 48.1 fL [facility] ([facility]) NRBC abs 0.00 0.00 - 0.01 K/cumm [facility] ([facility]) Blood specimen (specimen) 09/22/2018 6:04 PM CDT 09/22/2018 6:07 PM CDT Narrative [facility] ([facility]) - 09/22/2018 6:09 PM CDT us Jc Ramirez MD LAB BLOOD ORDERABLES Final Result Performing Organization Address [facility]/ZIP Co de Phone Number [facility] ([facility]) 1 [facility] [place] [address] * Urine culture Urine, clean voided (09/22/2018 6:00 PM CDT) Report Final Report: Less than 100,000 colonies/mL (clinically insignificant growth based on current clinical standards) [facility] ([facility]TS) Comment:Testing performed by : [facility], [address] [place]., [address] Organism (CLINICALLY INSIGNIFICANT GROWTH BENJYNISREEN MILLAN (FIVE POINTS) Urine, clean voided 09/22/2018 6:00 PM CDT 09/23/2018 2:46 PM CDT Narrative [facility] ([facility]) - 09/24/2018 3:34 PM CDT Please call lab to use same specimen which was sent in from ER yesterday. ??No need to send new specimen. Indications for Culture:->Recent positive UA Testing performed by [facility] ([phone]) us Oly Mir MD LAB MICROBIOLOGY - GENER AL ORDERABLES Final Result [facility] ([facility]) 1 [facility] [place] [address] * (ABNORMAL) Urinalysis, microscopic only (09/22/2018 6:00 PM CDT) WBC, ur 6-10(A) 0 - 5 /HPF [facility] ([facility] RBC, ur 0-5 0 - 2 /HPF [facility] ([facility]) Epithelial cells, squamous, ur 1-5 0 - 5 /HPF [facility] ([facility]) Bacteria, ur Negative [facility] ([facility]) Hyaline casts, ur 1-5 0 - 10 /LPF [facility] ([facility]) Urine, clean voided 09/22/2018 6:00 PM CDT 09/22/2018 6:03 PM CDT Narrative [facility] ([facility]) - 09/22/2018 6:13 PM CDT us Jc Ramirez MD LAB URINE ORDERABLES Final Result [facility] ([facility]) 1 [facility] Department [place] [address] * (ABNORMAL) Urinalysis reflex to microscopic and culture Urine, clean voided (09/22/2018 6:00 PM CDT) Color, ur Red(A) Yellow [facility] ([facility]) Clarity, ur Clear Clear [facility] ([facility]) Specific gravity, ur >1.030(H) 1.010 - 1.025 [facility] ([facility]) pH, urine 6.5 [facility] ([facility]) Protein, ur ql 4+(A) Negative [facility] ([facility]) Glucose, ur ql 3+(A) Negative [facility] ([facility]) Ketones, ur 4+(A) Negative [facility] ([facility]) Bilirubin, ur 3+(A) Negative [facility] ([facility]) Blood, ur 3+(A) Negative [facility] ([facility]) Urobilinogen, ur 1.0 mg/dL [facility] ([facility]) Nitrite, ur Positive( A) Negative [facility] ([facility]) Leukocyte esterase, ur 3+(A) Negative [facility] ([facility]) Urine, clean voided 09/22/2018 6:00 PM CDT 09/22/2018 6:03 PM CDT Narrative [facility] ([facility]) - 09/22/2018 6:13 PM CDT ?? Urine pH is affected by diet, medications, systemic acid-base disturbances, and renal tubular function. ??pH may affect urinary stone formation. ??For example, urine pH below 6.0 may help reduce the tendency for calcium phosphate stones and pH greater than 6.0 may reduce the tendency for uric acid stone formation. Source: [place]. Last revised 06-01-2017 Jc Ramirez MD LAB MICROBIOLOGY - GENERAL ORDERABLES Final Result [facility] ([facility]) 1 [facility] Department [place] [address] documented in this encounter Visit Diagnoses Diagnosis Ceballos's palsy- Primary Ceballos's palsy Mastoiditis of right side Uncontrolled type 1 diabetes mellitus with hyperglycemia (HCC) H/O influenza Mastoiditis of right side documented in this encounter Administered Medications Inactive Administered Medications - up to 3 most recent administrations Medication Order MAR Action Action Date Dose Rate Site acetaminophen (TYLENOL) tablet 650 mg 650 mg, oral, Every 6 hours PRN, 1st line for pain, Starting on 09/22/18 at 2210 Given 09/23/2018 4:32 PM CDT 650 mg acyclovir (ZOVIRAX) capsule 400 mg 400 mg, oral, 5 times daily, First dose on 09/22/18 at 2200, Indications: Ceballos's PalsyIndications:Ceballos's Palsy Given 09/27/2018 6:32 AM CDT 400 mg Given 09/26/2018 8:51 PM CDT 400 mg Given 09/26/2018 5:30 PM CDT 400 mg amLODIPine (NORVASC) tablet 5 mg 5 mg, oral, Nightly, First dose (after last modification) on 09/23/18 at 2100, Indications: hypertensionIndications:hypertension Given 09/26/2018 8:48 PM CDT 5 mg Given 09/25/2018 8:41 PM CDT 5 mg Given 09/24/2018 10:18 PM CDT 5 mg ampicillin-sulbactam (UNASYN) 3 g in sodium chloride 0.9% 100 mL IVPB 3 g, intravenous, at 240 mL/hr, Administer over 30 Minutes, Every 6 hours scheduled, First dose on 09/24/18 at 1000, Indications: Upper Respiratory/HEENT InfectionIndications:Upper Respiratory/HEENT Infection New Bag 09/27/2018 6:27 AM CDT 3 g 240 mL/hr New Bag 09/26/2018 11:17 PM CDT 3 g 240 mL/hr New Bag 09/26/2018 5:29 PM CDT 3 g 240 mL/hr atorvastatin (LIPITOR) tablet 40 mg 40 mg, oral, Nightly, First dose (after last modification) on Clifford 09/23/18 at 2100, Indications: arteriosclerotic vascular diseaseIndications:arteriosclerotic vascular disease Given 09/23/2018 8:29 PM CDT 40 mg atorvastatin (LIPITOR) tablet 80 mg 80 mg, oral, Nightly, First dose (after last modification) on 09/24/18 at 2115, Indications: arteriosclerotic vascular diseaseIndications:arteriosclerotic vascular disease Given 09/26/2018 8:48 PM CDT 80 mg Given 09/25/2018 8:40 PM CDT 80 mg Given 09/24/2018 10:27 PM CDT 80 mg Bifidobacterium infantis (ALIGN) capsule 4 mg 4 mg, oral, Nightly, First dose (after last modification) on Clifford 09/23/18 at 2100 Given 09/26/2018 8:47 PM CDT 4 mg Given 09/25/2018 8:40 PM CDT 4 mg Given 09/24/2018 10:19 PM CDT 4 mg bisacodyl EC (DULCOLAX EC) tablet 10 mg 10 mg, oral, Daily PRN, constipation, If no results 24 hours after milk of magnesia, Starting on 09/22/18 at 2210, Do not crush, chew, cut, dissolve, open or otherwise manipulate tablet/capsule. cefTRIAXone (ROCEPHIN) 2000 mg/20 mL in sterile water (premix) 2,000 mg 2,000 mg, intravenous, at 240 mL/hr, Administer over 5 Minutes, Every 24 hours scheduled, First dose on 09/22/18 at 1906, Indications: Upper Respiratory/HEENT InfectionIndications:Upper Respiratory/HEENT Infection New Bag 09/23/2018 8:22 AM CDT 2,000 mg 240 mL/hr New Bag 09/22/2018 7:14 PM CDT 2,000 mg 240 mL/hr dextrose (D10W) 10% bolus 250 mL 250 mL, intravenous, at 1,000 mL/hr, Administer over 15 Minutes, Every 15 min PRN, blood glucose less than 70 mg/dL and UNABLE to swallow/take PO glucose/juice., Starting on 09/22/18 at 2052, After treatment for hypoglycemia, recheck BG followed by treatment every 15 minutes until the BG is greater than 100 mg/dL. Then check BG 1 hour post treatment. If BG is less than 100 mg/dL, repeat Q15 minute BG checks and treatment. Call MD for each episode of hypoglycemia., Indications: hypoglycemic disorderIndications:hypoglycemic disorder dextrose gel in packet 15 g 15 g, oral, Every 15 min PRN, low blood sugar, blood glucose less than 70 mg/dL, Starting on 09/22/18 at 2052, If patient is alert and able to eat/drink, give 15 gm glucose or one juice (4 fluid ounces) NOT ORANGE JUICE. After treatment for hypoglycemia, recheck BG followed by treatment every 15 minutes until the BG is greater than 100 mg/dL. Then check BG 1 hour post-treatment. If BG is less than 100 mg/dL, repeat Q15 minute BG checks and treatment. Call MD for each episode of hypoglycemia., Indications: hypoglycemic disorderIndications:hypoglycemic disorder diphenhydrAMINE (BENADRYL) tab/cap 25 mg 25 mg, oral, Nightly PRN, sleep, Starting on 09/22/18 at 2332 Given 09/22/2018 11:42 PM CDT 25 mg doxycycline (VIBRAMYCIN) tablet/capsule 100 mg 100 mg, oral, 2 times daily (for quinolones,etc), First dose on 09/22/18 at 2130, Give 2 hrs before or 2 hrs after MVI, antacids, or other products containing sucralfate, magnesium, aluminum, iron, or zinc. May be taken without regard to meals., Indications: Upper Respiratory/HEENT InfectionIndications:Upper Respiratory/HEENT Infection Given 09/24/2018 5:57 PM CDT 100 mg Given 09/24/2018 5:59 AM CDT 100 mg Given 09/23/2018 4:33 PM CDT 100 mg famotidine (PEPCID) tablet 20 mg 20 mg, oral, 2 times daily, First dose on 09/22/18 at 2130 Given 09/27/2018 8:14 AM CDT 20 mg Given 09/26/2018 9:01 PM CDT 20 mg Given 09/26/2018 8:16 AM CDT 20 mg FLUoxetine (PROzac) capsule 40 mg 40 mg, oral, Nightly, First dose (after last modification) on 09/23/18 at 2100, Indications: depressionIndications:depression Given 09/26/2018 8:4 5 PM CDT 40 mg Given 09/25/2018 8:40 PM CDT 40 mg Given 09/24/2018 10:18 PM CDT 40 mg fluticasone propionate (FLONASE) 50 mcg/actuation nasal spray 2 spray 2 spray, each nostril, 2 times daily, First dose on 09/23/18 at 1500 Given 09/27/2018 8:14 AM CDT 2 sprays Given 09/26/2018 8:56 PM CDT 2 sprays Given 09/26/2018 8:16 AM CDT 2 sprays gadoterate meglumine (DOTAREM) 0.5 mmol/mL injection 20 mL 20 mL, intravenous, Once in imaging, contrast, Starting on Mon09/24/18 at 1731, For 1 dose Given 09/24/2018 5:32 PM CDT 20 mL insulin glargine (LANTUS,BASAGLAR) pen injection 20 Units 20 Units, subcutaneous, 2 times daily, First dose on 09/22/18 at 2130, Do not mix with other insulins, Indications: Diabetes MellitusIndications:Diabetes Mellitus Given 09/23/2018 8:15 AM CDT 20 Units Left Lower Abdomen Given 09/22/2018 10:01 PM CDT 20 Units L eft Upper Arm insulin glargine (LANTUS,BASAGLAR) pen injection 30 Units 30 Units, subcutaneous, 2 times daily, First dose (after last modification) on 09/23/18 at 2100, Do not mix with other insulins, Indications: Diabetes MellitusIndications:Diabetes Mellitus Given 09/24/2018 8:43 AM CDT 30 Units Left Upper Arm Given 09/23/2018 9:34 PM CDT 30 Units Ri ght Upper Arm insulin glargine (LANTUS,BASAGLAR) pen injection 40 Units 40 Units, subcutaneous, 2 times daily, First dose (after last modification) on 09/24/18 at 2115, Do not mix with other insulins, Indications: Diabetes MellitusIndications:Diabete s Mellitus Given 09/26/2018 8:17 AM CDT 40 Units Right Lower Abdomen Given 09/25/2018 10:02 PM CDT 40 Units L eft Lower Abdomen Given 09/25/2018 8:20 AM CDT 40 Units Ri ght Lower Abdomen insulin glargine (LANTUS,BASAGLAR) pen injection 45 Units 45 Units, subcutaneous, 2 times daily, First dose (after last modification) on Mon09/26/18 at 2100, Do not mix with other insulins, Indications: Diabetes MellitusIndications:Diabetes Mellitus Given 09/27/2018 8:12 AM CDT 45 Units Left Upper Arm Given 09/26/2018 10:58 PM CDT 45 Units L eft Lower Abdomen insulin lispro (HumaLOG) pen injection 1-4 Units 1-4 Units, subcutaneous, Nightly, First dose on 09/22/18 at 2130, Blood Sugar High Dose PM - PO patients 139 or less No insulin 140 - 175 1 unit 176 - 200 2 units 201 - 250 3 units 251 - 299 4 units Greater than 299 Call MD for hyperglycemia management instructions Do NOT hold for NPO status., Indications: Diabetes MellitusIndications:Diabetes Mellitus Given 09/26/2018 10:57 PM CDT 3 Units Left Lower Abdomen Given 09/25/2018 10:03 PM CDT 1 Units R ight Lower Abdomen Given 09/24/2018 10:19 PM CDT 3 Units L eft Upper Arm insulin lispro (HumaLOG) pen injection 1-4 Units 1-4 Units, subcutaneous, Every 24 hours, First dose on 09/23/18 at 0200, Blood Sugar High Dose 02:00 - PO patients 139 or less No insulin 140 - 175 1 unit 176 - 200 2 units 201 - 250 3 units 251 - 299 4 units Greater than 299 Call MD for hyperglycemia management instructions Do NOT hold for NPO status., Indications: Diabetes MellitusIndications:Diabetes Mellitus Given 09/27/2018 3:36 AM CDT 3 Units Left Upper Arm Given 09/25/2018 2:49 AM CDT 2 Units Le ft Upper Arm Given 09/24/2018 2:37 AM CDT 3 Units Ri ght Upper Arm insulin lispro (HumaLOG) pen injection 1-7 Units 1-7 Units, subcutaneous, 3 times daily with meals, First dose on 09/23/18 at 0800, Blood Sugar High Dose meal time - PO patients 139 or less No insulin 140 - 175 2 unit 176 - 200 3 unit 201 - 250 5 units 251 - 299 7 units Greater than 299 Call MD for hyperglycemia management instructions Do NOT hold for NPO status., Indications: Diabetes MellitusIndications:Diabetes Mellitus Given 09/27/2018 8:11 AM CDT 3 Units Left Upper Arm Given 09/26/2018 12:03 PM CDT 5 Units R ight Lower Abdomen Given 09/26/2018 8:18 AM CDT 3 Units Ri ght Lower Abdomen insulin lispro (HumaLOG) pen injection 11 Units 11 Units, subcutaneous, 3 times daily with meals, First dose (after last modification) on 09/23/18 at 1245, If patient eats 50% or less of meal, call MD for holding or reducing meal insulin dose. Note: Patients may require two doses of insulin: correction insulin administered pre-meal and meal-time insulin administered after the meal. Hold post-meal insulin if NPO for procedures, unable to eat, or BG is less than 70 mg/dl., Indications: Diabetes MellitusIndications:Diabetes Mellitus Given 09/24/2018 8:43 AM CDT 11 Units Left Upper Arm Given 09/23/2018 5:06 PM CDT 11 Units Le ft Upper Arm Given 09/23/2018 1:13 PM CDT 5 Units Le ft Lower Abdomen insulin lispro (HumaLOG) pen injection 14 Units 14 Units, subcutaneous, 3 times daily with meals, First dose (after last modification) on Mon09/24/18 at 1200, If patient eats 50% or less of meal, call MD for holding or reducing meal insulin dose. Note: Patients may require two doses of insulin: correction insulin administered pre-meal and meal-time insulin administered after the meal. Hold post-meal insulin if NPO for procedures, unable to eat, or BG is less than 70 mg/dl., Indications: Diabetes MellitusIndications:Diabetes Mellitus Given 09/27/2018 8:10 AM CDT 14 Units Left Upper Arm Given 09/26/2018 4:57 PM CDT 14 Units Ri ght Upper Abdomen Given 09/26/2018 12:03 PM CDT 14 Units R ight Lower Abdomen insulin lispro (HumaLOG) pen injection 5 Units 5 Units, subcutaneous, Once, On Mon09/26/18 at 0345, For 1 dose Given 09/26/2018 3:12 AM CDT 5 Units Left Upper Arm insulin lispro (HumaLOG) pen injection 6 Units 6 Units, subcutaneous, 3 times daily after meals, First dose on 09/23/18 at 0830, If patient eats 50% or less of meal, call MD for holding or reducing meal insulin dose. Note: Patients may require two doses of insulin: correction insulin administered pre-meal and meal-time insulin administered after the meal. Hold post-meal insulin if NPO for procedures, unable to eat, or BG is less than 70 mg/dl., Indications: Diabetes MellitusIndications:Diabetes Mellitus Given 09/23/2018 12:13 PM CDT 6 Units Left Upper Arm Given 09/23/2018 8:15 AM CDT 6 Units Le ft Lower Abdomen insulin lispro (HumaLOG) pen injection 6 Units 6 Units, subcutaneous, Once, On 09/23/18 at 0330, For 1 dose Given 09/23/2018 3:08 AM CDT 6 Units Left Upper Arm insulin NPH (HumuLIN N, NovoLIN N) injection 18 Units 18 Units, subcutaneous, 2 times daily, First dose on 09/22/18 at 2130, Hold if BG less than 110. Administer with steroids. Hold if steroids held or discontinued. Given 09/23/2018 8:20 AM CDT 18 Units Left Upper Arm Given 09/22/2018 10:01 PM CDT 18 Units L eft Upper Abdomen insulin NPH (HumuLIN N, NovoLIN N) injection 37 Units 37 Units, subcutaneous, Daily, First dose (after last modification) on 09/24/18 at 0900, Hold if BG less than 110. Administer with steroids. Hold if steroids held or discontinued. Given 09/27/2018 8:15 AM CDT 37 Units Left Upper Arm Given 09/26/2018 8:17 AM CDT 37 Units Ri ght Lower Abdomen Given 09/25/2018 8:41 AM CDT 37 Units Ri ght Lower Abdomen loratadine (CLARITIN) tablet 10 mg 10 mg, oral, Daily, First dose on 09/23/18 at 1445 Given 09/27/2018 8:14 AM CDT 10 mg Given 09/26/2018 8:16 AM CDT 10 mg Given 09/25/2018 8:19 AM CDT 10 mg magnesium hydroxide (MILK OF MAGNESIA) 80 mg/mL (33.3 mg/mL as elemental magnesium) oral suspension 30 mL 30 mL, oral, Daily PRN, constipation, Starting on 09/22/18 at 2210 mineral oil (FLEET MINERAL OIL) enema 1 enema 1 enema, rectal, Daily PRN, constipation, if no results 24 hours after bisacodyl, Starting on 09/22/18 at 2210, Indications: constipationIndications:constipation predniSONE (DELTASONE) tablet 40 mg 40 mg, oral, 2 times daily, First dose on 09/22/18 at 2130 Given 09/22/2018 9:13 PM CDT 40 mg predniSONE (DELTASONE) tablet 60 mg 60 mg, oral, Daily, First dose on 09/23/18 at 0900 Given 09/27/2018 8:13 AM CDT 60 mg Given 09/26/2018 8:16 AM CDT 60 mg Given 09/25/2018 8:19 AM CDT 60 mg sodium chloride 0.9% flush 0.5-20 mL 0.5-20 mL, intra-catheter, Every 8 hours, First dose on Clifford 09/23/18 at 0600, Flush volume based on line type and size. Given 09/27/2018 6:27 AM CDT 10 mL Given 09/26/2018 9:00 PM CDT 10 mL Given 09/26/2018 2:20 PM CDT 10 mL sodium chloride 0.9% flush 0.5-20 mL 0.5-20 mL, intra-catheter, As needed, line care, Starting on 09/22/18 at 2210, Flush volume based on line type and size. Flush before and after each use. zolpidem (AMBIEN) tablet 5 mg 5 mg, oral, Once, On 09/23/18 at 2345, For 1 dose, Indications: Sleep-Onset InsomniaIndications:Sleep-Onset Insomnia Given 09/23/2018 11:29 PM CDT 5 mg documented in this encounter Discontinued Medications Medication Sig Discontinue Reason Start Date End Da te atorvastatin (LIPITOR) 10 mg tablet Take 10 mg by mouth daily. 09/22/2018 insulin lispro (HumaLOG) 100 unit/mL insulin penIndications:Diabete s Mellitus Inject 14 Units under the skin 3 (three) times a day with meals Stop Taking at Discharge 09/27/2018 09/27/2018 predniSONE (DELTASONE) 20 mg tablet Take 3 tablets (60 mg) by mouth daily for 4 days 09/28/2018 09/27/2018 documented as of this encounter Historical Medications * This list may reflect changes made after this encounter. omeprazole (PriLOSEC) 20 mg capsuleIndication s:Stress Ulcer Prophylaxis Take 20 mg by mouth daily atorvastatin (LIPITOR) 40 mg tabletIndications :arteriosclerotic vascular disease Take 40 mg by mouth daily FLUoxetine (PROzac) 40 mg capsuleIndication s:depression Take 40 mg by mouth daily glimepiride (AMARYL) 4 mg tabletIndications :diabetes Take 8 mg by mouth daily before breakfast 0 08/24/2018 amLODIPine (NORVASC) 5 mg tabletIndications :hypertension 5 mg daily 3 08/24/2018 added in this encounter Active and Recently Administered Medications Times are shown in CDT. Scheduled Medication Order 09/25/2018 09/26/2018 09/27/2018 acyclovir (ZOVIRAX) capsule 400 mg 400 mg, oral, 5 times daily, First dose on 09/22/18 at 2200, Indications: Ceballos's Palsy 0607 (Given - Provider: Mita Antonio RN)1155 (Given - Provider: Dianna John RN)1405 (Given - Provider: Dianna John RN)1722 (Given - Provider: Dianna John RN)2043 (Given - Provider: Christiana Chaparro RN) 0612 (Given - Provider: Christiana Chaparro RN)1202 (Given - Provider: Dianna John RN)1420 (Given - Provider: Dianna John RN)1730 (Given - Provider: Dianna John RN)2051 (Given - Provider: Christiana Chaparro RN) 0632 (Given - Provider: Christiana Chaparro RN)1100 (Due) amLODIPine (NORVASC) tablet 5 mg 5 mg, oral, Nightly, First dose (after last modification) on 09/23/18 at 2100, Indications: hypertension 2040 (Given - Provider: Christiana Chaparro RN) 2047 (Given - Provider: Christiana Chaparro RN) ampicillin-sulbactam (UNASYN) 3 g in sodium chloride 0.9% 100 mL IVPB 3 g, intravenous, at 240 mL/hr, Administer over 30 Minutes, Every 6 hours scheduled, First dose on 09/24/18 at 1000, Indications: Upper Respiratory/HEENT Infection 0004 (New Bag - Provider: Mita Antonio RN)0608 (New Bag - Provider: Mita Antonio RN)1217 (New Bag - Provider: Dianna John RN)1811 (New Bag - Provider: Dianna John RN) 0037 (New Bag - Provider: Christiana Chaparro RN)0611 (New Bag - Provider: Christiana Chaparro RN)1201 (New Bag - Provider: Dianna John RN)1729 (New Bag - Provider: Dianna John RN)2317 (New Bag - Provider: Christiana Chaparro RN) 0627 (New Bag - Provider: Christiana Chaparro RN) atorvastatin (LIPITOR) tablet 80 mg 80 mg, oral, Nightly, First dose (after last modification) on 09/24/18 at 2115, Indications: arteriosclerotic vascular disease 2039 (Given - Provider: Christiana Chaparro RN) 2047 (Given - Provider: Christiana Chaparro RN) Bifidobacterium infantis (ALIGN) capsule 4 mg 4 mg, oral, Nightly, First dose (after last modification) on Mon09/23/18 at 2100 2039 (Given - Provider: Christiana Chaparro RN) 2046 (Given - Provider: Christiana Chaparro RN) enoxaparin (LOVENOX) syringe 40 mg 40 mg, subcutaneous, Every 12 hours scheduled, First dose on Mon09/22/18 at 2130, Indications: Deep Vein Thrombosis Prevention 0823 (Not Given - Provider: Dianna John RN - Reason: Patient/family refused)2039 (Not Given - Provider: Christiana Chaparro RN - Reason: Pending Results - Comment: Pt states up ambulating.) 0944 (Not Given - Provider: Dianna John RN - Reason: Patient/family refused)2100 (Not Given - Provider: Christiana Chaparro RN - Reason: Patient/family refused - Comment: Pt states up ambulating.) 08 (Not Given - Provider: Caitlyn Sandoval, JANAK - Reason: Patient/family refused) famotidine (PEPCID) tablet 20 mg 20 mg, oral, 2 times daily, First dose on 09/22/18 at 2130 0819 (Given - Provider: Dianna John RN)2039 (Given - Provider: Christiana Chaparro RN) 08 (Given - Provider: Dianna John RN)2100 (Given - Provider: Christiana Chaparro RN) 0814 (Given - Provider: Caitlyn Sandoval, JANAK) FLUoxetine (PROzac) capsule 40 mg 40 mg, oral, Nightly, First dose (after last modification) on 09/23/18 at 2100, Indications: depression 2039 (Given - Provider: Christiana Chaparro RN) 2044 (Given - Provider: Christiana Chaparro RN) fluticasone propionate (FLONASE) 50 mcg/actuation nasal spray 2 spray 2 spray, each nostril, 2 times daily, First dose on 09/23/18 at 1500 0820 (Given - Provider: Dianna John RN)2042 (Given - Provider: Christiana Chaparro RN) 0816 (Given - Provider: Dianna John RN)2055 (Given - Provider: Christiana Chaparro RN) 0814 (Given - Provider: Caitlyn Sandoval, JANAK) insulin glargine (LANTUS,BASAGLAR) pen injection 40 Units (CANCELED) 40 Units, subcutaneous, 2 times daily, First dose (after last modification) on 09/24/18 at 2115, Do not mix with other insulins, Indications: Diabetes Mellitus 0820 (Given - Provider: Dianna Jhon RN)2201 (Given - Provider: Christiana Chaparro RN) 0817 (Given - Provider: Dianna John RN) insulin glargine (LANTUS,BASAGLAR) pen injection 45 Units 45 Units, subcutaneous, 2 times daily, First dose (after last modification) on Mon09/26/18 at 2100, Do not mix with other insulins, Indications: Diabetes Mellitus 225 (Given - Provider: Christiana Chaparro RN) 0812 (Given - Provider: Caitlyn Sandoval, JANAK) insulin lispro (HumaLOG) pen injection 1-4 Units 1-4 Units, subcutaneous, Nightly, First dose on 09/22/18 at 2130, Blood Sugar High Dose PM - PO patients 139 or less No insulin 140 - 175 1 unit 176 - 200 2 units 201 - 250 3 units 251 - 299 4 units Greater than 299 Call MD for hyperglycemia management instructions Do NOT hold for NPO status., Indications: Diabetes Mellitus 2202 (Given - Provider: Christiana Chaparro RN) 225 (Given - Provider: Christiana Chaparro RN) insulin lispro (HumaLOG) pen injection 1-4 Units 1-4 Units, subcutaneous, Every 24 hours, First dose on 09/23/18 at 0200, Blood Sugar High Dose 02:00 - PO patients 139 or less No insulin 140 - 175 1 unit 176 - 200 2 units 201 - 250 3 units 251 - 299 4 units Greater than 299 Call MD for hyperglycemia management instructions Do NOT hold for NPO status., Indications: Diabetes Mellitus 0249 (Given - Provider: Mita Antonio RN) 0308 (Canceled Entry - Provider: Christiana Chaparro RN - Comment: Hospitalist called for correction) 0336 (Given - Provider: Christiana Chaparro RN) insulin lispro (HumaLOG) pen injection 1-7 Units 1-7 Units, subcutaneous, 3 times daily with meals, First dose on 09/23/18 at 0800, Blood Sugar High Dose meal time - PO patients 139 or less No insulin 140 - 175 2 unit 176 - 200 3 unit 201 - 250 5 units 251 - 299 7 units Greater than 299 Call MD for hyperglycemia management instructions Do NOT hold for NPO status., Indications: Diabetes Mellitus 0841 (Given - Provider: Dianna John RN)1155 (Given - Provider: Dianna John RN)1722 (Given - Provider: Dianna John RN) 0500 (Given - Provider: Dianna John RN)0818 (Given - Provider: Dianna John RN)1203 (Given - Provider: Dianna John RN) 0811 (Given - Provider: Caitlyn Sandoval, JANAK) insulin lispro (HumaLOG) pen injection 14 Units 14 Units, subcutaneous, 3 times daily with meals, First dose (after last modification) on Mon09/24/18 at 1200, If patient eats 50% or less of meal, call MD for holding or reducing meal insulin dose. Note: Patients may require two doses of insulin: correction insulin administered pre-meal and meal-time insulin administered after the meal. Hold post-meal insulin if NPO for procedures, unable to eat, or BG is less than 70 mg/dl., Indications: Diabetes Mellitus 0839 (Given - Provider: Dianna John RN)1155 (Given - Provider: Dianna John RN)1723 (Given - Provider: Dianna Jhon RN) 0818 (Given - Provider: Dianna John RN)1203 (Given - Provider: Dianna John, JANAK)1657 (Given - Provider: Dianna John RN) 0810 (Given - Provider: Caitlyn Sandoval, JANAK) insulin lispro (HumaLOG) pen injection 5 Units (COMPLETED) 5 Units, subcutaneous, Once, On Mon09/26/18 at 0345, For 1 dose 0312 (Given - Provider: Christiana Chaparro RN) insulin NPH (HumuLIN N, NovoLIN N) injection 37 Units 37 Units, subcutaneous, Daily, First dose (after last modification) on Mon09/24/18 at 0900, Hold if BG less than 110. Administer with steroids. Hold if steroids held or discontinued. 0841 (Given - Provider: Dianna John RN) 0817 (Given - Provider: Dianna John RN) 0815 (Given - Provider: Caitlyn Sandoval, JANAK) loratadine (CLARITIN) tablet 10 mg 10 mg, oral, Daily, First dose on Mon09/23/18 at 1445 0819 (Given - Provider: Dianna John RN) 0816 (Given - Provider: Dianna John RN) 0814 (Given - Provider: Caitlyn Sandoval, JANAK) predniSONE (DELTASONE) tablet 60 mg 60 mg, oral, Daily, First dose on 09/23/18 at 0900 0819 (Given - Provider: Dianna John RN) 0816 (Given - Provider: Dianna John RN) 0813 (Given - Provider: Caitlyn Sandoval, JANAK) sodium chloride 0.9% flush 0.5-20 mL 0.5-20 mL, intra-catheter, Every 8 hours, First dose on 09/23/18 at 0600, Flush volume based on line type and size. 0608 (Given - Provider: Mita Antonio RN)1405 (Given - Provider: Dianna John RN)2044 (Given - Provider: Christiana Chaparro RN) 0612 (Given - Provider: Christiana Chaparro RN)1420 (Given - Provider: Dianna John RN)2100 (Given - Provider: Christiana Chaparro RN) 0627 (Given - Provider: Christiana Chaparro RN) PRN Medication Order 09/25/2018 09/26/2018 09/27/2018 acetaminophen (TYLENOL) tablet 650 mg 650 mg, oral, Every 6 hours PRN, 1st line for pain, Starting on 09/22/18 at 2210 bisacodyl EC (DULCOLAX EC) tablet 10 mg 10 mg, oral, Daily PRN, constipation, If no results 24 hours after milk of magnesia, Starting on 09/22/18 at 2210, Do not crush, chew, cut, dissolve, open or otherwise manipulate tablet/capsule. dextrose (D10W) 10% bolus 250 mL(Linked Group 1) 250 mL, intravenous, at 1,000 mL/hr, Administer over 15 Minutes, Every 15 min PRN, blood glucose less than 70 mg/dL and UNABLE to swallow/take PO glucose/juice., Starting on 09/22/18 at 2053, After treatment for hypoglycemia, recheck BG followed by treatment every 15 minutes until the BG is greater than 100 mg/dL. Then check BG 1 hour post treatment. If BG is less than 100 mg/dL, repeat Q15 minute BG checks and treatment. Call MD for each episode of hypoglycemia., Indications: hypoglycemic disorder dextrose gel in packet 15 g(Linked Group 1) 15 g, oral, Every 15 min PRN, low blood sugar, blood glucose less than 70 mg/dL, Starting on 09/22/18 at 2053, If patient is alert and able to eat/drink, give 15 gm glucose or one juice (4 fluid ounces) NOT ORANGE JUICE. After treatment for hypoglycemia, recheck BG followed by treatment every 15 minutes until the BG is greater than 100 mg/dL. Then check BG 1 hour post-treatment. If BG is less than 100 mg/dL, repeat Q15 minute BG checks and treatment. Call MD for each episode of hypoglycemia., Indications: hypoglycemic disorder glucagon injection 1 mg 1 mg, intramuscular, Administer over 1 Minutes, Every 30 min PRN, low blood sugar, blood glucose less than 70 mg/dL AND no IV access AND unable to take PO glucose/jiuce., Starting on 09/22/18 at 2052, After Glucagon is administered, position patient on side if possible to avoid aspiration. Obtain IV access. Follow glucagon treatment with glucose treatment or IV dextrose. After treatment for hypoglycemia, recheck BG followed by treatment every 15 minutes until the BG is greater than 100 mg/dL. Then check BG 1 hour post treatment. If BG is less than 100 mg/dL, repeat Q15 minute BG checks and treatment. Call MD for each episode of hypoglycemia., Indications: Hypoglycemia magnesium hydroxide (MILK OF MAGNESIA) 80 mg/mL (33.3 mg/mL as elemental magnesium) oral suspension 30 mL 30 mL, oral, Daily PRN, constipation, Starting on 09/22/18 at 2210 mineral oil (FLEET MINERAL OIL) enema 1 enema 1 enema, rectal, Daily PRN, constipation, if no results 24 hours after bisacodyl, Starting on 09/22/18 at 2210, Indications: constipation ondansetron (ZOFRAN) injection 4 mg 4 mg, intravenous, Administer over 2 Minutes, Every 4 hours PRN, nausea, vomiting, Starting on 09/23/18 at 1403 sodium chloride 0.9% flush 0.5-20 mL 0.5-20 mL, intra-catheter, As needed, line care, Starting on 09/22/18 at 2210, Flush volume based on line type and size. Flush before and after each use. Linked Groups Order Group 1: dextrose gel in packet 15 gJump to med 15 g, oral, Every 15 min PRN, low blood sugar, blood glucose less than 70 mg/dL, Starting on 09/22/18 at 2052, If patient is alert and able to eat/drink, give 15 gm glucose or one juice (4 fluid ounces) NOT ORANGE JUICE. After treatment for hypoglycemia, recheck BG followed by treatment every 15 minutes until the BG is greater than 100 mg/dL. Then check BG 1 hour post-treatment. If BG is less than 100 mg/dL, repeat Q15 minute BG checks and treatment. Call MD for each episode of hypoglycemia., Indications: hypoglycemic disorder Or dextrose (D10W) 10% bolus 250 mLJump to med 250 mL, intravenous, at 1,000 mL/hr, Administer over 15 Minutes, Every 15 min PRN, blood glucose less than 70 mg/dL and UNABLE to swallow/take PO glucose/juice., Starting on 09/22/18 at 2052, After treatment for hypoglycemia, recheck BG followed by treatment every 15 minutes until the BG is greater than 100 mg/dL. Then check BG 1 hour post treatment. If BG is less than 100 mg/dL, repeat Q15 minute BG checks and treatment. Call MD for each episode of hypoglycemia., Indications: hypoglycemic disorder documented in this encounter Orders Medications Ordered That Joe ht Not Have Been Administered Count Last Ordered Date First Ordered Date ampicillin-sulbactam (UNASYN ) 3 g in sodium chloride 0.9% 100 mL IVPB 1 09/24/2018 insulin glargine (LANTUS,BAS AGLAR) pen injection 35 Units 1 09/24/2018 amLODIPine (NORVASC) tablet 5 mg 1 09/24/19 19 atorvastatin (LIPITOR) tablet 40 mg 1 09/23 Bifidobacterium infantis (AL IGN) capsule 4 mg 1 09/23/2018 diphenhydrAMINE (BENADRYL) tab/cap 50 mg 1 09/23/2018 FLUoxetine (PROzac) capsule 40 mg 1 019 ondansetron (ZOFRAN) injection 4 mg 2 09/2309/22/2018 bisacodyl EC (DULCOLAX EC) tablet 10 mg 1 0 09/22/2018 dextrose (D10W) 10% bolus 250 mL 1 09/23/19 19 dextrose gel in packet 15 g 1 09/22/2018 enoxaparin (LOVENOX) syringe 40 mg 1 2018 glucagon injection 1 mg 1 09/22/2018 magnesium hydroxide (MILK OF MAGNESIA) 80 mg/mL (33.3 mg/mL as elemental magnesium) oral suspension 30 mL 1 09/22/2018 mineral oil (FLEET MINERAL O [place]) enema 1 enema 1 09/22/2018 sodium chloride 0.9% flush 0.5-20 mL 1 08/2018 Lab Orders Without Results Count Last Ordered D ate First Ordered Date POCT GLUCOSE DEVICE 8 09/27/2018 09/24/19 19 Consult Count Last Ordered Date First Orde red Date IP CONSULT TO ENT 1 09/23/2018 IP CONSULT TO NEUROLOGY 1 09/23/2018 IV Count Last Ordered Date First Orde red Date SALINE LOCK IV 1 09/22/2018 Admission Count Last Ordered Date First Orde red Date ASSIGN PATIENT STATUS 1 09/22/2018 ADT Patient Update Count Last Ordered Date Firs t Ordered Date ED IP DECISION TO ADMIT 1 09/22/2018 documented in this encounter Care Teams Air Gun Operator Relationship Specialty Start Date End Date Isra Mahmood MD [address] [place] [id number] PCP - General 03/30/18 04/07/24 documented as of this encounter
--- OUTSIDE RECORDS SUMMARY | 2024-05-24 06:16 | XMS_ITS | Encounter Summary ---
Author Organization [facility] Healthcare Address [address] [place] [address] Care Team Providers Care Lurer Name Role Phone Isra Mahmood MD Primary Care Provider [phone] Reason for Visit * Reason Comments Head Injury Encounter Details Date Type Department Care Team (Late st Contact Info) Description 04/21/2018 10:13 PM GUT SNATCHER - 04/21/2018 11:41 PM GUT SNATCHER Emergency [facility] Emergency Department [address] [place] [id number] Jc Ramirez MD [address] [place] [address] Head injury, initial encounter (Primary Dx) Discharge Disposition: Discharge to home or self care Social History Tobacco Use Types Packs/Day Years Used Date Smoking Tobacco: Never Assessed Sex and Gender Information Value Date Recorded Sex Assigned at Not on file Legal Sex Male 8:57 AM GUT SNATCHER Gender Identity Not on file Sexual Orientation Not on file documented as of this encounter Last Filed Vital Signs Vital Sign Reading Time Taken Comments Blood Pressure 158/78 04/21/2018 11:01 PM GUT SNATCHER Pulse 88 04/21/2018 11:01 PM GUT SNATCHER Temperature 36.6 ??C (97.9 ??F) 04/21/2018 10:[address] Respiratory Rate 16 04/21/2018 11:01 PM GUT SNATCHER Oxygen Saturation 99% 04/21/2018 11:01 PM GUT SNATCHER Inhaled Oxygen Concentration - - Weight 149.7 kg (330 lb) 04/21/2018 10:20 PM GUT SNATCHER Height 175.3 cm (5' 9 ) 04/21/2018 10:20 PM GUT SNATCHER Body Mass Index 48.73 04/21/2018 10:20 PM GUT SNATCHER documented in this encounter Discharge Instructions * Attachments The following attachments cannot be sent through Care Everywhere. * Head Injury (Adult) (Gambian) documented in this encounter Medications at Time [...] documented in this encounter ED Notes * Lyly Alarcon RN - 04/21/2018 10:25 PM CST Pt arrived to ED from IMU r/t work place injury. States he was walking around a bed and tripped over a cord and struck his forehead above the R eye on the wall. He is now having a headache and problems focusing his vision. Denies LOC. No pollard or abrasions noted. SNATCHER * Jc Ramirez MD - 04/21/2018 10:22 PM CST HPI Chief Complaint Patient presents with ??? Head Injury (provider at bedside: 10:17 PM 04/21/2018) Gerardo is a 32 y/o M with a PMhx of diabetes who presents to the ED for evaluation of a head injury sustained from a ground level fall about one hour ago. Pt states he tripped over a cord in a patient's room and fell forward hitting just above his right eye on the corner of the wall. He denies LOC however has started to develop intermittent blurred vision and dizziness. He is also having frontal throbbing headaches and mild nausea. He is not on blood thinners at this time. He denies any other injuries or symptoms of illness. 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 Past Medical History: Diagnosis Date ??? Diabetes (CMS/HCC) No past surgical history on file. No family history on file. Social History Substance Use Topics ??? Smoking status: Not on file ??? Smokeless tobacco: Not on file ??? Alcohol use Not on file Social History Social History Narrative ??? No narrative on file Review of Systems Review of Systems Constitutional: Negative for chills, fatigue and fever. HENT: Negative for congestion, ear pain, rhinorrhea, sneezing and sore throat. Eyes: Positive for visual disturbance. Respiratory: Negative for cough, shortness of breath and wheezing. Cardiovascular: Negative for chest pain and palpitations. Gastrointestinal: Positive for nausea. Negative for abdominal pain, constipation, diarrhea and vomiting. Musculoskeletal: Negative for arthralgias, back pain and neck pain. Skin: Negative for rash and wound. Neurological: Positive for dizziness and headaches. Negative for syncope, weakness and light-headedness. All other systems reviewed and are negative. Physical Exam ED Triage Vitals [04/21/18 2220] Temp Pulse Resp BP SpO2 36.6 ??C (97.9 ??F) 82 16 162/89 98 % Temp src Heart Rate Source Patient Position BP Location FiO2 (%) Temporal -- -- -- -- Physical Exam Constitutional: He is oriented to person, place, and time. He appears well- developed. No distress. Pleasant, morbidly obese male in no acute distress. HENT: Head: Normocephalic. Mouth/Throat: Oropharynx is clear and moist. Small contusion over the right eye. No bruising, bleeding or laceration Eyes: Conjunctivae and EOM are normal. Neck: Normal range of motion. Neck supple. Cardiovascular: Normal rate, regular rhythm, normal heart sounds and intact distal pulses. Exam reveals no gallop and no friction rub. No murmur heard. Pulmonary/Chest: Effort normal and breath sounds normal. No respiratory distress. He has no wheezes. He has no rales. Abdominal: Soft. There is no tenderness. Musculoskeletal: Normal range of motion. He exhibits no edema, tenderness or deformity. Neurological: He is alert and oriented to person, place, and time. Skin: Skin is warm and dry. Capillary refill takes less than 2 seconds. No rash noted. No erythema.No pallor. Psychiatric: He has a normal mood and affect. His behavior is normal. Nursing note and vitals reviewed. MDM MDM Number of Diagnoses or Management Options Amount and/or Complexity of Data Reviewed Tests in the radiology section of CPT??: reviewed and ordered Labs Reviewed - No data to display CT Head WO Contrast (Results Pending) BP 162/89 Pulse 82 Temp 36.6 ??C (97.9 ??F) (Temporal) Resp 16 Ht 175.3 cm (5' 9 ) Wt (!)149.7 kg (330 lb) SpO2 98% BMI 48.73 kg/m?? Procedures ED Course as of Apr 21 2332 Time: 04/21 2230 Comment: The patient has been informed that they may have pre-hypertension or Hypertension based machelle blood pressure reading in the Emergency Department. I recommend that the patient call the primarycare provider listed on their discharge instructions or a physician of their choice this week to arrange follow up for further evaluation of possible Hypertension. By: Mary Sahu Time: 04/21 2315 Comment: [facility] CT HEAD IMPRESSION: no acute findings Dictated by Dr. Marc Silva MD By: Mary Sahu Time: 04/21 2322 Comment: Discussed CT results with patient as well as plan of care. He verbalizes understanding andis agreeable with plan for discharge. All questions and concerns addressed. Return precautions discussed. By: Mary Sahu Clinical impression: Head injury, initial encounter Disposition: Discharge Condition: Stable Mary Sahu scribed for Dr.David James MD in the doctor's presence. I electronically signed this document at 11:32 PM on 04/21/18 I, Jc Ramirez MD, have personally performed the services described in the documentation , reviewed the documentation, as recorded by the scribe in my presence, and it accurately and completely records my words and actions. Jc Ramirez MD 04/21/18 [id number] SNATCHER documented in this encounter Plan of Treatment Not on file documented as of this encounter Procedures Procedure Name Priority Date/Time Associated Diagnosis Comments CT HEAD WO CONTRAST ED 04/21/2018 1 0:34 PM GUT SNATCHER documented in this encounter Results * CT Head WO Contrast (04/21/2018 10:34 PM GUT SNATCHER) Anatomical Region Laterality Modality Head and Neck N/A Computed Tomogra phy 04/22/2018 7:56 AM GUT SNATCHER Impressions 04/22/2018 7:57 AM GUT SNATCHER 1. ??No acute intracranial process. Preliminary results were faxed by Dr. Silva of [facility] at 2308 on 04/21/2018. Electronically signed by: Cameron Bahena M.D. Narrative 04/22/2018 7:57 AM GUT SNATCHER EXAM: CT brain noncontrast HISTORY: Headache and blurred vision after fall. COMPARISON: 03/30/2018 TECHNIQUE: Axial images of the head were obtained from skull base to the vertex without contrast FINDINGS: There is no evidence of intracranial mass-effect, hemorrhage, or acute hydrocephalus. The ventricles are normal in size and are symmetrical. The third and fourth ventricles are in the midline. There are no acute brain parenchymal changes or extra-axial fluid collections. The posterior fossa contents are unremarkable. The calvarium is intact. The visualized paranasal sinuses and mastoid air cells are not opacified. Procedure Note Cameron Bahena MD - 04/22/2018 EXAM: CT brain noncontrast HISTORY: Headache and blurred vision after fall. COMPARISON: 03/30/2018 TECHNIQUE: Axial images of the head were obtained from skull base to the vertex without contrast FINDINGS: There is no evidence of intracranial mass-effect, hemorrhage, or acute hydrocephalus. The ventricles are normal in size and are symmetrical. The third and fourth ventricles are in the midline. There are no acute brain parenchymal changes or extra-axial fluid collections. The posterior fossa contents are unremarkable. The calvarium is intact. The visualized paranasal sinuses and mastoid air cells are not opacified. IMPRESSION: 1. No acute intracranial process. Preliminary results were faxed by Dr. Silva of [facility] at 2308 on 04/21/2018. Electronically signed by: Cameron Bahena M.D. Jc Ramirez MD IMG CT PROCEDURES Final Res ult documented in this encounter Visit Diagnoses Diagnosis Head injury, initial encounter- Primary documented in this encounter Administered Medications Inactive Administered Medications - up to 3 most recent administrations Medication Order MAR Action Action Date Dose Rate Site ketorolac (TORADOL) intramuscular injection 60 mg 60 mg, intramuscular, Once, On 04/21/18 at 2257, For 1 dose, For Adult IV push, administer over 15 seconds Given 04/21/2018 11:01 PM GUT SNATCHER 60 mg Right Deltoid ondansetron (ZOFRAN) tablet 4 mg 4 mg, oral, Once, On 04/21/18 at 2221, For 1 dose Given 04/21/2018 10:29 PM GUT SNATCHER 4 mg documented in this encounter Discontinued Medications Medication Sig Discontinue Reason Start Date End Da te amLODIPine (NORVASC) 5 mg tablet Take 1 tablet (5 mg total) by mouth daily. 03/31/2018 04/21/2018 documented as of this encounter Active and Recently Administered Medications Times are shown in GUT SNATCHER. Scheduled Medication Order 04/19/2018 04/20/2018 04/21/2018 ketorolac (TORADOL) intramuscular injection 60 mg (COMPLETED) 60 mg, intramuscular, Once, On 04/21/18 at 2257, For 1 dose, For Adult IV push, administer over 15 seconds 2301 (Given - Provid er: Lyly Alarcon RN) ondansetron (ZOFRAN) tablet 4 mg (COMPLETED) 4 mg, oral, Once, On 04/21/18 at 2221, For 1 dose 2229 (Given - Provid er: Lyly Alarcon RN) documented in this encounter Care Teams Lurer Relationship Specialty Start Date End Date Isra Mahmood MD [address] [place] [id number] PCP - General 03/30/18 04/07/24 documented as of this encounter
--- OUTSIDE RECORDS SUMMARY | 2024-05-24 06:16 | XMS_ITS | Encounter Summary ---
Author Organization [facility] Facility Care Team Providers Care Automatic Spreader Operator Name Role Phone Isra Mahmood MD Primary Care Provider [phone] Encounter Details Date Type Department Care Team (Latest Contact Info) Description 09/22/2018 Travel Social History Tobacco Use Types Packs/Day Years Used Date Smoking Tobacco: Former Cigarettes 0.3 13 0 09/20/2003 - 09/18/2016 Smokeless Tobacco: Never Alcohol Use Standard Drinks/Week Comments No 0 (1 standard drink = 0.6 oz pur e alcohol) Sex and Gender Information Value Date Recorded Sex Assigned at Not on file Legal Sex 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
--- OUTSIDE RECORDS SUMMARY | 2024-05-24 06:16 | XMS_ITS | Encounter Summary ---
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 virus. ??Such individuals ? are presumed to be uninfected with VZV and to ? be susceptible to primary infection. Equivocal: Presence or absence of detectable antibodies ? to VZV IgG cannot be determined and the test ? should be repeated. Positive: ??Indicated presence of detectable antibody to ? VZV. ??Indicative of current ? or previous infection or vaccination. Current interpretive data was last revised on 2016. Testing performed by: [facility], [address] [place]., [address] Blood specimen (specimen) 01/09/2018 11:20 AM CDT 01/09/2018 5:10 PM CDT Narrative [facility] ([place]) - 01/10/2018 10:23 AM CDT us Chance Bowen MD LAB MICROBIOLOGY - G ENERAL ORDERABLES Final Result [facility] ([place]) [address] [facility] [place] [address] documented in this encounter Visit Diagnoses Not on filedocumented in this encounter
--- OUTSIDE RECORDS SUMMARY | 2024-05-24 06:16 | XMS_ITS | Encounter Summary ---
Author Organization [facility] Healthcare Address [address] [place] [id number] Care Team Providers Care Plan Nurse Name Role Phone Isra Mahmood MD Primary Care Provider [phone] Reason for Visit * Reason Comments Hypertension Encounter Details Date Type Department Care Team (Late st Contact Info) Description 03/30/2018 10:36 PM TECHNICAL DIRECTOR - 03/31/2018 12:18 AM TECHNICAL DIRECTOR Emergency [facility] Emergency Department [address] [place] [id number] Gaudencio Gonzalez MD [address] [place] [address] Costochondritis, acute (Primary Dx); Sleep apnea in adult; Class 3 severe obesity due to excess calories in adult, unspecified BMI, unspecified whether serious comorbidity present (CMS/[facility]) Discharge Disposition: Discharge to home or self care Social History Tobacco Use Types Packs/Day Years Used Date Smoking Tobacco: Never Assessed Sex and Gender Information Value Date Recorded Sex Assigned at Not on file Legal Sex Male 8:57 AM TECHNICAL DIRECTOR Gender Identity Not on file Sexual Orientation Not on file documented as of this encounter Last Filed Vital Signs Vital Sign Reading Time Taken Comments Blood Pressure 144/85 03/31/2018 12:18 AM TECHNICAL DIRECTOR Pulse 90 03/31/2018 12:18 AM TECHNICAL DIRECTOR Temperature 36.6 ??C (97.9 ??F) 03/30/2018 10:[address] Respiratory Rate 19 03/31/2018 12:18 AM TECHNICAL DIRECTOR Oxygen Saturation 97% 03/31/2018 12:18 AM TECHNICAL DIRECTOR Inhaled Oxygen Concentration - - Weight 147.4 kg (325 lb) 03/30/2018 10:40 PM TECHNICAL DIRECTOR Height 175.3 cm (5' 9 ) 03/30/2018 10:40 PM TECHNICAL DIRECTOR Body Mass Index 47.99 03/30/2018 10:40 PM TECHNICAL DIRECTOR documented in this encounter Discharge Instructions * Attachments The following attachments cannot be sent through Care Everywhere. 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 30 tablet 03/31/2018 04/21/2018 atorvastatin (LIPITOR) 10 mg tablet Take 10 mg by mouth daily. 09/22/2018 ibuprofen (ADVIL,MOTRIN) 600 mg tablet Take 1 tablet (600 mg total) by mouth 3 (three) times a day. Take with food. 30 tablet 03/31/2018 03/12/2019 documented as of this encounter Ordered Prescriptions Prescription Sig Dispense Quantity Refills Last Filled Start Date End Date amLODIPine (NORVASC) 5 mg tablet Take 1 tablet (5 mg total) by mouth daily. 30 tablet 03/31/2018 04/21/2018 ibuprofen (ADVIL,MOTRIN) 600 mg tablet Take 1 tablet (600 mg total) by mouth 3 (three) times a day. Take with food. 30 tablet 03/31/2018 03/12/2019 documented in this encounter Discharge Disposition Disposition Code Departure Means Destination Discharge to home or self care documented in this encounter Progress Notes * Zahra Larkin MD - 03/31/2018 12:18 AM CST Please make an appoint for the patient to be seen for sleep apnea assessment NICAL DIRECTOR * Lillian Raines MA - 03/31/2018 12:18 AM CST lmsg for patient callback to set up a new patient appointment. NICAL DIRECTOR documented in this encounter ED Notes * Gaudencio Gonazlez MD - 03/30/2018 10:44 PM CSTAssociated Order(s): ECG 12-LEAD HPI Chief Complaint Patient presents with ??? Hypertension HPI 10:42 PM Bolivar Us is a 32 y.o. male with a history of diabetes presenting to the ED c/o left sided chest pain that began 30 minutes ago. Patient was at work when he began feeling a slicing left side chest pain that travels diagonally across his chest above the nipple line. He states hetook his blood pressure and noted it to be 179/103. He also reports a spasm to his right arm. He endorses that he felt fine prior to the onset of his symptoms. He denies any leg pain or swelling. Patient states he has had some difficulty sleeping, but notes that he works midnights. No other complaints were expressed at this time. Patient History There are no active problems [...] ear pain, rhinorrhea, sneezing and sore throat. Respiratory: Negative for cough, shortness of breath and wheezing. Cardiovascular: Positive for chest pain. Negative for palpitations and leg swelling. Gastrointestinal: Negative for abdominal pain, constipation, diarrhea, nausea and vomiting. Musculoskeletal: Negative for arthralgias, back pain and neck pain. +muscle spasm Skin: Negative for color change, pallor, rash and wound. Neurological: Negative for dizziness, syncope, weakness, light-headedness and headaches. All other systems reviewed and are negative. Physical Exam ED Triage Vitals [03/30/18 2240] Temp Pulse Resp BP SpO2 36.6 ??C (97.9 ??F) 103 20 140/80 97 % Temp src Heart Rate Source Patient Position BP Location FiO2 (%) Temporal -- -- -- -- Physical Exam Constitutional: He is oriented to person, place, and time. He appears well- developed and well-nourished. No distress. Patient is an anxious, obese male in [facility]. HENT: Head: Normocephalic and atraumatic. Mouth/Throat: Oropharynx is clear and moist. Eyes: Conjunctivae and EOM are normal. Neck: Normal range of motion. Neck supple. No JVD present. Cardiovascular: Normal rate, regular rhythm, normal heart sounds and intact distal pulses. Exam reveals no gallop and no friction rub. No murmur heard. Pulmonary/Chest: Effort normal and breath sounds normal. No respiratory distress. He has no wheezes. He has no rales. He exhibits tenderness (left anterior). Abdominal: Soft. He exhibits no distension. There is no tenderness. Musculoskeletal: Normal range of motion. He exhibits no edema, tenderness or deformity. Shaking of the right hand that stops with activity. Lymphadenopathy: He has no cervical adenopathy. Neurological: He is alert and oriented to person, place, and time. Skin: Skin is warm and dry. Capillary refill takes less than 2 seconds. No rash noted. No erythema.No pallor. Psychiatric: He has a normal mood and affect. His behavior is normal. Nursing note and vitals reviewed. [facility] Vitals: 03/30/18 2240 03/31/18 0018 BP: 140/80 144/85 Pulse: 103 90 Resp: 20 19 Temp: 36.6 ??C (97.9 ??F) TempSrc: Temporal SpO2: 97% 97% Weight: (!) 147.4 kg (325 lb) Height: 175.3 cm (5' 9 ) Labs Reviewed CBC WITH AUTO DIFFERENTIAL - Abnormal Result Value WBC 10.3 (*) Hgb 14.9 Hct 45.1 Plt 319 MPV 9.3 RBC 5.68 MCV 79.4 (*) MCH 26.2 (*) MCHC 33.0 RDW CV 14.2 RDW SD 40.7 NRBC Abs 0.00 Narrative: D-DIMER, QUANTITATIVE - Abnormal D-dimer <150 (*) Narrative: COMPREHENSIVE METABOLIC PANEL - Abnormal Sodium 141 Potassium, pl 4.8 Chloride 102 CO2 25 Anion Gap 14 BUN 14 Creatinine 0.64 (*) Glucose 192 Calcium 9.7 Bilirubin, total 0.2 Protein, pl 8.0 Albumin 4.5 Alk phos 102 ALT 30 AST 17 Narrative: DIFFERENTIAL AUTO - Abnormal Neutrophil absolute 5.2 Immature granulocyte absolute 0.0 Lymphocytes absolute 4.4 (*) Monocyte absolute 0.6 Eosinophils absolute 0.1 Basophils, abs 0.0 Neutrophils 50.0 Immature granulocytes 0.5 Lymphocytes 42.3 Monocytes 5.8 Eosinophils 0.9 Basophils 0.5 Narrative: TROPONIN T Troponin T <0.01 Narrative: TSH Thyroid Stimulating Hormone 1.54 Narrative: EGFR GFR >60 Narrative: CT Head WO Contrast (Results Pending) ECG 12 lead Date/Time: 03/30/2018 10:53 PM Performed by: GAUDENCIO GONZALEZ Authorized by: GAUDENCIO GONZALEZ Rate: ECG rate: 112 Rhythm: Rhythm: sinus tachycardia QRS: QRS axis: Normal Conduction: Conduction: normal ST segments: ST segments: Normal T waves: T waves: normal Comments: Normal except for rate. [facility] ED Course as of Mar 31 52 Time: 03/31 20 Comment: Pt recheck. Pt walked normally. Requested off work Monday. Discussed ED findings and plansfor discharge with pt who understands and agrees with plan. Pt has been advised to return to the EDwith any new or worsening symptoms. Told pt they must loose weight. Follow up with neuro for sleep apnea. Follow up with PCP for blood pressure. Pt has no further complaints. All questions addressed at this time. By: Jacek Cui Costochondritis, acute Sleep apnea in adult Class 3 severe obesity due to excess calories in adult, unspecified BMI, unspecified whether serious comorbidity present ([facility]) 10:52 PM: Tyson Yanez, scribing for and in the presence of Gaudencio Gonzalez MD. I electronicallysigned this note at 10:52 PM on 03/30/2018. I, Gaudencio Gonzalez MD, have personally performed the services described in the documentation , reviewed the documentation, as recorded by the scribe in my presence, and it accurately and completely records my words and actions. Gaudencio Gonzalez MD 03/31/18 0052 NICAL DIRECTOR * Mita Nam RN - 03/30/2018 10:40 PM CST PT states he was sitting on the computer and developed chest pain, left sided radiating down mid sternum. Pain feels sharp. 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 Upon arrival BP is 140/80. Dneies N/V, SOB, headache or vision changes NICAL DIRECTOR documented in this encounter Plan of Treatment Not on file documented as of this encounter Procedures Procedure Name Priority Date/Time Associated Diagnosis Comments CT HEAD WO CONTRAST ED 03/30/2018 1 1:46 PM TECHNICAL DIRECTOR EGFR STAT 03/30/2018 11:11 PM TECHNICAL DIRECTOR DIFFERENTIAL AUTO STAT 03/30/2018 11: 11 PM TECHNICAL DIRECTOR CBC WITH AUTO DIFFERENTIAL STAT 03/30/2018 11:11 PM TECHNICAL DIRECTOR D-DIMER, QUANTITATIVE STAT 03/30/2018 11:11 PM TECHNICAL DIRECTOR TROPONIN T STAT 03/30/2018 11:11 PM TECHNICAL DIRECTOR TSH STAT 03/30/2018 11:11 PM TECHNICAL DIRECTOR COMPREHENSIVE METABOLIC PANEL STAT 03/30/2018 11:11 PM TECHNICAL DIRECTOR ECG 12-LEAD STAT 03/30/2018 10:38 PM TECHNICAL DIRECTOR documented in this encounter Results * CT Head WO Contrast (03/30/2018 11:46 PM TECHNICAL DIRECTOR) Anatomical Region Laterality Modality Head and Neck N/A Computed Tomogra phy 03/31/2018 6:45 AM TECHNICAL DIRECTOR Impressions 03/31/2018 6:46 AM TECHNICAL DIRECTOR 1. ??No acute intracranial process. 2. ??Mild maxillary sinus disease. Preliminary results were faxed by Dr. Squires of [facility] at [phone] on 03/30/2018. Electronically signed by: Cameron Bahena M.D. Narrative 03/31/2018 6:46 AM TECHNICAL DIRECTOR EXAM: CT brain noncontrast HISTORY: HEADACHE. COMPARISON: None TECHNIQUE: Axial images of the head were [...] contents are unremarkable. The calvarium is intact. Mucous membrane thickening is present in the bilateral maxillary sinuses. ??The remaining visible paranasal sinuses and mastoid air cells are not opacified. Procedure Note Cameron Bahena MD - 03/31/2018 EXAM: CT brain noncontrast HISTORY: HEADACHE. COMPARISON: None TECHNIQUE: Axial images of the head were [...] contents are unremarkable. The calvarium is intact. Mucous membrane thickening is present in the bilateral maxillary sinuses. The remaining visible paranasal sinuses and mastoid air cells are not opacified. IMPRESSION: 1. No acute intracranial process. 2. Mild maxillary sinus disease. Preliminary results were faxed by Dr. Squires of [facility] at 0605 on 03/30/2018. Electronically signed by: Cameron Bahena M.D. Gaudencio Gonzalez MD IM CT PROCEDURES Final Res ult * eGFR (03/30/2018 11:11 PM TECHNICAL DIRECTOR) eGFR >60 mL/min/1.7 3 m2 [facility] ([facility]) Comment: Interpretive Data Reference Interval Normal ?>/= 90 mL/min/1.73m2 Mildly decreased* ? 60 - 89 mL/min/1.73m2 Mildly to moderately decreased ?45 - 59 mL/min/1.73m2 Moderately to severely decreased ??30 - 44 mL/min/1.73m2 Severely decreased ?15 - 29 mL/min/1.73m2 Kidney Failure ?< 15 ??mL/min/1.73m2 *Relative to young adult level If -[place] multiply value by 1.16. Estimated glomerular filtration [...] was last reviewed 2015. Blood specimen (specimen) 03/30/2018 11:11 PM TECHNICAL DIRECTOR 03/30/2018 11:19 PM TECHNICAL DIRECTOR Narrative [facility] ([facility]) - 03/30/2018 11:43 PM TECHNICAL DIRECTOR us Gaudencio Gonzalez MD LAB BLOOD ORDERABLES Final Result [facility] ([facility]) 1 [facility] [place] [address] * (ABNORMAL) Differential, auto (03/30/2018 11:11 PM TECHNICAL DIRECTOR) Neutrophil abs 5.2 1.7 - 6.5 K/cumm [facility] ([facility]) Imm gran abs 0.0 0.0 - 0.1 K/cumm [facility] ([facility]) Lymphocyte abs 4.4(H) 0.8 - 3.3 K/cumm [facility] ([facility]) Monocyte abs 0.6 0.2 - 0.8 K/cumm [facility] ([facility]) Eosinophil abs 0.1 0.0 - 0.5 K/cumm [facility] ([facility]) Basophil abs 0.0 0.0 - 0.1 K/cumm [facility] ([facility]) Neutrophil pct 50.0 % [facility] ([facility]) Comment: Interpretive Data Percent cell count reference ranges are not reported, since discordance with absolute values may lead to misinterpretation of CBC data. Current Interpretive Data was last revised on 2017. Imm gran pct 0.5 % [facility] ([facility]) Comment: Interpretive Data Percent cell count reference ranges are not reported, since discordance with absolute values may lead to misinterpretation of CBC data. Current Interpretive Data was last revised on 2017. Lymphocyte pct 42.3 % [facility] ([facility]) Comment: Interpretive Data Percent cell count reference ranges are not reported, since discordance with absolute values may lead to misinterpretation of CBC data. Current Interpretive Data was last revised on 2017. Monocyte pct 5.8 % [facility] ([facility]) Comment: Interpretive Data Percent cell count reference ranges are not reported, since discordance with absolute values may lead to misinterpretation of CBC data. Current Interpretive Data was last revised on 2017. Eosinophil pct 0.9 % [facility] ([facility]) Comment: Interpretive Data Percent cell count reference ranges are not reported, since discordance with absolute values may lead to misinterpretation of CBC data. Current Interpretive Data was last revised on 2017. Basophil pct 0.5 % [facility] ([facility]) Comment: Interpretive Data Percent cell count reference ranges are not reported, since discordance with absolute values may lead to misinterpretation of CBC data. Current Interpretive Data was last revised on 2017. Blood specimen (specimen) 03/30/2018 11:11 PM TECHNICAL DIRECTOR 03/30/2018 11:17 PM TECHNICAL DIRECTOR Narrative [facility] ([facility]) - 03/30/2018 11:21 PM TECHNICAL DIRECTOR Gaudencio Gonzalez MD LAB BLOOD ORDERABLES Final Result Performing Organization Address City/[facility] Co de Phone Number [facility] ([facility]) 1 [place] [address] * TSH (03/30/2018 11:11 PM TECHNICAL DIRECTOR) Pathologist [facility] Thyroid Stimulating Hormone 1.54 0.30 - 4.20 mcIUnit/mL [facility] ([facility]) Blood specimen (specimen) 03/30/2018 11:11 PM TECHNICAL DIRECTOR 03/30/2018 11:19 PM TECHNICAL DIRECTOR Narrative [facility] ([facility]) - 03/30/2018 11:46 PM TECHNICAL DIRECTOR Gaudencio Gonzalez MD LAB BLOOD ORDERABLES Final Result Performing Organization Address [facility] de Phone Number [facility] ([facility]) 1 [facility] [place] [address] * (ABNORMAL) Comprehensive metabolic panel (03/30/2018 11:11 PM TECHNICAL DIRECTOR) Pathologist [facility] Sodium 141 135 - 145 mmol/L [facility] ([facility]) Potassium, pl 4.8 3.3 - 4.9 mmol/L [facility] ([facility]) Chloride 102 97 - 110 mmol/L [facility] ([facility]) CO2 25 22 - 32 mmol/L [facility] ([facility]) Anion gap 14 2 - 15 mmol/L [facility] ([facility]) BUN 14 8 - 25 mg/dL [facility] ([facility]) Creatinine 0.64(L) 0.80 - 1.30 mg/dL [facility] ([facility]) Glucose 192 70 - 199 mg/dL [facility] ([facility] Comment: Interpretive Data Fasting glucose [...] interpretive data was last revised 2017. Calcium 9.7 8.5 - 10.3 mg/dL [facility] ([facility]) Bilirubin, total 0.2 0.1 - 1.2 mg/dL [facility] ([facility]) Protein, pl 8.0 6.5 - 8.5 g/dL [facility] ([facility]) Albumin 4.5 3.5 - 5.0 g/dL [facility] ([facility]) Alk phos 102 40 - 130 Units/L [facility] ([facility]) ALT 30 7 - 55 Units/L [facility] ([facility]) AST 17 10 - 50 Units/L [facility] ([facility]) Blood specimen (specimen) 03/30/2018 11:11 PM TECHNICAL DIRECTOR 03/30/2018 11:19 PM TECHNICAL DIRECTOR Narrative [facility] ([facility]) - 03/30/2018 11:43 PM TECHNICAL DIRECTOR Gaudencio Gonzalez MD LAB BLOOD ORDERABLES Final Result [facility] ([facility]) 1 [facility] Department [place] [address] * (ABNORMAL) D-dimer, quantitative (03/30/2018 11:11 PM TECHNICAL DIRECTOR) D-dimer <150(L) 150 - 230 ng/mL D-DU [facility] ([facility]) Comment: Interpretive Data This D-dimer test is approved by the FDA to exclude suspected PE and DVT in outpatients when the result is <230 ng/mL in conjunction with a pre-test probability score of low or moderate using the Wells criteria. Current Interpretive Data was last revised on 2015. Blood specimen (specimen) 03/30/2018 11:11 PM TECHNICAL DIRECTOR 03/30/2018 11:17 PM TECHNICAL DIRECTOR Narrative [facility] ([facility]) - 03/30/2018 11:41 PM TECHNICAL DIRECTOR us Gaudencio Gonzalez MD LAB BLOOD ORDERABLES Final Result [facility] ([facility] 1 [facility] [place] [employer] [place] [address] * Troponin T (03/30/2018 11:11 PM TECHNICAL DIRECTOR) Pathologist [facility] Troponin T <0.01 0.00 - 0.01 ng/mL [facility] ([facility]) Comment: Interpretive Data Reference ranges for children <18 years of age have not been established. - > or = 18 years: Serial determinations are recommended for the diagnosis of myocardial infarction. ??Temporal rise and fall are consistent with myocardial infarction when at least one value is above the 99th percentile upper reference limit for troponin assay. ??Journal of the [place] [employer] 2012;60:1581-98. Current Interpretive Data Last Revised Date: 2018. Blood specimen (specimen) 03/30/2018 11:11 PM TECHNICAL DIRECTOR 03/30/2018 11:19 PM TECHNICAL DIRECTOR Narrative [facility] ([facility]) - 03/30/2018 11:46 PM TECHNICAL DIRECTOR Gaudencio Gonzalez MD LAB BLOOD ORDERABLES Final Result Performing Organization Address [facility] de Phone Number [facility] ([facility]) 1 [facility] [place] [employer] [place] [address] * (ABNORMAL) CBC with auto differential (03/30/2018 11:11 PM TECHNICAL DIRECTOR) Pathologist [facility] WBC 10.3(H) 3.8 - 9.9 K/cumm [facility] ([facility]) Hgb 14.9 13.0 - 17.5 g/dL [facility] ([facility]) Hct 45.1 38.9 - 50.3 % [facility] ([facility]) Plt 319 150 - 400 K/cumm [facility] ([facility]) MPV 9.3 9.1 - 12.3 fL [facility] ([facility]) RBC 5.68 4.30 - 5.80 M/cumm [facility] ([facility]) MCV 79.4(L) 81.3 - 96.4 fL [facility] ([facility]) MCH 26.2(L) 27.1 - 33.3 pg [facility] ([facility]) MCHC 33.0 32.3 - 35.7 g/dL [facility] ([facility]) RDW CV 14.2 11.1 - 14.9 % [facility] ([facility]) RDW SD 40.7 35.7 - 48.1 fL [facility] ([facility]) NRBC abs 0.00 0.00 - 0.01 K/cumm [facility] ([facility]) Blood specimen (specimen) 03/30/2018 11:11 PM TECHNICAL DIRECTOR 03/30/2018 11:17 PM TECHNICAL DIRECTOR Narrative [facility] ([facility]) - 03/30/2018 11:21 PM TECHNICAL DIRECTOR us Gaudencio Gonzalez MD LAB BLOOD ORDERABLES Final Result Performing Organization Address [facility] Co de Phone Number [facility] ([facility]) 1 [facility] Department [place] [address] * ECG 12 lead (03/30/2018 10:38 PM TECHNICAL DIRECTOR) Patient age 32 years [facility] Interpretation Text SINUS TACHYCARDIAABNORMAL RHYTHM ECGNO PREVIOUS TRACING [facility] Comment:Physician Interprete r Dr. Jacek Clark M.D. Ventricular Rate EKG/Min 112 /min [facility] P Wave Duration 108 ms [facility] QRS-Interval (MSEC) 102 ms [facility] ID-Interval (MSEC) 157 ms [facility] QT Interval 328 ms [facility] QTc 419 ms [facility] QTC Interval ms [facility] P [place] 17 deg [facility] QRS [place] -15 deg [facility] T [place] 18 deg [facility] 03/30/2018 10:3 8 PM TECHNICAL DIRECTOR Gaudencio Gonzalez MD ECG ORDERABLES Final Resul t Performing Organization Address City/[facility] Co de Phone Number [facility] documented in this encounter Visit Diagnoses Diagnosis Costochondritis, acute- Primary Sleep apnea in adult Class 3 severe obesity due to excess calories in adult, unspecified BMI, unspecified whether serious comorbidity present (HCC) documented in this encounter Administered Medications Inactive Administered Medications - up to 3 most recent administrations Medication Order MAR Action Action Date Dose Rate Site amLODIPine (NORVASC) tablet 5 mg 5 mg, oral, Daily, First dose (after last modification) on 03/31/18 at 0900 Given 03/30/2018 11:11 PM TECHNICAL DIRECTOR 5 mg ketorolac (TORADOL) intramuscular injection 60 mg 60 mg, intramuscular, Once, On Mon03/30/18 at 2258, For 1 dose Given 03/30/2018 11:04 PM TECHNICAL DIRECTOR 60 mg Left Deltoid LORazepam (ATIVAN) tablet 1 mg 1 mg, oral, Once, On Mon03/30/18 at 2248, For 1 dose Given 03/30/2018 11:05 PM TECHNICAL DIRECTOR 1 mg documented in this encounter Historical Medications * This list may reflect changes made after this encounter. ranitidine (ZANTAC) 150 mg capsuleIndication s:gastroesophagea l reflux disease Take 300 mg by mouth every evening SITagliptin (JANUVIA) 25 mg tabletIndications :type 2 diabetes mellitus Take 100 mg by mouth daily atorvastatin (LIPITOR) 10 mg tablet Take 10 mg by mouth daily. 09/22/2018 added in this encounter Active and Recently Administered Medications Times are shown in TECHNICAL DIRECTOR. Scheduled Medication Order 03/29/2018 03/30/2018 03/31/2018 amLODIPine (NORVASC) tablet 5 mg 5 mg, oral, Daily, First dose (after last modification) on 03/31/18 at 0900 2311 (Given - Provider: Alley Brennan RN - Comment: PCP says to give now.) ketorolac (TORADOL) intramuscular injection 60 mg (COMPLETED) 60 mg, intramuscular, Once, On Mon03/30/18 at 2258, For 1 dose 2304 (Given - Provider: Alley Brennan RN) LORazepam (ATIVAN) tablet 1 mg (COMPLETED) 1 mg, oral, Once, On Mon03/30/18 at 2248, For 1 dose 2305 (Given - Provider: Alley Brennan RN) documented in this encounter Orders Medications Ordered That Joe ht Not Have Been Administered Count Last Ordered Date First Ordered Date amLODIPine (NORVASC) tablet 10 mg 1 018 ketorolac (TORADOL) injection 60 mg 1 03/30 documented in this encounter Care Teams Plan Nurse Relationship Specialty Start Date End Date Isra Mahmood MD [address] [place] [id number] PCP - General 03/30/18 04/07/24 documented as of this encounter
== END 2024-05-17 05:29 | disposition home or self-care (01) ==
PROVIDERS: Emergency Provider Emergency Medicine; PCP Family Medicine
DX: N48.33 Priapism, drug-induced (principal); T46.7X5A Adverse effect of peripheral vasodilators, initial encounter; E11.9 Type 2 diabetes mellitus without complications; Z79.84 Long term (current) use of oral hypoglycemic drugs; Z79.890 Hormone replacement therapy
CPT/HCPCS: 54220; 96374; 99284; J2003; J2371